=== PATIENT | female | born 1960 | race Caucasian/White ===

== ENCOUNTER 2019-04-16 06:44 | Inpatient (IN) | payer OTHER ==
[2019-04-16 07:33] VITALS: BMI 36.7
[2019-04-16] MEDS ORDERED: VANCOMYCIN 1 GM in D5W (PRE-DOCKED) 1,000 MG/250 ML IVPB ONE (07:51)
--- NOTE | 2019-04-16 07:56 | PDOC ---
History of Present Illness - General Chief Complaint: Wound Stated Complaint: WOUND PAIN Time Seen by Provider: 04/16/19 07:25 - History of Present Illness Initial Comments: 04/16/19 07:52 58 yo F PMH IDDM, chronic wound issues seeing Dr. Gabriel and [facility], last yesterday, most recently lateral LLE wound for approximately the last 3 months s/p multiple debridements, using gentamycin and Santyl ointment, presenting with LLE pain. Reports that she developed severe pain last night and did not respond to Aleve as it normally would, has worsened through the night and was unable to sleep, 10/10 pain, now with greater redness and tenderness around the margins of the wound. Reportedly has not had systemic symptoms (no fevers/chills, GONZALEZ, N/V, constipation/diarrhea, CP, SOB, urinary changes). Reports that diabetes has been well-controlled, fasting sugars in the 90s. Was supposed to get MRI yesterday to check for osteomyelitis Past History - Past Medical History Allergies/Adverse Reactions: Allergies Allergy/AdvReac Type Severity Reaction Status Date / Time No Known Allergies Allergy Verified 04/16/19 07:31 Home Medications: Ambulatory Orders Gabapentin [Neurontin -] 300 mg PO BID 03/22/18 Liraglutide [Victoza -] 1.8 mg IJ DAILY 03/22/18 Atorvastatin Ca [Lipitor] 1 tab PO DAILY 04/09/18 metFORMIN HCL [Metformin HCl ER] 1 tab PO BID 04/08/19 Cyanocobalamin [Vitamin B12 -] 1 tab PO DAILY 04/11/19 Insulin Glargine,Hum.rec.anlog [Basaglar Kwikpen U-100] 12 units SQ ACDIN Meloxicam 15 mg PO DAILY 04/11/19 Multivitamin [One-Daily Multi-Vitamin] 1 tab PO DAILY 04/11/19 Omeprazole 10 mg PO DAILY 04/11/19 Anemia: No Asthma: No Cancer: No Cardiac Disorders: Yes (CARDIAC ARREST X 1) CVA: No COPD: No CHF: No Dementia: No Diabetes: Yes Disorders: No HTN: Yes Hypercholesterolemia: Yes Liver Disease: No Seizures: No Thyroid Disease: No - Surgical History Abdominal Surgery: Yes (GASTRIC BYPASS) Appendectomy: No Cardiac Surgery: No Cholecystectomy: No Lung Surgery: No Neurologic Surgery: No Orthopedic Surgery: Yes (KNEE SURGERY) - Immunization History Immunization Up to Date: No - Psycho Social/Smoking Cessation Hx Smoking History: Former smoker Have you smoked in the past 12 months: No If you are a former smoker, when did you quit?: 2009 Information on smoking cessation initiated: No Hx Alcohol Use: No Drug/Substance Use Hx: No Review of Systems - Review of Systems Able to Perform ROS?: Yes Constitutional: No: Chills, Diaphoresis, Fever HEENTM: No: Recent change in vision, Double Vision, Hearing Loss, Throat Swelling, Difficulty Swallowing Respiratory: No: Cough, Orthopnea, Shortness of Breath Cardiac (ROS): No: Chest Pain, Edema, Irregular Heart Rate, Chest Tightness ABD/GI: No: Constipated, Diarrhea, Nausea, Vomiting : No: Burning, Dysuria, Discharge, Frequency, Flank Pain Musculoskeletal: No: Back Pain, Muscle Pain Integumentary: Yes: Lesions (LLE wound) Neurological: No: Headache, Numbness, Tingling, Weakness, Ataxia, Dizziness *Physical Exam - Vital Signs Last Vital Signs Temp Pulse Resp BP Pulse Ox 98 F 89 18 158/92 100 04/16/19 07:15 04/16/19 07:15 04/16/19 07:15 04/16/19 07:15 04/16/19 07:15 - Physical Exam Comments: 04/16/19 08:11 Gen: well-developed, well-nourished, appears distressed, tearful Neuro: AAOX4, CN II-XII intact, FTN intact, EOMI, PERRLA, 5/5 strength, SILT HEENT: atraumatic, normocephalic, dry mucous membranes Neck: trachea midline, supple CV: regular rate, regular rhythm, no murmurs, rubs, or gallops Pulm: CTA b/l, no wheezing Abd: soft, non-distended, non-tender MSK: full ROM without pain with passive flexion, intact distal pulses Extr: no edema, no deformities Skin: lateral leg wound, approximately 5X6 cm with erythematous and tender margins, no apparent crepitus, no streaking, non-purulent ED Treatment Course - RADIOLOGY Radiology Studies Ordered: Category Date Time Status CHEST X-RAY PORTABLE* [RAD] Stat Radiology 04/16/19 07:50 Ordered Medical Decision Making - Medical Decision Making 04/16/19 08:01 Worsening wound pain in patient with diabetes. No signs of crepitus or compartment syndrome (no pain with passive flexion). - CBC, CMP - EKG, CXR - blood cultures - Ofirmev - admit 04/16/19 08:55 CXR with no acute pathology, tib-fib with no fracture or free air. Discharge - Discharge Information Problems reviewed: Yes Clinical Impression/Diagnosis: Wound cellulitis - Admission Yes - Follow up/Referral Referrals: Birdie De La Fuente MD [Primary Care Provider] - - Patient Discharge Instructions - Post Discharge Activity
[2019-04-16] MEDS ORDERED: ACETAMINOPHEN 1000 MG/100 ML VIAL (NON FORMULARY) IVPB ONE (08:02)
--- NOTE | 2019-04-16 08:15 | PDOC ---
Attending Attestation - Resident Resident Name: Linda Eisenberg - ED Attending Attestation I have performed the following: I have examined & evaluated the patient, The case was reviewed & discussed with the resident, I agree w/resident's findings & plan, Exceptions are as noted - HPI HPI: 04/16/19 08:11 Ms. Hook is a 58 yo F who presents to the ER with a complaint of increasing foot pain She has a PMH of IDDM, HTN, HLD, chronic lateral LLE wound x 3+ months s/p multiple debridements. Pt is currently using gentamycin and Santyl ointment topically. Pt was supposed to have an MRI but could not due to insurance issues. Pt has been having leg pain for which she has been taking Aleve but it has not helped her pain. Currently, her pain is 10/10, surrounding erythema, no drainage, no fevers or chills 04/16/19 08:29 - Physicial Exam PE: 04/16/19 08:12 GENERAL: The patient is in no acute distress. ENT: Ears normal, nares patent, oropharynx clear without exudates. Moist mucous membranes. NECK: Normal range of motion, supple LUNGS: Breath sounds equal, clear to auscultation bilaterally. No wheezes, and no crackles. HEART:Regular rate and rhythm, normal S1 and S2 without murmur, rub or gallop. ABDOMEN: Soft, nontender, normoactive bowel sounds. EXTREMITIES: Normal range of motion, no edema. NEUROLOGICAL: Cranial nerves II through XII grossly intact. Normal speech. No focal neurological deficits. SKIN: lateral leg wound, approximately 5X6 cm with erythematous and tender margins, no apparent crepitus, no streaking, non-purulent 04/16/19 08:37 04/16/19 08:38 - Medical Decision Making 04/16/19 08:38 58 yo F with chronic LLE wound presenting with worsning pain of her left leg wound No systemic signs or symptoms Will do: Labs EKG ABX Xray Admit
[2019-04-16 09:10] LABS: BASO % 0.3 % (0-2.0); EOS % 2.1 % (0-4.5); HEMATOCRIT 36.3 % (32.4-45.2); HEMOGLOBIN 12.1 GM/dL (10.7-15.3); LYMPH % 14.4 % (8-40); MCH 30.4 pg (25.7-33.7); MCHC 33.3 g/dl (32.0-36.0); MEAN CELL VOLUME 91.3 fl (80-96); MEAN PLT VOLUME 8.3 fl (7.5-11.1); MONO % 6.5 % (3.8-10.2); NEUT % 76.7 % (42.8-82.8); PLATELET COUNT 239 K/MM3 (134-434); RBC 3.98 M/mm3 (3.60-5.2); RDW 13.8 % (11.6-15.6); WHITE BLOOD COUNT 8.6 K/mm3 (4.0-10.0)
[2019-04-16] MEDS ORDERED: ACETAMINOPHEN INJECTION 100 ML IVPB ONE (09:17)
[2019-04-16] MEDS ORDERED: PIPERACILLIN/TAZOB 3.375 GM 0 GM/0 ML BAG IVPB ONE (09:36)
[2019-04-16] MEDS ORDERED: VANCOMYCIN 1 GRAM (PRE-DOCKED) 1,000 MG/250 ML BAG IVPB ONE (09:36)
[2019-04-16 09:52] LABS: ALBUMIN 3.6 g/dl (3.4-5.0); BLOOD UREA NITROGEN 16.1 mg/dL (7-18); CALCIUM 9.1 mg/dL (8.5-10.1); CREATININE 0.6 mg/dL (0.55-1.3); POTASSIUM 4.5 mmol/L (3.5-5.1); TOT PROT 6.5 g/dl (6.4-8.2)
[2019-04-16] MEDS ORDERED: PIPERACILLIN/TAZOB 3.375 GM 3.375 GM/50 ML BAG IVPB ONE (10:24)
[2019-04-16] MEDS: PIPERACILLIN/TAZOB 3.375 GM 3.375 GM in DEXTROSE 5%-WATER - 50 ML IVPB SCH ×3 (10:30→18:02)
--- NOTE | 2019-04-16 10:32 | PN ---
Teaching Attending Note Name of Resident: Chandni Mcpherson ATTENDING PHYSICIAN STATEMENT I saw and evaluated the patient. I reviewed the resident's note and discussed the case with the resident. I agree with the resident's findings and plan as documented with exceptions below. SUBJECTIVE: 58 yof with PMHx of IDDM, HTN, HLD, right posterior calf wound since 03/2018, being [facility], s/p HBO, s/p debridement/ santyl/bactroban/HBO treatments with resolution, now with left lateral leg wound since 01/2019, s/p debridement, levaquin in 03/2019, also s/p NAV[facility] ultrasound, recurrent debridements left leg wound, s/p levaquin 750 mg daily for 7 days in 03/2019, comes with worsening left calf wound pain, redness. no fevers, chills, increased discharge or concerns otherwise. OBJECTIVE: Vital Signs Period Temp Pulse Resp BP Sys/Doran Pulse Ox Last 24 Hr 98 F 89 18 158/92 100 Intake & Output 04/13/19 04/14/19 04/15/19 04/16/19 23:59 23:59 23:59 23:59 Weight 188 lb GENERAL: Awake, alert, and fully oriented, in no acute distress, morbidly obese (BMI 36.7). HEAD: Normal with no signs of trauma. EYES: Pupils equal, round and reactive to light, extraocular movements intact, sclera anicteric, conjunctiva clear. No lid lag. EARS, NOSE, THROAT: Ears normal, nares patent, oropharynx clear without exudates. Moist mucous membranes. NECK: Normal range of motion, supple, no JVD noted LUNGS: Breath sounds equal, clear to auscultation bilaterally. No wheezes, and no crackles. No accessory muscle use. HEART: Regular rate and rhythm, normal S1 and S2 ABDOMEN: Soft, obese, nontender, not distended, normoactive bowel sounds, no guarding, no rebound, no masses. MUSCULOSKELETAL: Normal range of motion at all joints. No bony deformities or tenderness. No CVA tenderness. UPPER EXTREMITIES: 2+ pulses, warm, well-perfused. No cyanosis. No clubbing. No peripheral edema. LOWER EXTREMITIES: 2+ pulses, warm, well-perfused. no edema, healed right calf wound, left mid posterior calf with 4x3 cm wound with fat/granulation tissue at base, surrounding erythema/tenderness/hyperpigmentation, no active discharge or foul smell noted. NEUROLOGICAL: AAOx3, Cranial nerves II-XII intact. Normal speech. gait not observed PSYCHIATRIC: Cooperative. Good eye contact. Appropriate mood and affect. SKIN: Warm, dry, normal turgor, no rashes or lesions noted, normal capillary refill. Punctate macular lesions on extremities (chronic per patient) Home Medications Medication Instructions Recorded Gabapentin [Neurontin -] 300 mg PO BID 03/22/18 Liraglutide [Victoza -] 1.8 mg IJ DAILY 03/22/18 Atorvastatin Ca [Lipitor] 1 tab PO DAILY 04/09/18 metFORMIN HCL [Metformin HCl ER] 1 tab PO BID 04/08/19 Cyanocobalamin [Vitamin B12 -] 1 tab PO DAILY 04/11/19 Insulin Glargine,Hum.rec.anlog 12 units SQ ACDIN 04/11/19 [Basaglar Kwikpen U-100] Meloxicam 15 mg PO DAILY 04/11/19 Multivitamin [One-Daily 1 tab PO DAILY 04/11/19 Multi-Vitamin] Omeprazole 10 mg PO DAILY 04/11/19 Active Medications Piperacillin Sod/Tazobactam (Sod 3.375 gm/ Dextrose) 50 mls @ 100 mls/hr IVPB Q8H-IV PRABHAKAR; Protocol Laboratory Tests 04/16/19 04/16/19 04/16/19 08:55 08:55 08:55 WBC 8.6 RBC 3.98 Hgb 12.1 Hct 36.3 MCV 91.3 MCH 30.4 MCHC 33.3 RDW 13.8 Plt Count 239 MPV 8.3 Absolute Neuts (auto) 6.6 Neutrophils % 76.7 Lymphocytes % 14.4 D Monocytes % 6.5 Eosinophils % 2.1 Basophils % 0.3 Nucleated RBC % 0 ESR Sodium 139 Potassium 4.5 Chloride 106 Carbon Dioxide 31 Anion Gap 2 L BUN 16.1 Creatinine 0.6 Est GFR (CKD-EPI)AfAm 114.82 Est GFR (CKD-EPI)NonAf 99.07 Random Glucose 93 Calcium 9.1 Total Bilirubin 1.0 AST 22 ALT 27 Alkaline Phosphatase 136 H C-Reactive Protein 0.5 H Cancelled Total Protein 6.5 Albumin 3.6 04/16/19 08:55 WBC RBC Hgb Hct MCV MCH MCHC RDW Plt Count MPV Absolute Neuts (auto) Neutrophils % Lymphocytes % Monocytes % Eosinophils % Basophils % Nucleated RBC % ESR 44 H Sodium Potassium Chloride Carbon Dioxide Anion Gap BUN Creatinine Est GFR (CKD-EPI)AfAm Est GFR (CKD-EPI)NonAf Random Glucose Calcium Total Bilirubin AST ALT Alkaline Phosphatase C-Reactive Protein Total Protein Albumin Left tibia fibular and CXR results reviewed ASSESSMENT AND PLAN: 58 yof with PMHx of IDDM, HTN, HLD, chronic bilateral leg wounds, right posterior calf, now left lateral leg, comes with LLE wound infection/cellulitis -Acute on chronic LLE wound infection/cellulitis, r/o abscess/osteomyelitis -Failure of outpatient antibiotic treatment -Healed right posterior calf wound -IDDM -HTN -HLD Plan: Prior wound cx noted. Zosyn/vancomycin. ESR/CRP noted. MRI /Duplex LLE Wound care consult Dr. Gabriel, is reportedly planned for skin grafting with Dr. alcala, plastics consult. ID consult Dr. Puckett. abbi, ISS, check A1c. Hold metformin. Continue statin/gabapentin/MVI/PPI DVTPPX Lovenox Dispo pending clinical improvement. Admit to med surg Plan discussed with patient in detail, all questions answered Total admit time 65 min.
[2019-04-16] MEDS: GENTAMICIN SO4 0.1% TOPICAL OINTMENT 15 GM/TUBE TUBE TP SCH ×2 (11:00→11:15)
[2019-04-16] MEDS ORDERED: ACETAMINOPHEN 325 MG TABLET (FP) PO PRN (11:01)
--- NOTE | 2019-04-16 11:14 | HP ---
CHIEF COMPLAINT: LLE pain PCP: Dr. Miguel HISTORY OF PRESENT ILLNESS: 58F w/ pmhx of IDDM, HTN/HLD presents in the ED with a LLE wound ulcer with worsening pain and redness. States she had a wound ulcer on the lateral aspect of her LLE that started in Jan [address] in [address] sees Dr[address] Gabriel at the wound care clinic for treatment. Says she is currently going to hyperbaric therapy for the wound (has at least 20 more sessions left) and last saw Dr. Gabriel last Thursday for wound debridement. She additionally saw Dr. Williamson (plastic surgeon) last Thursday who reported that she would benefit from a skin graft. Since last night, she complained of worsening pain and redness of the wound. When this happens she usually takes Aleve with good relief, but this time the pain was unbearable. Usually she applies Gentamicin ointment and Santyl cream on the wound as prescribed and wraps her wound in a dressing. States she has taken PO abx in the past, last known February. Denies fever, chills, nausea/vomiting, chest pain, sob, abd pain, urinary/bowel symptoms. 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 Has 3 sons Allergies No Known Allergies Allergy (Verified 04/16/19 07:31) HOME MEDICATIONS: Home Medications Medication Instructions Recorded Gabapentin [Neurontin -] 300 mg PO BID 03/22/18 Liraglutide [Victoza -] 1.8 mg IJ DAILY 03/22/18 Atorvastatin Ca [Lipitor] 1 tab PO DAILY 04/09/18 metFORMIN HCL [Metformin HCl ER] 1 tab PO BID 04/08/19 Cyanocobalamin [Vitamin B12 -] 1 tab PO DAILY 04/11/19 Insulin Glargine,Hum.rec.anlog 12 units SQ ACDIN 04/11/19 [Basaglar Kwikpen U-100] Meloxicam 15 mg PO DAILY 04/11/19 Multivitamin [One-Daily 1 tab PO DAILY 04/11/19 Multi-Vitamin] Omeprazole 10 mg PO DAILY 04/11/19 REVIEW OF SYSTEMS CONSTITUTIONAL: Absent: fever, chills, diaphoresis, generalized weakness, malaise, loss of appetite, weight change HEENT: Absent: rhinorrhea, nasal congestion, throat pain, throat swelling, difficulty swallowing, mouth swelling, ear pain, eye pain, visual changes CARDIOVASCULAR: Absent: chest pain, syncope, palpitations, irregular heart rate, lightheadedness , peripheral edema RESPIRATORY: Absent: cough, shortness of breath, dyspnea with exertion, orthopnea, wheezing, stridor, hemoptysis GASTROINTESTINAL: Absent: abdominal pain, abdominal distension, nausea, vomiting, diarrhea, constipation, melena, hematochezia GENITOURINARY: Absent: dysuria, frequency, urgency, hesitancy, hematuria, flank pain, genital pain MUSCULOSKELETAL: +worsening LLE pain at wound, +tenderness/redness Absent: myalgia, arthralgia, joint swelling, back pain, neck pain SKIN: Absent: rash, itching, pallor HEMATOLOGIC/IMMUNOLOGIC: Absent: easy bleeding, easy bruising, lymphadenopathy, frequent infections ENDOCRINE: Absent: unexplained weight gain, unexplained weight loss, heat intolerance, cold intolerance NEUROLOGIC: Absent: headache, focal weakness or paresthesias, dizziness, unsteady gait, seizure, mental status changes, bladder or bowel incontinence PSYCHIATRIC: Absent: anxiety, depression, suicidal or homicidal ideation, hallucinations. PHYSICAL EXAMINATION Vital Signs - 24 hr 04/16/19 07:15 Temperature 98 F Pulse Rate 89 Respiratory 18 Rate Blood Pressure 158/92 O2 Sat by Pulse 100 Oximetry (%) GENERAL: Well-appearing female in NAD. AAOx3. HEENT: AT/NC. EOMI. MMM. Facial symmetry noted. NECK: Normal range of motion, supple without lymphadenopathy, JVD, or masses. LUNGS: CTA B/L. No wheezes, rhonchi, rales noted. HEART: RRR. Normal S1, S2. No murmurs noted. ABDOMEN: Obese. Soft, NT/ND. Normoactive bowel sounds. No masses noted. MUSCULOSKELETAL: Normal range of motion at all joints. No bony deformities or tenderness. No CVA tenderness. UPPER EXTREMITIES: 2+ pulses, warm, well-perfused. No cyanosis. No clubbing. No peripheral edema. LOWER EXTREMITIES: 2+ pulses, warm, well-perfused. Mild peripheral edema b/l. NEUROLOGICAL: Cranial nerves II-XII intact. Normal speech. PSYCHIATRIC: Cooperative. Good eye contact. Appropriate mood and affect. SKIN: Warm, dry, normal turgor. 7x5cm ulcer seen on last aspect of L distal lower leg. No obvious discharge, non-foul smelling; subcutaneous fat seen at the base, with some granulation tissue. Erythematous borders. Extremely tender to light touch. CBC, BMP 04/16/19 08:55 04/16/19 08:55 ASSESSMENT/PLAN: 58F w/ pmhx of IDDM, HTN/HLD presents in the ED with a LLE wound ulcer with worsening pain and redness. #Acute on Chronic LLE wound ulcer; r/o osteomyelitis -IV Vanc/Zosyn given in ED -Wound care/Vasc consulted -Plastic consulted; Per pt, she has outpatient follow up care with plastics for possible skin graft -ID consulted -Tylenol and Toradol for pain PRN -LLE duplex; r/o DVT -LLE MRI; r/o osteomyelitis #IDDM; Stable. Hold all home oral DM meds -Levemir 12U HS -BGMs/ISS ACHS #HTN/HLD; Cont home meds: Atorvastatin 40, Lisinopril 20 #Prophylaxis DVT: Lovenox GI: Cont home med: Omeprazole 40 FEN -PO hydration -Diabetic diet Dispo -Admit to med-surg Visit type - Emergency Visit Emergency Visit: Yes ED Registration Date: 04/16/19 Care time: The patient presented to the Emergency Department on the above date and was hospitalized for further evaluation of their emergent condition. - New Patient This patient is new to me today: Yes Date on this admission: 04/16/19 - Critical Care Critical Care patient: No ATTENDING PHYSICIAN STATEMENT I saw and evaluated the patient. I reviewed the resident's note and discussed the case with the resident. I agree with the resident's findings and plan as documented. SUBJECTIVE: OBJECTIVE: ASSESSMENT AND PLAN:
[2019-04-16] MEDS: COLLAGENASE CLOSTRIDIUM HIST. 30 GRAMS TUBE TP SCH (11:32)
[2019-04-16] MEDS ORDERED: KETOROLAC TROMETHAMINE 15 MG/ML VIAL ONE (11:36)
[2019-04-16] MEDS: VITAMIN B COMP W-C 1 EA TABLET PO SCH (11:45)
[2019-04-16] MEDS: CHOLECALCIFEROL (VIT D3) 1,000 UNIT (25 MCG) TABLET PO SCH (11:45)
[2019-04-16] MEDS: CYANOCOBALAMIN (VITAMIN B-12) 100 MCG TABLET PO SCH (11:45)
[2019-04-16] MEDS ORDERED: ASPIRIN 81 MG CHEWABLE TABLETS ONE (12:25)
[2019-04-16] MEDS ORDERED: PANTOPRAZOLE 40 MG TABLET (FP) ONE (12:25)
[2019-04-16] MEDS ORDERED: GABAPENTIN 100 MG CAPSULE (FP) ONE (12:25)
[2019-04-16] MEDS: PANTOPRAZOLE 40 MG TABLET (FP) PO SCH (12:28)
[2019-04-16] MEDS: GABAPENTIN 300 MG CAPSULE (FP) PO SCH (12:28)
[2019-04-16] MEDS: ASPIRIN 81 MG CHEWABLE TABLETS PO SCH (12:28)
[2019-04-16] MEDS ORDERED: ENOXAPARIN NA (PORCINE) 80 MG/0.8 ML DISP.SYRIN SQ SCH (15:30)
[2019-04-16] MEDS: ENOXAPARIN NA (PORCINE) 100 MG/1 ML DISP.SYRIN SQ SCH ×2 (15:36→22:11)
--- NOTE | 2019-04-16 16:14 | CON.ID ---
<Machelle Cobos - Last Filed: 04/16/19 16:08> Consult - History of Present Illness History of Present Illness: 58 y.o. female with PMH of HTN, HLD, IDDM, b/l LE ulcers, LLE ulcer s/p debridements, being followed by Wound care and receiving HBO presents with c/o sudden increase in pain in LLE since last night. Pt states she normally has pain in LLE but it became severe. She completed a one wk course of antibiotics a few weeks ago. Pt states she also noticed some erythema around the ulcer site. In the ER she had a normal wbc and has been afebrile. She has no other specific complaints. LLE doppler reveals +DVT in Lt superficial fem vein. - History Source History Provided By: Patient Limitations to Obtaining History: No Limitations - Past Medical History Cardio/Vascular: Yes: HTN Endocrine: Yes: Diabetes Mellitus Dermatology: Yes: Other (b/l LE ulcers) - Alcohol/Substance Use Hx Alcohol Use: No - Smoking History Smoking history: Former smoker Have you smoked in the past 12 months: No If you are a former smoker, when did you quit?: 2009 Home Medications - Allergies Allergies/Adverse Reactions: Allergies Allergy/AdvReac Type Severity Reaction Status Date / Time No Known Allergies Allergy Verified 04/16/19 07:31 - Home Medications Home Medications: Ambulatory Orders Gabapentin [Neurontin -] 300 mg PO DAILY 03/22/18 Liraglutide [Victoza -] 1.8 mg IJ DAILY 03/22/18 metFORMIN HCL [Metformin HCl ER] 750 mg PO DAILY 04/08/19 Cyanocobalamin [Vitamin B12 -] 1 tab PO DAILY 04/11/19 Insulin Glargine,Hum.rec.anlog [Basaglar Kwikpen U-100] 12 units SQ HS 04/11/19 Meloxicam 15 mg PO DAILY 04/11/19 Multivitamin [One-Daily Multi-Vitamin] 1 tab PO DAILY 04/11/19 Aspirin [ASA -] 81 mg PO DAILY 04/16/19 Atorvastatin Ca [Lipitor] 40 mg PO DAILY 04/16/19 Cholecalciferol (Vitamin D3) [Vitamin D3] 5,000 unit PO DAILY 04/16/19 Ertugliflozin Pidolate [Steglatro] 15 mg PO DAILY 04/16/19 Lisinopril 20 mg PO DAILY 04/16/19 Omeprazole 40 mg PO DAILY 04/16/19 Vitamin B Complex 1 each PO DAILY 04/16/19 Review of Systems - Review of Systems Constitutional: reports: No Symptoms. denies: Chills, Diaphoresis, Fever, Lethargy, Loss of Appetite, Malaise, Night Sweats, Unintentional Wgt. Loss, Weakness, Other Eyes: reports: No Symptoms. denies: Blind Spots, Blurred Vision, Double Vision , Eye Pain, Floaters, Photophobia, Recent Change in Vision, Other HENT: reports: No Symptoms. denies: Difficult Swallowing, Ear Discharge, Ear Pain, Epistaxis, Gingival Bleeding, Hearing Loss, Mouth Swelling, Nasal Congestion, Ocular Prosthesis, Throat Pain, Toothache, Ringing in Ears, Other Neck: reports: No Symptoms. denies: Decreased ROM, Lumps, Pain on Movement, Stiffness, Swollen Glands, Tenderness, Other Cardiovascular: reports: No Symptoms. denies: Chest Pain, Edema, Palpitations, Shortness of Breath, Other Respiratory: reports: No Symptoms. denies: Cough, Exercise Intolerance, Hemoptysis, Orthopnea, PND, Snoring, SOB, SOB on Exertion, Wheezing, Other Gastrointestinal: reports: No Symptoms. denies: Abdominal Pain, Bloating, Constipation, Diarrhea, Dysphagia, Indigestion, Melena, Nausea, Rectal Bleeding , Vomiting, Vomiting Blood, Other Genitourinary: reports: No Symptoms. denies: Burning, Discharge, Dysuria, Flank Pain, Frequency, Hematuria, Incontinence, Lesions, Menses, Pain, Testicular Mass, Testicular Pain, Testicular Swelling, Urgency, Vaginal Bleeding , Other Musculoskeletal: reports: No Symptoms. denies: Back Pain, Crepitus, Decreased ROM, Extremity Pain, Joint Pain, Joint Swelling, Muscle Pain, Muscle Cramps, Muscle Weakness, Other Integumentary: reports: Erythema, Wound Neurological: reports: No Symptoms. denies: Change in LOC, Change in Speech, Confusion, Dizziness, Headache, Incoordination, Numbness, Parasthesia, Pre- Existing Deficit, Seizure, Syncope, Tremors, Unsteady Gait, Weakness, Other Endocrine: reports: No Symptoms. denies: Excessive Sweating, Flushing, Increased Hunger, Increased Thirst, Intolerance to Cold, Intolerance to Heat, Unexplained Weight Gain, Unexplained Weight Loss, Other Hematology/Lymphatic: reports: No Symptoms. denies: Easily Bruised, Excessive Bleeding, Swollen Glands, Other Psychiatric: reports: No Symptoms. denies: Altered Sleep Pattern, Anxiety, Depression, Hallucinations, Panic, Paranoia, Suicidal, Other Physical Exam Vital Signs: Vital Signs Temperature 97.3 F L 04/16/19 13:28 Pulse Rate 109 H 04/16/19 13:28 Respiratory Rate 20 04/16/19 13:28 Blood Pressure 100/60 04/16/19 13:28 O2 Sat by Pulse Oximetry (%) 98 04/16/19 13:28 Constitutional: Yes: No Distress, Calm Eyes: Yes: Conjunctiva Clear HENT: Yes: Atraumatic Neck: Yes: Supple Cardiovascular: Yes: Regular Rate and Rhythm Respiratory: Yes: CTA Bilaterally Gastrointestinal: Yes: Normal Bowel Sounds, Soft Renal/: Yes: WNL Musculoskeletal: Yes: WNL Extremities: Yes: Erythema Integumentary: Yes: Other Wound/Incision: Yes: Dressing Removed, Other (LLE ulcer 7.5x5 cm approx, no purulence, +mild erythema, +tenderness) Neurological: Yes: Alert, Oriented Psychiatric: Yes: Alert Labs: CBC, BMP 04/16/19 08:55 04/16/19 08:55 Laboratory Tests 04/16/19 04/16/19 04/16/19 08:55 08:55 08:55 WBC 8.6 RBC 3.98 Hgb 12.1 Hct 36.3 MCV 91.3 MCH 30.4 MCHC 33.3 RDW 13.8 Plt Count 239 MPV 8.3 Absolute Neuts (auto) 6.6 Neutrophils % 76.7 Lymphocytes % 14.4 D Monocytes % 6.5 Eosinophils % 2.1 Basophils % 0.3 Nucleated RBC % 0 ESR Sodium 139 Potassium 4.5 Chloride 106 Carbon Dioxide 31 Anion Gap 2 L BUN 16.1 Creatinine 0.6 Est GFR (CKD-EPI)AfAm 114.82 Est GFR (CKD-EPI)NonAf 99.07 POC Glucometer Random Glucose 93 Calcium 9.1 Total Bilirubin 1.0 AST 22 ALT 27 Alkaline Phosphatase 136 H C-Reactive Protein 0.5 H Cancelled Total Protein 6.5 Albumin 3.6 04/16/19 04/16/19 08:55 11:13 WBC RBC Hgb Hct MCV MCH MCHC RDW Plt Count MPV Absolute Neuts (auto) Neutrophils % Lymphocytes % Monocytes % Eosinophils % Basophils % Nucleated RBC % ESR 44 H Sodium Potassium Chloride Carbon Dioxide Anion Gap BUN Creatinine Est GFR (CKD-EPI)AfAm Est GFR (CKD-EPI)NonAf POC Glucometer 80 Random Glucose Calcium Total Bilirubin AST ALT Alkaline Phosphatase C-Reactive Protein Total Protein Albumin Imaging - Results X-ray: Report Reviewed Ultrasound: Report Reviewed Problem List - Problems (1) Wound cellulitis Code(s): L03.90 - CELLULITIS, UNSPECIFIED (2) Type 2 diabetes mellitus with diabetic polyneuropathy Code(s): E11.42 - TYPE 2 DIABETES MELLITUS WITH DIABETIC POLYNEUROPATHY Assessment/Plan LLE DVT LLE ulcer - possible cellulitis IDDM HTN HLD -- will continue antibiotics for now -- Anticoagulation ordered -- daily wound care -- Plastics to follow - graft had been planned Will follow Thank you <Piter Williamson - Last Filed: 04/16/19 20:43> Physical Exam Vital Signs: Vital Signs Temperature 97.3 F L 04/16/19 13:28 Pulse Rate 109 H 04/16/19 13:28 Respiratory Rate 20 04/16/19 13:28 Blood Pressure 100/60 04/16/19 13:28 O2 Sat by Pulse Oximetry (%) 98 04/16/19 13:28 Labs: CBC, BMP 04/16/19 08:55 04/16/19 08:55
[2019-04-16] MEDS: INSULIN SLIDING SCALE (NOVOLOG) 1 VIAL SQ SCH ×2 (17:30→23:41)
[2019-04-16] MEDS ORDERED: DEXTROSE 5%-WATER - 50 ML IVPB ONE (17:59)
[2019-04-16] MEDS ORDERED: PIPERACILLIN/TAZOBACTAM 3.375 GM VIAL IVPB ONE (17:59)
[2019-04-16] MEDS: KETOROLAC TROMETHAMINE 15 MG/ML VIAL IVPUSH PRN (18:02)
--- NOTE | 2019-04-16 20:06 | PN ---
Progress Note (short form) - Note Progress Note: 58 year old female wit acute trauma Left let Leg h
[2019-04-16] MEDS: LIDOCAINE HCL 2% JELLY (30 ML/TUBE) TP PRN (22:10)
[2019-04-16] MEDS: ATORVASTATIN CA 40 MG TABLET (FP) PO SCH (22:11)
[2019-04-17] MEDS ORDERED: PIPERACILLIN/TAZOBACTAM 3.375 GM VIAL IVPB ONE ×3 (02:43→17:33)
[2019-04-17] MEDS ORDERED: DEXTROSE 5%-WATER - 50 ML IVPB ONE ×3 (02:43→17:33)
[2019-04-17] MEDS: PIPERACILLIN/TAZOB 3.375 GM 3.375 GM in DEXTROSE 5%-WATER - 50 ML IVPB SCH ×3 (02:44→17:42)
[2019-04-17] MEDS: KETOROLAC TROMETHAMINE 15 MG/ML VIAL IVPUSH PRN ×2 (02:45→18:00)
[2019-04-17] MEDS: LIDOCAINE HCL 2% JELLY (30 ML/TUBE) TP PRN (06:20)
[2019-04-17] MEDS: INSULIN SLIDING SCALE (NOVOLOG) 1 VIAL SQ SCH ×4 (06:20→21:16)
[2019-04-17 07:57] LABS: HEMATOCRIT 32.8 % (32.4-45.2); HEMOGLOBIN 11.1 GM/dL (10.7-15.3); MCH 30.8 pg (25.7-33.7); MCHC 33.8 g/dl (32.0-36.0); MEAN CELL VOLUME 91.2 fl (80-96); MEAN PLT VOLUME 8.7 fl (7.5-11.1); PLATELET COUNT 214 K/MM3 (134-434); RDW 13.9 % (11.6-15.6); WHITE BLOOD COUNT 6.1 K/mm3 (4.0-10.0)
[2019-04-17 08:45] LABS: BLOOD UREA NITROGEN 20.9 mg/dL (7-18); CALCIUM 8.6 mg/dL (8.5-10.1); CREATININE 0.7 mg/dL (0.55-1.3); POTASSIUM 4.6 mmol/L (3.5-5.1)
[2019-04-17] MEDS: CHOLECALCIFEROL (VIT D3) 1,000 UNIT (25 MCG) TABLET PO SCH (09:09)
[2019-04-17] MEDS: ENOXAPARIN NA (PORCINE) 100 MG/1 ML DISP.SYRIN SQ SCH ×2 (09:09→21:17)
[2019-04-17] MEDS: VITAMIN B COMP W-C 1 EA TABLET PO SCH (09:09)
[2019-04-17] MEDS: CYANOCOBALAMIN (VITAMIN B-12) 100 MCG TABLET PO SCH (09:09)
[2019-04-17] MEDS: ASPIRIN 81 MG CHEWABLE TABLETS PO SCH (09:09)
[2019-04-17] MEDS: GABAPENTIN 300 MG CAPSULE (FP) PO SCH (09:09)
[2019-04-17] MEDS: PANTOPRAZOLE 40 MG TABLET (FP) PO SCH (09:09)
[2019-04-17] MEDS ORDERED: ENOXAPARIN NA (PORCINE) 40 MG/0.4 ML DISP.SYRIN SQ SCH (10:00)
--- NOTE | 2019-04-17 10:51 | EKG ---
Test Reason : Blood Pressure : / mmHG Vent. Rate : 091 BPM Atrial Rate : 091 BPM P-R Int : 144 ms QRS Dur : 068 ms QT Int : 356 ms P-R-T Axes : 039 008 041 degrees QTc Int : 437 ms NORMAL SINUS RHYTHM NORMAL ECG NO PREVIOUS ECGS AVAILABLE Confirmed by SUZIE PARKER MD ([id number]) on 04/17/2019 10:51:33 AM Referred By: Confirmed By:SUZIE PARKER MD
--- NOTE | 2019-04-17 10:59 | PN ---
Physical Exam: SUBJECTIVE: Patient seen and examined, leg symptoms improved, aware of the clot , no new complaints. OBJECTIVE: Vital Signs Period Temp Pulse Resp BP Sys/Doran Pulse Ox Last 24 Hr 97.3 F-98.6 F 84-109 18-20 100-136/57-78 98-99 Intake & Output 04/14/19 04/15/19 04/16/19 04/17/19 23:59 23:59 23:59 23:59 Intake Total 490 254 Balance 490 254 Weight 188 lb GENERAL: sitting in bed, no acute distress, morbid obesity (BMI 36.7) neck: soft, supple Chest: CTAB, no rales or wheezing Abdomen:Soft, obese, NT Extremities: LLE 2+ pulses, warm, well-perfused. no edema, healed right calf wound, left mid posterior calf with 4x3 cm wound with fat/granulation tissue at base, surrounding erythema/tenderness with improvement, no active discharge or foul smell noted. Laboratory Results - last 24 hr 04/16/19 04/16/19 04/16/19 11:13 17:03 20:42 WBC RBC Hgb Hct MCV MCH MCHC RDW Plt Count MPV Sodium Potassium Chloride Carbon Dioxide Anion Gap BUN Creatinine Est GFR (CKD-EPI)AfAm Est GFR (CKD-EPI)NonAf POC Glucometer 80 69 92 Random Glucose Hemoglobin A1c % Calcium 04/17/19 04/17/19 04/17/19 05:17 07:05 07:05 WBC 6.1 RBC 3.60 Hgb 11.1 Hct 32.8 MCV 91.2 MCH 30.8 MCHC 33.8 RDW 13.9 Plt Count 214 MPV 8.7 Sodium 143 Potassium 4.6 Chloride 109 H Carbon Dioxide 29 Anion Gap 5 L BUN 20.9 H Creatinine 0.7 Est GFR (CKD-EPI)AfAm 109.15 Est GFR (CKD-EPI)NonAf 94.17 POC Glucometer 98 Random Glucose 97 Hemoglobin A1c % Calcium 8.6 04/17/19 07:05 WBC RBC Hgb Hct MCV MCH MCHC RDW Plt Count MPV Sodium Potassium Chloride Carbon Dioxide Anion Gap BUN Creatinine Est GFR (CKD-EPI)AfAm Est GFR (CKD-EPI)NonAf POC Glucometer Random Glucose Hemoglobin A1c % 7.1 H Calcium Active Medications Generic Name Dose Route Start Last Admin Trade Name Freq PRN Reason Stop Dose Admin Acetaminophen 650 mg 04/16/19 11:01 04/16/19 20:39 Tylenol - PO 650 mg Q4H PRN Administration PAIN LEVEL 1-5 Aspirin 81 mg 04/16/19 11:45 04/17/19 09:09 Asa - PO 81 mg DAILY [facility] Administration Atorvastatin Calcium 40 mg 04/16/19 22:00 04/16/19 22:11 Lipitor - PO 40 mg HS [facility] Administration Cholecalciferol 5,000 unit 04/16/19 11:45 04/17/19 09:09 Vitamin D3 - PO 5,000 unit DAILY [facility] Administration Collagenase 1 applic 04/16/19 11:15 04/16/19 11:32 Santyl - TP 1 units DAILY [facility] Administration Protocol Cyanocobalamin 100 mcg 04/16/19 11:45 04/17/19 09:09 Vitamin B12 - PO 100 mcg DAILY [facility] Administration Enoxaparin Sodium 85 mg 04/16/19 15:30 04/17/19 09:09 Lovenox - SQ 85 mg BID [facility] Administration Gabapentin 300 mg 04/16/19 11:45 04/17/19 09:09 Neurontin - PO 300 mg DAILY [facility] Administration Gentamicin Sulfate 1 applic 04/16/19 11:15 04/16/19 11:15 Garamycin 0.1% Ointment - TP Not Given DAILY [facility] Piperacillin Sod/Tazobactam 50 mls @ 100 mls/hr 04/16/19 08:00 04/17/19 09:10 Sod 3.375 gm/ Dextrose IVPB 100 mls/hr Q8H-IV [facility] Administration Protocol Insulin Aspart 1 vial 04/16/19 16:30 04/17/19 06:20 Novolog Vial Sliding Scale - SQ [facility] Protocol Ketorolac Tromethamine 15 mg 04/16/19 11:01 04/17/19 02:45 Toradol Injection - IVPUSH 04/21/19 11:00 15 mg Q6H PRN Administration PAIN LEVEL 6-10 Lidocaine HCl 1 applic 04/16/19 22:00 04/17/19 06:20 Xylocaine 2% Jelly TP 1 appful TID PRN Administration TOPICAL PAIN Multivit/Ca Carb/B Cmplx/FA/Prenat 1 tablet 04/16/19 11:45 04/17/19 09:09 Nephro-Mel - PO 1 tablet DAILY [facility] Administration Pantoprazole Sodium 40 mg 04/16/19 11:45 04/17/19 09:09 Protonix - PO 40 mg DAILY [facility] Administration Duplex LE results noted ASSESSMENT/PLAN: 58 yof with PMHx of IDDM, HTN, HLD, chronic bilateral leg wounds, right posterior calf, now left lateral leg, comes with LLE wound infection/cellulitis -Acute on chronic LLE wound infection/cellulitis, r/o abscess/osteomyelitis -Acute left superficial vein DVT -Failure of outpatient antibiotic treatment -Healed right posterior calf wound -IDDM -HTN -HLD Plan: Started on lovenox, will transition to NOAC if no surgical intervention planned. Discussed findings in detail, discussed need for AC and close follow up outpt. ID input noted. Zosyn/vancomycin. Dr. alcala input noted. [facility] US from this month reviewed, follow up Dr. Gabriel's input. Follow up MRI LLE. A1c 7.1 Low BS yesterday likely from poor oral intake till evening. Off levemir for now. resume based on BGM. Continue ISS, hold metformin. Continue statin/gabapentin/MVI/PPI DVTPPX full dose lovenox as above Dispo pending clinical improvement. Plan discussed with patient in detail, all questions answered Visit type - Emergency Visit Emergency Visit: Yes ED Registration Date: 04/16/19 Care time: The patient presented to the Emergency Department on the above date and was hospitalized for further evaluation of their emergent condition. - New Patient This patient is new to me today: No - Critical Care Critical Care patient: No - Discharge Referral Referred to [facility] Med P.C.: No
[2019-04-17] MEDS: COLLAGENASE CLOSTRIDIUM HIST. 30 GRAMS TUBE TP SCH ×2 (11:00→16:56)
[2019-04-17] MEDS: GENTAMICIN SO4 0.1% TOPICAL OINTMENT 15 GM/TUBE TUBE TP SCH (11:00)
--- NOTE | 2019-04-17 17:53 | PN ---
Progress Note, Physician History of Present Illness: Pt states she is feeling a bit better. States she ambulated a bit in the hallway earlier, still with some LLE pain. - Current Medication List Current Medications: Active Medications Acetaminophen (Tylenol -) 650 mg PO Q4H PRN PRN Reason: PAIN LEVEL 1-5 Last Admin: 04/16/19 20:39 Dose: 650 mg Aspirin (Asa -) 81 mg PO DAILY [facility] Last Admin: 04/17/19 09:09 Dose: 81 mg Atorvastatin Calcium (Lipitor -) 40 mg PO HS [facility] Last Admin: 04/16/19 22:11 Dose: 40 mg Cholecalciferol (Vitamin D3 -) 5,000 unit PO DAILY [facility] Last Admin: 04/17/19 09:09 Dose: 5,000 unit Collagenase (Santyl -) 1 applic TP DAILY [facility]; Protocol Last Admin: 04/17/19 16:56 Dose: Not Given Cyanocobalamin (Vitamin B12 -) 100 mcg PO DAILY [facility] Last Admin: 04/17/19 09:09 Dose: 100 mcg Enoxaparin Sodium (Lovenox -) 85 mg SQ BID [facility] Last Admin: 04/17/19 09:09 Dose: 85 mg Gabapentin (Neurontin -) 300 mg PO DAILY [facility] Last Admin: 04/17/19 09:09 Dose: 300 mg Gentamicin Sulfate (Garamycin 0.1% Ointment -) 1 applic TP DAILY [facility] Last Admin: 04/17/19 11:00 Dose: 1 applic Piperacillin Sod/Tazobactam (Sod 3.375 gm/ Dextrose) 50 mls @ 100 mls/hr IVPB Q8H-IV [facility]; Protocol Last Admin: 04/17/19 17:42 Dose: 100 mls/hr Insulin Aspart (Novolog Vial Sliding Scale -) 1 vial SQ ACHS [facility]; Protocol Last Admin: 04/17/19 16:53 Dose: Not Given Ketorolac Tromethamine (Toradol Injection -) 15 mg IVPUSH Q6H PRN PRN Reason: PAIN LEVEL 6-10 Stop: 04/21/19 11:00 Last Admin: 04/17/19 02:45 Dose: 15 mg Lidocaine HCl (Xylocaine 2% Jelly) 1 applic TP TID PRN PRN Reason: TOPICAL PAIN Last Admin: 04/17/19 06:20 Dose: 1 appful Multivit/Ca Carb/B Cmplx/FA/Prenat (Nephro-Mel -) 1 tablet PO DAILY [facility] Last Admin: 04/17/19 09:09 Dose: 1 tablet Pantoprazole Sodium (Protonix -) 40 mg PO DAILY [facility] Last Admin: 04/17/19 09:09 Dose: 40 mg - Objective Vital Signs: Vital Signs Temperature 98.8 F 04/17/19 13:32 Pulse Rate 95 H 04/17/19 13:32 Respiratory Rate 18 04/17/19 13:32 Blood Pressure 115/65 04/17/19 13:32 O2 Sat by Pulse Oximetry (%) 98 04/16/19 13:28 Constitutional: Yes: No Distress, Calm Cardiovascular: Yes: Regular Rate and Rhythm Respiratory: Yes: Regular Gastrointestinal: Yes: Normal Bowel Sounds, Soft Extremities: Yes: Other (LLE with mild tenderness to touch) Wound/Incision: Yes: Dressing Dry and Intact Labs: CBC, BMP 04/17/19 07:05 04/17/19 07:05 Problem List - Problems (1) Wound cellulitis Code(s): L03.90 - CELLULITIS, UNSPECIFIED (2) Type 2 diabetes mellitus with diabetic polyneuropathy Code(s): E11.42 - TYPE 2 DIABETES MELLITUS WITH DIABETIC POLYNEUROPATHY Assessment/Plan LLE DVT chronic LLE ulcer/possible cellulitis IDDM HTN HLD -- continue Zosyn for now -- on AC -- daily wound care -- Plastics to follow - graft had been planned Pt is feeling slightly better
[2019-04-17] MEDS ORDERED: INSULIN (NOVOLOG) ASPART 100 UNITS/ML 10ML VIAL ONE (21:00)
[2019-04-17] MEDS: ATORVASTATIN CA 40 MG TABLET (FP) PO SCH (21:16)
[2019-04-18] MEDS: KETOROLAC TROMETHAMINE 15 MG/ML VIAL IVPUSH PRN ×4 (00:11→23:48)
[2019-04-18] MEDS: LIDOCAINE HCL 2% JELLY (30 ML/TUBE) TP PRN (00:52)
[2019-04-18] MEDS ORDERED: PIPERACILLIN/TAZOBACTAM 3.375 GM VIAL IVPB ONE ×3 (01:36→17:13)
[2019-04-18] MEDS ORDERED: DEXTROSE 5%-WATER - 50 ML IVPB ONE ×3 (01:37→17:14)
[2019-04-18] MEDS: PIPERACILLIN/TAZOB 3.375 GM 3.375 GM in DEXTROSE 5%-WATER - 50 ML IVPB SCH ×3 (02:10→17:42)
[2019-04-18] MEDS: INSULIN SLIDING SCALE (NOVOLOG) 1 VIAL SQ SCH ×4 (06:19→21:37)
[2019-04-18] MEDS: VITAMIN B COMP W-C 1 EA TABLET PO SCH (09:29)
[2019-04-18] MEDS: GENTAMICIN SO4 0.1% TOPICAL OINTMENT 15 GM/TUBE TUBE TP SCH (09:29)
[2019-04-18] MEDS: PANTOPRAZOLE 40 MG TABLET (FP) PO SCH (09:29)
[2019-04-18] MEDS: CHOLECALCIFEROL (VIT D3) 1,000 UNIT (25 MCG) TABLET PO SCH (09:29)
[2019-04-18] MEDS: GABAPENTIN 300 MG CAPSULE (FP) PO SCH (09:29)
[2019-04-18] MEDS: CYANOCOBALAMIN (VITAMIN B-12) 100 MCG TABLET PO SCH (09:29)
[2019-04-18] MEDS: COLLAGENASE CLOSTRIDIUM HIST. 30 GRAMS TUBE TP SCH (09:30)
--- NOTE | 2019-04-18 10:43 | PN ---
Teaching Attending Note Name of Resident: Lavon Mir ATTENDING PHYSICIAN STATEMENT I saw and evaluated the patient. I reviewed the resident's note and discussed the case with the resident. I agree with the resident's findings and plan as documented with exceptions below. SUBJECTIVE: Patient seen and examined. Leg symptoms improved, no fevers, chills or concerns otherwise. OBJECTIVE: Vital Signs Period Temp Pulse Resp BP Sys/Doran Pulse Ox Last 24 Hr 98.1 F-98.8 F 85-100 18-20 115-158/60-94 Intake & Output 04/15/19 04/16/19 04/17/19 04/18/19 23:59 23:59 23:59 23:59 Intake Total 490 1304 300 Balance 490 1304 300 Weight 188 lb General: sitting in bed, no acute distress neck: soft, supple Chest: CTAb, no rales or wheezing Abdomen:Soft, obese, NT Extremities: left posterior calf wound with granulation tissue/fibrinous exudate at the base, surround erythema/swelling/tenderness improved, pos DP pulses Home Medications Medication Instructions Recorded Gabapentin [Neurontin -] 300 mg PO DAILY 03/22/18 Liraglutide [Victoza -] 1.8 mg IJ DAILY 03/22/18 metFORMIN HCL [Metformin HCl ER] 750 mg PO DAILY 04/08/19 Cyanocobalamin [Vitamin B12 -] 1 tab PO DAILY 04/11/19 Insulin Glargine,Hum.rec.anlog 12 units SQ HS 04/11/19 [Basaglar Kwikpen U-100] Meloxicam 15 mg PO DAILY 04/11/19 Multivitamin [One-Daily 1 tab PO DAILY 04/11/19 Multi-Vitamin] Aspirin [ASA -] 81 mg PO DAILY 04/16/19 Atorvastatin Ca [Lipitor] 40 mg PO DAILY 04/16/19 Cholecalciferol (Vitamin D3) 5,000 unit PO DAILY 04/16/19 [Vitamin D3] Ertugliflozin Pidolate [Steglatro] 15 mg PO DAILY 04/16/19 Lisinopril 20 mg PO DAILY 04/16/19 Omeprazole 40 mg PO DAILY 04/16/19 Vitamin B Complex 1 each PO DAILY 04/16/19 Active Medications Acetaminophen (Tylenol -) 650 mg PO Q4H PRN PRN Reason: PAIN LEVEL 1-5 Last Admin: 04/16/19 20:39 Dose: 650 mg Aspirin (Asa -) 81 mg PO DAILY [facility] Last Admin: 04/17/19 09:09 Dose: 81 mg Atorvastatin Calcium (Lipitor -) 40 mg PO HS [facility] Last Admin: 04/17/19 21:16 Dose: 40 mg Cholecalciferol (Vitamin D3 -) 5,000 unit PO DAILY [facility] Last Admin: 04/18/19 09:29 Dose: 5,000 unit Collagenase (Santyl -) 1 applic TP DAILY [facility]; Protocol Last Admin: 04/18/19 09:30 Dose: 1 applic Cyanocobalamin (Vitamin B12 -) 100 mcg PO DAILY [facility] Last Admin: 04/18/19 09:29 Dose: 100 mcg Enoxaparin Sodium (Lovenox -) 85 mg SQ BID [facility] Last Admin: 04/17/19 21:17 Dose: 85 mg Gabapentin (Neurontin -) 300 mg PO DAILY [facility] Last Admin: 04/18/19 09:29 Dose: 300 mg Gentamicin Sulfate (Garamycin 0.1% Ointment -) 1 applic TP DAILY [facility] Last Admin: 04/18/19 09:29 Dose: 1 applic Piperacillin Sod/Tazobactam (Sod 3.375 gm/ Dextrose) 50 mls @ 100 mls/hr IVPB Q8H-IV [facility]; Protocol Last Admin: 04/18/19 09:30 Dose: 100 mls/hr Insulin Aspart (Novolog Vial Sliding Scale -) 1 vial SQ ACHS [facility]; Protocol Last Admin: 04/18/19 06:19 Dose: Not Given Ketorolac Tromethamine (Toradol Injection -) 15 mg IVPUSH Q6H PRN PRN Reason: PAIN LEVEL 6-10 Stop: 04/21/19 11:00 Last Admin: 04/18/19 06:42 Dose: 15 mg Lidocaine HCl (Xylocaine 2% Jelly) 1 applic TP TID PRN PRN Reason: TOPICAL PAIN Last Admin: 04/18/19 00:52 Dose: 1 applic Multivit/Ca Carb/B Cmplx/FA/Prenat (Nephro-Mel -) 1 tablet PO DAILY [facility] Last Admin: 04/18/19 09:29 Dose: 1 tablet Pantoprazole Sodium (Protonix -) 40 mg PO DAILY [facility] Last Admin: 04/18/19 09:29 Dose: 40 mg Laboratory Results - last 24 hr 04/17/19 04/17/19 04/17/19 11:32 16:51 21:15 POC Glucometer 118 122 173 04/18/19 05:37 POC Glucometer 139 ASSESSMENT AND PLAN: 58 yof with PMHx of IDDM, HTN, HLD, chronic bilateral leg wounds, right posterior calf, now left lateral leg, comes with LLE wound infection/cellulitis -Acute on chronic LLE wound infection/cellulitis -Acute left superficial vein DVT -Failure of outpatient antibiotic treatment -Healed right posterior calf wound -Reported ?"cardiac arrest" during Knee surgery in 2014 -IDDM -HTN -HLD Plan: Leg findings improved. MRI neg for abscess/osteomyelitis. ID input noted. Zosyn. Follow up wound cx. Blood cx neg. Duplex with left superficial femoral DVT. ' Lovenox full dose, on hold pending surgical plans Plan to transition to NOAC when no further surgical intervention planned. Patient reports ?"cardiac arrest" during knee surgery in 2014. Retrieve outpatient records from language specialist Dr. Werner at [facility]. Cardiology consult for pre-op risk stratification. Samaria PÉREZ from this month reviewed, follow up Dr. Gabriel's input. A1c 7.1 Low BS yesterday likely from poor oral intake till evening. Off levemir for now. resume based on BGM. Continue ISS, hold metformin. Continue statin/gabapentin/MVI/PPI DVTPPX full dose lovenox as above Dispo pending clinical improvement. Plan discussed with patient in detail, all questions answered
--- NOTE | 2019-04-18 11:22 | PN ---
Progress Note, Physician History of Present Illness: stable no complaints plastic on the case - Current Medication List Current Medications: Active Medications Acetaminophen (Tylenol -) 650 mg PO Q4H PRN PRN Reason: PAIN LEVEL 1-5 Last Admin: 04/16/19 20:39 Dose: 650 mg Aspirin (Asa -) 81 mg PO DAILY [facility] Last Admin: 04/17/19 09:09 Dose: 81 mg Atorvastatin Calcium (Lipitor -) 40 mg PO HS [facility] Last Admin: 04/17/19 21:16 Dose: 40 mg Cholecalciferol (Vitamin D3 -) 5,000 unit PO DAILY [facility] Last Admin: 04/18/19 09:29 Dose: 5,000 unit Collagenase (Santyl -) 1 applic TP DAILY [facility]; Protocol Last Admin: 04/18/19 09:30 Dose: 1 applic Cyanocobalamin (Vitamin B12 -) 100 mcg PO DAILY [facility] Last Admin: 04/18/19 09:29 Dose: 100 mcg Enoxaparin Sodium (Lovenox -) 85 mg SQ BID [facility] Last Admin: 04/17/19 21:17 Dose: 85 mg Gabapentin (Neurontin -) 300 mg PO DAILY [facility] Last Admin: 04/18/19 09:29 Dose: 300 mg Gentamicin Sulfate (Garamycin 0.1% Ointment -) 1 applic TP DAILY [facility] Last Admin: 04/18/19 09:29 Dose: 1 applic Piperacillin Sod/Tazobactam (Sod 3.375 gm/ Dextrose) 50 mls @ 100 mls/hr IVPB Q8H-IV [facility]; Protocol Last Admin: 04/18/19 09:30 Dose: 100 mls/hr Insulin Aspart (Novolog Vial Sliding Scale -) 1 vial SQ ACHS [facility]; Protocol Last Admin: 04/18/19 06:19 Dose: Not Given Ketorolac Tromethamine (Toradol Injection -) 15 mg IVPUSH Q6H PRN PRN Reason: PAIN LEVEL 6-10 Stop: 04/21/19 11:00 Last Admin: 04/18/19 06:42 Dose: 15 mg Lidocaine HCl (Xylocaine 2% Jelly) 1 applic TP TID PRN PRN Reason: TOPICAL PAIN Last Admin: 04/18/19 00:52 Dose: 1 applic Multivit/Ca Carb/B Cmplx/FA/Prenat (Nephro-Mel -) 1 tablet PO DAILY [facility] Last Admin: 04/18/19 09:29 Dose: 1 tablet Pantoprazole Sodium (Protonix -) 40 mg PO DAILY [facility] Last Admin: 04/18/19 09:29 Dose: 40 mg - Objective Vital Signs: Vital Signs Temperature 98.3 F 04/18/19 10:00 Pulse Rate 85 04/18/19 10:00 Respiratory Rate 19 04/18/19 10:00 Blood Pressure 158/94 04/18/19 10:00 O2 Sat by Pulse Oximetry (%) 98 04/18/19 09:00 Constitutional: Yes: No Distress, Calm Cardiovascular: Yes: S1, S2 Respiratory: Yes: Regular, CTA Bilaterally Gastrointestinal: Yes: Normal Bowel Sounds, Soft Musculoskeletal: Yes: WNL Extremities: Yes: Other Wound/Incision: Yes: Dressing Dry and Intact Neurological: Yes: Alert, Oriented Psychiatric: Yes: Alert, Oriented Assessment/Plan Problem List - Problems (1) Wound cellulitis Code(s): L03.90 - CELLULITIS, UNSPECIFIED (2) Type 2 diabetes mellitus with diabetic polyneuropathy Code(s): E11.42 - TYPE 2 DIABETES MELLITUS WITH DIABETIC POLYNEUROPATHY Assessment/Plan LLE DVT chronic LLE ulcer/possible cellulitis IDDM HTN HLD -- continue Zosyn for now -- on AC -- daily wound care -- Plastics to follow - graft had been planned Pt is feeling slightly better
[2019-04-18 11:30] LABS: HEMATOCRIT 35.6 % (32.4-45.2); HEMOGLOBIN 11.6 GM/dL (10.7-15.3); MCH 30.3 pg (25.7-33.7); MCHC 32.6 g/dl (32.0-36.0); MEAN CELL VOLUME 93.1 fl (80-96); MEAN PLT VOLUME 9.2 fl (7.5-11.1); PLATELET COUNT 230 K/MM3 (134-434); RBC 3.82 M/mm3 (3.60-5.2); RDW 14.2 % (11.6-15.6); WHITE BLOOD COUNT 6.3 K/mm3 (4.0-10.0)
[2019-04-18 11:50] LABS: BLOOD UREA NITROGEN 23.9 mg/dL (7-18); CALCIUM 8.9 mg/dL (8.5-10.1); CREATININE 0.7 mg/dL (0.55-1.3); MAGNESIUM 2.1 mg/dL (1.8-2.4); PHOSPHOROUS 4.2 mg/dL (2.5-4.9); POTASSIUM 4.1 mmol/L (3.5-5.1)
--- NOTE | 2019-04-18 13:29 | PN ---
Physical Exam: SUBJECTIVE: Patient seen and examined NAEON Improved pain in LLE. Denies fevers. Denies numbness of LLE OBJECTIVE: Vital Signs Period Temp Pulse Resp BP Sys/Doran Pulse Ox Last 24 Hr 98.1 F-98.8 F 85-100 18-20 115-158/60-94 98 GENERAL: NAD. Mildly anxious. HEAD: NC/AT. Mild temporal wasting EYES: sclera anicteric, conjunctiva clear. No ptosis. ENT: Ears normal, nares patent, moist mucous membranes. NECK: Trachea midline, full range of motion, supple. LUNGS: Breath sounds equal, clear to auscultation bilaterally, no wheezes, no crackles, no accessory muscle use. HEART: Regular rate and rhythm, S1, S2 without murmur, rub or gallop. ABDOMEN: Soft, nontender, nondistended, no guarding, no rebound. EXTREMITIES: 1+ pulses of BLE DP, warm, well-perfused. Left lateral lower leg with ulcerated wound w/ fibrinous exudate, no drainage; ~ 5cm x3cm; wound bed with pink granulation tissue, dried wound edges without undermining; diffuse erythema w/o discrete demarcation, no TTP beyond erythema. Left knee with well- healed vertical incision. Scabbing medial wounds to RLE. Scabbing medial wounds to LLE. Left foot with ecchymosis to 2nd-3rd base of toes; warm. Able to move toes w/o restrictions NEUROLOGICAL: Normal speech, gait not observed. PSYCH: Normal mood, normal affect. Slightly anxious Laboratory Results - last 24 hr 04/17/19 04/17/19 04/18/19 16:51 21:15 05:37 WBC RBC Hgb Hct MCV MCH MCHC RDW Plt Count MPV Sodium Potassium Chloride Carbon Dioxide Anion Gap BUN Creatinine Est GFR (CKD-EPI)AfAm Est GFR (CKD-EPI)NonAf POC Glucometer 122 173 139 Random Glucose Calcium Phosphorus Magnesium Blood Type Antibody Screen 04/18/19 04/18/19 04/18/19 10:45 10:45 10:45 WBC 6.3 RBC 3.82 Hgb 11.6 Hct 35.6 MCV 93.1 MCH 30.3 MCHC 32.6 RDW 14.2 Plt Count 230 MPV 9.2 Sodium 140 Potassium 4.1 Chloride 108 H Carbon Dioxide 28 Anion Gap 4 L BUN 23.9 H Creatinine 0.7 Est GFR (CKD-EPI)AfAm 109.15 Est GFR (CKD-EPI)NonAf 94.17 POC Glucometer Random Glucose 130 H Calcium 8.9 Phosphorus 4.2 Magnesium 2.1 Blood Type O POSITIVE Antibody Screen Negative 04/18/19 12:03 WBC RBC Hgb Hct MCV MCH MCHC RDW Plt Count MPV Sodium Potassium Chloride Carbon Dioxide Anion Gap BUN Creatinine Est GFR (CKD-EPI)AfAm Est GFR (CKD-EPI)NonAf POC Glucometer 113 Random Glucose Calcium Phosphorus Magnesium Blood Type Antibody Screen Active Medications Generic Name Dose Route Start Last Admin Trade Name Freq PRN Reason Stop Dose Admin Acetaminophen 650 mg 04/16/19 11:01 04/16/19 20:39 Tylenol - PO 650 mg Q4H PRN Administration PAIN LEVEL 1-5 Aspirin 81 mg 04/16/19 11:45 04/17/19 09:09 Asa - PO 81 mg DAILY PRABHAKAR Administration Atorvastatin Calcium 40 mg 04/16/19 22:00 04/17/19 21:16 Lipitor - PO 40 mg HS PRABHAKAR Administration Cholecalciferol 5,000 unit 04/16/19 11:45 04/18/19 09:29 Vitamin D3 - PO 5,000 unit DAILY PRABHAKAR Administration Collagenase 1 applic 04/16/19 11:15 04/18/19 09:30 Santyl - TP 1 applic DAILY PRABHAKAR Administration Protocol Cyanocobalamin 100 mcg 04/16/19 11:45 04/18/19 09:29 Vitamin B12 - PO 100 mcg DAILY PRABHAKAR Administration Enoxaparin Sodium 85 mg 04/16/19 15:30 04/17/19 21:17 Lovenox - SQ 85 mg BID PRABHAKAR Administration Gabapentin 300 mg 04/16/19 11:45 04/18/19 09:29 Neurontin - PO 300 mg DAILY PRABHAKAR Administration Gentamicin Sulfate 1 applic 04/16/19 11:15 04/18/19 09:29 Garamycin 0.1% Ointment - TP 1 applic DAILY PRABHAKAR Administration Piperacillin Sod/Tazobactam 50 mls @ 100 mls/hr 04/16/19 08:00 04/18/19 09:30 Sod 3.375 gm/ Dextrose IVPB 100 mls/hr Q8H-IV PRABHAKAR Administration Protocol Insulin Aspart 1 vial 04/16/19 16:30 04/18/19 12:07 Novolog Vial Sliding Scale - SQ Not Given ACHS [facility] Protocol Ketorolac Tromethamine 15 mg 04/16/19 11:01 04/18/19 06:42 Toradol Injection - IVPUSH 04/21/19 11:00 15 mg Q6H PRN Administration PAIN LEVEL 6-10 Lidocaine HCl 1 applic 04/16/19 22:00 04/18/19 00:52 Xylocaine 2% Jelly TP 1 applic TID PRN Administration TOPICAL PAIN Multivit/Ca Carb/B Cmplx/FA/Prenat 1 tablet 04/16/19 11:45 04/18/19 09:29 Nephro-Mel - PO 1 tablet DAILY PRABHAKAR Administration Pantoprazole Sodium 40 mg 04/16/19 11:45 04/18/19 09:29 Protonix - PO 40 mg DAILY PRABHAKAR Administration ASSESSMENT/PLAN: 58F w/ pmhx of IDDM, HTN/HLD, h/o intra-op cardiac arrest during L knee sugery(? [facility]), BLE venous hypertension s/p in-office venous abalation([facility], Jan 2019), chronic BLE wounds(grew Diptheroid, pseuodomonas, Klebsiella, enterobacter, enterococcus), chronic LLE lateral wound ulcer presents in the ED with worsening pain and redness of LLE wound ulcer. Goes to [facility], wound care w/ Dr Gabriel, was recently seen for the first time by Plastics(Dr Williamson) for wound closure options. #Acute on Chronic LLE wound ulcer w/a cellulitis; no osteomyelitis > XR tib/Fib(04/16/19): > MRI LLE(04/16/19): cellulitis, no abscess/osteomyelitis > Wound CX(04/13/19): diptheroid/corynebacterium -IV Vanc/Zosyn given in ED -Wound care/Vasc consulted --local wound care: santyl, genamicin ointment, lidocaine -Plastic consulted; Per pt, she has outpatient follow up care with plastics for possible skin graft --plan for skin graft --pending cardio clearance -ID(It[facility]) consulted: --cw iv abx(zozyn) --gentamicin topical to wound -Tylenol and Toradol for pain PRN # LLE pain --likely 2/2 to DVT and LLE ulcer > BLE venous duplex(04/16/19): Lft superficial femoral vein DVT - therapeutic A/C: enoxaparin 85mg BID - possible outpt fu w/ Heme # h/o cardiac arrest(?205) - outpt cardiology([facility]: Dr Hubert Oneill) note(10/11/18) reviewed: -- EKG: NSR w/ PRWP -- stress(Myoveiw Lexsiscan): no evid of stress-induced ischemia, LVEF 47% - Cardio(Jena Williamson) Consult: -- acceptable risk for skin graft, no further testing prior to surgery #IDDM; Stable. Hold all home oral DM meds -Levemir 12U HS --held -BGMs/ISS ACHS #HTN/HLD; Cont home meds: Atorvastatin 40, Lisinopril 20 #Prophylaxis DVT: Lovenox(therapeutic) GI: Cont home med: Omeprazole 40 FEN -PO hydration -Diabetic diet -NPO at MI for possible surgery on 04/18/19 Dispo -Admit to med-surg Visit type - Emergency Visit Emergency Visit: No - New Patient This patient is new to me today: No - Critical Care Critical Care patient: No ATTENDING PHYSICIAN STATEMENT I saw and evaluated the patient. I reviewed the resident's note and discussed the case with the resident. I agree with the resident's findings and plan as documented. SUBJECTIVE: OBJECTIVE: ASSESSMENT AND PLAN:
--- NOTE | 2019-04-18 14:59 | ECHO ---
Name: CARMINA SANCHEZ Exam:Adult Echocardiogram Study Date: 04/18/2019 12:28 PM Age: 58 yrs Height: 60 in Weight: 188 lb BSA: 1.8 m2 MMode/2D Measurements & Calculations IVSd: 1.00 cm Ao root diam: 3.3 cm LVIDd: 3.7 cm LA dimension: 3.1 cm LVIDs: 2.1 cm ACS: 1.7 cm LVPWd: 0.87 cm IVSs: 1.2 cm LVPWs: 1.3 cm EDV(Teich): 59.1 ml ESV(Teich): 14.3 ml Doppler Measurements & Calculations MV E max gregorio: 104.3 cm/sec MV A max gregorio: 109.9 cm/sec MV dec slope: 276.0 cm/sec2 MV E/A: 0.95 Ao V2 max: 124.9 cm/sec TR max gregorio: 219.9 cm/sec Ao max P.2 mmHg TR max P.3 mmHg Ao V2 mean: 80.5 cm/sec Ao mean P.9 mmHg Ao V2 VTI: 25.4 cm Med Peak E' Gregorio: 5.5 cm/sec Med E/e': 18.8 Lat Peak E' Gregorio: 7.1 cm/sec Lat E/e': 14.7 Procedure A complete two-dimensional transthoracic echocardiogram was performed (2D, M-mode, Doppler and color flow Doppler). Technically limited study. Left Ventricle The left ventricle is normal in size. Left ventricular systolic function is normal. Ejection Fraction = 55- 60%. No regional wall motion abnormalities noted. Right Ventricle The right ventricle is normal size. The right ventricular systolic function is normal. Atria The left atrial size is normal. Right atrial size is normal. Mitral Valve There is mild mitral annular calcification. There is mild mitral regurgitation. Tricuspid Valve The tricuspid valve is normal in structure and function. There is mild tricuspid regurgitation. Right ventricular systolic pressure is normal. Aortic Valve There is mild aortic sclerosis.;. No aortic regurgitation is present. Pulmonic Valve The pulmonic valve is not well visualized. Great Vessels The aortic root is normal size. Pericardium/Pleura There is no pericardial effusion. Interpretation Summary Technically limited study The left ventricle is normal in size. Left ventricular systolic function is normal. No regional wall motion abnormalities noted. Ejection Fraction = 55-60%. The right ventricular systolic function is normal. The left atrial size is normal. Right atrial size is normal. There is mild mitral annular calcification. There is mild mitral regurgitation. There is mild tricuspid regurgitation. Right ventricular systolic pressure is normal. There is mild aortic sclerosis. There is no pericardial effusion. Previous study is not available for comparison Tarun Pickett MD 04/18/2019 02:58 PM
--- NOTE | 2019-04-18 16:20 | CON.CARD ---
Consult Consult Specialty:: Cardiology Referred by:: Medicine Reason for Consultation:: preop - History of Present Illness Chief Complaint: leg pain History of Present Illness: 58F h/o DM, HTN, HLD, RL wound p/w lower ext pain, redness. Planned surgery for skin graft. She has a history of cardiac arrest in 2014 in the setting of knee replacement. Since then she has been seeing a commercial installer, Dr. Werner. Per her history she had a nuclear stress test within the last few months which was normal and cardiac testing since then has been normal. Etiology of cardiac arrest was not known at the time. Recently no chest pain, palps, edema, orthopnea, PND. Recently had dizziness while on lisinopril as an outpatient which was stopped due to low BP, now dizziness has resolved. - Past Medical History Cardio/Vascular: Yes: HTN Endocrine: Yes: Diabetes Mellitus Dermatology: Yes: Other (b/l LE ulcers) - Alcohol/Substance Use Hx Alcohol Use: No - Smoking History Smoking history: Former smoker Have you smoked in the past 12 months: No If you are a former smoker, when did you quit?: 2009 Home Medications - Allergies Allergies/Adverse Reactions: Allergies Allergy/AdvReac Type Severity Reaction Status Date / Time No Known Allergies Allergy Verified 04/16/19 07:31 - Home Medications Home Medications: Ambulatory Orders Gabapentin [Neurontin -] 300 mg PO DAILY 03/22/18 Liraglutide [Victoza -] 1.8 mg IJ DAILY 03/22/18 metFORMIN HCL [Metformin HCl ER] 750 mg PO DAILY 04/08/19 Cyanocobalamin [Vitamin B12 -] 1 tab PO DAILY 04/11/19 Insulin Glargine,Hum.rec.anlog [Basaglar Kwikpen U-100] 12 units SQ HS 04/11/19 Meloxicam 15 mg PO DAILY 04/11/19 Multivitamin [One-Daily Multi-Vitamin] 1 tab PO DAILY 04/11/19 Aspirin [ASA -] 81 mg PO DAILY 04/16/19 Atorvastatin Ca [Lipitor] 40 mg PO DAILY 04/16/19 Cholecalciferol (Vitamin D3) [Vitamin D3] 5,000 unit PO DAILY 04/16/19 Ertugliflozin Pidolate [Steglatro] 15 mg PO DAILY 04/16/19 Lisinopril 20 mg PO DAILY 04/16/19 Omeprazole 40 mg PO DAILY 04/16/19 Vitamin B Complex 1 each PO DAILY 04/16/19 Family Medical History Family History: Unremarkable Review of Systems - Review of Systems Constitutional: reports: No Symptoms Eyes: reports: No Symptoms HENT: reports: No Symptoms Neck: reports: No Symptoms Cardiovascular: reports: No Symptoms Respiratory: reports: No Symptoms Gastrointestinal: reports: No Symptoms Genitourinary: reports: No Symptoms Musculoskeletal: reports: No Symptoms Integumentary: reports: No Symptoms Neurological: reports: No Symptoms Endocrine: reports: No Symptoms Hematology/Lymphatic: reports: No Symptoms Psychiatric: reports: No Symptoms Vital Signs: Vital Signs Temperature 98.6 F 04/18/19 14:32 Pulse Rate 102 H 04/18/19 14:32 Respiratory Rate 04/18/19 14:32 Blood Pressure 120/84 04/18/19 14:32 O2 Sat by Pulse Oximetry (%) 98 04/18/19 09:00 Constitutional: Yes: No Distress, Calm Eyes: Yes: Conjunctiva Clear, EOM Intact HENT: Yes: Atraumatic, Normocephalic Neck: Yes: Supple, Trachea Midline Respiratory: Yes: Regular, CTA Bilaterally Gastrointestinal: Yes: Normal Bowel Sounds, Soft Cardiovascular: Yes: Regular Rate and Rhythm JVD: No Heart Sounds: Yes: S1, S2 Extremities: Yes: Other (LLE with bandages) Edema: No Integumentary: No: Jaundice Neurological: Yes: Alert, Oriented Psychiatric: No: Agitated - Other Data Labs, Other Data: CBC, BMP 04/18/19 10:45 04/18/19 10:45 Assessment/Plan EKG: sinus, nl intervals, no ischemic changes CXR: no acute process echo 04/2019 tds, nl LV/RV function, mild MR, mild TR, mild aortic sclerosis Preoperative evaluation, history of cardiac arrest of unknown etiology - planned surgery for skin graft - history of cardiac arrest in setting of knee surgery 2014, etiology not known - per notes from commercial installer Dr. Werner recent unremarkable nuclear stress test, no ischemia 10/2018 - echo here unremarkable - patient is at acceptable risk for skin graft surgery, no further testing prior to surgery Cellulitis - manage per primary, on abx DM - manage per primary DVT - on lovenox with plan for NOAC after surgery HTN - cont current meds HLD - cont statin
[2019-04-18] MEDS: ENOXAPARIN NA (PORCINE) 100 MG/1 ML DISP.SYRIN SQ SCH (17:43)
[2019-04-18] MEDS ORDERED: INSULIN (NOVOLOG) ASPART 100 UNITS/ML 10ML VIAL ONE (21:23)
[2019-04-18] MEDS: ATORVASTATIN CA 40 MG TABLET (FP) PO SCH (21:36)
[2019-04-19] MEDS ORDERED: PIPERACILLIN/TAZOBACTAM 3.375 GM VIAL IVPB ONE ×3 (01:25→17:11)
[2019-04-19] MEDS ORDERED: DEXTROSE 5%-WATER - 50 ML IVPB ONE ×3 (01:25→17:11)
[2019-04-19] MEDS: PIPERACILLIN/TAZOB 3.375 GM 3.375 GM in DEXTROSE 5%-WATER - 50 ML IVPB SCH ×3 (01:30→18:16)
[2019-04-19] MEDS: INSULIN SLIDING SCALE (NOVOLOG) 1 VIAL SQ SCH ×4 (06:18→21:04)
[2019-04-19] MEDS: CHOLECALCIFEROL (VIT D3) 1,000 UNIT (25 MCG) TABLET PO SCH (09:45)
[2019-04-19] MEDS: VITAMIN B COMP W-C 1 EA TABLET PO SCH (09:45)
[2019-04-19] MEDS: GABAPENTIN 300 MG CAPSULE (FP) PO SCH (09:45)
[2019-04-19] MEDS: PANTOPRAZOLE 40 MG TABLET (FP) PO SCH (09:45)
[2019-04-19] MEDS: CYANOCOBALAMIN (VITAMIN B-12) 100 MCG TABLET PO SCH (09:45)
[2019-04-19] MEDS: GENTAMICIN SO4 0.1% TOPICAL OINTMENT 15 GM/TUBE TUBE TP SCH (09:54)
[2019-04-19] MEDS: COLLAGENASE CLOSTRIDIUM HIST. 30 GRAMS TUBE TP SCH (09:55)
[2019-04-19] MEDS ORDERED: PT OWN MED DRAWER 7, Y5N ONE (10:36)
[2019-04-19] MEDS ORDERED: LISINOPRIL 20 MG TABLET (FP) PO ONE (11:20)
[2019-04-19] MEDS: KETOROLAC TROMETHAMINE 15 MG/ML VIAL IVPUSH PRN ×2 (11:39→18:33)
--- NOTE | 2019-04-19 11:44 | PN ---
Progress Note, Physician History of Present Illness: stable no complaints for or tomorrow - Current Medication List Current Medications: Active Medications Acetaminophen (Tylenol -) 650 mg PO Q4H PRN PRN Reason: PAIN LEVEL 1-5 Last Admin: 04/16/19 20:39 Dose: 650 mg Aspirin (Asa -) 81 mg PO DAILY COUNT INCLUDES [facility] Last Admin: 04/17/19 09:09 Dose: 81 mg Atorvastatin Calcium (Lipitor -) 40 mg PO HS COUNT INCLUDES [facility] Last Admin: 04/18/19 21:36 Dose: 40 mg Cholecalciferol (Vitamin D3 -) 5,000 unit PO DAILY COUNT INCLUDES [facility] Last Admin: 04/19/19 09:45 Dose: 5,000 unit Collagenase (Santyl -) 1 applic TP DAILY COUNT [facility]CLUDES [facility]; Protocol Last Admin: 04/19/19 09:55 Dose: 1 applic Cyanocobalamin (Vitamin B12 -) 100 mcg PO DAILY COUNT INCLUDES [facility] Last Admin: 04/19/19 09:45 Dose: 100 mcg Enoxaparin Sodium (Lovenox -) 85 mg SQ BID COUNT INCLUDES [facility] Last Admin: 04/18/19 17:43 Dose: 85 mg Gabapentin (Neurontin -) 300 mg PO DAILY COUNT INCLUDES [facility] Last Admin: 04/19/19 09:45 Dose: 300 mg Gentamicin Sulfate (Garamycin 0.1% Ointment -) 1 applic TP DAILY COUNT [facility]CLUDES [facility] Last Admin: 04/19/19 09:54 Dose: 1 applic Piperacillin Sod/Tazobactam (Sod 3.375 gm/ Dextrose) 50 mls @ 100 mls/hr IVPB Q8H-IV COUNT INCLUDES [facility]; Protocol Last Admin: 04/19/19 09:44 Dose: 100 mls/hr Insulin Aspart (Novolog Vial Sliding Scale -) 1 vial SQ ACHS COUNT [facility]CLUDES [facility]; Protocol Last Admin: 04/19/19 06:18 Dose: Not Given Ketorolac Tromethamine (Toradol Injection -) 15 mg IVPUSH Q6H PRN PRN Reason: PAIN LEVEL 6-10 Stop: 04/21/19 11:00 Last Admin: 04/18/19 23:48 Dose: 15 mg Lidocaine HCl (Xylocaine 2% Jelly) 1 applic TP TID PRN PRN Reason: TOPICAL PAIN Multivit/Ca Carb/B Cmplx/FA/Prenat (Nephro-Mel -) 1 tablet PO DAILY COUNT INCLUDES [facility] Last Admin: 04/19/19 09:45 Dose: 1 tablet Pantoprazole Sodium (Protonix -) 40 mg PO DAILY PRABHAKAR Last Admin: 04/19/19 09:45 Dose: 40 mg - Objective Vital Signs: Vital Signs Temperature 98.4 F 04/19/19 09:12 Pulse Rate 86 04/19/19 09:12 Respiratory Rate 19 04/19/19 09:12 Blood Pressure 150/100 04/19/19 09:12 O2 Sat by Pulse Oximetry (%) 100 04/19/19 09:00 Constitutional: Yes: No Distress, Calm Cardiovascular: Yes: S1, S2 Respiratory: Yes: Regular, CTA Bilaterally Gastrointestinal: Yes: Normal Bowel Sounds, Soft Musculoskeletal: Yes: WNL Extremities: Yes: Other Integumentary: Yes: Other Wound/Incision: Yes: Dressing Dry and Intact Neurological: Yes: Alert, Oriented Psychiatric: Yes: Alert, Oriented Labs: CBC, BMP 04/18/19 10:45 04/18/19 10:45 Assessment/Plan Problem List - Problems (1) Wound cellulitis Code(s): L03.90 - CELLULITIS, UNSPECIFIED (2) Type 2 diabetes mellitus with diabetic polyneuropathy Code(s): E11.42 - TYPE 2 DIABETES MELLITUS WITH DIABETIC POLYNEUROPATHY Assessment/Plan LLE DVT chronic LLE ulcer/possible cellulitis IDDM HTN HLD continue abx rest as per the team wound care surgery tomorrow
[2019-04-19] MEDS: LIDOCAINE HCL 2% JELLY (5 ML/TUBE) TP PRN (12:14)
[2019-04-19] MEDS: LIDOCAINE HCL 2% JELLY (30 ML/TUBE) TP PRN (12:14)
--- NOTE | 2019-04-19 12:36 | PN ---
Progress Note (short form) - Note Progress Note: s: no chest pain, palps, dizziness, dyspnea Current Medications Acetaminophen (Tylenol -) 650 mg PO Q4H PRN PRN Reason: PAIN LEVEL 1-5 Last Admin: 04/16/19 20:39 Dose: 650 mg Aspirin (Asa -) 81 mg PO DAILY [facility] Last Admin: 04/17/19 09:09 Dose: 81 mg Atorvastatin Calcium (Lipitor -) 40 mg PO HS [facility] Last Admin: 04/18/19 21:36 Dose: 40 mg Cholecalciferol (Vitamin D3 -) 5,000 unit PO DAILY [facility] Last Admin: 04/19/19 09:45 Dose: 5,000 unit Collagenase (Santyl -) 1 applic TP DAILY [facility]; Protocol Last Admin: 04/19/19 09:55 Dose: 1 applic Cyanocobalamin (Vitamin B12 -) 100 mcg PO DAILY [facility] Last Admin: 04/19/19 09:45 Dose: 100 mcg Enoxaparin Sodium (Lovenox -) 85 mg SQ BID [facility] Last Admin: 04/18/19 17:43 Dose: 85 mg Gabapentin (Neurontin -) 300 mg PO DAILY [facility] Last Admin: 04/19/19 09:45 Dose: 300 mg Gentamicin Sulfate (Garamycin 0.1% Ointment -) 1 applic TP DAILY [facility] Last Admin: 04/19/19 09:54 Dose: 1 applic Piperacillin Sod/Tazobactam (Sod 3.375 gm/ Dextrose) 50 mls @ 100 mls/hr IVPB Q8H-IV [facility]; Protocol Last Admin: 04/19/19 09:44 Dose: 100 mls/hr Insulin Aspart (Novolog Vial Sliding Scale -) 1 vial SQ ACHS [facility]; Protocol Last Admin: 04/19/19 11:45 Dose: Not Given Ketorolac Tromethamine (Toradol Injection -) 15 mg IVPUSH Q6H PRN PRN Reason: PAIN LEVEL 6-10 Stop: 04/21/19 11:00 Last Admin: 04/19/19 11:39 Dose: 15 mg Lidocaine HCl (Xylocaine 2% Jelly) 1 applic TP TID PRN PRN Reason: TOPICAL PAIN Last Admin: 04/19/19 12:14 Dose: 1 applic Multivit/Ca Carb/B Cmplx/FA/Prenat (Nephro-Mel -) 1 tablet PO DAILY [facility] Last Admin: 04/19/19 09:45 Dose: 1 tablet Pantoprazole Sodium (Protonix -) 40 mg PO DAILY PRABHAKAR Last Admin: 04/19/19 09:45 Dose: 40 mg Vital Signs Period Temp Pulse Resp BP Sys/Doran Pulse Ox Last 24 Hr 98.1 F-98.7 F 81-102 19-20 120-160/75-112 98-100 Constitutional: Yes: No Distress, Calm Eyes: Yes: Conjunctiva Clear, EOM Intact HENT: Yes: Atraumatic, Normocephalic Neck: Yes: Supple, Trachea Midline Respiratory: Yes: Regular, CTA Bilaterally Gastrointestinal: Yes: Normal Bowel Sounds, Soft Cardiovascular: Yes: Regular Rate and Rhythm JVD: No Heart Sounds: Yes: S1, S2 Extremities: Yes: Other (LLE with bandages) Edema: No Integumentary: No: Jaundice Neurological: Yes: Alert, Oriented Psychiatric: No: Agitated Assessment/Plan EKG: sinus, nl intervals, no ischemic changes CXR: no acute process echo 04/2019 tds, nl LV/RV function, mild MR, mild TR, mild aortic sclerosis Preoperative evaluation, history of cardiac arrest of unknown etiology - planned surgery for skin graft - history of cardiac arrest in setting of knee surgery 2014, etiology not known - per notes from director telecommunications Dr. Werner recent unremarkable nuclear stress test, no ischemia 10/2018 - echo here unremarkable - patient is at acceptable risk for skin graft surgery, no further testing prior to surgery, planned for tomorrow Cellulitis - manage per primary, on abx DM - manage per primary DVT - on lovenox with plan for NOAC after surgery HTN - cont current meds HLD - cont statin
[2019-04-19] MEDS ORDERED: ENOXAPARIN NA (PORCINE) 80 MG/0.8 ML DISP.SYRIN SQ ONE (12:39)
--- NOTE | 2019-04-19 15:29 | PN ---
Physical Exam: SUBJECTIVE: Patient seen and examined NAEON. Endorses LLE pain, about the same from yesterday OBJECTIVE: Vital Signs Period Temp Pulse Resp BP Sys/Doran Pulse Ox Last 24 Hr 98.1 F-99.3 F 81-107 19-20 120-160/65-112 98-100 GENERAL: NAD. Mildly anxious. HEAD: NC/AT. Mild temporal wasting EYES: sclera anicteric, conjunctiva clear. No ptosis. ENT: Ears normal, nares patent, moist mucous membranes. NECK: Trachea midline, full range of motion, supple. LUNGS: Breath sounds equal, clear to auscultation bilaterally, no wheezes, no crackles, no accessory muscle use. HEART: Regular rate and rhythm, S1, S2 without murmur, rub or gallop. ABDOMEN: Soft, nontender, nondistended, no guarding, no rebound. EXTREMITIES: 1+ pulses of BLE DP, warm, well-perfused. Left lateral lower leg with ulcerated wound w/ fibrinous exudate, no drainage; ~ 5cm x3cm; wound bed with pink granulation tissue, dried wound edges without undermining; diffuse erythema w/o discrete demarcation, no TTP beyond erythema. Left knee with well- healed vertical incision. Left popliteal fossa with palpalbe tender LNs. Scabbing medial wounds to RLE. Scabbing medial wounds to LLE. Left foot with ecchymosis to 2nd-3rd base of toes; warm. Able to move toes w/o restrictions NEUROLOGICAL: Normal speech, gait not observed. PSYCH: Normal mood, normal affect. Slightly anxious Laboratory Results - last 24 hr 04/18/19 04/18/19 04/19/19 17:00 21:33 06:17 POC Glucometer 187 154 125 04/19/19 11:45 POC Glucometer 122 Active Medications Generic Name Dose Route Start Last Admin Trade Name Freq PRN Reason Stop Dose Admin Acetaminophen 650 mg 04/16/19 11:01 04/16/19 20:39 Tylenol - PO 650 mg Q4H PRN Administration PAIN LEVEL 1-5 Aspirin 81 mg 04/16/19 11:45 04/17/19 09:09 Asa - PO 81 mg DAILY PRABHAKAR Administration Atorvastatin Calcium 40 mg 04/16/19 22:00 04/18/19 21:36 Lipitor - PO 40 mg HS PRABHAKAR Administration Cholecalciferol 5,000 unit 04/16/19 11:45 04/19/19 09:45 Vitamin D3 - PO 5,000 unit DAILY PRABHAKAR Administration Collagenase 1 applic 04/16/19 11:15 04/19/19 09:55 Santyl - TP 1 applic DAILY PRABHAKAR Administration Protocol Cyanocobalamin 100 mcg 04/16/19 11:45 04/19/19 09:45 Vitamin B12 - PO 100 mcg DAILY PR[facility] Administration Enoxaparin Sodium 85 mg 04/16/19 15:30 04/18/19 17:43 Lovenox - SQ 85 mg BID PRABHAKAR Administration Enoxaparin Sodium 85 mg 04/19/19 12:39 Lovenox - SQ 04/19/19 12:40 ONCE ONE Gabapentin 300 mg 04/16/19 11:45 04/19/19 09:45 Neurontin - PO 300 mg DAILY PRABHAKAR Administration Gentamicin Sulfate 1 applic 04/16/19 11:15 04/19/19 09:54 Garamycin 0.1% Ointment - TP 1 applic DAILY PR[facility]HAKAR Administration Piperacillin Sod/Tazobactam 50 mls @ 100 mls/hr 04/16/19 08:00 04/19/19 09:44 Sod 3.375 gm/ Dextrose IVPB 100 mls/hr Q8H-IV [facility] Administration Protocol Insulin Aspart 1 vial 04/16/19 16:30 04/19/19 11:45 Novolog Vial Sliding Scale - SQ Not Given ACHS [facility] Protocol Ketorolac Tromethamine 15 mg 04/16/19 11:01 04/19/19 11:39 Toradol Injection - IVPUSH 04/21/19 11:00 15 mg Q6H PRN Administration PAIN LEVEL 6-10 Lidocaine HCl 1 applic 04/19/19 10:15 04/19/19 12:14 Xylocaine 2% Jelly TP 1 applic TID PRN Administration TOPICAL PAIN Multivit/Ca Carb/B Cmplx/FA/Prenat 1 tablet 04/16/19 11:45 04/19/19 09:45 Nephro-Mel - PO 1 tablet DAILY PR[facility]HAKAR Administration Pantoprazole Sodium 40 mg 04/16/19 11:45 04/19/19 09:45 Protonix - PO 40 mg DAILY PRABHAKAR Administration ASSESSMENT/PLAN: 58F w/ pmhx of IDDM, HTN/HLD, h/o intra-op cardiac arrest during L knee sugery(? [facility]), BLE venous hypertension s/p in-office venous abalation([facility], Jan 2019), chronic BLE wounds(grew Diptheroid, pseuodomonas, Klebsiella, enterobacter, enterococcus), chronic LLE lateral wound ulcer presents in the ED with worsening pain and redness of LLE wound ulcer. Goes to [facility], wound care w/ Dr Gabriel, was recently seen for the first time by Plastics(Dr Williamson) for wound closure options. Chart review of outside records(Dr Werner and [facility]) showed normal recent echo, stress test. During previous knee reconstruction surgery, under spinal anesthesia + MAC, had intraop PEA; thought to be 2/2 respir failure b/c patient recovered after intubation. Surgical and anesthesia risks noted. Plan for surgery w/ Plastics to be delayed. #Acute on Chronic LLE wound ulcer w/a cellulitis; no osteomyelitis > XR tib/Fib(04/16/19): cellulitis, no abscess, no OM > MRI LLE(04/16/19): cellulitis, no abscess/osteomyelitis > Wound CX(04/13/19): diptheroid/corynebacterium -IV Vanc/Zosyn given in ED -Wound care/Vasc consulted --local wound care: santyl, genamicin ointment, lidocaine -Plastic consulted; Per pt, she has outpatient follow up care with plastics for possible skin graft --RCRI 1pt(insulin): 6% risk of , significant cardiovascular event --plan for skin graft -ID(Italo) consulted: --cw iv abx(zozyn) --gentamicin topical to wound -Tylenol and Toradol for pain PRN # LLE pain --likely 2/2 to DVT and LLE ulcer > BLE venous duplex(04/16/19): Lft superficial femoral vein DVT - therapeutic A/C: enoxaparin 85mg BID - possible outpt fu w/ Heme # h/o cardiac arrest(?205) - outpt cardiology([facility]: Dr Hubert Oneill) note(10/11/18) reviewed: -- EKG: NSR w/ PRWP -- stress(Myoveiw Lexsiscan): no evid of stress-induced ischemia, LVEF 47% - Cardio(Jena Williamson) Consult: -- acceptable risk for skin graft, no further testing prior to surgery #IDDM; Stable. Hold all home oral DM meds -Levemir 12U HS --held -BGMs/ISS ACHS #HTN/HLD; Cont home meds: Atorvastatin 40, Lisinopril 20 #Prophylaxis DVT: Lovenox(therapeutic) GI: Cont home med: Omeprazole 40 FEN -PO hydration -Diabetic diet -NPO at [place] for possible surgery on 04/19/19 Dispo -Admit to med-surg Visit type - Emergency Visit Emergency Visit: No - New Patient This patient is new to me today: No - Critical Care Critical Care patient: No ATTENDING PHYSICIAN STATEMENT I saw and evaluated the patient. I reviewed the resident's note and discussed the case with the resident. I agree with the resident's findings and plan as documented. SUBJECTIVE: OBJECTIVE: ASSESSMENT AND PLAN:
[2019-04-19] MEDS ORDERED: ENOXAPARIN NA (PORCINE) 100 MG/1 ML DISP.SYRIN SQ SCH (15:45)
[2019-04-19 15:49] LABS: BASO % 0.3 % (0-2.0); EOS % 1.3 % (0-4.5); HEMATOCRIT 34.2 % (32.4-45.2); HEMOGLOBIN 11.2 GM/dL (10.7-15.3); LYMPH % 15.1 % (8-40); MCH 30.2 pg (25.7-33.7); MCHC 32.7 g/dl (32.0-36.0); MEAN CELL VOLUME 92.4 fl (80-96); MONO % 7.8 % (3.8-10.2); NEUT % 75.5 % (42.8-82.8); PLATELET COUNT 233 K/MM3 (134-434); RDW 14.1 % (11.6-15.6); WHITE BLOOD COUNT 6.9 K/mm3 (4.0-10.0)
[2019-04-19 16:15] LABS: BLOOD UREA NITROGEN 25.8 mg/dL (7-18); CREATININE 0.9 mg/dL (0.55-1.3); MAGNESIUM 2.1 mg/dL (1.8-2.4); PHOSPHOROUS 3.2 mg/dL (2.5-4.9); POTASSIUM 4.6 mmol/L (3.5-5.1)
--- NOTE | 2019-04-19 16:31 | PN ---
Teaching Attending Note Name of Resident: Lavon Mir ATTENDING PHYSICIAN STATEMENT I saw and evaluated the patient. I reviewed the resident's note and discussed the case with the resident. I agree with the resident's findings and plan as documented with exceptions below. SUBJECTIVE: Patient seen and examined. Leg symptoms improved, no complaints. OBJECTIVE: Vital Signs Period Temp Pulse Resp BP Sys/Doran Pulse Ox Last 24 Hr 98.1 F-99.3 F 81-107 19-20 120-160/65-112 98-100 Intake & Output 04/16/19 04/17/19 04/18/19 04/19/19 23:59 23:59 23:59 23:59 Intake Total 490 1304 1475 470 Balance 490 1304 1475 470 Weight 188 lb General: sitting in chair, no acute distress Chest: CTAB, no rales or wheezing Abdomen:Soft, obese, NT Extremities: left leg wound dressing clean, pos DP pulses Home Medications Medication Instructions Recorded Gabapentin [Neurontin -] 300 mg PO DAILY 03/22/18 Liraglutide [Victoza -] 1.8 mg IJ DAILY 03/22/18 metFORMIN HCL [Metformin HCl ER] 750 mg PO DAILY 04/08/19 Cyanocobalamin [Vitamin B12 -] 1 tab PO DAILY 04/11/19 Insulin Glargine,Hum.rec.anlog 12 units SQ HS 04/11/19 [Basaglar Aiden U-100] Meloxicam 15 mg PO DAILY 04/11/19 Multivitamin [One-Daily 1 tab PO DAILY 04/11/19 Multi-Vitamin] Aspirin [ASA -] 81 mg PO DAILY 04/16/19 Atorvastatin Ca [Lipitor] 40 mg PO DAILY 04/16/19 Cholecalciferol (Vitamin D3) 5,000 unit PO DAILY 04/16/19 [Vitamin D3] Ertugliflozin Pidolate [Steglatro] 15 mg PO DAILY 04/16/19 Lisinopril 20 mg PO DAILY 04/16/19 Omeprazole 40 mg PO DAILY 04/16/19 Vitamin B Complex 1 each PO DAILY 04/16/19 Active Medications Acetaminophen (Tylenol -) 650 mg PO Q4H PRN PRN Reason: PAIN LEVEL 1-5 Last Admin: 04/16/19 20:39 Dose: 650 mg Aspirin (Asa -) 81 mg PO DAILY PRABHAKAR Last Admin: 04/17/19 09:09 Dose: 81 mg Atorvastatin Calcium (Lipitor -) 40 mg PO HS PRABHAKAR Last Admin: 04/18/19 21:36 Dose: 40 mg Cholecalciferol (Vitamin D3 -) 5,000 unit PO DAILY PRABHAKAR Last Admin: 04/19/19 09:45 Dose: 5,000 unit Collagenase (Santyl -) 1 applic TP DAILY [facility]; Protocol Last Admin: 04/19/19 09:55 Dose: 1 applic Cyanocobalamin (Vitamin B12 -) 100 mcg PO DAILY PRABHAKAR Last Admin: 04/19/19 09:45 Dose: 100 mcg Enoxaparin Sodium (Lovenox -) 85 mg SQ BID PRABHAKAR Gabapentin (Neurontin -) 300 mg PO DAILY [facility] Last Admin: 04/19/19 09:45 Dose: 300 mg Gentamicin Sulfate (Garamycin 0.1% Ointment -) 1 applic TP DAILY [facility] Last Admin: 04/19/19 09:54 Dose: 1 applic Piperacillin Sod/Tazobactam (Sod 3.375 gm/ Dextrose) 50 mls @ 100 mls/hr IVPB Q8H-IV PR[facility]; Protocol Last Admin: 04/19/19 09:44 Dose: 100 mls/hr Insulin Aspart (Novolog Vial Sliding Scale -) 1 vial SQ ACHS [facility]; Protocol Last Admin: 04/19/19 11:45 Dose: Not Given Ketorolac Tromethamine (Toradol Injection -) 15 mg IVPUSH Q6H PRN PRN Reason: PAIN LEVEL 6-10 Stop: 04/21/19 11:00 Last Admin: 04/19/19 11:39 Dose: 15 mg Lidocaine HCl (Xylocaine 2% Jelly) 1 applic TP TID PRN PRN Reason: TOPICAL PAIN Last Admin: 04/19/19 12:14 Dose: 1 applic Multivit/Ca Carb/B Cmplx/FA/Prenat (Nephro-Mel -) 1 tablet PO DAILY [facility] Last Admin: 04/19/19 09:45 Dose: 1 tablet Pantoprazole Sodium (Protonix -) 40 mg PO DAILY [facility] Last Admin: 04/19/19 09:45 Dose: 40 mg Laboratory Results - last 24 hr 04/18/19 04/18/19 04/19/19 17:00 21:33 06:17 WBC RBC Hgb Hct MCV MCH MCHC RDW Plt Count MPV Absolute Neuts (auto) Neutrophils % Lymphocytes % Monocytes % Eosinophils % Basophils % Nucleated RBC % Sodium Potassium Chloride Carbon Dioxide Anion Gap BUN Creatinine Est GFR (CKD-EPI)AfAm Est GFR (CKD-EPI)NonAf POC Glucometer 187 154 125 Random Glucose Calcium Phosphorus Magnesium 04/19/19 04/19/19 04/19/19 11:45 15:00 15:00 WBC 6.9 RBC 3.70 Hgb 11.2 Hct 34.2 MCV 92.4 MCH 30.2 MCHC 32.7 RDW 14.1 Plt Count 233 MPV 9.0 Absolute Neuts (auto) 5.2 Neutrophils % 75.5 Lymphocytes % 15.1 Monocytes % 7.8 Eosinophils % 1.3 Basophils % 0.3 Nucleated RBC % 0 Sodium 140 Potassium 4.6 Chloride 108 H Carbon Dioxide 29 Anion Gap 3 L BUN 25.8 H Creatinine 0.9 Est GFR (CKD-EPI)AfAm 80.55 Est GFR (CKD-EPI)NonAf 69.50 POC Glucometer 122 Random Glucose 212 H Calcium 9.0 Phosphorus 3.2 Magnesium 2.1 ASSESSMENT AND PLAN: 58 yof with PMHx of IDDM, HTN, HLD, chronic bilateral leg wounds, right posterior calf, now left lateral leg, comes with LLE wound infection/cellulitis -Acute on chronic LLE wound infection/cellulitis -Acute left superficial vein DVT -Failure of outpatient antibiotic treatment -Healed right posterior calf wound -Reported ?"cardiac arrest" during Knee surgery in 2014 -IDDM -HTN -HLD Plan: Leg findings improved. MRI neg for abscess/osteomyelitis. ID input noted. Zosyn. Cultures noted. Duplex with left superficial femoral DVT. ' Lovenox full dose, on hold tonight pending surgical plans Plan to transition to NOAC when no further surgical intervention planned. [facility]. For knee surgery 2014, patient had spinal anesthesia with propofol induction. Has JONY then. Suspected to have respiratory arrest resulting in cardiac arrest, with ROSC after 1 dose of epi. Was successfully extubated over the next 2 days with no concerns. Patients reports prior diagnosis of JONY but not used CPAP, reports weight loss > 25 lbs since then. Discussed with anesthesiologist. Likely plan for GA with intubation. Close monitoring of respiratory status in per-operative period. Outpatient records report non concerning 2D echo and stress test in last 6 months. 2D echo here noted Cardiology input appreciated RCRI 1, intermediate risk for intermediate risk surgery. Samaria PÉREZ from this month reviewed, follow up Dr. Gabriel's input. A1c 7.1. Levemir on hold given NPO, ISS. Continue statin/gabapentin/MVI/PPI DVTPPX full dose lovenox as above Dispo pending clinical improvement. Plan discussed with patient in detail, all questions answered
[2019-04-19] MEDS ORDERED: INSULIN (NOVOLOG) ASPART 100 UNITS/ML 10ML VIAL ONE (20:59)
[2019-04-19] MEDS: ATORVASTATIN CA 40 MG TABLET (FP) PO SCH (21:04)
[2019-04-20] MEDS ORDERED: DEXTROSE 5%-WATER - 50 ML IVPB ONE ×3 (01:27→17:35)
[2019-04-20] MEDS ORDERED: PIPERACILLIN/TAZOBACTAM 3.375 GM VIAL IVPB ONE ×3 (01:27→17:35)
[2019-04-20] MEDS: PIPERACILLIN/TAZOB 3.375 GM 3.375 GM in DEXTROSE 5%-WATER - 50 ML IVPB SCH ×3 (01:33→17:53)
[2019-04-20] MEDS: INSULIN SLIDING SCALE (NOVOLOG) 1 VIAL SQ SCH ×4 (06:03→21:19)
[2019-04-20] MEDS ORDERED: INSULIN (NOVOLOG) ASPART 100 UNITS/ML 10ML VIAL ONE ×2 (06:22→21:17)
[2019-04-20 08:24] LABS: HEMATOCRIT 34.8 % (32.4-45.2); HEMOGLOBIN 11.7 GM/dL (10.7-15.3); MCHC 33.7 g/dl (32.0-36.0); MEAN CELL VOLUME 92.2 fl (80-96); MEAN PLT VOLUME 8.9 fl (7.5-11.1); PLATELET COUNT 235 K/MM3 (134-434); RBC 3.78 M/mm3 (3.60-5.2); WHITE BLOOD COUNT 6.4 K/mm3 (4.0-10.0)
[2019-04-20 08:55] LABS: BLOOD UREA NITROGEN 21.5 mg/dL (7-18); CREATININE 0.7 mg/dL (0.55-1.3); MAGNESIUM 2.1 mg/dL (1.8-2.4); PHOSPHOROUS 3.6 mg/dL (2.5-4.9); POTASSIUM 4.4 mmol/L (3.5-5.1)
[2019-04-20] MEDS: PANTOPRAZOLE 40 MG TABLET (FP) PO SCH (09:35)
[2019-04-20] MEDS: GABAPENTIN 300 MG CAPSULE (FP) PO SCH (09:37)
[2019-04-20] MEDS: VITAMIN B COMP W-C 1 EA TABLET PO SCH (09:37)
[2019-04-20] MEDS: CHOLECALCIFEROL (VIT D3) 1,000 UNIT (25 MCG) TABLET PO SCH (09:37)
[2019-04-20] MEDS: CYANOCOBALAMIN (VITAMIN B-12) 100 MCG TABLET PO SCH (09:37)
[2019-04-20] MEDS: GENTAMICIN SO4 0.1% TOPICAL OINTMENT 15 GM/TUBE TUBE TP SCH ×2 (09:38→12:02)
[2019-04-20] MEDS: COLLAGENASE CLOSTRIDIUM HIST. 30 GRAMS TUBE TP SCH ×2 (09:38→12:02)
--- NOTE | 2019-04-20 11:02 | PN ---
Progress Note, Physician History of Present Illness: stable no new issues - Current Medication List Current Medications: Active Medications Acetaminophen (Tylenol -) 650 mg PO Q4H PRN PRN Reason: PAIN LEVEL 1-5 Last Admin: 04/16/19 20:39 Dose: 650 mg Aspirin (Asa -) 81 mg PO DAILY [facility] Last Admin: 04/17/19 09:09 Dose: 81 mg Atorvastatin Calcium (Lipitor -) 40 mg PO HS [facility] Last Admin: 04/19/19 21:04 Dose: 40 mg Cholecalciferol (Vitamin D3 -) 5,000 unit PO DAILY [facility] Last Admin: 04/20/19 09:37 Dose: 5,000 unit Collagenase (Santyl -) 1 applic TP DAILY [facility]; Protocol Last Admin: 04/20/19 09:38 Dose: Not Given Cyanocobalamin (Vitamin B12 -) 100 mcg PO DAILY [facility] Last Admin: 04/20/19 09:37 Dose: 100 mcg Enoxaparin Sodium (Lovenox -) 85 mg SQ BID [facility] Last Admin: 04/19/19 17:12 Dose: 85 mg Gabapentin (Neurontin -) 300 mg PO DAILY [facility] Last Admin: 04/20/19 09:37 Dose: 300 mg Gentamicin Sulfate (Garamycin 0.1% Ointment -) 1 applic TP DAILY [facility] Last Admin: 04/20/19 09:38 Dose: Not Given Piperacillin Sod/Tazobactam (Sod 3.375 gm/ Dextrose) 50 mls @ 100 mls/hr IVPB Q8H-IV [facility]; Protocol Last Admin: 04/20/19 09:38 Dose: 100 mls/hr Insulin Aspart (Novolog Vial Sliding Scale -) 1 vial SQ ACHS [facility]; Protocol Last Admin: 04/20/19 06:03 Dose: Not Given Ketorolac Tromethamine (Toradol Injection -) 15 mg IVPUSH Q6H PRN PRN Reason: PAIN LEVEL 6-10 Stop: 04/21/19 11:00 Last Admin: 04/19/19 18:33 Dose: 15 mg Lidocaine HCl (Xylocaine 2% Jelly) 1 applic TP TID PRN PRN Reason: TOPICAL PAIN Last Admin: 04/19/19 12:14 Dose: 1 applic Multivit/Ca Carb/B Cmplx/FA/Prenat (Nephro-Mel -) 1 tablet PO DAILY [facility] Last Admin: 04/20/19 09:37 Dose: 1 tablet Pantoprazole Sodium (Protonix -) 40 mg PO DAILY [facility] Last Admin: 04/20/19 09:35 Dose: 40 mg - Objective Vital Signs: Vital Signs Temperature 98.1 F 04/20/19 09:09 Pulse Rate 78 04/20/19 09:09 Respiratory Rate 20 04/20/19 09:09 Blood Pressure 129/71 04/20/19 09:09 O2 Sat by Pulse Oximetry (%) 97 04/19/19 22:02 Constitutional: Yes: No Distress, Calm Cardiovascular: Yes: S1, S2 Respiratory: Yes: Regular, CTA Bilaterally Gastrointestinal: Yes: Normal Bowel Sounds, Soft Musculoskeletal: Yes: WNL Extremities: Yes: Other Wound/Incision: Yes: Dressing Dry and Intact Neurological: Yes: Alert, Oriented Psychiatric: Yes: Alert, Oriented Labs: CBC, BMP 04/20/19 07:45 04/20/19 07:45 Assessment/Plan Problem List - Problems (1) Wound cellulitis Code(s): L03.90 - CELLULITIS, UNSPECIFIED (2) Type 2 diabetes mellitus with diabetic polyneuropathy Code(s): E11.42 - TYPE 2 DIABETES MELLITUS WITH DIABETIC POLYNEUROPATHY Assessment/Plan LLE DVT chronic LLE ulcer/possible cellulitis IDDM HTN HLD plan continue abx rest as per the team for surgery
--- NOTE | 2019-04-20 11:23 | PN ---
Teaching Attending Note Name of Resident: Lavon Mir ATTENDING PHYSICIAN STATEMENT I saw and evaluated the patient. I reviewed the resident's note and discussed the case with the resident. I agree with the resident's findings and plan as documented with exceptions below. SUBJECTIVE: Patient seen and examined. Leg symptoms continue to improve, awaiting surgery, no new complaints. OBJECTIVE: Vital Signs Period Temp Pulse Resp BP Sys/Doran Pulse Ox Last 24 Hr 98.1 F-99.3 F 78-107 20-120 108-138/49-80 97 Intake & Output 04/17/19 04/18/19 04/19/19 04/20/19 23:59 23:59 23:59 23:59 Intake Total 1304 1475 1370 50 Balance 1304 1475 1370 50 General: sitting in bed, no acute distress neck: soft, supple Chest: CTAB, no rales or wheezing Abdomen:soft, obese, NT Extremities; left leg wound with tape (patient applied herself), no surrounding erythema or swelling Home Medications Medication Instructions Recorded Gabapentin [Neurontin -] 300 mg PO DAILY 03/22/18 Liraglutide [Victoza -] 1.8 mg IJ DAILY 03/22/18 metFORMIN HCL [Metformin HCl ER] 750 mg PO DAILY 04/08/19 Cyanocobalamin [Vitamin B12 -] 1 tab PO DAILY 04/11/19 Insulin Glargine,Hum.rec.anlog 12 units SQ HS 04/11/19 [Basaglar Kwikpen U-100] Meloxicam 15 mg PO DAILY 04/11/19 Multivitamin [One-Daily 1 tab PO DAILY 04/11/19 Multi-Vitamin] Aspirin [ASA -] 81 mg PO DAILY 04/16/19 Atorvastatin Ca [Lipitor] 40 mg PO DAILY 04/16/19 Cholecalciferol (Vitamin D3) 5,000 unit PO DAILY 04/16/19 [Vitamin D3] Ertugliflozin Pidolate [Steglatro] 15 mg PO DAILY 04/16/19 Lisinopril 20 mg PO DAILY 04/16/19 Omeprazole 40 mg PO DAILY 04/16/19 Vitamin B Complex 1 each PO DAILY 04/16/19 Active Medications Acetaminophen (Tylenol -) 650 mg PO Q4H PRN PRN Reason: PAIN LEVEL 1-5 Last Admin: 04/16/19 20:39 Dose: 650 mg Aspirin (Asa -) 81 mg PO DAILY [facility] Last Admin: 04/17/19 09:09 Dose: 81 mg Atorvastatin Calcium (Lipitor -) 40 mg PO HS [facility] Last Admin: 04/19/19 21:04 Dose: 40 mg Cholecalciferol (Vitamin D3 -) 5,000 unit PO DAILY [facility] Last Admin: 04/20/19 09:37 Dose: 5,000 unit Collagenase (Santyl -) 1 applic TP DAILY [facility]; Protocol Last Admin: 04/20/19 09:38 Dose: Not Given Cyanocobalamin (Vitamin B12 -) 100 mcg PO DAILY [facility] Last Admin: 04/20/19 09:37 Dose: 100 mcg Enoxaparin Sodium (Lovenox -) 85 mg SQ BID [facility] Last Admin: 04/19/19 17:12 Dose: 85 mg Gabapentin (Neurontin -) 300 mg PO DAILY [facility] Last Admin: 04/20/19 09:37 Dose: 300 mg Gentamicin Sulfate (Garamycin 0.1% Ointment -) 1 applic TP DAILY [facility] Last Admin: 04/20/19 09:38 Dose: Not Given Piperacillin Sod/Tazobactam (Sod 3.375 gm/ Dextrose) 50 mls @ 100 mls/hr IVPB Q8H-IV [facility]; Protocol Last Admin: 04/20/19 09:38 Dose: 100 mls/hr Insulin Aspart (Novolog Vial Sliding Scale -) 1 vial SQ ACHS [facility]; Protocol Last Admin: 04/20/19 06:03 Dose: Not Given Ketorolac Tromethamine (Toradol Injection -) 15 mg IVPUSH Q6H PRN PRN Reason: PAIN LEVEL 6-10 Stop: 04/21/19 11:00 Last Admin: 04/19/19 18:33 Dose: 15 mg Lidocaine HCl (Xylocaine 2% Jelly) 1 applic TP TID PRN PRN Reason: TOPICAL PAIN Last Admin: 04/19/19 12:14 Dose: 1 applic Multivit/Ca Carb/B Cmplx/FA/Prenat (Nephro-Mel -) 1 tablet PO DAILY [facility] Last Admin: 04/20/19 09:37 Dose: 1 tablet Pantoprazole Sodium (Protonix -) 40 mg PO DAILY [facility] Last Admin: 04/20/19 09:35 Dose: 40 mg Laboratory Results - last 24 hr 11/05/2604/19/19 04/19/19 11:45 15:00 15:00 WBC 6.9 RBC 3.70 Hgb 11.2 Hct 34.2 MCV 92.4 MCH 30.2 MCHC 32.7 RDW 14.1 Plt Count 233 MPV 9.0 Absolute Neuts (auto) 5.2 Neutrophils % 75.5 Lymphocytes % 15.1 Monocytes % 7.8 Eosinophils % 1.3 Basophils % 0.3 Nucleated RBC % 0 Sodium 140 Potassium 4.6 Chloride 108 H Carbon Dioxide 29 Anion Gap 3 L BUN 25.8 H Creatinine 0.9 Est GFR (CKD-EPI)AfAm 80.55 Est GFR (CKD-EPI)NonAf 69.50 POC Glucometer 122 Random Glucose 212 H Calcium 9.0 Phosphorus 3.2 Magnesium 2.1 04/19/19 04/19/19 04/20/19 17:08 20:24 05:49 WBC RBC Hgb Hct MCV MCH MCHC RDW Plt Count MPV Absolute Neuts (auto) Neutrophils % Lymphocytes % Monocytes % Eosinophils % Basophils % Nucleated RBC % Sodium Potassium Chloride Carbon Dioxide Anion Gap BUN Creatinine Est GFR (CKD-EPI)AfAm Est GFR (CKD-EPI)NonAf POC Glucometer 147 159 147 Random Glucose Calcium Phosphorus Magnesium 04/20/19 04/20/19 07:45 07:45 WBC 6.4 RBC 3.78 Hgb 11.7 Hct 34.8 MCV 92.2 MCH 31.0 MCHC 33.7 RDW 14.0 Plt Count 235 MPV 8.9 Absolute Neuts (auto) Neutrophils % Lymphocytes % Monocytes % Eosinophils % Basophils % Nucleated RBC % Sodium 140 Potassium 4.4 Chloride 108 H Carbon Dioxide 28 Anion Gap 4 L BUN 21.5 H Creatinine 0.7 Est GFR (CKD-EPI)AfAm 109.15 Est GFR (CKD-EPI)NonAf 94.17 POC Glucometer Random Glucose 150 H Calcium 9.0 Phosphorus 3.6 Magnesium 2.1 ASSESSMENT AND PLAN: 58 yof with PMHx of IDDM, HTN, HLD, chronic bilateral leg wounds, right posterior calf, now left lateral leg, comes with LLE wound infection/cellulitis -Acute on chronic LLE wound infection/cellulitis -Acute left superficial vein DVT -Failure of outpatient antibiotic treatment -Healed right posterior calf wound -Reported ?"cardiac arrest" during Knee surgery in 2014 -IDDM -HTN -HLD Plan: Leg findings improved. MRI neg for abscess/osteomyelitis. ID input noted. Zosyn. Cultures noted. Duplex with left superficial femoral DVT. ' Lovenox full dose, on hold pending surgical plans Plan to transition to NOAC when no further surgical intervention planned. Records from [facility] reviewed. For knee surgery 2014, patient had spinal anesthesia with propofol induction. Has JONY then. Suspected to have respiratory arrest resulting in cardiac arrest, with ROSC after 1 dose of epi. Was successfully extubated over the next 2 days with no concerns. Patients reports prior diagnosis of JONY but not used CPAP, reports weight loss > 25 lbs since then. Discussed with anesthesiologist. Likely plan for GA with intubation. Close monitoring of respiratory status in per-operative period. Outpatient records report non concerning 2D echo and stress test in last 6 months. 2D echo here noted Cardiology input appreciated RCRI 1, intermediate risk for intermediate risk surgery. Samaria PÉREZ from this month reviewed, follow up Dr. Gabriel's input. A1c 7.1. Levemir on hold given NPO, ISS. Continue statin/gabapentin/MVI/PPI DVTPPX full dose lovenox as above Dispo pending clinical improvement. Plan discussed with patient in detail, all questions answered
--- NOTE | 2019-04-20 11:52 | PN ---
Physical Exam: SUBJECTIVE: Patient seen and examined NAEON Endorses improvement in LLE pain. Expresses anxiety about surgery. Denies F/C, worsened swelling of LLE OBJECTIVE: Vital Signs Period Temp Pulse Resp BP Sys/Doran Pulse Ox Last 24 Hr 98.1 F-99.3 F 78-107 20-120 108-138/49-80 97 GENERAL: NAD. Mildly anxious. HEAD: NC/AT. Mild temporal wasting EYES: sclera anicteric, conjunctiva clear. No ptosis. ENT: Ears normal, nares patent, moist mucous membranes. NECK: Trachea midline, full range of motion, supple. LUNGS: Breath sounds equal, clear to auscultation bilaterally, no wheezes, no crackles, no accessory muscle use. HEART: Regular rate and rhythm, S1, S2 without murmur, rub or gallop. ABDOMEN: Soft, nontender, nondistended, no guarding, no rebound. EXTREMITIES: 1+ pulses of BLE DP, warm, well-perfused. Left lateral lower leg with ulcerated wound w/ fibrinous exudate, no drainage; ~ 5cm x3cm; wound bed with pink granulation tissue, dried wound edges without undermining; diffuse erythema w/o discrete demarcation, no TTP beyond erythema. Left knee with well- healed vertical incision. Left popliteal fossa with palpalbe tender LNs. Scabbing medial wounds to RLE. Scabbing medial wounds to LLE. Left foot with ecchymosis to 2nd-3rd base of toes; warm. Able to move toes w/o restrictions NEUROLOGICAL: Normal speech, gait not observed. PSYCH: Normal mood, normal affect. Slightly anxious Laboratory Results - last 24 hr 04/19/19 04/19/19 04/19/19 11:45 15:00 15:00 WBC 6.9 RBC 3.70 Hgb 11.2 Hct 34.2 MCV 92.4 MCH 30.2 MCHC 32.7 RDW 14.1 Plt Count 233 MPV 9.0 Absolute Neuts (auto) 5.2 Neutrophils % 75.5 Lymphocytes % 15.1 Monocytes % 7.8 Eosinophils % 1.3 Basophils % 0.3 Nucleated RBC % 0 Sodium 140 Potassium 4.6 Chloride 108 H Carbon Dioxide 29 Anion Gap 3 L BUN 25.8 H Creatinine 0.9 Est GFR (CKD-EPI)AfAm 80.55 Est GFR (CKD-EPI)NonAf 69.50 POC Glucometer 122 Random Glucose 212 H Calcium 9.0 Phosphorus 3.2 Magnesium 2.1 04/19/19 04/19/19 04/20/19 17:08 20:24 05:49 WBC RBC Hgb Hct MCV MCH MCHC RDW Plt Count MPV Absolute Neuts (auto) Neutrophils % Lymphocytes % Monocytes % Eosinophils % Basophils % Nucleated RBC % Sodium Potassium Chloride Carbon Dioxide Anion Gap BUN Creatinine Est GFR (CKD-EPI)AfAm Est GFR (CKD-EPI)NonAf POC Glucometer 147 159 147 Random Glucose Calcium Phosphorus Magnesium 04/20/19 04/20/19 07:45 07:45 WBC 6.4 RBC 3.78 Hgb 11.7 Hct 34.8 MCV 92.2 MCH 31.0 MCHC 33.7 RDW 14.0 Plt Count 235 MPV 8.9 Absolute Neuts (auto) Neutrophils % Lymphocytes % Monocytes % Eosinophils % Basophils % Nucleated RBC % Sodium 140 Potassium 4.4 Chloride 108 H Carbon Dioxide 28 Anion Gap 4 L BUN 21.5 H Creatinine 0.7 Est GFR (CKD-EPI)AfAm 109.15 Est GFR (CKD-EPI)NonAf 94.17 POC Glucometer Random Glucose 150 H Calcium 9.0 Phosphorus 3.6 Magnesium 2.1 Active Medications Generic Name Dose Route Start Last Admin Trade Name Keoq PRN Reason Stop Dose Admin Acetaminophen 650 mg 04/16/19 11:01 04/16/19 20:39 Tylenol - PO 650 mg Q4H PRN Administration PAIN LEVEL 1-5 Aspirin 81 mg 04/16/19 11:45 04/17/19 09:09 Asa - PO 81 mg DAILY [facility] Administration Atorvastatin Calcium 40 mg 04/16/19 22:00 04/19/19 21:04 Lipitor - PO 40 mg HS [facility] Administration Cholecalciferol 5,000 unit 04/16/19 11:45 04/20/19 09:37 Vitamin D3 - PO 5,000 unit DAILY [facility] Administration Collagenase 1 applic 04/16/19 11:15 04/20/19 09:38 Santyl - TP Not Given DAILY [facility] Protocol Cyanocobalamin 100 mcg 04/16/19 11:45 04/20/19 09:37 Vitamin B12 - PO 100 mcg DAILY [facility] Administration Enoxaparin Sodium 85 mg 04/19/19 15:45 04/19/19 17:12 Lovenox - SQ 85 mg BID [facility] Administration Gabapentin 300 mg 04/16/19 11:45 04/20/19 09:37 Neurontin - PO 300 mg DAILY [facility] Administration Gentamicin Sulfate 1 applic 04/16/19 11:15 04/20/19 09:38 Garamycin 0.1% Ointment - TP Not Given DAILY [facility] Piperacillin Sod/Tazobactam 50 mls @ 100 mls/hr 04/16/19 08:00 04/20/19 09:38 Sod 3.375 gm/ Dextrose IVPB 100 mls/hr Q8H-IV [facility] Administration Protocol Insulin Aspart 1 vial 04/16/19 16:30 04/20/19 06:03 Novolog Vial Sliding Scale - SQ Not Given ACHS [facility] Protocol Ketorolac Tromethamine 15 mg 04/16/19 11:01 04/19/19 18:33 Toradol Injection - IVPUSH 04/21/19 11:00 15 mg Q6H PRN Administration PAIN LEVEL 6-10 Lidocaine HCl 1 applic 04/19/19 10:15 04/19/19 12:14 Xylocaine 2% Jelly TP 1 applic TID PRN Administration TOPICAL PAIN Multivit/Ca Carb/B Cmplx/FA/Prenat 1 tablet 04/16/19 11:45 04/20/19 09:37 Nephro-Mel - PO 1 tablet DAILY [facility] Administration Pantoprazole Sodium 40 mg 04/16/19 11:45 04/20/19 09:35 Protonix - PO 40 mg DAILY [facility] Administration ASSESSMENT/PLAN: 58F w/ pmhx of IDDM, HTN/HLD, morbid obesity, JONY(pt refused CPAP), h/o intra- op cardiac arrest during L knee sugery(?[facility]), BLE venous hypertension s/ p in-office venous abalation([facility], Jan 2019), chronic BLE wounds(grew Diptheroid, pseuodomonas, Klebsiella, enterobacter, enterococcus), chronic LLE lateral wound ulcer presents in the ED with worsening pain and redness of LLE wound ulcer. Goes to [facility], wound care w/ Dr Gabriel, was recently seen for the first time by Plastics(Dr Williamson) for wound closure options. Chart review of outside records(Dr Werner and [facility]) showed normal recent echo, stress test. During previous knee reconstruction surgery(2014), under spinal anesthesia + ?MAC, had intraop PEA; thought to be 2/2 respir failure b/c patient ROSC after intubation. Surgical and anesthesia risks noted. Plan for surgery w/ Plastics for 04/21/19. #Acute on Chronic LLE wound ulcer w/a cellulitis; no osteomyelitis > XR tib/Fib(04/16/19): cellulitis, no abscess, no OM > MRI LLE(04/16/19): cellulitis, no abscess/osteomyelitis > Wound CX(04/13/19): diptheroid/corynebacterium -IV Vanc/Zosyn given in ED -Wound care/Vasc consulted --local wound care: santyl, gentamicin ointment, lidocaine -Plastic consulted; Per pt, she has outpatient follow up care with plastics for possible skin graft --RCRI 1pt(insulin): 6% risk of , significant cardiovascular event --plan for skin graft -ID(Italo) consulted: --cw iv abx(zozyn) --gentamicin topical to wound -Tylenol and Toradol for pain PRN # LLE pain --likely 2/2 to DVT and LLE ulcer > BLE venous duplex(04/16/19): Lft superficial femoral vein DVT - therapeutic A/C: enoxaparin 85mg BID - possible outpt fu w/ Heme # h/o cardiac arrest(?2014) - outpt cardiology([facility]: Dr Hubert Oneill) note(10/11/18) reviewed: -- EKG: NSR w/ PRWP -- stress(Myoveiw Lexsiscan): no evid of stress-induced ischemia, LVEF 47% - Cardio(Jena Williamson) Consult: -- acceptable risk for skin graft, no further testing prior to surgery #IDDM; Stable. Hold all home oral DM meds -Levemir 12U HS --held -BGMs/ISS ACHS #HTN/HLD; Cont home meds: Atorvastatin 40, Lisinopril 20 #Prophylaxis DVT: Lovenox(therapeutic) GI: Cont home med: Omeprazole 40 -- pantoprazole FEN -PO hydration -Diabetic diet -NPO at [facility] for possible surgery on 04/19/19 Dispo -Admit to med-surg Visit type - Emergency Visit Emergency Visit: No - New Patient This patient is new to me today: No - Critical Care Critical Care patient: No ATTENDING PHYSICIAN STATEMENT I saw and evaluated the patient. I reviewed the resident's note and discussed the case with the resident. I agree with the resident's findings and plan as documented. SUBJECTIVE: OBJECTIVE: ASSESSMENT AND PLAN:
[2019-04-20] MEDS: KETOROLAC TROMETHAMINE 15 MG/ML VIAL IVPUSH PRN ×2 (11:56→19:55)
[2019-04-20] MEDS: LIDOCAINE HCL 2% JELLY (5 ML/TUBE) TP PRN (12:01)
--- NOTE | 2019-04-20 12:04 | PN ---
Progress Note (short form) - Note Progress Note: s: no chest pain, palps, dizziness, dyspnea Current Medications Acetaminophen (Tylenol -) 650 mg PO Q4H PRN PRN Reason: PAIN LEVEL 1-5 Last Admin: 04/16/19 20:39 Dose: 650 mg Aspirin (Asa -) 81 mg PO DAILY [facility] Last Admin: 04/17/19 09:09 Dose: 81 mg Atorvastatin Calcium (Lipitor -) 40 mg PO HS [facility] Last Admin: 04/19/19 21:04 Dose: 40 mg Cholecalciferol (Vitamin D3 -) 5,000 unit PO DAILY [facility] Last Admin: 04/20/19 09:37 Dose: 5,000 unit Collagenase (Santyl -) 1 applic TP DAILY [facility]; Protocol Last Admin: 04/20/19 12:02 Dose: 1 applic Cyanocobalamin (Vitamin B12 -) 100 mcg PO DAILY [facility] Last Admin: 04/20/19 09:37 Dose: 100 mcg Enoxaparin Sodium (Lovenox -) 85 mg SQ BID [facility] Last Admin: 04/19/19 17:12 Dose: 85 mg Gabapentin (Neurontin -) 300 mg PO DAILY [facility] Last Admin: 04/20/19 09:37 Dose: 300 mg Gentamicin Sulfate (Garamycin 0.1% Ointment -) 1 applic TP DAILY [facility] Last Admin: 04/20/19 12:02 Dose: 1 applic Piperacillin Sod/Tazobactam (Sod 3.375 gm/ Dextrose) 50 mls @ 100 mls/hr IVPB Q8H-IV [facility]; Protocol Last Admin: 04/20/19 09:38 Dose: 100 mls/hr Insulin Aspart (Novolog Vial Sliding Scale -) 1 vial SQ ACHS [facility]; Protocol Last Admin: 04/20/19 11:50 Dose: Not Given Ketorolac Tromethamine (Toradol Injection -) 15 mg IVPUSH Q6H PRN PRN Reason: PAIN LEVEL 6-10 Stop: 04/21/19 11:00 Last Admin: 04/20/19 11:56 Dose: 15 mg Lidocaine HCl (Xylocaine 2% Jelly) 1 applic TP TID PRN PRN Reason: TOPICAL PAIN Last Admin: 04/20/19 12:01 Dose: 1 applic Multivit/Ca Carb/B Cmplx/FA/Prenat (Nephro-Mel -) 1 tablet PO DAILY [facility] Last Admin: 04/20/19 09:37 Dose: 1 tablet Pantoprazole Sodium (Protonix -) 40 mg PO DAILY [facility] Last Admin: 04/20/19 09:35 Dose: 40 mg Vital Signs Period Temp Pulse Resp BP Sys/Doran Pulse Ox Last 24 Hr 98.1 F-99.3 F 78-107 20-120 108-138/49-80 97 Constitutional: Yes: No Distress, Calm Eyes: Yes: Conjunctiva Clear, EOM Intact HENT: Yes: Atraumatic, Normocephalic Neck: Yes: Supple, Trachea Midline Respiratory: Yes: Regular, CTA Bilaterally Gastrointestinal: Yes: Normal Bowel Sounds, Soft Cardiovascular: Yes: Regular Rate and Rhythm JVD: No Heart Sounds: Yes: S1, S2 Extremities: Yes: Other (LLE with bandages) Edema: No Integumentary: No: Jaundice Neurological: Yes: Alert, Oriented Psychiatric: No: Agitated Assessment/Plan EKG: sinus, nl intervals, no ischemic changes CXR: no acute process echo 04/2019 tds, nl LV/RV function, mild MR, mild TR, mild aortic sclerosis Preoperative evaluation, history of cardiac arrest of unknown etiology - planned surgery for skin graft - history of cardiac arrest in setting of knee surgery 2014, etiology not known - per notes from business development coordinator Dr. Werner recent unremarkable nuclear stress test, no ischemia 10/2018 - echo here unremarkable - patient is at acceptable risk for skin graft surgery, no further testing prior to surgery, planned for this afternoon Cellulitis - manage per primary, on abx DM - manage per primary DVT - on lovenox with plan for NOAC after surgery HTN - cont current meds HLD - cont statin
[2019-04-20] MEDS ORDERED: LIDOCAINE 1%-EPI 1:100,000 30 ML MDV IJ ONE (13:02)
[2019-04-20] MEDS ORDERED: MINERAL OIL 25 ML OIL ONE ×2 (13:03→13:35)
[2019-04-20] MEDS ORDERED: BUPIVACAINE HCL/PF 0.25% (2.5MG/ML) 10 ML VIAL ONE (13:58)
[2019-04-20] MEDS ORDERED: MIDAZOLAM HCL 2 MG/2 ML SINGLE DOSE VIAL ONE (14:07)
[2019-04-20] MEDS ORDERED: PROPOFOL 20 ML ONE ×2 (14:07→15:01)
[2019-04-20] MEDS ORDERED: LIDOCAINE HCL/PF 2% SDV 5ML VIAL ONE (14:08)
[2019-04-20] MEDS ORDERED: BACITRACIN 50,000 UNITS VIAL TP ONE ×2 (14:22)
[2019-04-20] MEDS ORDERED: ceFAZolin 2 GRAM PREMIX BAG IVPB ONE (14:22)
[2019-04-20] MEDS ORDERED: ROCURONIUM BROMIDE 50 MG/5 ML SYRINGE ONE (14:27)
[2019-04-20] MEDS ORDERED: ceFAZolin SODIUM 1 GM VIAL ONE (14:34)
[2019-04-20] MEDS ORDERED: BACITRACIN 15 GM TUBE TOPICAL OINTMENT ONE (15:45)
[2019-04-20] MEDS ORDERED: BUPIVACAINE HCL/PF 0.75% 10 ML VIAL PNB ONE ×2 (15:47)
[2019-04-20] MEDS ORDERED: LIDOCAINE 1%/EPI 1:100000 (20 ML MULTI DOSE VIAL) IJ ONE ×2 (15:47)
[2019-04-20] MEDS ORDERED: GLYCOPYRROLATE 0.2 MG/1 ML VIAL ONE (16:05)
[2019-04-20] MEDS ORDERED: NEOSTIGMINE METHYLSULFATE 0.5 MG/1 ML - 10 ML MDV ONE (16:05)
[2019-04-20] MEDS ORDERED: PROMETHAZINE HCL 25 MG/1 ML VIAL IVPUSH PRN (17:13)
[2019-04-20] MEDS ORDERED: PIPERACILLIN/TAZOB 3.375 GM 3.375 GM in DEXTROSE 5%-WATER - 50 ML IVPB SCH (18:00)
[2019-04-20] MEDS: ATORVASTATIN CA 40 MG TABLET (FP) PO SCH (21:15)
[2019-04-21] MEDS ORDERED: DEXTROSE 5%-WATER - 50 ML IVPB ONE ×3 (02:15→16:26)
[2019-04-21] MEDS ORDERED: PIPERACILLIN/TAZOBACTAM 3.375 GM VIAL IVPB ONE ×3 (02:15→16:25)
[2019-04-21] MEDS: PIPERACILLIN/TAZOB 3.375 GM 3.375 GM in DEXTROSE 5%-WATER - 50 ML IVPB SCH ×3 (02:25→17:01)
[2019-04-21] MEDS: KETOROLAC TROMETHAMINE 15 MG/ML VIAL IVPUSH PRN ×2 (02:25→21:36)
[2019-04-21] MEDS: INSULIN SLIDING SCALE (NOVOLOG) 1 VIAL SQ SCH ×4 (06:29→21:39)
[2019-04-21 08:53] LABS: HEMATOCRIT 32.9 % (32.4-45.2); HEMOGLOBIN 10.9 GM/dL (10.7-15.3); MCH 30.7 pg (25.7-33.7); MCHC 33.1 g/dl (32.0-36.0); MEAN CELL VOLUME 92.5 fl (80-96); MEAN PLT VOLUME 9.1 fl (7.5-11.1); PLATELET COUNT 201 K/MM3 (134-434); RBC 3.56 M/mm3 (3.60-5.2); RDW 14.1 % (11.6-15.6); WHITE BLOOD COUNT 6.5 K/mm3 (4.0-10.0)
[2019-04-21 09:15] LABS: CALCIUM 8.4 mg/dL (8.5-10.1); CREATININE 0.6 mg/dL (0.55-1.3); MAGNESIUM 1.9 mg/dL (1.8-2.4); PHOSPHOROUS 3.9 mg/dL (2.5-4.9); POTASSIUM 4.3 mmol/L (3.5-5.1)
[2019-04-21] MEDS ORDERED: PT OWN MED DRAWER 7, Y5N ONE (09:19)
--- NOTE | 2019-04-21 09:21 | OP ---
DATE OF OPERATION: DATE OF DICTATION: 04/21/2019 PREOPERATIVE DIAGNOSIS: A non-healing large open wound of the left lower leg, a non-healing wound of the left medial thigh, and multiple other wounds covered with dry scabs. HISTORY: The patient is a 58-year-old seen in the Wound [facility] at [facility] with painful wounds located on her left leg. The patient has been previously treated by Dr. Gabriel and was referred with the diagnosis of pyoderma gangrenosum requiring excisional debridement and skin grafting. DESCRIPTION OF PROCEDURE: The patient was brought to the operating room. General anesthesia was administered. At this time, standard procedure of identification of the patient and site of the surgery was carried out. Once agreed upon, the left thigh and left leg were washed and cleaned with Hibiclens solution and then draped in a standard aseptic manner. A Estephania dermatome and a 2-inch width of skin graft was taken from the anterolateral aspect of her left thigh. It was then meshed to 1-1/2 times. They were kept in a saline sponge. Left leg excisional debridement was done with a 10 scalpel blade. A significant amount of induration was found around the entire periphery. A lot of scarring was present. The tissue was pretty inflamed. This was excised in toto. A call was made to the pathologist. The distalmost area at 6 o'clock was biopsied. This was sent fresh. The split-thickness skin graft was then applied, surgically fixated with josiane followed by a dressing. Prior to that the wound was massively irrigated with 3 L of normal saline with 50,000 units of bacitracin. Pulsavac was carried out prior to application of skin graft. Hemostasis was secured with electrocautery. Another wound was located on the medial aspect of the knee and the thigh. This was excised sharply using a 15 scalpel blade. It was a full-thickness excision. Hemostasis was secured with electrocautery. The area was then repaired using 4-0 Prolene running sutures. Incidentally, while taking the skin graft from the left thigh, there was a 2-cm area which extended deep to the fat. At this time the dermatome was removed. The wound was repaired. Hemostasis was secured. Further skin graft was then taken from the lateral thigh. Dressings consisted of 4 x 4's, Xeroform, bacitracin and an Unna boot was applied on the left leg. The thigh was dressed with Xeroform and Tegaderm. The patient tolerated the procedure well and was senet to the recovery room in a satisfactory condition. POSTOPERATIVE DIAGNOSIS: Non-healing inflammatory wounds of the left leg. SURGEON: Piter Williamson M.D. ANESTHESIA: General anesthesia. ESTIMATED BLOOD LOSS: Less than 50 mL. Rudy SHAY/[id number]
[2019-04-21] MEDS: VITAMIN B COMP W-C 1 EA TABLET PO SCH (09:23)
[2019-04-21] MEDS: PANTOPRAZOLE 40 MG TABLET (FP) PO SCH (09:23)
[2019-04-21] MEDS: oxyCODONE HCL 5 MG TABLET PO PRN ×2 (09:23→13:30)
[2019-04-21] MEDS: CYANOCOBALAMIN (VITAMIN B-12) 100 MCG TABLET PO SCH (09:24)
[2019-04-21] MEDS: CHOLECALCIFEROL (VIT D3) 1,000 UNIT (25 MCG) TABLET PO SCH (09:24)
[2019-04-21] MEDS: GABAPENTIN 300 MG CAPSULE (FP) PO SCH (09:24)
--- NOTE | 2019-04-21 09:41 | PN ---
Progress Note, Physician History of Present Illness: stable no new issues - Current Medication List Current Medications: Active Medications Acetaminophen (Tylenol -) 650 mg PO Q4H PRN PRN Reason: PAIN LEVEL 1-5 Atorvastatin Calcium (Lipitor -) 40 mg PO HS [facility] Last Admin: 04/20/19 21:15 Dose: 40 mg Cholecalciferol (Vitamin D3 -) 5,000 unit PO DAILY [facility] Last Admin: 04/21/19 09:24 Dose: 5,000 unit Cyanocobalamin (Vitamin B12 -) 100 mcg PO DAILY [facility] Last Admin: 04/21/19 09:24 Dose: 100 mcg Fentanyl (Sublimaze Injection -) 50 mcg IVPUSH [id number] PRN PRN Reason: PAIN-PACU ORDER X 4 DOSES ONLY Last Admin: 04/20/19 16:55 Dose: 50 mcg Gabapentin (Neurontin -) 300 mg PO DAILY [facility] Last Admin: 04/21/19 09:24 Dose: 300 mg Piperacillin Sod/Tazobactam (Sod 3.375 gm/ Dextrose) 50 mls @ 100 mls/hr IVPB Q8H-IV [facility]; Protocol Piperacillin Sod/Tazobactam (Sod 3.375 gm/ Dextrose) 50 mls @ 100 mls/hr IVPB Q8H-IV [facility]; Protocol Stop: 04/21/19 10:29 Last Admin: 04/21/19 09:25 Dose: 100 mls/hr Piperacillin Sod/Tazobactam (Sod 3.375 gm/ Dextrose) 50 mls @ 100 mls/hr IVPB Q8H-IV [facility]; Protocol Insulin Aspart (Novolog Vial Sliding Scale -) 1 vial SQ ACHS [facility]; Protocol Last Admin: 04/21/19 06:29 Dose: Not Given Ketorolac Tromethamine (Toradol Injection -) 15 mg IVPUSH Q6H PRN PRN Reason: PAIN LEVEL 6-10 Stop: 04/21/19 11:00 Last Admin: 04/21/19 02:25 Dose: 15 mg Multivit/Ca Carb/B Cmplx/FA/Prenat (Nephro-Mel -) 1 tablet PO DAILY [facility] Last Admin: 04/21/19 09:23 Dose: 1 tablet Ondansetron HCl (Zofran Injection) 4 mg IVPUSH Q6H PRN PRN Reason: NAUSEA AND/OR VOMITING Oxycodone HCl (Roxicodone -) 5 mg PO Q4H PRN PRN Reason: PAIN LEVEL 1-5 Stop: 04/21/19 17:12 Last Admin: 04/21/19 09:23 Dose: 5 mg Pantoprazole Sodium (Protonix -) 40 mg PO DAILY [facility] Last Admin: 04/21/19 09:23 Dose: 40 mg Promethazine HCl (Phenergan Injection -) 12.5 mg IVPUSH Q6H PRN PRN Reason: NAUSEA-FOR RESCUE AFTER 15 MIN - Objective Vital Signs: Vital Signs Temperature 98.8 F 04/21/19 08:50 Pulse Rate 105 H 04/21/19 08:50 Respiratory Rate 17 04/21/19 08:50 Blood Pressure 106/57 L 04/21/19 08:50 O2 Sat by Pulse Oximetry (%) 98 04/20/19 21:00 Constitutional: Yes: No Distress, Calm Respiratory: Yes: Regular, CTA Bilaterally Gastrointestinal: Yes: Normal Bowel Sounds, Soft Musculoskeletal: Yes: WNL Extremities: Yes: WNL Wound/Incision: Yes: Dressing Dry and Intact, Other Neurological: Yes: Alert, Oriented Labs: CBC, BMP 04/21/19 07:20 04/21/19 07:20 Assessment/Plan Problem List - Problems (1) Wound cellulitis Code(s): L03.90 - CELLULITIS, UNSPECIFIED (2) Type 2 diabetes mellitus with diabetic polyneuropathy Code(s): E11.42 - TYPE 2 DIABETES MELLITUS WITH DIABETIC POLYNEUROPATHY Assessment/Plan LLE DVT chronic LLE ulcer/possible cellulitis IDDM HTN HLD plan continue abx rest as per the team for surgery wound care
--- NOTE | 2019-04-21 12:05 | PN ---
Progress Note (short form) - Note Progress Note: s: no chest pain, palps, dizziness, dyspnea Current Medications Generic Name Dose Route Start Last Admin Trade Name Freq PRN Reason Stop Dose Admin Acetaminophen 650 mg 04/20/19 17:01 Tylenol - PO Q4H PRN PAIN LEVEL 1-5 Atorvastatin Calcium 40 mg 04/20/19 22:00 04/20/19 21:15 Lipitor - PO 40 mg HS [facility] Administration Cholecalciferol 5,000 unit 04/21/19 10:00 04/21/19 09:24 Vitamin D3 - PO 5,000 unit DAILY [facility] Administration Cyanocobalamin 100 mcg 04/21/19 10:00 04/21/19 09:24 Vitamin B12 - PO 100 mcg DAILY [facility] Administration Fentanyl 50 mcg 04/20/19 17:13 04/20/19 16:55 Sublimaze Injection - IVPUSH 50 mcg [id number] PRN Administration PAIN-PACU ORDER X 4 DOSES ONLY Gabapentin 300 mg 04/21/19 10:00 04/21/19 09:24 Neurontin - PO 300 mg DAILY [facility] Administration Piperacillin Sod/Tazobactam 50 mls @ 100 mls/hr 04/21/19 18:00 Sod 3.375 gm/ Dextrose IVPB Q8H-IV [facility] Protocol Insulin Aspart 1 vial 04/20/19 22:00 04/21/19 11:40 Novolog Vial Sliding Scale - SQ 2 units ACHS [facility] Administration Protocol Multivit/Ca Carb/B Cmplx/FA/Prenat 1 tablet 04/21/19 10:00 04/21/19 09:23 Nephro-Mel - PO 1 tablet DAILY [facility] Administration Ondansetron HCl 4 mg 04/20/19 17:13 Zofran Injection IVPUSH Q6H PRN NAUSEA AND/OR VOMITING Oxycodone HCl 5 mg 04/20/19 17:13 04/21/19 09:23 Roxicodone - PO 04/21/19 17:12 5 mg Q4H PRN Administration PAIN LEVEL 1-5 Pantoprazole Sodium 40 mg 04/21/19 10:00 04/21/19 09:23 Protonix - PO 40 mg DAILY [facility] Administration Promethazine HCl 12.5 mg 04/20/19 17:13 Phenergan Injection - IVPUSH Q6H PRN NAUSEA-FOR RESCUE AFTER 15 MIN Vital Signs Period Temp Pulse Resp BP Sys/Doran Pulse Ox Last 24 Hr 97.9 F-98.8 F 89-109 14-20 106-140/48-87 95-100 Constitutional: Yes: No Distress, Calm Eyes: Yes: Conjunctiva Clear Neck: Yes: Supple, Trachea Midline Respiratory: Yes: Regular, CTA Bilaterally Gastrointestinal: Yes: Normal Bowel Sounds, Soft Cardiovascular: Yes: Regular Rate and Rhythm JVD: No Heart Sounds: Yes: S1, S2 Extremities: Yes: Other (LLE with bandages) Edema: No Integumentary: No: Jaundice Neurological: Yes: Alert, Oriented Psychiatric: No: Agitated CBC, BMP 04/21/19 07:20 04/21/19 07:20 Assessment/Plan EKG: sinus, nl intervals, no ischemic changes CXR: no acute process echo 04/2019 tds, nl LV/RV function, mild MR, mild TR, mild aortic sclerosis Preoperative evaluation, history of cardiac arrest of unknown etiology - planned surgery for skin graft - history of cardiac arrest in setting of knee surgery 2014, etiology not known - per notes from washer cutter Dr. Werner recent unremarkable nuclear stress test, no ischemia 10/2018 - echo here unremarkable - s/p skin graft surgery, doing well Cellulitis - manage per primary, on abx DM - manage per primary DVT - on lovenox with plan for NOAC after surgery HTN - cont current meds HLD - cont statin
--- NOTE | 2019-04-21 12:22 | PN ---
Progress Note (short form) - Note Progress Note: Anesthesia post op note, POD#1 S/P Left lower extremity wound debridement and skin graft under GA. Pat seen and examined,VSS. No apparent post anesthesia complications.
--- NOTE | 2019-04-21 14:48 | PN ---
Teaching Attending Note Name of Resident: Lavon Mir ATTENDING PHYSICIAN STATEMENT I saw and evaluated the patient. I reviewed the resident's note and discussed the case with the resident. I agree with the resident's findings and plan as documented with exceptions below. SUBJECTIVE: Patient seen and examined. leg pain but controlled, no other complaints, doing well. OBJECTIVE: Vital Signs Period Temp Pulse Resp BP Sys/Doran Pulse Ox Last 24 Hr 97.9 F-98.8 F 89-109 14-20 106-140/48-87 95-100 Intake & Output 04/18/19 04/19/19 04/20/19 04/21/19 23:59 23:59 23:59 23:59 Intake Total 1475 1370 1400 320 Output Total 650 Balance 1475 1370 750 320 General: lying in bed, no acute distress neck: soft, supple Chest: CTAB, no rales or wheezing Abdomen:Soft, obese, NT Extremities: left medial and lateral thigh dressing clean, LLE dressing with unna boot, left DP pulses present, no noted foot swelling/erythema Home Medications Medication Instructions Recorded Gabapentin [Neurontin -] 300 mg PO DAILY 03/22/18 Liraglutide [Victoza -] 1.8 mg IJ DAILY 03/22/18 metFORMIN HCL [Metformin HCl ER] 750 mg PO DAILY 04/08/19 Cyanocobalamin [Vitamin B12 -] 1 tab PO DAILY 04/11/19 Insulin Glargine,Hum.rec.anlog 12 units SQ HS 04/11/19 [Basaglar Kwikpen U-100] Meloxicam 15 mg PO DAILY 04/11/19 Multivitamin [One-Daily 1 tab PO DAILY 04/11/19 Multi-Vitamin] Aspirin [ASA -] 81 mg PO DAILY 04/16/19 Atorvastatin Ca [Lipitor] 40 mg PO DAILY 04/16/19 Cholecalciferol (Vitamin D3) 5,000 unit PO DAILY 04/16/19 [Vitamin D3] Ertugliflozin Pidolate [Steglatro] 15 mg PO DAILY 04/16/19 Lisinopril 20 mg PO DAILY 04/16/19 Omeprazole 40 mg PO DAILY 04/16/19 Vitamin B Complex 1 each PO DAILY 04/16/19 Active Medications Acetaminophen (Tylenol -) 650 mg PO Q4H PRN PRN Reason: PAIN LEVEL 1-5 Atorvastatin Calcium (Lipitor -) 40 mg PO HS [facility] Last Admin: 04/20/19 21:15 Dose: 40 mg Cholecalciferol (Vitamin D3 -) 5,000 unit PO DAILY [facility] Last Admin: 04/21/19 09:24 Dose: 5,000 unit Cyanocobalamin (Vitamin B12 -) 100 mcg PO DAILY [facility] Last Admin: 04/21/19 09:24 Dose: 100 mcg Fentanyl (Sublimaze Injection -) 50 mcg IVPUSH [id number] PRN PRN Reason: PAIN-PACU ORDER X 4 DOSES ONLY Last Admin: 04/20/19 16:55 Dose: 50 mcg Gabapentin (Neurontin -) 300 mg PO DAILY [facility] Last Admin: 04/21/19 09:24 Dose: 300 mg Piperacillin Sod/Tazobactam (Sod 3.375 gm/ Dextrose) 50 mls @ 100 mls/hr IVPB Q8H-IV [facility]; Protocol Insulin Aspart (Novolog Vial Sliding Scale -) 1 vial SQ [facility]; Protocol Last Admin: 04/21/19 11:40 Dose: 2 units Insulin Detemir (Levemir Vial) 5 units SQ [facility] Multivit/Ca Carb/B Cmplx/FA/Prenat (Nephro-Mel -) 1 tablet PO DAILY [facility] Last Admin: 04/21/19 09:23 Dose: 1 tablet Ondansetron HCl (Zofran Injection) 4 mg IVPUSH Q6H PRN PRN Reason: NAUSEA AND/OR VOMITING Oxycodone HCl (Roxicodone -) 5 mg PO Q4H PRN PRN Reason: PAIN LEVEL 1-5 Stop: 04/21/19 17:12 Last Admin: 04/21/19 13:30 Dose: 5 mg Pantoprazole Sodium (Protonix -) 40 mg PO DAILY [facility] Last Admin: 04/21/19 09:23 Dose: 40 mg Promethazine HCl (Phenergan Injection -) 12.5 mg IVPUSH Q6H PRN PRN Reason: NAUSEA-FOR RESCUE AFTER 15 MIN Laboratory Results - last 24 hr 04/20/19 04/20/19 04/21/19 17:33 21:11 06:09 WBC RBC Hgb Hct MCV MCH MCHC RDW Plt Count MPV Sodium Potassium Chloride Carbon Dioxide Anion Gap BUN Creatinine Est GFR (CKD-EPI)AfAm Est GFR (CKD-EPI)NonAf POC Glucometer 126 219 147 Random Glucose Calcium Phosphorus Magnesium 04/21/19 04/21/19 04/21/19 07:20 07:20 11:30 WBC 6.5 RBC 3.56 L Hgb 10.9 Hct 32.9 MCV 92.5 MCH 30.7 MCHC 33.1 RDW 14.1 Plt Count 201 MPV 9.1 Sodium 143 Potassium 4.3 Chloride 109 H Carbon Dioxide 29 Anion Gap 6 L BUN 17.0 Creatinine 0.6 Est GFR (CKD-EPI)AfAm 114.82 Est GFR (CKD-EPI)NonAf 99.07 POC Glucometer 194 Random Glucose 130 H Calcium 8.4 L Phosphorus 3.9 Magnesium 1.9 Microbiology 04/20/19 15:30 Tissue-Other Gram Stain - Final 04/20/19 15:30 Tissue-Other Tissue Culture - Preliminary NO AEROBIC GROWTH, 24 HRS ASSESSMENT AND PLAN: 58 yof with PMHx of IDDM, HTN, HLD, chronic bilateral leg wounds, right posterior calf, now left lateral leg, comes with LLE wound infection/cellulitis -Acute on chronic LLE wound infection/cellulitis, s/p skin grafting from left thick donor site 04/20 -Acute left superficial vein DVT -Failure of outpatient antibiotic treatment -Healed right posterior calf wound -Suspected respiratory arrest resulting in cardiac arrest with knee surgery 2014 (with spinal anesthesia/propofol induction) -IDDM -HTN -HLD Plan: S/p skin grafting 04/20 from left thigh donor site Wound dressing/wound care per Dr. Williamson. Follow up biopsy/culture results. Full thickness inflammed tissue excision per Operative notes. ID input notedEdilson Discuss with Dr. Williamson to resume full dose lovenox resume levemir 5 units hs, ISS. titrate up to home regimen as tolerated Pain control Continue statin/gabapentin. Resume lisinopril as hemodynamics tolerate. DVTPPX as above Dispo PT eval once cleared for ambulation by Dr. williamson Dispo planning over next 3-4 days accordingly. Discussed with patient.
--- NOTE | 2019-04-21 16:42 | PN ---
Physical Exam: SUBJECTIVE: Patient seen and examined O/N: received from [facility], 50cc EBL Endorsing RLE burning sensation at medial thigh donor site. Endorses ambulation w/o issue to the bathroom indepedently. Able to tolerate dinner last night. OBJECTIVE: Vital Signs Period Temp Pulse Resp BP Sys/Doran Pulse Ox Last 24 Hr 97.9 F-98.8 F 89-109 14-20 106-140/53-87 96-100 GENERAL: NAD. Mildly anxious. HEAD: NC/AT. Mild temporal wasting EYES: sclera anicteric, conjunctiva clear. No ptosis. ENT: Ears normal, nares patent, moist mucous membranes. NECK: Trachea midline, full range of motion, supple. LUNGS: Breath sounds equal, clear to auscultation bilaterally, no wheezes, no crackles, no accessory muscle use. HEART: Regular rate and rhythm, S1, S2 without murmur, rub or gallop. ABDOMEN: Soft, nontender, nondistended, no guarding, no rebound. EXTREMITIES: 1+ pulses of BLE DP, warm, well-perfused. Left medial thigh(SG donor site) surgical site covered with xeroform, gauze with serosanginous strike through, overlying tegaderm. Left lower leg wrapped in unna boot + coban. Left knee with well-healed vertical incision. Scabbing medial wounds to RLE. Left foot with ecchymosis to 2nd-3rd base of toes; warm. Able to move toes w/o restrictions NEUROLOGICAL: Normal speech, gait not observed. PSYCH: Normal mood, normal affect. Slightly anxious Laboratory Results - last 24 hr 04/20/19 04/20/19 04/21/19 17:33 21:11 06:09 WBC RBC Hgb Hct MCV MCH MCHC RDW Plt Count MPV Sodium Potassium Chloride Carbon Dioxide Anion Gap BUN Creatinine Est GFR (CKD-EPI)AfAm Est GFR (CKD-EPI)NonAf POC Glucometer 126 219 147 Random Glucose Calcium Phosphorus Magnesium 04/21/19 04/21/19 04/21/19 07:20 07:20 11:30 WBC 6.5 RBC 3.56 L Hgb 10.9 Hct 32.9 MCV 92.5 MCH 30.7 MCHC 33.1 RDW 14.1 Plt Count 201 MPV 9.1 Sodium 143 Potassium 4.3 Chloride 109 H Carbon Dioxide 29 Anion Gap 6 L BUN 17.0 Creatinine 0.6 Est GFR (CKD-EPI)AfAm 114.82 Est GFR (CKD-EPI)NonAf 99.07 POC Glucometer 194 Random Glucose 130 H Calcium 8.4 L Phosphorus 3.9 Magnesium 1.9 Active Medications Generic Name Dose Route Start Last Admin Trade Name Freq PRN Reason Stop Dose Admin Acetaminophen 650 mg 04/20/19 17:01 Tylenol - PO Q4H PRN PAIN LEVEL 1-5 Atorvastatin Calcium 40 mg 04/20/19 22:00 04/20/19 21:15 Lipitor - PO 40 mg HS [facility] Administration Cholecalciferol 5,000 unit 04/21/19 10:00 04/21/19 09:24 Vitamin D3 - PO 5,000 unit DAILY [facility] Administration Cyanocobalamin 100 mcg 04/21/19 10:00 04/21/19 09:24 Vitamin B12 - PO 100 mcg DAILY [facility] Administration Enoxaparin Sodium 85 mg 04/22/19 10:00 Lovenox - SQ BID [facility] Gabapentin 300 mg 04/21/19 10:00 04/21/19 09:24 Neurontin - PO 300 mg DAILY [facility] Administration Piperacillin Sod/Tazobactam 50 mls @ 100 mls/hr 04/21/19 18:00 Sod 3.375 gm/ Dextrose IVPB Q8H-IV [facility] Protocol Insulin Aspart 1 vial 04/20/19 22:00 04/21/19 11:40 Novolog Vial Sliding Scale - SQ 2 units ACHS [facility] Administration Protocol Insulin Detemir 5 units 04/21/19 22:00 Levemir Vial SQ HS [facility] Multivit/Ca Carb/B Cmplx/FA/Prenat 1 tablet 04/21/19 10:00 04/21/19 09:23 Nephro-Mel - PO 1 tablet DAILY [facility] Administration Ondansetron HCl 4 mg 04/20/19 17:13 Zofran Injection IVPUSH Q6H PRN NAUSEA AND/OR VOMITING Oxycodone HCl 5 mg 04/20/19 17:13 04/21/19 13:30 Roxicodone - PO 04/21/19 17:12 5 mg Q4H PRN Administration PAIN LEVEL 1-5 Pantoprazole Sodium 40 mg 04/21/19 10:00 04/21/19 09:23 Protonix - PO 40 mg DAILY [facility] Administration Promethazine HCl 12.5 mg 04/20/19 17:13 Phenergan Injection - IVPUSH Q6H PRN NAUSEA-FOR RESCUE AFTER 15 MIN ASSESSMENT/PLAN: 58F w/ pmhx of IDDM, HTN/HLD, morbid obesity, JONY(pt refused CPAP), h/o intra- op cardiac arrest during L knee sugery(?[facility]), BLE venous hypertension s/ p in-office venous abalation([facility], Jan 2019), chronic BLE wounds(grew Diptheroid, pseuodomonas, Klebsiella, enterobacter, enterococcus), chronic LLE lateral wound ulcer presents in the ED with worsening pain and redness of LLE wound ulcer. Goes to [facility], wound care w/ Dr Gabriel, was recently seen for the first time by Plastics(Dr Williamson) for wound closure options. Chart review of outside records(Dr Werner and [facility]) showed normal recent echo, stress test. During previous knee reconstruction surgery(2014), under spinal anesthesia + ?MAC, had intraop PEA; thought to be 2/2 respir failure b/c patient ROSC after intubation. Surgical and anesthesia risks noted. S/p POD#1 for LLE wound debridement + STSG([facility], 04/20/19) #Acute on Chronic LLE wound ulcer w/a cellulitis; no osteomyelitis > XR tib/Fib(04/16/19): cellulitis, no abscess, no OM > MRI LLE(04/16/19): cellulitis, no abscess/osteomyelitis > Wound CX(04/13/19): diptheroid/corynebacterium -IV Vanc/Zosyn given in ED -Wound care/Vasc consulted --local wound care: santyl, gentamicin ointment, lidocaine --pending plastics recommendation -Plastic([facility]. LLE wound debridment + STSG, 04/20/19) --RCRI 1pt(insulin): 6% risk of , significant cardiovascular event --activity: minimal activity, bedrest w/ BRP -ID(Italo) consulted: --cw iv abx(zozyn) --gentamicin topical to wound -Tylenol and Toradol for pain PRN # LLE pain --likely 2/2 to DVT and LLE ulcer > BLE venous duplex(04/16/19): Lft superficial femoral vein DVT - therapeutic A/C: enoxaparin 85mg BID - possible outpt fu w/ Heme # h/o cardiac arrest(?2014) - outpt cardiology([facility]: Dr Hubert Oneill) note(10/11/18) reviewed: -- EKG: NSR w/ PRWP -- stress(Myoveiw Lexsiscan): no evid of stress-induced ischemia, LVEF 47% - Cardio(Jena Williamson) Consult: -- acceptable risk for skin graft, no further testing prior to surgery #IDDM; Stable. Hold all home oral DM meds -Levemir 12U HS --> Levemir 5U HS until good PO intake -BGMs/ISS ACHS #HTN/HLD; Cont home meds: Atorvastatin 40, Lisinopril 20 #Prophylaxis DVT: Lovenox(therapeutic) --restart 24h after surgery GI: Cont home med: Omeprazole 40 -- pantoprazole FEN -PO hydration -Diabetic diet Dispo -Admit to med-surg Visit type - Emergency Visit Emergency Visit: No - New Patient This patient is new to me today: No - Critical Care Critical Care patient: No ATTENDING PHYSICIAN STATEMENT I saw and evaluated the patient. I reviewed the resident's note and discussed the case with the resident. I agree with the resident's findings and plan as documented. SUBJECTIVE: OBJECTIVE: ASSESSMENT AND PLAN:
[2019-04-21] MEDS: ONDANSETRON 4 MG/2 ML VIAL IVPUSH PRN (17:19)
[2019-04-21] MEDS: ACETAMINOPHEN 325 MG TABLET (FP) PO PRN (21:35)
[2019-04-21] MEDS: ATORVASTATIN CA 40 MG TABLET (FP) PO SCH (21:37)
[2019-04-21] MEDS ORDERED: INSULIN (LEVEMIR) 100 UNITS/ML UNITS SQ SCH (22:00)
[2019-04-22] MEDS: PIPERACILLIN/TAZOB 3.375 GM 3.375 GM in DEXTROSE 5%-WATER - 50 ML IVPB SCH ×2 (03:00→09:21)
[2019-04-22] MEDS ORDERED: PIPERACILLIN/TAZOBACTAM 3.375 GM VIAL IVPB ONE ×2 (04:23→08:48)
[2019-04-22] MEDS ORDERED: DEXTROSE 5%-WATER - 50 ML IVPB ONE ×2 (04:24→08:49)
[2019-04-22] MEDS: KETOROLAC TROMETHAMINE 15 MG/ML VIAL IVPUSH PRN (04:29)
[2019-04-22] MEDS: ACETAMINOPHEN 325 MG TABLET (FP) PO PRN ×2 (04:30→16:52)
[2019-04-22] MEDS: INSULIN SLIDING SCALE (NOVOLOG) 1 VIAL SQ SCH ×4 (06:31→22:21)
[2019-04-22 06:54] LABS: BASO % 0.6 % (0-2.0); EOS % 2.6 % (0-4.5); HEMATOCRIT 31.7 % (32.4-45.2); HEMOGLOBIN 10.5 GM/dL (10.7-15.3); LYMPH % 20.6 % (8-40); MCH 30.6 pg (25.7-33.7); MEAN CELL VOLUME 92.6 fl (80-96); MONO % 8.4 % (3.8-10.2); NEUT % 67.8 % (42.8-82.8); PLATELET COUNT 196 K/MM3 (134-434); RBC 3.42 M/mm3 (3.60-5.2); RDW 14.7 % (11.6-15.6)
[2019-04-22 07:16] LABS: CALCIUM 8.6 mg/dL (8.5-10.1); CREATININE 0.7 mg/dL (0.55-1.3); MAGNESIUM 1.9 mg/dL (1.8-2.4); PHOSPHOROUS 3.6 mg/dL (2.5-4.9); POTASSIUM 4.3 mmol/L (3.5-5.1)
[2019-04-22] MEDS ORDERED: oxyCODONE HCL 5 MG TABLET PO PRN (07:53)
[2019-04-22] MEDS ORDERED: ACETAMINOPHEN 325 MG TABLET (FP) PO PRN (08:18)
[2019-04-22] MEDS: ENOXAPARIN NA (PORCINE) 100 MG/1 ML DISP.SYRIN SQ SCH ×2 (09:20→22:19)
[2019-04-22] MEDS: POLYETHYLENE GLYCOL 3350 119 GM BTL PO SCH (09:20)
[2019-04-22] MEDS: VITAMIN B COMP W-C 1 EA TABLET PO SCH (09:21)
[2019-04-22] MEDS: DOCUSATE SODIUM 100 MG CAPSULE (FP) PO SCH ×3 (09:21→22:19)
[2019-04-22] MEDS: PANTOPRAZOLE 40 MG TABLET (FP) PO SCH (09:21)
[2019-04-22] MEDS: GABAPENTIN 300 MG CAPSULE (FP) PO SCH (09:21)
[2019-04-22] MEDS: CYANOCOBALAMIN (VITAMIN B-12) 100 MCG TABLET PO SCH (09:21)
[2019-04-22] MEDS: CHOLECALCIFEROL (VIT D3) 1,000 UNIT (25 MCG) TABLET PO SCH (09:21)
--- NOTE | 2019-04-22 09:50 | PN ---
Progress Note, Physician Chief Complaint: no cp, sob, palps - Current Medication List Current Medications: Active Medications Acetaminophen (Tylenol -) 650 mg PO Q4H PRN PRN Reason: PAIN LEVEL 6-10 Atorvastatin Calcium (Lipitor -) 40 mg PO HS [facility] Last Admin: 04/21/19 21:37 Dose: 40 mg Cholecalciferol (Vitamin D3 -) 5,000 unit PO DAILY [facility] Last Admin: 04/22/19 09:21 Dose: 5,000 unit Cyanocobalamin (Vitamin B12 -) 100 mcg PO DAILY [facility] Last Admin: 04/22/19 09:21 Dose: 100 mcg Docusate Sodium (Colace -) 100 mg PO TID [facility] Last Admin: 04/22/19 09:21 Dose: 100 mg Enoxaparin Sodium (Lovenox -) 85 mg SQ BID [facility] Last Admin: 04/22/19 09:20 Dose: 85 mg Gabapentin (Neurontin -) 300 mg PO DAILY [facility] Last Admin: 04/22/19 09:21 Dose: 300 mg Piperacillin Sod/Tazobactam (Sod 3.375 gm/ Dextrose) 50 mls @ 100 mls/hr IVPB Q8H-IV [facility]; Protocol Last Admin: 04/22/19 09:21 Dose: 100 mls/hr Insulin Aspart (Novolog Vial Sliding Scale -) 1 vial SQ [facility]; Protocol Last Admin: 04/22/19 06:31 Dose: Not Given Insulin Detemir (Levemir Vial) 5 units SQ HS [facility] Last Admin: 04/21/19 21:37 Dose: 5 units Multivit/Ca Carb/B Cmplx/FA/Prenat (Nephro-Mel -) 1 tablet PO DAILY [facility] Last Admin: 04/22/19 09:21 Dose: 1 tablet Ondansetron HCl (Zofran Injection) 4 mg IVPUSH Q6H PRN PRN Reason: NAUSEA AND/OR VOMITING Last Admin: 04/21/19 17:19 Dose: 4 mg Oxycodone HCl (Roxicodone -) 5 mg PO Q4H PRN PRN Reason: PAIN LEVEL 7 - 10 Pantoprazole Sodium (Protonix -) 40 mg PO DAILY [facility] Last Admin: 04/22/19 09:21 Dose: 40 mg Polyethylene Glycol (Miralax (For Daily Use) -) 17 gm PO DAILY [facility] Last Admin: 04/22/19 09:20 Dose: 17 grams Promethazine HCl (Phenergan Injection -) 12.5 mg IVPUSH Q6H PRN PRN Reason: NAUSEA-FOR RESCUE AFTER 15 MIN - Objective Vital Signs: Vital Signs Temperature 97.8 F 04/22/19 05:00 Pulse Rate 80 04/22/19 05:00 Respiratory Rate 18 04/22/19 05:00 Blood Pressure 130/71 04/22/19 05:00 O2 Sat by Pulse Oximetry (%) 98 04/21/19 08:50 Constitutional: Yes: Calm Cardiovascular: Yes: Regular Rate and Rhythm Respiratory: Yes: CTA Bilaterally Gastrointestinal: Yes: Soft (nt) Edema: Yes Integumentary: Yes: Other (chronic petechial rash unchanged per patient) Neurological: Yes: Alert, Oriented ...Motor Strength: WNL Labs: CBC, BMP 04/22/19 06:35 04/22/19 06:35 Assessment/Plan Assessment/Plan EKG: sinus, nl intervals, no ischemic changes CXR: no acute process echo 04/2019 tds, nl LV/RV function, mild MR, mild TR, mild aortic sclerosis LE wound s/p skin graft: - per notes from [facility] [place] Dr. Werner recent unremarkable nuclear stress test, no ischemia 10/2018 - echo here unremarkable - s/p skin graft surgery, doing well Cellulitis - manage per primary, on abx DM - manage per primary DVT - on lovenox. Plans for AC as per primary medical team. HTN - cont current meds HLD - cont statin
--- NOTE | 2019-04-22 10:24 | PN ---
Teaching Attending Note Name of Resident: Lavon Mir ATTENDING PHYSICIAN STATEMENT I saw and evaluated the patient. I reviewed the resident's note and discussed the case with the resident. I agree with the resident's findings and plan as documented with exceptions below. SUBJECTIVE: Patient seen and examined, pain well controlled, no new complaints. OBJECTIVE: Vital Signs Period Temp Pulse Resp BP Sys/Doran Pulse Ox Last 24 Hr 97.8 F-98.8 F 80-89 18-20 130-146/60-84 Intake & Output 04/19/19 04/20/19 04/21/19 04/22/19 23:59 23:59 23:59 23:59 Intake Total 1370 1400 920 Output Total 650 Balance 1370 750 920 General: sitting in bed in no acute distress chest: CTAB, no rales or wheezing Abdomen:Soft, obese, NT Extremities: Left leg Unna boot, Left thigh dressing clean, no surrounding erythema/swelling/tenderness noted, pos DP pulses Home Medications Medication Instructions Recorded Gabapentin [Neurontin -] 300 mg PO DAILY 03/22/18 Liraglutide [Victoza -] 1.8 mg IJ DAILY 03/22/18 metFORMIN HCL [Metformin HCl ER] 750 mg PO DAILY 04/08/19 Cyanocobalamin [Vitamin B12 -] 1 tab PO DAILY 04/11/19 Insulin Glargine,Hum.rec.anlog 12 units SQ HS 04/11/19 [Basaglluiza Wolfe U-100] Meloxicam 15 mg PO DAILY 04/11/19 Multivitamin [One-Daily 1 tab PO DAILY 04/11/19 Multi-Vitamin] Aspirin [ASA -] 81 mg PO DAILY 04/16/19 Atorvastatin Ca [Lipitor] 40 mg PO DAILY 04/16/19 Cholecalciferol (Vitamin D3) 5,000 unit PO DAILY 04/16/19 [Vitamin D3] Ertugliflozin Pidolate [Steglatro] 15 mg PO DAILY 04/16/19 Lisinopril 20 mg PO DAILY 04/16/19 Omeprazole 40 mg PO DAILY 04/16/19 Vitamin B Complex 1 each PO DAILY 04/16/19 Active Medications Acetaminophen (Tylenol -) 650 mg PO Q4H PRN PRN Reason: PAIN LEVEL 4 - 6 Atorvastatin Calcium (Lipitor -) 40 mg PO HS [facility] Last Admin: 04/21/19 21:37 Dose: 40 mg Cholecalciferol (Vitamin D3 -) 5,000 unit PO DAILY [facility] Last Admin: 04/22/19 09:21 Dose: 5,000 unit Cyanocobalamin (Vitamin B12 -) 100 mcg PO DAILY [facility] Last Admin: 04/22/19 09:21 Dose: 100 mcg Docusate Sodium (Colace -) 100 mg PO TID [facility] Last Admin: 04/22/19 09:21 Dose: 100 mg Enoxaparin Sodium (Lovenox -) 85 mg SQ BID [facility] Last Admin: 04/22/19 09:20 Dose: 85 mg Gabapentin (Neurontin -) 300 mg PO DAILY [facility] Last Admin: 04/22/19 09:21 Dose: 300 mg Piperacillin Sod/Tazobactam (Sod 3.375 gm/ Dextrose) 50 mls @ 100 mls/hr IVPB Q8H-IV [facility]; Protocol Last Admin: 04/22/19 09:21 Dose: 100 mls/hr Insulin Aspart (Novolog Vial Sliding Scale -) 1 vial SQ ACHS [facility]; Protocol Last Admin: 04/22/19 06:31 Dose: Not Given Insulin Detemir (Levemir Vial) 5 units SQ HS [facility] Last Admin: 04/21/19 21:37 Dose: 5 units Multivit/Ca Carb/B Cmplx/FA/Prenat (Nephro-Mel -) 1 tablet PO DAILY [facility] Last Admin: 04/22/19 09:21 Dose: 1 tablet Ondansetron HCl (Zofran Injection) 4 mg IVPUSH Q6H PRN PRN Reason: NAUSEA AND/OR VOMITING Last Admin: 04/21/19 17:19 Dose: 4 mg Oxycodone HCl (Roxicodone -) 5 mg PO Q4H PRN PRN Reason: PAIN LEVEL 7 - 10 Pantoprazole Sodium (Protonix -) 40 mg PO DAILY [facility] Last Admin: 04/22/19 09:21 Dose: 40 mg Polyethylene Glycol (Miralax (For Daily Use) -) 17 gm PO DAILY [facility] Last Admin: 04/22/19 09:20 Dose: 17 grams Promethazine HCl (Phenergan Injection -) 12.5 mg IVPUSH Q6H PRN PRN Reason: NAUSEA-FOR RESCUE AFTER 15 MIN Laboratory Results - last 24 hr 04/21/19 04/21/1919 11:30 16:47 21:08 WBC RBC Hgb Hct MCV MCH MCHC RDW Plt Count MPV Absolute Neuts (auto) Neutrophils % Lymphocytes % Monocytes % Eosinophils % Basophils % Nucleated RBC % Sodium Potassium Chloride Carbon Dioxide Anion Gap BUN Creatinine Est GFR (CKD-EPI)AfAm Est GFR (CKD-EPI)NonAf POC Glucometer 194 266 192 Random Glucose Calcium Phosphorus Magnesium 04/22/19 04/22/19 04/22/19 06:26 06:35 06:35 WBC 6.0 RBC 3.42 L Hgb 10.5 L Hct 31.7 L MCV 92.6 MCH 30.6 MCHC 33.0 RDW 14.7 Plt Count 196 MPV 9.0 Absolute Neuts (auto) 4.1 Neutrophils % 67.8 Lymphocytes % 20.6 D Monocytes % 8.4 Eosinophils % 2.6 D Basophils % 0.6 Nucleated RBC % 0 Sodium 141 Potassium 4.3 Chloride 108 H Carbon Dioxide 29 Anion Gap 4 L BUN 17.0 Creatinine 0.7 Est GFR (CKD-EPI)AfAm 109.15 Est GFR (CKD-EPI)NonAf 94.17 POC Glucometer 131 Random Glucose 145 H Calcium 8.6 Phosphorus 3.6 Magnesium 1.9 Microbiology 04/20/19 15:30 Tissue-Other Gram Stain - Final 04/20/19 15:30 Tissue-Other Tissue Culture - Preliminary Pending Organism 04/20/19 15:30 Tissue-Other Anaerobic Culture - Final NO ANAEROBES WERE ISOLATED ASSESSMENT AND PLAN: 58 yof with PMHx of IDDM, HTN, HLD, chronic bilateral leg wounds, right posterior calf, now left lateral leg, comes with LLE wound infection/cellulitis -Acute on chronic LLE wound infection/cellulitis, s/p skin grafting from left thick donor site 04/20 -Acute left superficial vein DVT -Failure of outpatient antibiotic treatment -Healed right posterior calf wound -Suspected respiratory arrest resulting in cardiac arrest with knee surgery 2014 (with spinal anesthesia/propofol induction) -IDDM -HTN -HLD Plan: S/p skin grafting 04/20 from left thigh donor site Wound dressing/wound care per Dr. Alcala. Follow up biopsy/culture results. Full thickness inflammed tissue excision per Operative notes. ID input noted, Zosyn Resume full dose Lovenox today as discussed with Dr. Alcala. resume home levemir 12 units hs, ISS. titrate up to home regimen as tolerated Pain control tylenol/oxycodone prn. Continue statin/gabapentin. Resume lisinopril DVTPPX as above Dispo PT eval once cleared for ambulation by Dr. alcala Dispo dc planning home with services early next week, pending surgery clearance and clinical course. Discussed with patient and nursing.
--- NOTE | 2019-04-22 10:29 | PN ---
Physical Exam: SUBJECTIVE: Patient seen and examined O/N: had LLE pain, but oxycodone fell off; received ketorolac Endorses burning pain to medial distal thigh at site of STSG donor site; improved with toradol OBJECTIVE: Vital Signs Period Temp Pulse Resp BP Sys/Doran Pulse Ox Last 24 Hr 97.8 F-98.8 F 80-89 18-20 130-146/60-84 GENERAL: NAD. Mildly anxious. HEAD: NC/AT. Mild temporal wasting EYES: sclera anicteric, conjunctiva clear. No ptosis. ENT: Ears normal, nares patent, moist mucous membranes. NECK: Trachea midline, full range of motion, supple. LUNGS: Breath sounds equal, clear to auscultation bilaterally, no wheezes, no crackles, no accessory muscle use. HEART: Regular rate and rhythm, S1, S2 without murmur, rub or gallop. ABDOMEN: Soft, nontender, nondistended, no guarding, no rebound. EXTREMITIES: 1+ pulses of BLE DP, warm, well-perfused. Left [id number] thigh(SG donor site) surgical site covered with xeroform, gauze with serosanginous strike through, overlying tegaderm. Left lower leg wrapped in unna boot + coban. Left knee with well-healed vertical incision. Scabbing medial wounds to RLE. Left foot with ecchymosis to 2nd-3rd base of toes; warm. Able to move toes w/o restrictions NEUROLOGICAL: Normal speech, gait not observed. PSYCH: Normal mood, normal affect. Slightly anxious Laboratory Results - last 24 hr 04/21/19 04/21/19 04/21/19 11:30 16:47 21:08 WBC RBC Hgb Hct MCV MCH MCHC RDW Plt Count MPV Absolute Neuts (auto) Neutrophils % Lymphocytes % Monocytes % Eosinophils % Basophils % Nucleated RBC % Sodium Potassium Chloride Carbon Dioxide Anion Gap BUN Creatinine Est GFR (CKD-EPI)AfAm Est GFR (CKD-EPI)NonAf POC Glucometer 194 266 192 Random Glucose Calcium Phosphorus Magnesium 04/22/19 04/22/19 04/22/19 06:26 06:35 06:35 WBC 6.0 RBC 3.42 L Hgb 10.5 L Hct 31.7 L MCV 92.6 MCH 30.6 MCHC 33.0 RDW 14.7 Plt Count 196 MPV 9.0 Absolute Neuts (auto) 4.1 Neutrophils % 67.8 Lymphocytes % 20.6 D Monocytes % 8.4 Eosinophils % 2.6 D Basophils % 0.6 Nucleated RBC % 0 Sodium 141 Potassium 4.3 Chloride 108 H Carbon Dioxide 29 Anion Gap 4 L BUN 17.0 Creatinine 0.7 Est GFR (CKD-EPI)AfAm 109.15 Est GFR (CKD-EPI)NonAf 94.17 POC Glucometer 131 Random Glucose 145 H Calcium 8.6 Phosphorus 3.6 Magnesium 1.9 Active Medications Generic Name Dose Route Start Last Admin Trade Name Freq PRN Reason Stop Dose Admin Acetaminophen 650 mg 04/22/19 08:18 Tylenol - PO Q4H PRN PAIN LEVEL 6-10 Atorvastatin Calcium 40 mg 04/20/19 22:00 04/21/19 21:37 Lipitor - PO 40 mg HS PRABHAKAR Administration Cholecalciferol 5,000 unit 04/21/19 10:00 04/22/19 09:21 Vitamin D3 - PO 5,000 unit DAILY PRABHAKAR Administration Cyanocobalamin 100 mcg 04/21/19 10:00 04/22/19 09:21 Vitamin B12 - PO 100 mcg DAILY PRABHAKAR Administration Docusate Sodium 100 mg 04/22/19 08:00 04/22/19 09:21 Colace - PO 100 mg TID PRABHAKAR Administration Enoxaparin Sodium 85 mg 04/22/19 10:00 04/22/19 09:20 Lovenox - SQ 85 mg BID PRABHAKAR Administration Gabapentin 300 mg 04/21/19 10:00 04/22/19 09:21 Neurontin - PO 300 mg DAILY PRABHAKAR Administration Piperacillin Sod/Tazobactam 50 mls @ 100 mls/hr 04/21/19 18:00 04/22/19 09:21 Sod 3.375 gm/ Dextrose IVPB 100 mls/hr Q8H-IV PRABHAKAR Administration Protocol Insulin Aspart 1 vial 04/20/19 22:00 04/22/19 06:31 Novolog Vial Sliding Scale - SQ Not Given A[facility]S [facility] Protocol Insulin Detemir 5 units 04/21/19 22:00 04/21/19 21:37 Levemir Vial SQ 5 units HS PRABHAKAR Administration Multivit/Ca Carb/B Cmplx/FA/Prenat 1 tablet 04/21/19 10:00 04/22/19 09:21 Nephro-Mel - PO 1 tablet DAILY PR[facility] Administration Ondansetron HCl 4 mg 04/20/19 17:13 04/21/19 17:19 Zofran Injection IVPUSH 4 mg Q6H PRN Administration NAUSEA AND/OR VOMITING Oxycodone HCl 5 mg 04/22/19 09:28 Roxicodone - PO Q4H PRN PAIN LEVEL 7 - 10 Pantoprazole Sodium 40 mg 04/21/19 10:00 04/22/19 09:21 Protonix - PO 40 mg DAILY PRABHAKAR Administration Polyethylene Glycol 17 gm 04/22/19 10:00 04/22/19 09:20 Miralax (For Daily Use) - PO 17 grams DAILY PR[facility]HAKAR Administration Promethazine HCl 12.5 mg 04/20/19 17:13 Phenergan Injection - IVPUSH Q6H PRN NAUSEA-FOR RESCUE AFTER 15 MIN ASSESSMENT/PLAN: 58F w/ pmhx of IDDM, HTN/HLD, morbid obesity, JONY(pt refused CPAP), h/o intra- op cardiac arrest during L knee sugery(? [facility]'s), BLE venous hypertension s/ p in-office venous abalation([facility], Jan 2019), chronic BLE wounds(grew Diptheroid, pseuodomonas, Klebsiella, enterobacter, enterococcus), chronic LLE lateral wound ulcer presents in the ED with worsening pain and redness of LLE wound ulcer. Goes to [facility], wound care w/ Dr Gabriel, was recently seen for the first time by Plastics(Dr Williamson) for wound closure options. Chart review of outside records(Dr Werner and [facility]) showed normal recent echo, stress test. During previous knee reconstruction surgery(2014), under spinal anesthesia + ?MAC, had intraop PEA; thought to be 2/2 respir failure b/c patient ROSC after intubation. Surgical and anesthesia risks noted. S/p POD#2 for LLE wound debridement + STSG([facility], 04/20/19) #Acute on Chronic LLE wound ulcer w/a cellulitis; no osteomyelitis > XR tib/Fib(04/16/19): cellulitis, no abscess, no OM > MRI LLE(04/16/19): cellulitis, no abscess/osteomyelitis > Wound CX(04/13/19): diptheroid/corynebacterium -IV Vanc/Zosyn given in ED -Wound care/Vasc consulted --local wound care: santyl, gentamicin ointment, lidocaine --pending plastics recommendation -Plastic([facility]ay. LLE wound debridment + STSG, 04/20/19) --RCRI 1pt(insulin): 6% risk of , significant cardiovascular event --activity: minimal activity, bedrest w/ BRP --wound check at POD#2 -ID(Italo) consulted: --cw iv abx(zozyn) --gentamicin topical to wound # LLE pain --likely 2/2 to DVT and LLE surgical wound - pain regimen: --mild-mod: acetaminophen 5mg --mod-severe: oxycodone 5mg --bowel regimen: colace, miralax # unprovoked LLE DVT > BLE venous duplex(04/16/19): Lft superficial femoral vein DVT - therapeutic A/C: enoxaparin 85mg BID - possible outpt fu w/ Heme # h/o cardiac arrest(?2014) - [facility] records reviewed: --Left knee replacement under spinal anesthesia-MAC; intraop PEA, epi x1, ROSC after intubation. PEA thought 2/2 respir arrest - outpt cardiology([facility]: Dr Hubert Oneill) note(10/11/18) reviewed: -- EKG: NSR w/ PRWP -- stress(Myoveiw Lexsiscan): no evid of stress-induced ischemia, LVEF 47% - Cardio(Jena Williamson) Consult: -- acceptable risk for skin graft, no further testing prior to surgery #IDDM; Stable. Hold all home oral DM meds -Levemir 12U HS --> Levemir 5U HS --> 12U dt to adequate intake -BGMs/ISS ACHS #HTN/HLD; Cont home meds: Atorvastatin 40, Lisinopril 20 #Prophylaxis DVT: Lovenox(therapeutic) --restart 24h after surgery GI: Cont home med: Omeprazole 40 -- pantoprazole FEN -PO hydration -Diabetic diet Dispo -Admit to med-surg Visit type - Emergency Visit Emergency Visit: No - New Patient This patient is new to me today: No - Critical Care Critical Care patient: No ATTENDING PHYSICIAN STATEMENT I saw and evaluated the patient. I reviewed the resident's note and discussed the case with the resident. I agree with the resident's findings and plan as documented. SUBJECTIVE: OBJECTIVE: ASSESSMENT AND PLAN:
[2019-04-22] MEDS ORDERED: INSULIN (NOVOLOG) ASPART 100 UNITS/ML 10ML VIAL ONE ×2 (10:53→21:51)
[2019-04-22] MEDS: LISINOPRIL 20 MG TABLET (FP) PO SCH (11:08)
[2019-04-22] MEDS: oxyCODONE HCL 5 MG TABLET PO PRN ×2 (11:08→16:51)
--- NOTE | 2019-04-22 11:35 | PN ---
Progress Note, Physician History of Present Illness: stable no new issues wound cx noted - Current Medication List Current Medications: Active Medications Acetaminophen (Tylenol -) 650 mg PO Q4H PRN PRN Reason: PAIN LEVEL 4 - 6 Atorvastatin Calcium (Lipitor -) 40 mg PO HS [facility] Last Admin: 04/21/19 21:37 Dose: 40 mg Cholecalciferol (Vitamin D3 -) 5,000 unit PO DAILY [facility] Last Admin: 04/22/19 09:21 Dose: 5,000 unit Cyanocobalamin (Vitamin B12 -) 100 mcg PO DAILY [facility] Last Admin: 04/22/19 09:21 Dose: 100 mcg Docusate Sodium (Colace -) 100 mg PO TID [facility] Last Admin: 04/22/19 09:21 Dose: 100 mg Enoxaparin Sodium (Lovenox -) 85 mg SQ BID [facility] Last Admin: 04/22/19 09:20 Dose: 85 mg Gabapentin (Neurontin -) 300 mg PO DAILY [facility] Last Admin: 04/22/19 09:21 Dose: 300 mg Insulin Aspart (Novolog Vial Sliding Scale -) 1 vial SQ [facility]; Protocol Last Admin: 04/22/19 11:15 Dose: 4 units Insulin Detemir (Levemir Vial) 12 units SQ [facility] Lisinopril (Prinivil) 20 mg PO DAILY [facility] Last Admin: 04/22/19 11:08 Dose: 20 mg Multivit/Ca Carb/B Cmplx/FA/Prenat (Nephro-Mel -) 1 tablet PO DAILY [facility] Last Admin: 04/22/19 09:21 Dose: 1 tablet Ondansetron HCl (Zofran Injection) 4 mg IVPUSH Q6H PRN PRN Reason: NAUSEA AND/OR VOMITING Last Admin: 04/21/19 17:19 Dose: 4 mg Oxycodone HCl (Roxicodone -) 5 mg PO Q4H PRN PRN Reason: PAIN LEVEL 7 - 10 Last Admin: 04/22/19 11:08 Dose: 5 mg Pantoprazole Sodium (Protonix -) 40 mg PO DAILY [facility] Last Admin: 04/22/19 09:21 Dose: 40 mg Polyethylene Glycol (Miralax (For Daily Use) -) 17 gm PO DAILY [facility] Last Admin: 04/22/19 09:20 Dose: 17 grams Promethazine HCl (Phenergan Injection -) 12.5 mg IVPUSH Q6H PRN PRN Reason: NAUSEA-FOR RESCUE AFTER 15 MIN - Objective Vital Signs: Vital Signs Temperature 97.8 F 04/22/19 05:00 Pulse Rate 80 04/22/19 05:00 Respiratory Rate 18 04/22/19 05:00 Blood Pressure 130/71 04/22/19 05:00 O2 Sat by Pulse Oximetry (%) 98 04/21/19 08:50 Constitutional: Yes: No Distress, Calm Cardiovascular: Yes: S1, S2 Respiratory: Yes: Regular, CTA Bilaterally Gastrointestinal: Yes: Normal Bowel Sounds, Soft Musculoskeletal: Yes: WNL Extremities: Yes: WNL Wound/Incision: Yes: Dressing Dry and Intact Neurological: Yes: Alert, Oriented Psychiatric: Yes: Alert, Oriented Labs: CBC, BMP 04/22/19 06:35 04/22/19 06:35 Assessment/Plan Problem List - Problems (1) Wound cellulitis Code(s): L03.90 - CELLULITIS, UNSPECIFIED (2) Type 2 diabetes mellitus with diabetic polyneuropathy Code(s): E11.42 - TYPE 2 DIABETES MELLITUS WITH DIABETIC POLYNEUROPATHY Assessment/Plan LLE DVT chronic LLE ulcer/possible cellulitis IDDM HTN HLD plan cx report noted will stop the abx rest as per the team for surgery wound care
[2019-04-22] MEDS: ATORVASTATIN CA 40 MG TABLET (FP) PO SCH (22:19)
[2019-04-22] MEDS: INSULIN (LEVEMIR) 100 UNITS/ML UNITS SQ SCH (22:20)
[2019-04-23] MEDS: oxyCODONE HCL 5 MG TABLET PO PRN ×2 (02:30→06:29)
[2019-04-23] MEDS: ACETAMINOPHEN 325 MG TABLET (FP) PO PRN ×2 (02:31→19:48)
[2019-04-23] MEDS: DOCUSATE SODIUM 100 MG CAPSULE (FP) PO SCH ×3 (06:29→22:22)
[2019-04-23] MEDS: INSULIN SLIDING SCALE (NOVOLOG) 1 VIAL SQ SCH ×4 (06:40→22:25)
[2019-04-23] MEDS: GABAPENTIN 300 MG CAPSULE (FP) PO SCH (09:08)
[2019-04-23] MEDS: LISINOPRIL 20 MG TABLET (FP) PO SCH (09:08)
[2019-04-23] MEDS: CYANOCOBALAMIN (VITAMIN B-12) 100 MCG TABLET PO SCH (09:08)
[2019-04-23] MEDS: CHOLECALCIFEROL (VIT D3) 1,000 UNIT (25 MCG) TABLET PO SCH (09:08)
[2019-04-23] MEDS: PANTOPRAZOLE 40 MG TABLET (FP) PO SCH (09:08)
[2019-04-23] MEDS: VITAMIN B COMP W-C 1 EA TABLET PO SCH (09:08)
[2019-04-23] MEDS: POLYETHYLENE GLYCOL 3350 119 GM BTL PO SCH (09:09)
[2019-04-23] MEDS: ENOXAPARIN NA (PORCINE) 100 MG/1 ML DISP.SYRIN SQ SCH ×2 (09:09→22:24)
[2019-04-23] MEDS: ONDANSETRON 4 MG/2 ML VIAL IVPUSH PRN (09:10)
[2019-04-23 09:18] LABS: BASO % 0.5 % (0-2.0); EOS % 3.2 % (0-4.5); HEMATOCRIT 33.3 % (32.4-45.2); HEMOGLOBIN 11.2 GM/dL (10.7-15.3); LYMPH % 20.1 % (8-40); MCH 30.9 pg (25.7-33.7); MCHC 33.7 g/dl (32.0-36.0); MEAN CELL VOLUME 91.7 fl (80-96); MEAN PLT VOLUME 9.4 fl (7.5-11.1); MONO % 6.9 % (3.8-10.2); NEUT % 69.3 % (42.8-82.8); PLATELET COUNT 231 K/MM3 (134-434); RBC 3.63 M/mm3 (3.60-5.2); RDW 14.3 % (11.6-15.6); WHITE BLOOD COUNT 6.8 K/mm3 (4.0-10.0)
[2019-04-23 09:40] LABS: BLOOD UREA NITROGEN 17.7 mg/dL (7-18); CALCIUM 8.8 mg/dL (8.5-10.1); CREATININE 0.6 mg/dL (0.55-1.3); PHOSPHOROUS 3.8 mg/dL (2.5-4.9); POTASSIUM 4.4 mmol/L (3.5-5.1)
--- NOTE | 2019-04-23 12:10 | PN ---
Progress Note, Physician History of Present Illness: no new issues - Current Medication List Current Medications: Active Medications Acetaminophen (Tylenol -) 650 mg PO Q4H PRN PRN Reason: PAIN LEVEL 4 - 6 Last Admin: 04/23/19 02:31 Dose: 650 mg Atorvastatin Calcium (Lipitor -) 40 mg PO HS [facility] Last Admin: 04/22/19 22:19 Dose: 40 mg Cholecalciferol (Vitamin D3 -) 5,000 unit PO DAILY [facility] Last Admin: 04/23/19 09:08 Dose: 5,000 unit Cyanocobalamin (Vitamin B12 -) 100 mcg PO DAILY [facility] Last Admin: 04/23/19 09:08 Dose: 100 mcg Docusate Sodium (Colace -) 100 mg PO TID [facility] Last Admin: 04/23/19 06:29 Dose: 100 mg Enoxaparin Sodium (Lovenox -) 85 mg SQ BID [facility] Last Admin: 04/23/19 09:09 Dose: 85 mg Gabapentin (Neurontin -) 300 mg PO DAILY [facility] Last Admin: 04/23/19 09:08 Dose: 300 mg Insulin Aspart (Novolog Vial Sliding Scale -) 1 vial SQ [facility]; Protocol Last Admin: 04/23/19 06:40 Dose: Not Given Insulin Detemir (Levemir Vial) 12 units SQ [facility] Last Admin: 04/22/19 22:20 Dose: 12 units Lisinopril (Prinivil) 20 mg PO DAILY [facility] Last Admin: 04/23/19 09:08 Dose: 20 mg Multivit/Ca Carb/B Cmplx/FA/Prenat (Nephro-Mel -) 1 tablet PO DAILY [facility] Last Admin: 04/23/19 09:08 Dose: 1 tablet Oxycodone HCl (Roxicodone -) 5 mg PO Q4H PRN PRN Reason: PAIN LEVEL 7 - 10 Last Admin: 04/23/19 06:29 Dose: 5 mg Pantoprazole Sodium (Protonix -) 40 mg PO DAILY [facility] Last Admin: 04/23/19 09:08 Dose: 40 mg Polyethylene Glycol (Miralax (For Daily Use) -) 17 gm PO DAILY [facility] Last Admin: 04/23/19 09:09 Dose: 17 grams Promethazine HCl (Phenergan Injection -) 12.5 mg IVPUSH Q6H PRN PRN Reason: NAUSEA-FOR RESCUE AFTER 15 MIN - Objective Vital Signs: Vital Signs Temperature 97.7 F 04/23/19 10:00 Pulse Rate 92 H 04/23/19 10:00 Respiratory Rate 18 04/23/19 10:00 Blood Pressure 143/87 04/23/19 10:00 O2 Sat by Pulse Oximetry (%) 95 04/23/19 09:00 Constitutional: Yes: No Distress, Calm Cardiovascular: Yes: S1, S2 Respiratory: Yes: Regular, CTA Bilaterally Gastrointestinal: Yes: Normal Bowel Sounds, Soft Musculoskeletal: Yes: WNL Extremities: Yes: WNL Neurological: Yes: Alert, Oriented Psychiatric: Yes: Alert, Oriented Labs: CBC, BMP 04/23/19 08:13 04/23/19 06:00 Assessment/Plan Problem List - Problems (1) Wound cellulitis Code(s): L03.90 - CELLULITIS, UNSPECIFIED (2) Type 2 diabetes mellitus with diabetic polyneuropathy Code(s): E11.42 - TYPE 2 DIABETES MELLITUS WITH DIABETIC POLYNEUROPATHY Assessment/Plan LLE DVT chronic LLE ulcer/possible cellulitis IDDM HTN HLD plan cx report noted rest as per the team wound care and plastics
[2019-04-23] MEDS ORDERED: KETOROLAC TROMETHAMINE 15 MG/ML VIAL IVPUSH PRN (14:02)
--- NOTE | 2019-04-23 14:06 | PN ---
Physical Exam: SUBJECTIVE: Patient seen and examined, pain well controlled, no new complaints. OBJECTIVE: Vital Signs Period Temp Pulse Resp BP Sys/Doran Pulse Ox Last 24 Hr 97.7 F-98.7 F 77-92 - 135-158/86-94 95 Intake & Output 04/20/19 04/21/19 04/22/19 04/23/19 23:59 23:59 23:59 23:59 Intake Total 1400 920 970 240 Output Total 650 Balance 750 920 970 240 GENERAL: sitting in bed, no acute distress Neck: soft, supple HEENT: PERRL, EOMI CVS:S1S2 regular Chest: CTAb, no rales or wheezing Abdomen:soft, obese, NT extremities: left thigh dressing clean, Left leg CRISTINA boots Laboratory Results - last 24 hr 04/22/19 04/22/19 04/23/19 16:17 21:20 05:20 WBC RBC Hgb Hct MCV MCH MCHC RDW Plt Count MPV Absolute Neuts (auto) Neutrophils % Lymphocytes % Monocytes % Eosinophils % Basophils % Nucleated RBC % Sodium Potassium Chloride Carbon Dioxide Anion Gap BUN Creatinine Est GFR (CKD-EPI)AfAm Est GFR (CKD-EPI)NonAf POC Glucometer 192 178 114 Random Glucose Calcium Phosphorus Magnesium 04/23/19 04/23/19 04/23/19 06:00 08:13 11:49 WBC 6.8 RBC 3.63 Hgb 11.2 Hct 33.3 MCV 91.7 MCH 30.9 MCHC 33.7 RDW 14.3 Plt Count 231 MPV 9.4 Absolute Neuts (auto) 4.7 Neutrophils % 69.3 Lymphocytes % 20.1 Monocytes % 6.9 Eosinophils % 3.2 Basophils % 0.5 Nucleated RBC % 0 Sodium 141 Potassium 4.4 Chloride 108 H Carbon Dioxide 29 Anion Gap 5 L BUN 17.7 Creatinine 0.6 Est GFR (CKD-EPI)AfAm 114.82 Est GFR (CKD-EPI)NonAf 99.07 POC Glucometer 178 Random Glucose 111 H Calcium 8.8 Phosphorus 3.8 Magnesium 2.0 Active Medications Generic Name Dose Route Start Last Admin Trade Name Freq PRN Reason Stop Dose Admin Acetaminophen 650 mg 04/22/19 10:19 04/23/19 02:31 Tylenol - PO 650 mg Q4H PRN Administration PAIN LEVEL 4 - 6 Atorvastatin Calcium 40 mg 04/20/19 22:00 04/22/19 22:19 Lipitor - PO 40 mg HS PRABHAKAR Administration Cholecalciferol 5,000 unit 04/21/19 10:00 04/23/19 09:08 Vitamin D3 - PO 5,000 unit DAILY PRABHAKAR Administration Cyanocobalamin 100 mcg 04/21/19 10:00 04/23/19 09:08 Vitamin B12 - PO 100 mcg DAILY PRABHAKAR Administration Docusate Sodium 100 mg 04/22/19 08:00 04/23/19 06:29 Colace - PO 100 mg TID PRABHAKAR Administration Enoxaparin Sodium 85 mg 04/22/19 10:00 04/23/19 09:09 Lovenox - SQ 85 mg BID PRABHAKAR Administration Gabapentin 300 mg 04/21/19 10:00 04/23/19 09:08 Neurontin - PO 300 mg DAILY PR[facility]HAKAR Administration Insulin Aspart 1 vial 04/20/19 22:00 04/23/19 13:14 Novolog Vial Sliding Scale - SQ 2 units ACHS PRABHAKAR Administration Protocol Insulin Detemir 12 units 04/22/19 22:00 04/22/19 22:20 Levemir Vial SQ 12 units HS PRABHAKAR Administration Ketorolac Tromethamine 15 mg 04/23/19 14:02 Toradol Injection - IVPUSH 04/28/19 14:01 Q6H PRN PAIN LEVEL 6-10 Lisinopril 20 mg 04/22/19 10:30 04/23/19 09:08 Prinivil PO 20 mg DAILY PRABHAKAR Administration Multivit/Ca Carb/B Cmplx/FA/Prenat 1 tablet 04/21/19 10:00 04/23/19 09:08 Nephro-Mel - PO 1 tablet DAILY PR[facility] Administration Pantoprazole Sodium 40 mg 04/21/19 10:00 04/23/19 09:08 Protonix - PO 40 mg DAILY PRABHAKAR Administration Polyethylene Glycol 17 gm 04/22/19 10:00 04/23/19 09:09 Miralax (For Daily Use) - PO 17 grams DAILY PRABHAKAR Administration Promethazine HCl 12.5 mg 04/20/19 17:13 Phenergan Injection - IVPUSH Q6H PRN NAUSEA-FOR RESCUE AFTER 15 MIN Microbiology 04/20/19 15:30 Tissue-Other Gram Stain - Final 04/20/19 15:30 Tissue-Other Tissue Culture - Preliminary Diphtheroid/Corynebacterium 04/20/19 15:30 Tissue-Other Anaerobic Culture - Final NO ANAEROBES WERE ISOLATED ASSESSMENT/PLAN: 58 yof with PMHx of IDDM, HTN, HLD, chronic bilateral leg wounds, right posterior calf, now left lateral leg, comes with LLE wound infection/cellulitis -Acute on chronic LLE wound infection/cellulitis, s/p skin grafting from left thick donor site 04/20 -Acute left superficial vein DVT -Failure of outpatient antibiotic treatment -Healed right posterior calf wound -Suspected respiratory arrest resulting in cardiac arrest with knee surgery 2014 (with spinal anesthesia/propofol induction) -IDDM -HTN -HLD Plan: S/p skin grafting 04/20 from left thigh donor site Wound dressing/wound care per Dr. Alcala. Follow up biopsy/culture results. Full thickness inflammed tissue excision per Operative notes. ID input noted, Zosyn Lovenox resumed, transition to NOAC when ok with Dr. Alcala. Home levemir 12 units hs, ISS. titrate up to home regimen as tolerated Pain control tylenol/oxycodone prn. Continue statin/gabapentin/lisinopril DVTPPX as above Dispo PT eval once cleared for ambulation by Dr. alcala Dispo dc planning home with services early next week, pending surgery clearance and clinical course. Discussed with patient and nursing. Visit type - Emergency Visit Emergency Visit: Yes ED Registration Date: 04/16/19 Care time: The patient presented to the Emergency Department on the above date and was hospitalized for further evaluation of their emergent condition. - New Patient This patient is new to me today: No - Critical Care Critical Care patient: No - Discharge Referral Referred to [facility] Med [facility] No
[2019-04-23] MEDS ORDERED: INSULIN (NOVOLOG) ASPART 100 UNITS/ML 10ML VIAL ONE (20:56)
[2019-04-23] MEDS: ATORVASTATIN CA 40 MG TABLET (FP) PO SCH (22:22)
[2019-04-23] MEDS: INSULIN (LEVEMIR) 100 UNITS/ML UNITS SQ SCH (22:23)
[2019-04-24] MEDS: DOCUSATE SODIUM 100 MG CAPSULE (FP) PO SCH ×3 (06:10→21:50)
[2019-04-24] MEDS: INSULIN SLIDING SCALE (NOVOLOG) 1 VIAL SQ SCH ×4 (06:11→21:51)
[2019-04-24] MEDS ORDERED: INSULIN (NOVOLOG) ASPART 100 UNITS/ML 10ML VIAL ONE (08:00)
[2019-04-24] MEDS: CYANOCOBALAMIN (VITAMIN B-12) 100 MCG TABLET PO SCH (10:23)
[2019-04-24] MEDS: VITAMIN B COMP W-C 1 EA TABLET PO SCH (10:24)
[2019-04-24] MEDS: CHOLECALCIFEROL (VIT D3) 1,000 UNIT (25 MCG) TABLET PO SCH (10:24)
[2019-04-24] MEDS: PANTOPRAZOLE 40 MG TABLET (FP) PO SCH (10:24)
[2019-04-24] MEDS: GABAPENTIN 300 MG CAPSULE (FP) PO SCH (10:24)
[2019-04-24] MEDS: LISINOPRIL 20 MG TABLET (FP) PO SCH (10:24)
[2019-04-24] MEDS: POLYETHYLENE GLYCOL 3350 119 GM BTL PO SCH (10:25)
[2019-04-24] MEDS: APIXABAN 5 MG TABLET PO SCH ×2 (10:25→21:50)
[2019-04-24] MEDS: ACETAMINOPHEN 325 MG TABLET (FP) PO PRN ×3 (11:05→21:49)
--- NOTE | 2019-04-24 11:09 | PN ---
Teaching Attending Note Name of Resident: Adrianne Fernández ATTENDING PHYSICIAN STATEMENT I saw and evaluated the patient. I reviewed the resident's note and discussed the case with the resident. I agree with the resident's findings and plan as documented with exceptions below. SUBJECTIVE: Patient seen and examined. leg pain controlled, no new concerns. OBJECTIVE: Vital Signs Period Temp Pulse Resp BP Sys/Doran Pulse Ox Last 24 Hr 99.3 F 103 - 124/80 95 Intake & Output 04/21/19 04/22/19 04/23/19 04/24/19 23:59 23:59 23:59 23:59 Intake Total 920 970 840 Balance 920 970 840 General: lying in bed, no acute distress Chest: CTAB, no rales or wheezing Abdomen:soft, obese, NT Extremities: left thigh dressing with old blood, no active bleed or discharge, left leg CRISTINA boots in place, pos pulses Home Medications Medication Instructions Recorded Gabapentin [Neurontin -] 300 mg PO DAILY 03/22/18 Liraglutide [Victoza -] 1.8 mg IJ DAILY 03/22/18 metFORMIN HCL [Metformin HCl ER] 750 mg PO DAILY 04/08/19 Cyanocobalamin [Vitamin B12 -] 1 tab PO DAILY 04/11/19 Insulin Glargine,Hum.rec.anlog 12 units SQ HS 04/11/19 [Nehaaglar Aiden U-100] Meloxicam 15 mg PO DAILY 04/11/19 Multivitamin [One-Daily 1 tab PO DAILY 04/11/19 Multi-Vitamin] Aspirin [ASA -] 81 mg PO DAILY 04/16/19 Atorvastatin Ca [Lipitor] 40 mg PO DAILY 04/16/19 Cholecalciferol (Vitamin D3) 5,000 unit PO DAILY 04/16/19 [Vitamin D3] Ertugliflozin Pidolate [Steglatro] 15 mg PO DAILY 04/16/19 Lisinopril 20 mg PO DAILY 04/16/19 Omeprazole 40 mg PO DAILY 04/16/19 Vitamin B Complex 1 each PO DAILY 04/16/19 Active Medications Acetaminophen (Tylenol -) 650 mg PO Q4H PRN PRN Reason: PAIN Last Admin: 04/24/19 11:05 Dose: 650 mg Apixaban (Eliquis -) 5 mg PO BID [facility] Last Admin: 04/24/19 10:25 Dose: 5 mg Atorvastatin Calcium (Lipitor -) 40 mg PO HS [facility] Last Admin: 04/23/19 22:22 Dose: 40 mg Cholecalciferol (Vitamin D3 -) 5,000 unit PO DAILY [facility] Last Admin: 04/24/19 10:24 Dose: 5,000 unit Cyanocobalamin (Vitamin B12 -) 100 mcg PO DAILY [facility] Last Admin: 04/24/19 10:23 Dose: 100 mcg Docusate Sodium (Colace -) 100 mg PO TID [facility] Last Admin: 04/24/19 06:10 Dose: 100 mg Gabapentin (Neurontin -) 300 mg PO DAILY [facility] Last Admin: 04/24/19 10:24 Dose: 300 mg Insulin Aspart (Novolog Vial Sliding Scale -) 1 vial SQ [facility]; Protocol Last Admin: 04/24/19 06:11 Dose: Not Given Insulin Detemir (Levemir Vial) 12 units SQ [facility] Last Admin: 04/23/19 22:23 Dose: 12 units Lisinopril (Prinivil) 20 mg PO DAILY [facility] Last Admin: 04/24/19 10:24 Dose: 20 mg Multivit/Ca Carb/B Cmplx/FA/Prenat (Nephro-Mel -) 1 tablet PO DAILY [facility] Last Admin: 04/24/19 10:24 Dose: 1 tablet Pantoprazole Sodium (Protonix -) 40 mg PO DAILY [facility] Last Admin: 04/24/19 10:24 Dose: 40 mg Polyethylene Glycol (Miralax (For Daily Use) -) 17 gm PO DAILY [facility] Last Admin: 04/24/19 10:25 Dose: 17 grams Promethazine HCl (Phenergan Injection -) 12.5 mg IVPUSH Q6H PRN PRN Reason: NAUSEA-FOR RESCUE AFTER 15 MIN Laboratory Results - last 24 hr 04/23/19 04/23/19 04/23/19 11:49 16:49 22:20 POC Glucometer 178 151 165 04/24/19 06:09 POC Glucometer 105 Microbiology 04/20/19 15:30 Tissue-Other Gram Stain - Final 04/20/19 15:30 Tissue-Other Tissue Culture - Preliminary Diphtheroid/Corynebacterium 04/20/19 15:30 Tissue-Other Anaerobic Culture - Final NO ANAEROBES WERE ISOLATED ASSESSMENT AND PLAN: 58 yof with PMHx of IDDM, HTN, HLD, chronic bilateral leg wounds, right posterior calf, now left lateral leg, comes with LLE wound infection/cellulitis -Acute on chronic LLE wound infection/cellulitis, s/p skin grafting from left thick donor site 04/20 -Acute left superficial vein DVT -Failure of outpatient antibiotic treatment -Healed right posterior calf wound -Suspected respiratory arrest resulting in cardiac arrest with knee surgery 2014 (with spinal anesthesia/propofol induction) -IDDM -HTN -HLD Plan: S/p skin grafting 04/20 from left thigh donor site Discussed with Dr. Williamson, plan for wound change in AM, bedrest till then. Ok to transition to NOAC as discussed Dc lovenox, start eliquis. Discussed with patient in detail, about new medication, bleed risk, fall precautions and avoid any procedures till cleared by her doctor, including her spinal steroid injections. Also need for outpatient follow up for further imaging, hypergoaable work up and duration of AC. patient able to relay full understanding and agrees to comply. ID input noted, alma d/lis. Follow up biopsy results. Continue home levemir, ISS. titrate up to home regimen as tolerated Pain control tylenol/oxycodone prn. Continue statin/gabapentin/lisinopril DVTPPX as above Dispo PT eval once cleared for ambulation by Dr. fredrick Garner dc planning home with services early next week, pending surgery clearance and clinical course. Discussed with patient and nursing.
--- NOTE | 2019-04-24 12:19 | PN ---
Physical Exam: SUBJECTIVE: Patient seen and examined. No acute events overnight. Leg pain is controlled. OBJECTIVE: Vital Signs Period Temp Pulse Resp BP Sys/Doran Pulse Ox Last 24 Hr 99.3 F 103 19-19 124/80 95 GENERAL: No acute distress EYES: Sclera anicteric, conjunctiva clear. No ptosis. ENT: Ears normal, nares patent, moist mucous membranes. LUNGS: Breath sounds equal, clear to auscultation bilaterally, no wheezes, no crackles, no accessory muscle use. HEART: Regular rate and rhythm, S1, S2 without murmur, rub or gallop. ABDOMEN: Soft, nontender, nondistended, no guarding, no rebound. EXTREMITIES: 2+ pulses of BLE DP, warm, well-perfused. Left grqjgl-gef-xqorrnn thigh (SG donor site) surgical site covered with xeroform, gauze with serosanginous strike through, overlying tegaderm. Left lower leg wrapped in unna boot + coban. Left knee with well-healed vertical incision. Scabbing medial wounds to RLE. Left foot with ecchymosis to 2nd-3rd base of toes; warm. Able to move toes w/o restrictions PSYCH: Normal mood, normal affect. Slightly anxious Laboratory Results - last 24 hr 04/23/19 04/23/19 04/24/19 16:49 22:20 06:09 POC Glucometer 151 165 105 04/24/19 11:46 POC Glucometer 188 Active Medications Acetaminophen (Tylenol -) 650 mg PO Q4H PRN PRN Reason: PAIN Last Admin: 04/24/19 11:05 Dose: 650 mg Apixaban (Eliquis -) 5 mg PO BID [facility] Last Admin: 04/24/19 10:25 Dose: 5 mg Atorvastatin Calcium (Lipitor -) 40 mg PO HS [facility] Last Admin: 04/23/19 22:22 Dose: 40 mg Cholecalciferol (Vitamin D3 -) 5,000 unit PO DAILY [facility] Last Admin: 04/24/19 10:24 Dose: 5,000 unit Cyanocobalamin (Vitamin B12 -) 100 mcg PO DAILY [facility] Last Admin: 04/24/19 10:23 Dose: 100 mcg Docusate Sodium (Colace -) 100 mg PO TID [facility] Last Admin: 04/24/19 06:10 Dose: 100 mg Gabapentin (Neurontin -) 300 mg PO DAILY [facility] Last Admin: 04/24/19 10:24 Dose: 300 mg Insulin Aspart (Novolog Vial Sliding Scale -) 1 vial SQ ACHS [facility]; Protocol Last Admin: 04/24/19 11:48 Dose: 2 units Insulin Detemir (Levemir Vial) 12 units SQ HS [facility] Last Admin: 04/23/19 22:23 Dose: 12 units Lisinopril (Prinivil) 20 mg PO DAILY [facility] Last Admin: 04/24/19 10:24 Dose: 20 mg Multivit/Ca Carb/B Cmplx/FA/Prenat (Nephro-Mel -) 1 tablet PO DAILY [facility] Last Admin: 04/24/19 10:24 Dose: 1 tablet Pantoprazole Sodium (Protonix -) 40 mg PO DAILY [facility] Last Admin: 04/24/19 10:24 Dose: 40 mg Polyethylene Glycol (Miralax (For Daily Use) -) 17 gm PO DAILY [facility] Last Admin: 04/24/19 10:25 Dose: 17 grams Promethazine HCl (Phenergan Injection -) 12.5 mg IVPUSH Q6H PRN PRN Reason: NAUSEA-FOR RESCUE AFTER 15 MIN ASSESSMENT/PLAN: Patient is a 58 year old female w/PMH of IDDM, HTN, HLD, morbid obesity, JONY ( pt refused CPAP), h/o intra-op cardiac arrest during L knee sugery(?'s) , BLE venous hypertension s/p in-office venous abalation([facility], Jan 2019), chronic BLE wounds(grew Diptheroid, pseuodomonas, Klebsiella, enterobacter, enterococcus), chronic LLE lateral wound ulcer presents in the ED with worsening pain and redness of LLE wound ulcer. Goes to [facility], wound care w/ Dr Gabriel, was recently seen for the first time by Plastics(Dr Williamson) for wound closure options. Chart review of outside records(Dr Werner and [facility]) showed normal recent echo, stress test. During previous knee reconstruction surgery(2014), under spinal anesthesia + ?MAC, had intraop PEA; thought to be 2/ 2 respir failure b/c patient ROSC after intubation. Surgical and anesthesia risks noted. S/p POD#4 for LLE wound debridement + STSG([facility]ay, 04/20/19) #Acute on Chronic LLE wound ulcer w/a cellulitis; no osteomyelitis XR tib/Fib(04/16/19): cellulitis, no abscess, no OM MRI LLE (04/16/19): cellulitis, no abscess/osteomyelitis Wound CX (04/13/19): diptheroid/corynebacterium POD#4 LLE wound debridement + STSG (04/20) Dr. Williamson plan for dressing change in am Bedrest w/BRP ID following (Dr. Puckett), d/c zosyn Cont w/ IV zosyn Gentamicin and lidocaine topical to wound #LLE pain likely 2/2 to DVT and LLE surgical wound Pain regimen: mild-mod: acetaminophen 5mg mod-severe: oxycodone 5mg bowel regimen: colace, miralax #Unprovoked LLE DVT BLE venous duplex(04/16/19): Lft superficial femoral vein DVT D/c lovenox and start eliquis D/w pt about new med, bleeding risk, fall precautions, avoid procedures until cleared by PCP (including her spinal steroid injections) Recommend outpatient outpt fu w/ Heme #IDDM Stable, hold all oral DM meds Cont home levemir 12units HS BGMs and SSI ACHS #HTN/HLD Cont home meds: atorvastatin 40mg, lisinopril 20mg #H/o cardiac arrest(?2014) [facility]'s records reviewed: Left knee replacement under spinal anesthesia-MAC; intraop PEA, epi x1, ROSC after intubation. PEA thought 2/2 respir arrest Outpt cardiology([facility]: Dr Hubert Oneill) note(10/11/18) reviewed: EKG: NSR w/ PRWP Stress(Myoveiw Lexsiscan): no evid of stress-induced ischemia, LVEF 47% Cardio(Jena Williamson) Consult: Acceptable risk for skin graft, no further testing prior to surgery #FEN PO hydration Diabetic diet #GI ppx Omeprazole 40mg #DVT ppx Eliquis #Dispo Monitor on med-surg Dispo early next week pending surgery clearance and PT eval Visit type - Emergency Visit Emergency Visit: No - New Patient This patient is new to me today: No - Critical Care Critical Care patient: No ATTENDING PHYSICIAN STATEMENT I saw and evaluated the patient. I reviewed the resident's note and discussed the case with the resident. I agree with the resident's findings and plan as documented. SUBJECTIVE: OBJECTIVE: ASSESSMENT AND PLAN:
--- NOTE | 2019-04-24 12:55 | PN ---
Progress Note, Physician History of Present Illness: stable no new issues - Current Medication List Current Medications: Active Medications Acetaminophen (Tylenol -) 650 mg PO Q4H PRN PRN Reason: PAIN Last Admin: 04/24/19 11:05 Dose: 650 mg Apixaban (Eliquis -) 5 mg PO BID [facility] Last Admin: 04/24/19 10:25 Dose: 5 mg Atorvastatin Calcium (Lipitor -) 40 mg PO HS [facility] Last Admin: 04/23/19 22:22 Dose: 40 mg Cholecalciferol (Vitamin D3 -) 5,000 unit PO DAILY [facility] Last Admin: 04/24/19 10:24 Dose: 5,000 unit Cyanocobalamin (Vitamin B12 -) 100 mcg PO DAILY [facility] Last Admin: 04/24/19 10:23 Dose: 100 mcg Docusate Sodium (Colace -) 100 mg PO TID [facility] Last Admin: 04/24/19 06:10 Dose: 100 mg Gabapentin (Neurontin -) 300 mg PO DAILY [facility] Last Admin: 04/24/19 10:24 Dose: 300 mg Insulin Aspart (Novolog Vial Sliding Scale -) 1 vial SQ [facility]; Protocol Last Admin: 04/24/19 11:48 Dose: 2 units Insulin Detemir (Levemir Vial) 12 units SQ [facility] Last Admin: 04/23/19 22:23 Dose: 12 units Lisinopril (Prinivil) 20 mg PO DAILY [facility] Last Admin: 04/24/19 10:24 Dose: 20 mg Multivit/Ca Carb/B Cmplx/FA/Prenat (Nephro-Mel -) 1 tablet PO DAILY [facility] Last Admin: 04/24/19 10:24 Dose: 1 tablet Pantoprazole Sodium (Protonix -) 40 mg PO DAILY [facility] Last Admin: 04/24/19 10:24 Dose: 40 mg Polyethylene Glycol (Miralax (For Daily Use) -) 17 gm PO DAILY [facility] Last Admin: 04/24/19 10:25 Dose: 17 grams Promethazine HCl (Phenergan Injection -) 12.5 mg IVPUSH Q6H PRN PRN Reason: NAUSEA-FOR RESCUE AFTER 15 MIN - Objective Vital Signs: Vital Signs Temperature 99.3 F 04/23/19 22:00 Pulse Rate 103 H 04/23/19 22:00 Respiratory Rate 19 04/23/19 22:00 Blood Pressure 124/80 11/16/19 22:00 O2 Sat by Pulse Oximetry (%) 95 04/23/19 21:00 Constitutional: Yes: No Distress, Calm Cardiovascular: Yes: S1, S2 Respiratory: Yes: Regular, CTA Bilaterally Gastrointestinal: Yes: Normal Bowel Sounds, Soft Musculoskeletal: Yes: WNL Extremities: Yes: Other Wound/Incision: Yes: Dressing Dry and Intact Neurological: Yes: Alert, Oriented Psychiatric: Yes: Alert, Oriented Labs: CBC, BMP 04/23/19 08:13 04/23/19 06:00 Assessment/Plan Problem List - Problems (1) Wound cellulitis Code(s): L03.90 - CELLULITIS, UNSPECIFIED (2) Type 2 diabetes mellitus with diabetic polyneuropathy Code(s): E11.42 - TYPE 2 DIABETES MELLITUS WITH DIABETIC POLYNEUROPATHY Assessment/Plan LLE DVT chronic LLE ulcer/possible cellulitis IDDM HTN HLD plan cx report noted rest as per the team wound care and plastics
[2019-04-24] MEDS: ATORVASTATIN CA 40 MG TABLET (FP) PO SCH (21:49)
[2019-04-24] MEDS: INSULIN (LEVEMIR) 100 UNITS/ML UNITS SQ SCH (21:50)
[2019-04-25] MEDS ORDERED: PT OWN MED DRAWER 7, Y5N ONE (02:58)
[2019-04-25] MEDS: ACETAMINOPHEN 325 MG TABLET (FP) PO PRN ×5 (02:59→21:09)
[2019-04-25] MEDS: DOCUSATE SODIUM 100 MG CAPSULE (FP) PO SCH ×3 (05:58→21:08)
[2019-04-25] MEDS: INSULIN SLIDING SCALE (NOVOLOG) 1 VIAL SQ SCH ×4 (06:23→21:13)
[2019-04-25 08:14] LABS: HEMATOCRIT 35.2 % (32.4-45.2); HEMOGLOBIN 11.7 GM/dL (10.7-15.3); MCHC 33.2 g/dl (32.0-36.0); MEAN CELL VOLUME 93.4 fl (80-96); MEAN PLT VOLUME 9.7 fl (7.5-11.1); PLATELET COUNT 244 K/MM3 (134-434); RBC 3.77 M/mm3 (3.60-5.2); RDW 14.4 % (11.6-15.6); WHITE BLOOD COUNT 7.4 K/mm3 (4.0-10.0)
[2019-04-25 08:43] LABS: BLOOD UREA NITROGEN 20.5 mg/dL (7-18); CREATININE 0.7 mg/dL (0.55-1.3); POTASSIUM 4.3 mmol/L (3.5-5.1)
[2019-04-25] MEDS: VITAMIN B COMP W-C 1 EA TABLET PO SCH (09:46)
[2019-04-25] MEDS: CHOLECALCIFEROL (VIT D3) 1,000 UNIT (25 MCG) TABLET PO SCH (09:46)
[2019-04-25] MEDS: APIXABAN 5 MG TABLET PO SCH ×2 (09:46→21:08)
[2019-04-25] MEDS: GABAPENTIN 300 MG CAPSULE (FP) PO SCH (09:46)
[2019-04-25] MEDS: PANTOPRAZOLE 40 MG TABLET (FP) PO SCH (09:46)
[2019-04-25] MEDS: LISINOPRIL 20 MG TABLET (FP) PO SCH (09:47)
[2019-04-25] MEDS: CYANOCOBALAMIN (VITAMIN B-12) 100 MCG TABLET PO SCH (09:47)
[2019-04-25] MEDS: POLYETHYLENE GLYCOL 3350 119 GM BTL PO SCH (09:48)
--- NOTE | 2019-04-25 10:56 | PN ---
Progress Note, Physician History of Present Illness: stable no new issues - Current Medication List Current Medications: Active Medications Acetaminophen (Tylenol -) 650 mg PO Q4H PRN PRN Reason: PAIN Last Admin: 04/25/19 06:25 Dose: 650 mg Apixaban (Eliquis -) 5 mg PO BID [facility] Last Admin: 04/25/19 09:46 Dose: 5 mg Atorvastatin Calcium (Lipitor -) 40 mg PO HS [facility] Last Admin: 04/24/19 21:49 Dose: 40 mg Cholecalciferol (Vitamin D3 -) 5,000 unit PO DAILY [facility] Last Admin: 04/25/19 09:46 Dose: 5,000 unit Cyanocobalamin (Vitamin B12 -) 100 mcg PO DAILY [facility] Last Admin: 04/25/19 09:47 Dose: 100 mcg Docusate Sodium (Colace -) 100 mg PO TID [facility] Last Admin: 04/25/19 05:58 Dose: 100 mg Gabapentin (Neurontin -) 300 mg PO DAILY [facility] Last Admin: 04/25/19 09:46 Dose: 300 mg Insulin Aspart (Novolog Vial Sliding Scale -) 1 vial SQ [facility]; Protocol Last Admin: 04/25/19 06:23 Dose: Not Given Insulin Detemir (Levemir Vial) 12 units SQ HS [facility] Last Admin: 04/24/19 21:50 Dose: 12 units Lisinopril (Prinivil) 20 mg PO DAILY [facility] Last Admin: 04/25/19 09:47 Dose: Not Given Multivit/Ca Carb/B Cmplx/FA/Prenat (Nephro-Mel -) 1 tablet PO DAILY [facility] Last Admin: 04/25/19 09:46 Dose: 1 tablet Pantoprazole Sodium (Protonix -) 40 mg PO DAILY [facility] Last Admin: 04/25/19 09:46 Dose: 40 mg Polyethylene Glycol (Miralax (For Daily Use) -) 17 gm PO DAILY [facility] Last Admin: 04/25/19 09:48 Dose: Not Given Promethazine HCl (Phenergan Injection -) 12.5 mg IVPUSH Q6H PRN PRN Reason: NAUSEA-FOR RESCUE AFTER 15 MIN - Objective Vital Signs: Vital Signs Temperature 97.7 F 04/25/19 09:37 Pulse Rate 93 H 04/25/19 09:37 Respiratory Rate 19 04/25/19 09:37 Blood Pressure 93/55 L 04/25/19 09:37 O2 Sat by Pulse Oximetry (%) 98 04/25/19 09:00 Constitutional: Yes: No Distress, Calm Cardiovascular: Yes: S1, S2 Respiratory: Yes: Regular, CTA Bilaterally Gastrointestinal: Yes: Normal Bowel Sounds, Soft Musculoskeletal: Yes: WNL Extremities: Yes: Other Wound/Incision: Yes: Dressing Dry and Intact Neurological: Yes: Alert, Oriented Psychiatric: Yes: Alert, Oriented Labs: CBC, BMP 04/25/19 07:10 04/25/19 07:10 Assessment/Plan Problem List - Problems (1) Wound cellulitis Code(s): L03.90 - CELLULITIS, UNSPECIFIED (2) Type 2 diabetes mellitus with diabetic polyneuropathy Code(s): E11.42 - TYPE 2 DIABETES MELLITUS WITH DIABETIC POLYNEUROPATHY Assessment/Plan LLE DVT chronic LLE ulcer/possible cellulitis IDDM HTN HLD plan cx report noted rest as per the team wound care and plastics
--- NOTE | 2019-04-25 14:35 | PN ---
Progress Note (short form) - Note Progress Note: s: no chest pain, palps, dizziness, dyspnea Current Medications Generic Name Dose Route Start Last Admin Trade Name Freq PRN Reason Stop Dose Admin Acetaminophen 650 mg 04/24/19 08:03 04/25/19 14:08 Tylenol - PO 650 mg Q4H PRN Administration PAIN Apixaban 5 mg 04/24/19 10:00 04/25/19 09:46 Eliquis - PO 5 mg BID [facility] Administration Atorvastatin Calcium 40 mg 04/20/19 22:00 04/24/19 21:49 Lipitor - PO 40 mg HS PR[facility]HAKAR Administration Bacitracin 1 applic 04/25/19 15:00 Bacitracin - TP 04/25/19 15:01 ONCE ONE Cholecalciferol 5,000 unit 04/21/19 10:00 04/25/19 09:46 Vitamin D3 - PO 5,000 unit DAILY [facility] Administration Cyanocobalamin 100 mcg 04/21/19 10:00 04/25/19 09:47 Vitamin B12 - PO 100 mcg DAILY [facility] Administration Docusate Sodium 100 mg 04/22/19 08:00 04/25/19 14:08 Colace - PO 100 mg TID [facility] Administration Gabapentin 300 mg 04/21/19 10:00 04/25/19 09:46 Neurontin - PO 300 mg DAILY [facility] Administration Insulin Aspart 1 vial 04/20/19 22:00 04/25/19 11:51 Novolog Vial Sliding Scale - SQ 2 units ACHS [facility] Administration Protocol Insulin Detemir 12 units 04/22/19 22:00 04/24/19 21:50 Levemir Vial SQ 12 units HS [facility] Administration Lisinopril 20 mg 04/22/19 10:30 04/25/19 09:47 Prinivil PO Not Given DAILY [facility] Multivit/Ca Carb/B Cmplx/FA/Prenat 1 tablet 04/21/19 10:00 04/25/19 09:46 Nephro-Mel - PO 1 tablet DAILY [facility] Administration Pantoprazole Sodium 40 mg 04/21/19 10:00 04/25/19 09:46 Protonix - PO 40 mg DAILY [facility] Administration Polyethylene Glycol 17 gm 04/22/19 10:00 04/25/19 09:48 Miralax (For Daily Use) - PO Not Given DAILY [facility] Promethazine HCl 12.5 mg 04/20/19 17:13 Phenergan Injection - IVPUSH Q6H PRN NAUSEA-FOR RESCUE AFTER 15 MIN Vital Signs Period Temp Pulse Resp BP Sys/Doran Pulse Ox Last 24 Hr 97.7 F-98.6 F 80-105 18-20 93-130/55-86 98-98 Constitutional: Yes: No Distress, Calm Eyes: Yes: Conjunctiva Clear Neck: Yes: Supple, Trachea Midline Respiratory: Yes: Regular, CTA Bilaterally Gastrointestinal: Yes: Normal Bowel Sounds, Soft Cardiovascular: Yes: Regular Rate and Rhythm JVD: No Heart Sounds: Yes: S1, S2 Extremities: Yes: Other (LLE with bandages) Edema: No Integumentary: No: Jaundice Neurological: Yes: Alert, Oriented Psychiatric: No: Agitated CBC, BMP 04/25/19 07:10 04/25/19 07:10 Assessment/Plan EKG: sinus, nl intervals, no ischemic changes CXR: no acute process echo 04/2019 tds, nl LV/RV function, mild MR, mild TR, mild aortic sclerosis Preoperative evaluation, history of cardiac arrest of unknown etiology - planned surgery for skin graft - history of cardiac arrest in setting of knee surgery 2014, etiology not known - per notes from child care cook Dr. Werner recent unremarkable nuclear stress test, no ischemia 10/2018 - echo here unremarkable - s/p skin graft surgery, doing well Cellulitis - manage per primary, on abx DM - manage per primary DVT - on NOAC HTN - cont current meds HLD - cont statin
[2019-04-25] MEDS ORDERED: BACITRACIN 15 GM TUBE TOPICAL OINTMENT TP ONE (15:00)
--- NOTE | 2019-04-25 15:26 | PATH ---
Surgical Pathology Report Patient Name: CARMINA SANCHEZ [facility]. Rec. #: [id number] /Age/Gender: 1960 (Age: 58) / F Account: [id number] Location: [address] [place] [address] Taken: 04/20/2019 Received: 04/20/2019 Reported: 04/25/2019 Physicians: Piter Williamson M.D. Specimen(s) Received A: LEFT LOWER EXTEREMITY WOUND TISSUE B: LEFT LOWER EXTREMITY DEBRIDED WOUND TISSUE C: LEFT MEDIAL THIGH DEBRIDED TISSUE Clinical History Wound cellulitis left lower leg, pyoderma gangrenosum Final Diagnosis A. WOUND TISSUE, LOWER EXTREMITY, LEFT, BIOPSY: SKIN AND UNDERLYING SUBCUTANEOUS TISSUE WITH MARKED ACUTE INFLAMMATION AND ASSOCIATED ULCERATION. RARE DYSTROPHIC CALCIFICATIONS WITHIN SMALL VESSELS AND SOFT TISSUE PRESENT SEE COMMENT. B. WOUND TISSUE, LOWER EXTREMITY, LEFT, DEBRIDEMENT: SKIN AND UNDERLYING SUBCUTANEOUS TISSUE WITH MARKED ACUTE INFLAMMATION AND ASSOCIATED ULCERATION. DYSTROPHIC CALCIFICATIONS WITHIN SMALL VESSELS AND SOFT TISSUE PRESENT SEE COMMENT. C. WOUND TISSUE, LOWER EXTREMITY, LEFT, DEBRIDEMENT: SKIN AND UNDERLYING SUBCUTANEOUS TISSUE WITH MARKED ACUTE INFLAMMATION, NECROSIS, AND ASSOCIATED ULCERATION. MARKED ACUTE INFLAMMATORY EXUDATE CONSISTENT WITH ABSCESS. SEE COMMENT. Comment: Findings are non-specific. The presence of dystrophic calcifications within small to medium vessels and fibroadipose tissue, raises the possibility of calciphylaxis. However differential diagnosis is broad, which includes infection and pyoderma gangrenosum. Suggest clinical and microbiology studies correlation. History of Diabetes, Hypertension, and multiple biopsies noted. Office of Dr. Williamson informed that significant findings will be faxed (Cha). Electronically Signed Jill Castro M.D. Gross Description A. Received fresh labeled "left lower extremity wound tissue biopsy," is a 1.0 x 0.9 x 0.2 cm randolph-red, unoriented portion of possible skin with underlying soft tissue. A metals sales representative portion is given to microbiology for tissue culture. The remainder of the specimen is entirely submitted in one cassette. B. Received in formalin labeled "left lower extremity debrided wound tissue," is an 8.0 x 4.3 cm randolph, ovoid, unoriented portion of skin excised to a depth of 0.7 cm. The epidermal surface displays a large ulcerated lesion with a central defect. Cooperative Extension Agent sections are submitted in one cassette. C. Received in formalin labeled "left medial thigh debrided tissue," is a 2.4 x 1.5 cm randolph, ovoid, unoriented portion of skin excised to a depth of 0.5 cm. The epidermal surface displays a central ulcerated lesion. Cooperative Extension Agent sections are submitted in one cassette. 04/20/201904/20/2019
--- NOTE | 2019-04-25 17:19 | PN ---
Progress Note (short form) - Note Progress Note: Post Day 4 Skin graft Left leg on Bed rest awake alert, no c/o chest pains, cough, Leg cramps. Dressing changed : Kyra Boot removed Graft pink , early stages of healing, Skin edges bluish discoloration. No odor. no active bleeding Microbiology 04/20/19 15:30 Tissue-Other Gram Stain - Final 04/20/19 15:30 Tissue-Other Anaerobic Culture - Final Corynebacterium Striatum NO ANAEROBES WERE ISOLATED Selected Entries 04/16/19 04/25/19 04/25/19 13:28 09:37 13:28 Temperature 97.3 F L 97.8 F Pulse Rate 109 H 93 H 105 H Respiratory 20 18 Rate Blood Pressure 100/60 114/71 Blood Pressure 75 86 Mean Weight 188 lb Weight Built in Measurement Bedscale Method Laboratory Tests 04/16/19 04/16/19 04/23/19 08:55 08:55 08:13 WBC 8.6 RBC Hgb 12.1 Hct 36.3 MCV 91.3 MCH MCHC RDW Plt Count 239 MPV Absolute Neuts (auto) 6.6 Neutrophils % 76.7 69.3 Lymphocytes % 14.4 D 20.1 Monocytes % 6.5 6.9 Eosinophils % 2.1 3.2 Basophils % 0.3 0.5 ESR 44 H 04/25/19 07:10 WBC 7.4 RBC 3.77 Hgb 11.7 Hct 35.2 MCV 93.4 MCH 31.0 MCHC 33.2 RDW 14.4 Plt Count 244 MPV 9.7 Absolute Neuts (auto) Neutrophils % Lymphocytes % Monocytes % Eosinophils % Basophils % ESR Donor site pink, no odor, no active bleeding New dressing applied with Xeroform, Bacitracin, Two layers of Coban Waiting for Kyra Boot/Visco Paste application Plan : 1. Compression to avoid swelling Left leg ( Graft too delicate ,swelling will be detrimental and graft failure may occur) 2. Donor site dressed , minimal gauze for drying Physical therapy , no standing for longer 5 min FWB, may use walker for support
--- NOTE | 2019-04-25 18:09 | PN ---
Teaching Attending Note Name of Resident: Tash Garvey ATTENDING PHYSICIAN STATEMENT I saw and evaluated the patient. I reviewed the resident's note and discussed the case with the resident. I agree with the resident's findings and plan as documented with exceptions below. SUBJECTIVE: patient seen and examined. Left leg with occasional pain, no complaints otherwise. OBJECTIVE: Vital Signs Period Temp Pulse Resp BP Sys/Doran Pulse Ox Last 24 Hr 97.7 F-98.6 F 80-105 18-20 93-130/55-77 98-98 Intake & Output 04/22/19 04/23/19 04/24/19 04/25/19 23:59 23:59 23:59 23:59 Intake Total 915 393 5817 490 Balance 319 139 4838 490 General: lying in bed in no acute distress Chest: CTAB, no rales or wheezing Abdomen:soft, obese, NT Extremities: left thigh dressing dried blood, left leg daniel boots, pos pulses Home Medications Medication Instructions Recorded Gabapentin [Neurontin -] 300 mg PO DAILY 03/22/18 Liraglutide [Victoza -] 1.8 mg IJ DAILY 03/22/18 metFORMIN HCL [Metformin HCl ER] 750 mg PO DAILY 04/08/19 Cyanocobalamin [Vitamin B12 -] 1 tab PO DAILY 04/11/19 Insulin Glargine,Hum.rec.anlog 12 units SQ HS 04/11/19 [Basaglar Lucyikpen U-100] Meloxicam 15 mg PO DAILY 04/11/19 Multivitamin [One-Daily 1 tab PO DAILY 04/11/19 Multi-Vitamin] Aspirin [ASA -] 81 mg PO DAILY 04/16/19 Atorvastatin Ca [Lipitor] 40 mg PO DAILY 04/16/19 Cholecalciferol (Vitamin D3) 5,000 unit PO DAILY 04/16/19 [Vitamin D3] Ertugliflozin Pidolate [Steglatro] 15 mg PO DAILY 04/16/19 Lisinopril 20 mg PO DAILY 04/16/19 Omeprazole 40 mg PO DAILY 04/16/19 Vitamin B Complex 1 each PO DAILY 04/16/19 Active Medications Acetaminophen (Tylenol -) 650 mg PO Q4H PRN PRN Reason: PAIN Last Admin: 04/25/19 14:08 Dose: 650 mg Apixaban (Eliquis -) 5 mg PO BID PRABHAKAR Last Admin: 04/25/19 09:46 Dose: 5 mg Atorvastatin Calcium (Lipitor -) 40 mg PO HS [facility] Last Admin: 04/24/19 21:49 Dose: 40 mg Cholecalciferol (Vitamin D3 -) 5,000 unit PO DAILY [facility] Last Admin: 04/25/19 09:46 Dose: 5,000 unit Cyanocobalamin (Vitamin B12 -) 100 mcg PO DAILY [facility] Last Admin: 04/25/19 09:47 Dose: 100 mcg Docusate Sodium (Colace -) 100 mg PO TID [facility] Last Admin: 04/25/19 14:08 Dose: 100 mg Gabapentin (Neurontin -) 300 mg PO DAILY [facility] Last Admin: 04/25/19 09:46 Dose: 300 mg Insulin Aspart (Novolog Vial Sliding Scale -) 1 vial SQ [facility]; Protocol Last Admin: 04/25/19 17:52 Dose: Not Given Insulin Detemir (Levemir Vial) 12 units SQ HS [facility] Last Admin: 04/24/19 21:50 Dose: 12 units Lisinopril (Prinivil) 20 mg PO DAILY [facility] Last Admin: 04/25/19 09:47 Dose: Not Given Multivit/Ca Carb/B Cmplx/FA/Prenat (Nephro-Mel -) 1 tablet PO DAILY [facility] Last Admin: 04/25/19 09:46 Dose: 1 tablet Pantoprazole Sodium (Protonix -) 40 mg PO DAILY [facility] Last Admin: 04/25/19 09:46 Dose: 40 mg Polyethylene Glycol (Miralax (For Daily Use) -) 17 gm PO DAILY [facility] Last Admin: 04/25/19 09:48 Dose: Not Given Promethazine HCl (Phenergan Injection -) 12.5 mg IVPUSH Q6H PRN PRN Reason: NAUSEA-FOR RESCUE AFTER 15 MIN Laboratory Results - last 24 hr 04/24/19 04/25/19 04/25/19 21:46 05:57 07:10 WBC 7.4 RBC 3.77 Hgb 11.7 Hct 35.2 MCV 93.4 MCH 31.0 MCHC 33.2 RDW 14.4 Plt Count 244 MPV 9.7 Sodium Potassium Chloride Carbon Dioxide Anion Gap BUN Creatinine Est GFR (CKD-EPI)AfAm Est GFR (CKD-EPI)NonAf POC Glucometer 198 146 Random Glucose Calcium 04/25/19 04/25/19 04/25/19 07:10 11:48 17:15 WBC RBC Hgb Hct MCV MCH MCHC RDW Plt Count MPV Sodium 142 Potassium 4.3 Chloride 109 H Carbon Dioxide 28 Anion Gap 5 L BUN 20.5 H Creatinine 0.7 Est GFR (CKD-EPI)AfAm 109.15 Est GFR (CKD-EPI)NonAf 94.17 POC Glucometer 164 137 Random Glucose 150 H Calcium 9.0 Microbiology 04/20/19 15:30 Tissue-Other Gram Stain - Final 04/20/19 15:30 Tissue-Other Tissue Culture - Final Corynebacterium Striatum 04/20/19 15:30 Tissue-Other Anaerobic Culture - Final NO ANAEROBES WERE ISOLATED ASSESSMENT AND PLAN: 58 yof with PMHx of IDDM, HTN, HLD, chronic bilateral leg wounds, right posterior calf, now left lateral leg, comes with LLE wound infection/cellulitis , also found with superficial vein DVT, now s/p Left leg wound skin grafting on 04/20/2019 -Acute on chronic LLE wound infection/cellulitis, s/p skin grafting from left thick donor site 04/20 -Acute left superficial vein DVT -Failure of outpatient antibiotic treatment -Healed right posterior calf wound -Suspected respiratory arrest resulting in cardiac arrest with knee surgery 2014 (with spinal anesthesia/propofol induction) -IDDM -HTN -HLD Plan: S/p skin grafting 04/20 from left thigh donor site Doing well post op Dr. Williamson's input noted dry dressing to left thigh donor site. DANIEL boots to left leg for compression to avoid swelling, ok for dc once DANIEL boot available and ok for anti-coagulation. Ok to ambulate with PT, no standing more than 5 min, Full weight bearing, walker as needed. transitioned to eliquis. Will need atleast 3-6 months. discussed in detail with patient bleed risk, fall precautions and avoid any procedures till cleared by her doctor, including her spinal steroid injections. Also need for outpatient follow up for further imaging, hypercoagulable work up and duration of AC. patient able to relay full understanding and agrees to comply. ID input noted, off zosyn 48 hours, no concerns. Follow up biopsy results. Continue home levemir, ISS. titrate up to home regimen as tolerated. Resume metformin on dc Pain control tylenol/oxycodone prn. Continue statin/gabapentin/lisinopril DVTPPX as above Dispo PT eval now as cleared by Dr. williamson. Anticipate d/c with services in 24-48 hours pending PT eval, with home VNS once daniel boots arranged if no new concerns. Discussed with patient, social work.
--- NOTE | 2019-04-25 18:30 | PN ---
Physical Exam: SUBJECTIVE: Patient seen and examined in the morning. No acute events overnight. No complaints of chest pain, shortness of breath, abdominal pain, nausea, vomiting, fever, chills. OBJECTIVE: Vital Signs Period Temp Pulse Resp BP Sys/Doran Pulse Ox Last 24 Hr 97.7 F-98.6 F 80-105 18-20 93-130/55-77 98-98 GENERAL: The patient is awake, alert, and fully oriented, in no acute distress. HEAD: Normal with no signs of trauma. NECK: Trachea midline, full range of motion, supple. LUNGS: Breath sounds equal, clear to auscultation bilaterally, no wheezes, no crackles, no accessory muscle use. HEART: Regular rate and rhythm, S1, S2 without murmur, rub or gallop. ABDOMEN: Soft, nontender, nondistended, normoactive bowel sounds, no guarding, no rebound, no hepatosplenomegaly, no masses. EXTREMITIES: 2+ pulses, warm, well-perfused, no edema. Left [id number] thigh surgical site covered with xeroform, gauze. Left lower leg wrapped in unna boot + coban. Left knee with well-healed vertical incision. Scabbing medial wounds to RLE. PSYCH: Normal mood, normal affect. Laboratory Results - last 24 hr 04/24/19 04/25/19 04/25/19 21:46 05:57 07:10 WBC 7.4 RBC 3.77 Hgb 11.7 Hct 35.2 MCV 93.4 MCH 31.0 MCHC 33.2 RDW 14.4 Plt Count 244 MPV 9.7 Sodium Potassium Chloride Carbon Dioxide Anion Gap BUN Creatinine Est GFR (CKD-EPI)AfAm Est GFR (CKD-EPI)NonAf POC Glucometer 198 146 Random Glucose Calcium 04/25/19 04/25/19 04/25/19 07:10 11:48 17:15 WBC RBC Hgb Hct MCV MCH MCHC RDW Plt Count MPV Sodium 142 Potassium 4.3 Chloride 109 H Carbon Dioxide 28 Anion Gap 5 L BUN 20.5 H Creatinine 0.7 Est GFR (CKD-EPI)AfAm 109.15 Est GFR (CKD-EPI)NonAf 94.17 POC Glucometer 164 137 Random Glucose 150 H Calcium 9.0 Active Medications Generic Name Dose Route Start Last Admin Trade Name Freq PRN Reason Stop Dose Admin Acetaminophen 650 mg 04/24/19 08:03 04/25/19 18:10 Tylenol - PO 650 mg Q4H PRN Administration PAIN Apixaban 5 mg 04/24/19 10:00 04/25/19 09:46 Eliquis - PO 5 mg BID PRABHAKAR Administration Atorvastatin Calcium 40 mg 04/20/19 22:00 04/24/19 21:49 Lipitor - PO 40 mg HS PRABHAKAR Administration Cholecalciferol 5,000 unit 04/21/19 10:00 04/25/19 09:46 Vitamin D3 - PO 5,000 unit DAILY PRABHAKAR Administration Cyanocobalamin 100 mcg 04/21/19 10:00 04/25/19 09:47 Vitamin B12 - PO 100 mcg DAILY [facility] Administration Docusate Sodium 100 mg 04/22/19 08:00 04/25/19 14:08 Colace - PO 100 mg TID PRABHAKAR Administration Gabapentin 300 mg 04/21/19 10:00 04/25/19 09:46 Neurontin - PO 300 mg DAILY [facility] Administration Insulin Aspart 1 vial 04/20/19 22:00 04/25/19 17:52 Novolog Vial Sliding Scale - SQ Not Given ACHS [facility] Protocol Insulin Detemir 12 units 04/22/19 22:00 04/24/19 21:50 Levemir Vial SQ 12 units HS [facility] Administration Lisinopril 20 mg 04/22/19 10:30 04/25/19 09:47 Prinivil PO Not Given DAILY [facility] Multivit/Ca Carb/B Cmplx/FA/Prenat 1 tablet 04/21/19 10:00 04/25/19 09:46 Nephro-Mel - PO 1 tablet DAILY [facility] Administration Pantoprazole Sodium 40 mg 04/21/19 10:00 04/25/19 09:46 Protonix - PO 40 mg DAILY [facility] Administration Polyethylene Glycol 17 gm 04/22/19 10:00 04/25/19 09:48 Miralax (For Daily Use) - PO Not Given DAILY [facility] Promethazine HCl 12.5 mg 04/20/19 17:13 Phenergan Injection - IVPUSH Q6H PRN NAUSEA-FOR RESCUE AFTER 15 MIN ASSESSMENT/PLAN: 58 F PMH of DM, HTN, HOLD, JONY, with history of intra operative cardiac arrest, with chronic LLE lateral wound ulcer who presented to the ED with worsening pain and redness of wound ulcer. 1) LLE wound -X-Ray of tibula/fibular showed no osteomyelitis. -MRI of LLE showed no osteomyelitis -POD#[address] skin graft[address] Dr[address] Williamson removed daniel boot. New dressing applied with Xeroform, Bacitracin, Two layers of Coban -Physical therapy -No abx -Acetaminophen 650 mg Q6H PRN for pain -Gabapentin 300 mg PO Daily 2)LLE DVT -Eliquis 5 mg PO BID -Outpatient f/u with heme 3)DM -continue home levemir 12 units HS -Insulin sliding scale 4)HTN -Continue Lisinopril 20 mg PO Daily 5)HLD -Continue Atorvastatin 40 mg PO Daily F: No IV Fluids E:Trend BMP N: Diabetic diet DVT: Patient on Eliquis Dispo: Pending PT evaluation Visit type - Emergency Visit Emergency Visit: Yes ED Registration Date: 04/16/19 Care time: The patient presented to the Emergency Department on the above date and was hospitalized for further evaluation of their emergent condition. - New Patient This patient is new to me today: Yes Date on this admission: 04/25/19 - Critical Care Critical Care patient: No ATTENDING PHYSICIAN STATEMENT I saw and evaluated the patient. I reviewed the resident's note and discussed the case with the resident. I agree with the resident's findings and plan as documented. SUBJECTIVE: OBJECTIVE: ASSESSMENT AND PLAN:
[2019-04-25] MEDS: ATORVASTATIN CA 40 MG TABLET (FP) PO SCH (21:08)
[2019-04-25] MEDS: INSULIN (LEVEMIR) 100 UNITS/ML UNITS SQ SCH (21:11)
[2019-04-25] MEDS ORDERED: INSULIN (NOVOLOG) ASPART 100 UNITS/ML 10ML VIAL ONE (21:13)
[2019-04-26] MEDS: ACETAMINOPHEN 325 MG TABLET (FP) PO PRN ×6 (02:03→21:43)
[2019-04-26] MEDS: DOCUSATE SODIUM 100 MG CAPSULE (FP) PO SCH ×3 (06:03→21:42)
[2019-04-26] MEDS: INSULIN SLIDING SCALE (NOVOLOG) 1 VIAL SQ SCH ×4 (06:05→21:43)
[2019-04-26] MEDS ORDERED: INSULIN (NOVOLOG) ASPART 100 UNITS/ML 10ML VIAL ONE ×2 (06:43→10:57)
[2019-04-26 08:41] LABS: BASO % 0.5 % (0-2.0); EOS % 2.3 % (0-4.5); HEMATOCRIT 34.3 % (32.4-45.2); HEMOGLOBIN 11.5 GM/dL (10.7-15.3); LYMPH % 16.7 % (8-40); MCH 30.9 pg (25.7-33.7); MCHC 33.6 g/dl (32.0-36.0); MEAN CELL VOLUME 91.9 fl (80-96); MEAN PLT VOLUME 9.2 fl (7.5-11.1); MONO % 6.8 % (3.8-10.2); NEUT % 73.7 % (42.8-82.8); PLATELET COUNT 263 K/MM3 (134-434); RBC 3.73 M/mm3 (3.60-5.2); RDW 14.1 % (11.6-15.6); WHITE BLOOD COUNT 7.5 K/mm3 (4.0-10.0)
--- NOTE | 2019-04-26 09:04 | PN ---
Progress Note (short form) - Note Progress Note: 58yo F h/o LLE wound s/p debridement and skin grafts, vascular team was consulted to evaluate pt for vascular aspect of wound. Pt is known to the Vascular service and had a Navix study done of the LE on 03/25/19, which were negative for any arterial flow issues. Pt denies any history of arterial disease or surgery. Pt did have vein ablation by Dr. Gabriel previously in both legs. Pt had an Unna boot placed yesterday by Dr. Williamson. Last Vital Signs Temp Pulse Resp BP Pulse Ox 98.0 F 84 20 120/70 98 04/26/19 06:05 04/26/19 06:05 04/26/19 06:05 04/26/19 06:05 04/25/19 21:00 CBC, BMP 04/25/19 07:10 PE: Gen: A&O X3 Resp: breathing comfortably LLE: UNNA boot in place (physical exam limited as did not want to disturb plastic surgery dressing) foot, warm and pink, no weakness or numbness. Problem List - Problems (1) Traumatic open wound of right lower leg Assessment/Plan: Plan -pt has history of pyoderma gangrenosum of the LLE which is currently being treated by Dr. Williamson with debridement and skin graft. -pt does not show any sign of acute vascular issues, no need for surgical intervention at this time. -pt may follow up with Dr. Gabriel in the wound care clinic as an outpatient. Pt discussed with Dr. Gabriel who agrees with plan Code(s): S81.801A - UNSPECIFIED OPEN WOUND, RIGHT LOWER LEG, INITIAL ENCOUNTER Qualifiers: Encounter type: subsequent encounter Qualified Code(s): S81.801D - Unspecified open wound, right lower leg, subsequent encounter
[2019-04-26] MEDS: LISINOPRIL 20 MG TABLET (FP) PO SCH (10:14)
[2019-04-26] MEDS: APIXABAN 5 MG TABLET PO SCH ×2 (10:14→21:42)
[2019-04-26] MEDS: VITAMIN B COMP W-C 1 EA TABLET PO SCH (10:15)
[2019-04-26] MEDS: GABAPENTIN 300 MG CAPSULE (FP) PO SCH (10:15)
[2019-04-26] MEDS: CYANOCOBALAMIN (VITAMIN B-12) 100 MCG TABLET PO SCH (10:15)
[2019-04-26] MEDS: CHOLECALCIFEROL (VIT D3) 1,000 UNIT (25 MCG) TABLET PO SCH (10:15)
[2019-04-26] MEDS: POLYETHYLENE GLYCOL 3350 119 GM BTL PO SCH (10:15)
[2019-04-26] MEDS: PANTOPRAZOLE 40 MG TABLET (FP) PO SCH (10:15)
--- NOTE | 2019-04-26 12:36 | PN ---
Progress Note, Physician History of Present Illness: stable feels nauseous - Current Medication List Current Medications: Active Medications Acetaminophen (Tylenol -) 650 mg PO Q4H PRN PRN Reason: PAIN Last Admin: 04/26/19 10:16 Dose: 650 mg Apixaban (Eliquis -) 5 mg PO BID [facility] Last Admin: 04/26/19 10:14 Dose: 5 mg Atorvastatin Calcium (Lipitor -) 40 mg PO HS [facility] Last Admin: 04/25/19 21:08 Dose: 40 mg Cholecalciferol (Vitamin D3 -) 5,000 unit PO DAILY [facility] Last Admin: 04/26/19 10:15 Dose: 5,000 unit Cyanocobalamin (Vitamin B12 -) 100 mcg PO DAILY [facility] Last Admin: 04/26/19 10:15 Dose: 100 mcg Docusate Sodium (Colace -) 100 mg PO TID [facility] Last Admin: 04/26/19 06:03 Dose: 100 mg Gabapentin (Neurontin -) 300 mg PO DAILY [facility] Last Admin: 04/26/19 10:15 Dose: 300 mg Insulin Aspart (Novolog Vial Sliding Scale -) 1 vial SQ [facility]; Protocol Last Admin: 04/26/19 11:10 Dose: 4 units Insulin Detemir (Levemir Vial) 12 units SQ [facility] Last Admin: 04/25/19 21:11 Dose: 12 units Lisinopril (Prinivil) 20 mg PO DAILY [facility] Last Admin: 04/26/19 10:14 Dose: 20 mg Multivit/Ca Carb/B Cmplx/FA/Prenat (Nephro-Mel -) 1 tablet PO DAILY [facility] Last Admin: 04/26/19 10:15 Dose: 1 tablet Pantoprazole Sodium (Protonix -) 40 mg PO DAILY [facility] Last Admin: 04/26/19 10:15 Dose: 40 mg Polyethylene Glycol (Miralax (For Daily Use) -) 17 gm PO DAILY [facility] Last Admin: 04/26/19 10:15 Dose: Not Given Promethazine HCl (Phenergan Injection -) 12.5 mg IVPUSH Q6H PRN PRN Reason: NAUSEA-FOR RESCUE AFTER 15 MIN - Objective Vital Signs: Vital Signs Temperature 98.1 F 04/26/19 09:48 Pulse Rate 94 H 04/26/19 09:48 Respiratory Rate 20 04/26/19 09:48 Blood Pressure 146/70 04/26/19 09:48 O2 Sat by Pulse Oximetry (%) 98 04/26/19 09:00 Constitutional: Yes: Calm, Mild Distress Cardiovascular: Yes: S1, S2 Respiratory: Yes: Regular, CTA Bilaterally Gastrointestinal: Yes: Normal Bowel Sounds, Soft Musculoskeletal: Yes: WNL Extremities: Yes: WNL Wound/Incision: Yes: Dressing Dry and Intact Neurological: Yes: Alert, Oriented Psychiatric: Yes: Alert, Oriented Labs: CBC, BMP 04/26/19 07:15 04/25/19 07:10 Assessment/Plan Problem List - Problems (1) Wound cellulitis Code(s): L03.90 - CELLULITIS, UNSPECIFIED (2) Type 2 diabetes mellitus with diabetic polyneuropathy Code(s): E11.42 - TYPE 2 DIABETES MELLITUS WITH DIABETIC POLYNEUROPATHY Assessment/Plan LLE DVT chronic LLE ulcer/possible cellulitis IDDM HTN HLD plan cx report noted rest as per the team wound care and plastics physio
--- NOTE | 2019-04-26 12:44 | PN ---
Progress Note (short form) - Note Progress Note: s: no chest pain, palps, dizziness, dyspnea Current Medications Acetaminophen (Tylenol -) 650 mg PO Q4H PRN PRN Reason: PAIN Last Admin: 04/26/19 10:16 Dose: 650 mg Apixaban (Eliquis -) 5 mg PO BID [facility] Last Admin: 04/26/19 10:14 Dose: 5 mg Atorvastatin Calcium (Lipitor -) 40 mg PO HS [facility] Last Admin: 04/25/19 21:08 Dose: 40 mg Cholecalciferol (Vitamin D3 -) 5,000 unit PO DAILY [facility] Last Admin: 04/26/19 10:15 Dose: 5,000 unit Cyanocobalamin (Vitamin B12 -) 100 mcg PO DAILY [facility] Last Admin: 04/26/19 10:15 Dose: 100 mcg Docusate Sodium (Colace -) 100 mg PO TID [facility] Last Admin: 04/26/19 06:03 Dose: 100 mg Gabapentin (Neurontin -) 300 mg PO DAILY [facility] Last Admin: 04/26/19 10:15 Dose: 300 mg Insulin Aspart (Novolog Vial Sliding Scale -) 1 vial SQ [facility]; Protocol Last Admin: 04/26/19 11:10 Dose: 4 units Insulin Detemir (Levemir Vial) 12 units SQ [facility] Last Admin: 04/25/19 21:11 Dose: 12 units Lisinopril (Prinivil) 20 mg PO DAILY [facility] Last Admin: 04/26/19 10:14 Dose: 20 mg Multivit/Ca Carb/B Cmplx/FA/Prenat (Nephro-Mel -) 1 tablet PO DAILY [facility] Last Admin: 04/26/19 10:15 Dose: 1 tablet Pantoprazole Sodium (Protonix -) 40 mg PO DAILY [facility] Last Admin: 04/26/19 10:15 Dose: 40 mg Polyethylene Glycol (Miralax (For Daily Use) -) 17 gm PO DAILY [facility] Last Admin: 04/26/19 10:15 Dose: Not Given Promethazine HCl (Phenergan Injection -) 12.5 mg IVPUSH Q6H PRN PRN Reason: NAUSEA-FOR RESCUE AFTER 15 MIN Vital Signs Period Temp Pulse Resp BP Sys/Doran Pulse Ox Last 24 Hr 97.8 F-98.1 F 84-110 18-20 114-146/70-85 98-98 Constitutional: Yes: No Distress, Calm Eyes: Yes: Conjunctiva Clear Neck: Yes: Supple, Trachea Midline Respiratory: Yes: Regular, CTA Bilaterally Gastrointestinal: Yes: Normal Bowel Sounds, Soft Cardiovascular: Yes: Regular Rate and Rhythm JVD: No Heart Sounds: Yes: S1, S2 Extremities: Yes: Other (LLE with bandages) Edema: No Integumentary: No: Jaundice Neurological: Yes: Alert, Oriented Psychiatric: No: Agitated Assessment/Plan EKG: sinus, nl intervals, no ischemic changes CXR: no acute process echo 04/2019 tds, nl LV/RV function, mild MR, mild TR, mild aortic sclerosis Preoperative evaluation, history of cardiac arrest of unknown etiology - history of cardiac arrest in setting of knee surgery 2014, etiology not known - per notes from manager line Dr. Werner recent unremarkable nuclear stress test, no ischemia 10/2018 - echo here unremarkable - s/p skin graft surgery, doing well Cellulitis - manage per primary, on abx DM - manage per primary DVT - on NOAC HTN - cont current meds HLD - cont statin
--- NOTE | 2019-04-26 15:17 | DS ---
Physical Exam: SUBJECTIVE: Patient seen and examined in the morning. No acute events overnight. No complaints of chest pain, shortness of breath, abdominal pain, nausea, vomiting, diarrhea. OBJECTIVE: Vital Signs Period Temp Pulse Resp BP Sys/Doran Pulse Ox Last 24 Hr 97.8 F-98.1 F 84-110 18-20 120-146/64-85 98-98 PHYSICAL EXAM GENERAL: The patient is awake, alert, and fully oriented, in no acute distress. HEAD: Normal with no signs of trauma. NECK: Trachea midline, full range of motion, supple. LUNGS: Breath sounds equal, clear to auscultation bilaterally, no wheezes, no crackles, no accessory muscle use. HEART: Regular rate and rhythm, S1, S2 without murmur, rub or gallop. ABDOMEN: Soft, nontender, nondistended, normoactive bowel sounds, no guarding, no rebound, no hepatosplenomegaly, no masses. EXTREMITIES: 2+ pulses, warm, well-perfused, no edema. Left gdtars-efq-aasgoce thigh surgical site covered with xeroform. Lower leg wrapped with dressing. No pus or exudate from lower dressing. Upper site is draining onto dressing. PSYCH: Normal mood, normal affect. LABS Laboratory Results - last 24 hr Microbiology 04/20/19 15:30 Tissue-Other Gram Stain - Final 04/20/19 15:30 Tissue-Other Tissue Culture - Final Corynebacterium Striatum 04/20/19 15:30 Tissue-Other Anaerobic Culture - Final NO ANAEROBES WERE ISOLATED CBC, BMP 04/26/19 07:15 04/25/19 07:10 HOSPITAL COURSE: Date of Admission:04/16/19 Date of Discharge: 04/26/19 58 F PMH of DM, HTN, HOLD, JONY, with history of intra operative cardiac arrest, with chronic LLE lateral wound ulcer who presented to the ED with worsening pain and redness of wound ulcer. Patient had skin graft completed using tissue from her upper thigh to lower leg. Patient was treated with zosyn for antibiotics after graft was completed. Patient was found to have DVT and started on Eliquis 5 mg PO BID. Patient was discharged on POD#6 and will follow up with Dr. Williamson at wound care clinic to follow up recovery graft. Patient will follow up with heme/onc due to new DVT, and continue all other home medications. No antibiotics on discharge. Imaging done this stay: Chest X-Ray: Impression: No radiographic evidence of pneumonia Tibula/Fibula X-Ray: Impression: No suspicious changes in the bone. Lower Extremity MRI: Cellulitis. There is no soft tissue abscess and no osteomyelitis Minutes to complete discharge: 30 Discharge Summary Problems reviewed: Yes Reason For Visit: WOUND CELLULITIS Current Active Problems Wound cellulitis (Acute) Condition: Improved - Instructions Diet, Activity, Other Instructions: You were seen in the hospital for complaints of a non-healing wound on your left leg. You were given IV antibiotics and seen by the infectious disease doctor. Your wound was evaluated by the plastic surgeon. During your hospital stay, a skin graft was done and you tolerated the procedure well. Additionally, you were found to have a blood clot in your left leg. You were started on blood thinner to treat your blood clot. Throughout your hospital stay, your symptoms improved and you are now stable for discharge. WOUND CARE INSTRUCTIONS: Please keep your leg in the daniel boot for compression to avoid any swelling. Your skin graft is very delicate and will need to be compressed. You may use a dry dressing for the site at which your skin graft was obtained on your left thigh. Keeping the area dry will help heal this area. You may use a walker for support. We have provided you with a prescription to a walker MEDICATIONS: We have made the following changes to your medication regimen: Please START taking Eliquis 5 mg twice a day by mouth for a blood clot found in your leg. You may continue taking the rest of your home medications as directed. REFERRALS: -Please follow up with your plastic surgeon, Dr. Williamson tomorrow in the Wound Care Clinic on the 5th floor of the hospital. You will need to have your skin graft evaluated after you leave the hospital. -Please follow up with your primary care physician within 1 week, Dr. Miguel. -Please follow up with a assistant director of security have your blood clot evaluated since you will be taking a blood thinner. If you do not have one, you may make an appointment with Dr. Arizmendi. -Please follow up with the vascular surgeon, Dr. Gabriel within 1 week. If you have worsening or persistent pain in your leg, significant swelling, persistent fever, chills or other associated symptoms, please proceed to your nearest emergency room immediately. Referrals: Piter Williamson MD [Staff Physician] - 1 Week Allen Gabriel DO [Staff Physician] - 1 Week Conner Arizmendi MD [Staff Physician] - 1 Week Birdie De La Fuente MD [Primary Care Provider] - 1 Week Disposition: VNS/HOME HEALTH CARE - Home Medications Comprehensive Discharge Medication List: Ambulatory Orders Gabapentin [Neurontin -] 300 mg PO DAILY 03/22/18 Liraglutide [Victoza -] 1.8 mg IJ DAILY 03/22/18 metFORMIN HCL [Metformin HCl ER] 750 mg PO DAILY 04/08/19 Cyanocobalamin [Vitamin B12 -] 1 tab PO DAILY 04/11/19 Insulin Glargine,Hum.rec.anlog [Basaglar Kwikpen U-100] 12 units SQ HS 04/11/19 Meloxicam 15 mg PO DAILY 04/11/19 Multivitamin [One-Daily Multi-Vitamin] 1 tab PO DAILY 04/11/19 Aspirin [ASA -] 81 mg PO DAILY 04/16/19 Atorvastatin Ca [Lipitor] 40 mg PO DAILY 04/16/19 Cholecalciferol (Vitamin D3) [Vitamin D3] 5,000 unit PO DAILY 04/16/19 Ertugliflozin Pidolate [Steglatro] 15 mg PO DAILY 04/16/19 Lisinopril 20 mg PO DAILY 04/16/19 Omeprazole 40 mg PO DAILY 04/16/19 Vitamin B Complex 1 each PO DAILY 04/16/19 Apixaban [Eliquis -] 5 mg PO BID #60 tablet 04/26/19 Walker [Ultra-Light Rollator] 1 each ASDIR #1 each 04/26/19 This patient is new to me today: No Emergency Visit: Yes ED Registration Date: 04/16/19 Care time: The patient presented to the Emergency Department on the above date and was hospitalized for further evaluation of their emergent condition. Critical Care patient: No - Discharge Referral Referred to [facility] Med P.C.: No ATTENDING PHYSICIAN STATEMENT I saw and evaluated the patient. I reviewed the resident's note and discussed the case with the resident. I agree with the resident's findings and plan as documented. SUBJECTIVE: OBJECTIVE: ASSESSMENT AND PLAN:
--- NOTE | 2019-04-26 16:20 | PN ---
Teaching Attending Note Name of Resident: Tash Garvey ATTENDING PHYSICIAN STATEMENT I saw and evaluated the patient. I reviewed the resident's note and discussed the case with the resident. I agree with the resident's findings and plan as documented. SUBJECTIVE: Some discomfort LLE. No fever/chills. OBJECTIVE: afebrile, hemodynamically stable. appears comfortable. Last Vital Signs Temp Pulse Resp BP Pulse Ox 97.8 F 97 H 20 122/64 98 04/26/19 13:25 04/26/19 13:25 04/26/19 13:25 04/26/19 13:25 04/26/19 09:00 HEENT - Atraumatic, normocephalic. Heart - S1, S2, RRR Lungs - clear to auscltation Abdomen - Soft, non-tender. Bowel Sounds normal. Extremities - L thigh dressing (graft donor site) slightly bloody dressing. Left lower leg dressing dry. LEs neurovascularly intact. Laboratory Results - last 24 hr 04/25/19 04/25/19 04/26/19 17:15 21:07 06:01 WBC RBC Hgb Hct MCV MCH MCHC RDW Plt Count MPV Absolute Neuts (auto) Neutrophils % Lymphocytes % Monocytes % Eosinophils % Basophils % Nucleated RBC % POC Glucometer 137 252 151 04/26/19 04/26/19 07:15 10:19 WBC 7.5 RBC 3.73 Hgb 11.5 Hct 34.3 MCV 91.9 MCH 30.9 MCHC 33.6 RDW 14.1 Plt Count 263 MPV 9.2 Absolute Neuts (auto) 5.5 Neutrophils % 73.7 Lymphocytes % 16.7 Monocytes % 6.8 Eosinophils % 2.3 Basophils % 0.5 Nucleated RBC % 0 POC Glucometer 225 Current Medications Generic Name Dose Route Start Last Admin Trade Name Freq PRN Reason Stop Dose Admin Acetaminophen 650 mg 04/24/19 08:03 04/26/19 14:17 Tylenol - PO 650 mg Q4H PRN Administration PAIN Apixaban 5 mg 04/24/19 10:00 04/26/19 10:14 Eliquis - PO 5 mg BID PRABHAKAR Administration Atorvastatin Calcium 40 mg 04/20/19 22:00 04/25/19 21:08 Lipitor - PO 40 mg HS PRABHAKAR Administration Cholecalciferol 5,000 unit 04/21/19 10:00 04/26/19 10:15 Vitamin D3 - PO 5,000 unit DAILY PRABHAKAR Administration Cyanocobalamin 100 mcg 04/21/19 10:00 04/26/19 10:15 Vitamin B12 - PO 100 mcg DAILY PRABHAKAR Administration Docusate Sodium 100 mg 04/22/19 08:00 04/26/19 14:12 Colace - PO Not Given TID PRABHAKAR Gabapentin 300 mg 04/21/19 10:00 04/26/19 10:15 Neurontin - PO 300 mg DAILY PRABHAKAR Administration Insulin Aspart 1 vial 04/20/19 22:00 04/26/19 11:10 Novolog Vial Sliding Scale - SQ 4 units ACHS PRABHAKAR Administration Protocol Insulin Detemir 12 units 04/22/19 22:00 04/25/19 21:11 Levemir Vial SQ 12 units HS [facility] Administration Lisinopril 20 mg 04/22/19 10:30 04/26/19 10:14 Prinivil PO 20 mg DAILY [facility] Administration Multivit/Ca Carb/B Cmplx/FA/Prenat 1 tablet 04/21/19 10:00 04/26/19 10:15 Nephro-Mel - PO 1 tablet DAILY [facility] Administration Pantoprazole Sodium 40 mg 04/21/19 10:00 04/26/19 10:15 Protonix - PO 40 mg DAILY PRABHAKAR Administration Polyethylene Glycol 17 gm 04/22/19 10:00 04/26/19 10:15 Miralax (For Daily Use) - PO Not Given DAILY [facility] Promethazine HCl 12.5 mg 04/20/19 17:13 Phenergan Injection - IVPUSH Q6H PRN NAUSEA-FOR RESCUE AFTER 15 MIN Home Medications Medication Instructions Recorded Gabapentin [Neurontin -] 300 mg PO DAILY 03/22/18 Liraglutide [Victoza -] 1.8 mg IJ DAILY 03/22/18 metFORMIN HCL [Metformin HCl ER] 750 mg PO DAILY 04/08/19 Cyanocobalamin [Vitamin B12 -] 1 tab PO DAILY 04/11/19 Insulin Glargine,Hum.rec.anlog 12 units SQ HS 04/11/19 [Basaglar Kwikpen U-100] Meloxicam 15 mg PO DAILY 04/11/19 Multivitamin [One-Daily 1 tab PO DAILY 04/11/19 Multi-Vitamin] Aspirin [ASA -] 81 mg PO DAILY 04/16/19 Atorvastatin Ca [Lipitor] 40 mg PO DAILY 04/16/19 Cholecalciferol (Vitamin D3) 5,000 unit PO DAILY 04/16/19 [Vitamin D3] Ertugliflozin Pidolate [Steglatro] 15 mg PO DAILY 04/16/19 Lisinopril 20 mg PO DAILY 04/16/19 Omeprazole 40 mg PO DAILY 04/16/19 Vitamin B Complex 1 each PO DAILY 04/16/19 Apixaban [Eliquis -] 5 mg PO BID #60 tablet 04/26/19 Walker [Ultra-Light Rollator] 1 each ASDIR #1 each 04/26/19 ASSESSMENT AND PLAN: 58 year old female with history of HTN, DM 2, HLD, Chronic bilateral LE ulcers, history of cardiac arrest with knee surgery 2014 (with spinal anesthesia/ propofol induction), admitted with cellulitis, found to have DVT, currently POD 6 s/p LLE skin graft. 1. Acute on chronic/recurrent LLE wound infection/cellulitis, POD 6 s/p skin grafting from left thigh donor site 04/20 Failed outpatient Abx therapy. Afebrile, hemodynamically stable. Wounds dressed by plastic Surgery yesterday. Discussed with Dr. Williamson - for out-patient wound care clinic follow up tomorrow. Kyra boot LLE. 2. LLE DVT Started on Eliquis. Hematology referral as out-patient for further hypercoagulable work-up. 3. HTN - continue Lisinopril. 4. HLD - Continue Statin 5. DM 2 - resume Victoza, Metformin, Ertugliflozin, Levemir Dispo - Home with VNS, walker, out-patient wound care, Plastic Surgery, and Hematology appts.
[2019-04-26] MEDS: INSULIN (LEVEMIR) 100 UNITS/ML UNITS SQ SCH (21:42)
[2019-04-26] MEDS: ATORVASTATIN CA 40 MG TABLET (FP) PO SCH (21:42)
[2019-04-27] MEDS: ACETAMINOPHEN 325 MG TABLET (FP) PO PRN ×2 (01:52→06:31)
[2019-04-27 05:51] VITALS: PULSE 96
[2019-04-27] MEDS: INSULIN SLIDING SCALE (NOVOLOG) 1 VIAL SQ SCH ×2 (06:31→11:25)
[2019-04-27] MEDS: DOCUSATE SODIUM 100 MG CAPSULE (FP) PO SCH (06:31)
[2019-04-27] MEDS: PANTOPRAZOLE 40 MG TABLET (FP) PO SCH ×2 (08:33→09:54)
[2019-04-27] MEDS: GABAPENTIN 300 MG CAPSULE (FP) PO SCH ×2 (08:33→09:54)
[2019-04-27] MEDS: CYANOCOBALAMIN (VITAMIN B-12) 100 MCG TABLET PO SCH ×2 (08:33→11:23)
[2019-04-27] MEDS: CHOLECALCIFEROL (VIT D3) 1,000 UNIT (25 MCG) TABLET PO SCH ×2 (08:33→09:54)
[2019-04-27] MEDS: APIXABAN 5 MG TABLET PO SCH ×2 (08:33→09:54)
[2019-04-27] MEDS: VITAMIN B COMP W-C 1 EA TABLET PO SCH ×2 (08:33→09:54)
[2019-04-27] MEDS: LISINOPRIL 20 MG TABLET (FP) PO SCH ×2 (08:33→09:54)
[2019-04-27 08:38] VITALS: BP 111/75; TEMP 97.7
[2019-04-27] MEDS: POLYETHYLENE GLYCOL 3350 119 GM BTL PO SCH (09:54)
--- NOTE | 2019-04-27 11:43 | PN ---
Progress Note, Physician History of Present Illness: stable no new issues - Current Medication List Current Medications: Active Medications Acetaminophen (Tylenol -) 650 mg PO Q4H PRN PRN Reason: PAIN Last Admin: 04/27/19 06:31 Dose: 650 mg Apixaban (Eliquis -) 5 mg PO BID [facility] Last Admin: 04/27/19 09:54 Dose: Not Given Atorvastatin Calcium (Lipitor -) 40 mg PO HS [facility] Last Admin: 04/26/19 21:42 Dose: 40 mg Cholecalciferol (Vitamin D3 -) 5,000 unit PO DAILY [facility] Last Admin: 04/27/19 09:54 Dose: Not Given Cyanocobalamin (Vitamin B12 -) 100 mcg PO DAILY [facility] Last Admin: 04/27/19 11:23 Dose: Not Given Docusate Sodium (Colace -) 100 mg PO TID [facility] Last Admin: 04/27/19 06:31 Dose: Not Given Gabapentin (Neurontin -) 300 mg PO DAILY [facility] Last Admin: 04/27/19 09:54 Dose: Not Given Insulin Aspart (Novolog Vial Sliding Scale -) 1 vial SQ [facility]; Protocol Last Admin: 04/27/19 11:25 Dose: 2 units Insulin Detemir (Levemir Vial) 12 units SQ [facility] Last Admin: 04/26/19 21:42 Dose: 12 units Lisinopril (Prinivil) 20 mg PO DAILY [facility] Last Admin: 04/27/19 09:54 Dose: Not Given Multivit/Ca Carb/B Cmplx/FA/Prenat (Nephro-Mel -) 1 tablet PO DAILY [facility] Last Admin: 04/27/19 09:54 Dose: Not Given Pantoprazole Sodium (Protonix -) 40 mg PO DAILY [facility] Last Admin: 04/27/19 09:54 Dose: Not Given Polyethylene Glycol (Miralax (For Daily Use) -) 17 gm PO DAILY [facility] Last Admin: 04/27/19 09:54 Dose: Not Given Promethazine HCl (Phenergan Injection -) 12.5 mg IVPUSH Q6H PRN PRN Reason: NAUSEA-FOR RESCUE AFTER 15 MIN - Objective Vital Signs: Vital Signs Temperature 97.7 F 04/27/19 08:37 Pulse Rate 96 H 04/27/19 08:37 Respiratory Rate 20 04/27/19 09:00 Blood Pressure 111/75 04/27/19 08:37 O2 Sat by Pulse Oximetry (%) 98 04/27/19 09:00 Constitutional: Yes: No Distress, Calm Cardiovascular: Yes: S1, S2 Respiratory: Yes: Regular, CTA Bilaterally Gastrointestinal: Yes: Normal Bowel Sounds, Soft Genitourinary: Yes: WNL Musculoskeletal: Yes: WNL Extremities: Yes: Other Wound/Incision: Yes: Dressing Dry and Intact Neurological: Yes: Alert, Oriented Labs: CBC, BMP 04/26/19 07:15 04/25/19 07:10 Assessment/Plan Problem List - Problems (1) Wound cellulitis Code(s): L03.90 - CELLULITIS, UNSPECIFIED (2) Type 2 diabetes mellitus with diabetic polyneuropathy Code(s): E11.42 - TYPE 2 DIABETES MELLITUS WITH DIABETIC POLYNEUROPATHY Assessment/Plan LLE DVT chronic LLE ulcer/possible cellulitis IDDM HTN HLD plan cx report noted rest as per the team wound care and plastics physio
--- NOTE | 2019-04-27 11:59 | PN ---
Progress Note (short form) - Note Progress Note: s: no chest pain, palps, dizziness, dyspnea Current Medications Acetaminophen (Tylenol -) 650 mg PO Q4H PRN PRN Reason: PAIN Last Admin: 04/27/19 06:31 Dose: 650 mg Apixaban (Eliquis -) 5 mg PO BID [facility] Last Admin: 04/27/19 09:54 Dose: Not Given Atorvastatin Calcium (Lipitor -) 40 mg PO HS [facility] Last Admin: 04/26/19 21:42 Dose: 40 mg Cholecalciferol (Vitamin D3 -) 5,000 unit PO DAILY [facility] Last Admin: 04/27/19 09:54 Dose: Not Given Cyanocobalamin (Vitamin B12 -) 100 mcg PO DAILY [facility] Last Admin: 04/27/19 11:23 Dose: Not Given Docusate Sodium (Colace -) 100 mg PO TID [facility] Last Admin: 04/27/19 06:31 Dose: Not Given Gabapentin (Neurontin -) 300 mg PO DAILY [facility] Last Admin: 04/27/19 09:54 Dose: Not Given Insulin Aspart (Novolog Vial Sliding Scale -) 1 vial SQ [facility]; Protocol Last Admin: 04/27/19 11:25 Dose: 2 units Insulin Detemir (Levemir Vial) 12 units SQ [facility] Last Admin: 04/26/19 21:42 Dose: 12 units Lisinopril (Prinivil) 20 mg PO DAILY [facility] Last Admin: 04/27/19 09:54 Dose: Not Given Multivit/Ca Carb/B Cmplx/FA/Prenat (Nephro-Mel -) 1 tablet PO DAILY [facility] Last Admin: 04/27/19 09:54 Dose: Not Given Pantoprazole Sodium (Protonix -) 40 mg PO DAILY [facility] Last Admin: 04/27/19 09:54 Dose: Not Given Polyethylene Glycol (Miralax (For Daily Use) -) 17 gm PO DAILY [facility] Last Admin: 04/27/19 09:54 Dose: Not Given Promethazine HCl (Phenergan Injection -) 12.5 mg IVPUSH Q6H PRN PRN Reason: NAUSEA-FOR RESCUE AFTER 15 MIN Vital Signs Period Temp Pulse Resp BP Sys/Doran Pulse Ox Last 24 Hr 97.7 F-97.8 F 96-104 20-20 111-126/48-75 98-98 Constitutional: Yes: No Distress, Calm Eyes: Yes: Conjunctiva Clear Neck: Yes: Supple, Trachea Midline Respiratory: Yes: Regular, CTA Bilaterally Gastrointestinal: Yes: Normal Bowel Sounds, Soft Cardiovascular: Yes: Regular Rate and Rhythm JVD: No Heart Sounds: Yes: S1, S2 Extremities: Yes: Other (LLE with bandages) Edema: No Integumentary: No: Jaundice Neurological: Yes: Alert, Oriented Psychiatric: No: Agitated Assessment/Plan EKG: sinus, nl intervals, no ischemic changes CXR: no acute process echo 04/2019 tds, nl LV/RV function, mild MR, mild TR, mild aortic sclerosis Preoperative evaluation, history of cardiac arrest of unknown etiology - history of cardiac arrest in setting of knee surgery 2014, etiology not known - per notes from [facility] [employer] Dr. Werner recent unremarkable nuclear stress test, no ischemia 10/2018 - echo here unremarkable - s/p skin graft surgery, doing well Cellulitis - manage per primary, on abx DM - manage per primary DVT - on NOAC HTN - cont current meds HLD - cont statin
--- NOTE | 2019-04-27 13:36 | PN ---
Physical Exam: SUBJECTIVE: Patient seen and examined in the morning. No acute events overnight. No complaints of chest pain, shortness of breath, abdominal pain, nausea, vomiting, fever, chills. Was discharged last night, but was unable to leave. OBJECTIVE: Vital Signs Period Temp Pulse Resp BP Sys/Doran Pulse Ox Last 24 Hr 97.7 F-97.8 F 96-104 20-20 111-126/48-75 98-98 GENERAL: The patient is awake, alert, and fully oriented, in no acute distress. HEAD: Normal with no signs of trauma. NECK: Trachea midline, full range of motion, supple. LUNGS: Breath sounds equal, clear to auscultation bilaterally, no wheezes, no crackles, no accessory muscle use. HEART: Regular rate and rhythm, S1, S2 without murmur, rub or gallop. ABDOMEN: Soft, nontender, nondistended, normoactive bowel sounds, no guarding, no rebound, no hepatosplenomegaly, no masses. EXTREMITIES: 2+ pulses, warm, well-perfused, no edema. Left [id number]-xld-kmnmhtk thigh surgical site covered with xeroform, gauze. Left lower leg wrapped in unna boot + coban. Left knee with well-healed vertical incision. Scabbing medial wounds to RLE. PSYCH: Normal mood, normal affect. Laboratory Results - last 24 hr 04/26/19 04/26/19 04/27/19 17:09 20:57 06:30 POC Glucometer 134 187 143 04/27/19 11:23 POC Glucometer 174 ASSESSMENT/PLAN: Patient discharged today, will follow up with Dr. Williamson in her clinc before going home. Visit type - Emergency Visit Emergency Visit: Yes ED Registration Date: 04/16/19 Care time: The patient presented to the Emergency Department on the above date and was hospitalized for further evaluation of their emergent condition. - New Patient This patient is new to me today: No - Critical Care Critical Care patient: No ATTENDING PHYSICIAN STATEMENT I saw and evaluated the patient. I reviewed the resident's note and discussed the case with the resident. I agree with the resident's findings and plan as documented. SUBJECTIVE: OBJECTIVE: ASSESSMENT AND PLAN:
--- NOTE | 2019-04-27 14:13 | PN ---
Teaching Attending Note Name of Resident: Tash Garvey ATTENDING PHYSICIAN STATEMENT I saw and evaluated the patient. I reviewed the resident's note and discussed the case with the resident. I agree with the resident's findings and plan as documented. SUBJECTIVE: Some discomfort LLE. No fever/chills. OBJECTIVE: Afebrile, Hemodynamically stable. Appears comfortable. Last Vital Signs Temp Pulse Resp BP Pulse Ox 97.7 F 96 H 20 111/75 98 04/27/19 08:37 04/27/19 08:37 04/27/19 09:00 04/27/19 08:37 04/27/19 09:00 Heart - S1, S2, RRR Lungs - clear to auscultation Abdomen - Soft, non-tender. Bowel Sounds normal. Extremities - L thigh dressing (graft donor site) slightly bloody dressing. Left lower leg dressing dry. LEs neurovascularly intact. Laboratory Tests 04/16/19 04/16/19 04/16/19 08:55 08:55 08:55 WBC 8.6 RBC 3.98 Hgb 12.1 Hct 36.3 MCV 91.3 MCH 30.4 MCHC 33.3 RDW 13.8 Plt Count 239 MPV 8.3 Absolute Neuts (auto) 6.6 Neutrophils % 76.7 Lymphocytes % 14.4 D Monocytes % 6.5 Eosinophils % 2.1 Basophils % 0.3 Nucleated RBC % 0 ESR Sodium 139 Potassium 4.5 Chloride 106 Carbon Dioxide 31 Anion Gap 2 L BUN 16.1 Creatinine 0.6 Est GFR (CKD-EPI)AfAm 114.82 Est GFR (CKD-EPI)NonAf 99.07 POC Glucometer Random Glucose 93 Hemoglobin A1c % Calcium 9.1 Phosphorus Magnesium Total Bilirubin 1.0 AST 22 ALT 27 Alkaline Phosphatase 136 H C-Reactive Protein 0.5 H Cancelled Total Protein 6.5 Albumin 3.6 Blood Type Antibody Screen 04/16/19 04/16/19 04/16/19 08:55 11:13 17:03 WBC RBC Hgb Hct MCV MCH MCHC RDW Plt Count MPV Absolute Neuts (auto) Neutrophils % Lymphocytes % Monocytes % Eosinophils % Basophils % Nucleated RBC % ESR 44 H Sodium Potassium Chloride Carbon Dioxide Anion Gap BUN Creatinine Est GFR (CKD-EPI)AfAm Est GFR (CKD-EPI)NonAf POC Glucometer 80 69 Random Glucose Hemoglobin A1c % Calcium Phosphorus Magnesium Total Bilirubin AST ALT Alkaline Phosphatase C-Reactive Protein Total Protein Albumin Blood Type Antibody Screen 04/16/19 04/17/19 04/17/19 20:42 05:17 07:05 WBC 6.1 RBC 3.60 Hgb 11.1 Hct 32.8 MCV 91.2 MCH 30.8 MCHC 33.8 RDW 13.9 Plt Count 214 MPV 8.7 Absolute Neuts (auto) Neutrophils % Lymphocytes % Monocytes % Eosinophils % Basophils % Nucleated RBC % ESR Sodium Potassium Chloride Carbon Dioxide Anion Gap BUN Creatinine Est GFR (CKD-EPI)AfAm Est GFR (CKD-EPI)NonAf POC Glucometer 92 98 Random Glucose Hemoglobin A1c % Calcium Phosphorus Magnesium Total Bilirubin AST ALT Alkaline Phosphatase C-Reactive Protein Total Protein Albumin Blood Type Antibody Screen 04/17/19 04/17/19 04/17/19 07:05 07:05 11:32 WBC RBC Hgb Hct MCV MCH MCHC RDW Plt Count MPV Absolute Neuts (auto) Neutrophils % Lymphocytes % Monocytes % Eosinophils % Basophils % Nucleated RBC % ESR Sodium 143 Potassium 4.6 Chloride 109 H Carbon Dioxide 29 Anion Gap 5 L BUN 20.9 H Creatinine 0.7 Est GFR (CKD-EPI)AfAm 109.15 Est GFR (CKD-EPI)NonAf 94.17 POC Glucometer 118 Random Glucose 97 Hemoglobin A1c % 7.1 H Calcium 8.6 Phosphorus Magnesium Total Bilirubin AST ALT Alkaline Phosphatase C-Reactive Protein Total Protein Albumin Blood Type Antibody Screen 04/17/19 04/17/19 04/18/19 16:51 21:15 05:37 WBC RBC Hgb Hct MCV MCH MCHC RDW Plt Count MPV Absolute Neuts (auto) Neutrophils % Lymphocytes % Monocytes % Eosinophils % Basophils % Nucleated RBC % ESR Sodium Potassium Chloride Carbon Dioxide Anion Gap BUN Creatinine Est GFR (CKD-EPI)AfAm Est GFR (CKD-EPI)NonAf POC Glucometer 122 173 139 Random Glucose Hemoglobin A1c % Calcium Phosphorus Magnesium Total Bilirubin AST ALT Alkaline Phosphatase C-Reactive Protein Total Protein Albumin Blood Type Antibody Screen 04/18/19 04/18/19 04/18/19 10:45 10:45 10:45 WBC 6.3 RBC 3.82 Hgb 11.6 Hct 35.6 MCV 93.1 MCH 30.3 MCHC 32.6 RDW 14.2 Plt Count 230 MPV 9.2 Absolute Neuts (auto) Neutrophils % Lymphocytes % Monocytes % Eosinophils % Basophils % Nucleated RBC % ESR Sodium 140 Potassium 4.1 Chloride 108 H Carbon Dioxide 28 Anion Gap 4 L BUN 23.9 H Creatinine 0.7 Est GFR (CKD-EPI)AfAm 109.15 Est GFR (CKD-EPI)NonAf 94.17 POC Glucometer Random Glucose 130 H Hemoglobin A1c % Calcium 8.9 Phosphorus 4.2 Magnesium 2.1 Total Bilirubin AST ALT Alkaline Phosphatase C-Reactive Protein Total Protein Albumin Blood Type O POSITIVE Antibody Screen Negative 04/18/19 04/18/19 04/18/19 12:00 12:03 17:00 WBC RBC Hgb Hct MCV MCH MCHC RDW Plt Count MPV Absolute Neuts (auto) Neutrophils % Lymphocytes % Monocytes % Eosinophils % Basophils % Nucleated RBC % ESR Sodium Potassium Chloride Carbon Dioxide Anion Gap BUN Creatinine Est GFR (CKD-EPI)AfAm Est GFR (CKD-EPI)NonAf POC Glucometer 113 187 Random Glucose Hemoglobin A1c % Calcium Phosphorus Magnesium Total Bilirubin AST ALT Alkaline Phosphatase C-Reactive Protein Total Protein Albumin Blood Type O POSITIVE Antibody Screen 04/18/19 04/19/19 04/19/19 21:33 06:17 11:45 WBC RBC Hgb Hct MCV MCH MCHC RDW Plt Count MPV Absolute Neuts (auto) Neutrophils % Lymphocytes % Monocytes % Eosinophils % Basophils % Nucleated RBC % ESR Sodium Potassium Chloride Carbon Dioxide Anion Gap BUN Creatinine Est GFR (CKD-EPI)AfAm Est GFR (CKD-EPI)NonAf POC Glucometer 154 125 122 Random Glucose Hemoglobin A1c % Calcium Phosphorus Magnesium Total Bilirubin AST ALT Alkaline Phosphatase C-Reactive Protein Total Protein Albumin Blood Type Antibody Screen 04/19/19 04/19/19 04/19/19 15:00 15:00 17:08 WBC 6.9 RBC 3.70 Hgb 11.2 Hct 34.2 MCV 92.4 MCH 30.2 MCHC 32.7 RDW 14.1 Plt Count 233 MPV 9.0 Absolute Neuts (auto) 5.2 Neutrophils % 75.5 Lymphocytes % 15.1 Monocytes % 7.8 Eosinophils % 1.3 Basophils % 0.3 Nucleated RBC % 0 ESR Sodium 140 Potassium 4.6 Chloride 108 H Carbon Dioxide 29 Anion Gap 3 L BUN 25.8 H Creatinine 0.9 Est GFR (CKD-EPI)AfAm 80.55 Est GFR (CKD-EPI)NonAf 69.50 POC Glucometer 147 Random Glucose 212 H Hemoglobin A1c % Calcium 9.0 Phosphorus 3.2 Magnesium 2.1 Total Bilirubin AST ALT Alkaline Phosphatase C-Reactive Protein Total Protein Albumin Blood Type Antibody Screen 04/19/19 04/20/19 04/20/19 20:24 05:49 07:45 WBC 6.4 RBC 3.78 Hgb 11.7 Hct 34.8 MCV 92.2 MCH 31.0 MCHC 33.7 RDW 14.0 Plt Count 235 MPV 8.9 Absolute Neuts (auto) Neutrophils % Lymphocytes % Monocytes % Eosinophils % Basophils % Nucleated RBC % ESR Sodium Potassium Chloride Carbon Dioxide Anion Gap BUN Creatinine Est GFR (CKD-EPI)AfAm Est GFR (CKD-EPI)NonAf POC Glucometer 159 147 Random Glucose Hemoglobin A1c % Calcium Phosphorus Magnesium Total Bilirubin AST ALT Alkaline Phosphatase C-Reactive Protein Total Protein Albumin Blood Type Antibody Screen 04/20/19 04/20/19 04/20/19 07:45 11:49 17:33 WBC RBC Hgb Hct MCV MCH MCHC RDW Plt Count MPV Absolute Neuts (auto) Neutrophils % Lymphocytes % Monocytes % Eosinophils % Basophils % Nucleated RBC % ESR Sodium 140 Potassium 4.4 Chloride 108 H Carbon Dioxide 28 Anion Gap 4 L BUN 21.5 H Creatinine 0.7 Est GFR (CKD-EPI)AfAm 109.15 Est GFR (CKD-EPI)NonAf 94.17 POC Glucometer 138 126 Random Glucose 150 H Hemoglobin A1c % Calcium 9.0 Phosphorus 3.6 Magnesium 2.1 Total Bilirubin AST ALT Alkaline Phosphatase C-Reactive Protein Total Protein Albumin Blood Type Antibody Screen 04/20/19 04/21/19 04/21/19 21:11 06:09 07:20 WBC 6.5 RBC 3.56 L Hgb 10.9 Hct 32.9 MCV 92.5 MCH 30.7 MCHC 33.1 RDW 14.1 Plt Count 201 MPV 9.1 Absolute Neuts (auto) Neutrophils % Lymphocytes % Monocytes % Eosinophils % Basophils % Nucleated RBC % ESR Sodium Potassium Chloride Carbon Dioxide Anion Gap BUN Creatinine Est GFR (CKD-EPI)AfAm Est GFR (CKD-EPI)NonAf POC Glucometer 219 147 Random Glucose Hemoglobin A1c % Calcium Phosphorus Magnesium Total Bilirubin AST ALT Alkaline Phosphatase C-Reactive Protein Total Protein Albumin Blood Type Antibody Screen 04/21/19 04/21/19 04/21/19 07:20 11:30 16:47 WBC RBC Hgb Hct MCV MCH MCHC RDW Plt Count MPV Absolute Neuts (auto) Neutrophils % Lymphocytes % Monocytes % Eosinophils % Basophils % Nucleated RBC % ESR Sodium 143 Potassium 4.3 Chloride 109 H Carbon Dioxide 29 Anion Gap 6 L BUN 17.0 Creatinine 0.6 Est GFR (CKD-EPI)AfAm 114.82 Est GFR (CKD-EPI)NonAf 99.07 POC Glucometer 194 266 Random Glucose 130 H Hemoglobin A1c % Calcium 8.4 L Phosphorus 3.9 Magnesium 1.9 Total Bilirubin AST ALT Alkaline Phosphatase C-Reactive Protein Total Protein Albumin Blood Type Antibody Screen 04/21/19 04/22/19 04/22/19 21:08 06:26 06:35 WBC 6.0 RBC 3.42 L Hgb 10.5 L Hct 31.7 L MCV 92.6 MCH 30.6 MCHC 33.0 RDW 14.7 Plt Count 196 MPV 9.0 Absolute Neuts (auto) 4.1 Neutrophils % 67.8 Lymphocytes % 20.6 D Monocytes % 8.4 Eosinophils % 2.6 D Basophils % 0.6 Nucleated RBC % 0 ESR Sodium Potassium Chloride Carbon Dioxide Anion Gap BUN Creatinine Est GFR (CKD-EPI)AfAm Est GFR (CKD-EPI)NonAf POC Glucometer 192 131 Random Glucose Hemoglobin A1c % Calcium Phosphorus Magnesium Total Bilirubin AST ALT Alkaline Phosphatase C-Reactive Protein Total Protein Albumin Blood Type Antibody Screen 04/22/19 04/22/19 04/22/19 06:35 11:12 16:17 WBC RBC Hgb Hct MCV MCH MCHC RDW Plt Count MPV Absolute Neuts (auto) Neutrophils % Lymphocytes % Monocytes % Eosinophils % Basophils % Nucleated RBC % ESR Sodium 141 Potassium 4.3 Chloride 108 H Carbon Dioxide 29 Anion Gap 4 L BUN 17.0 Creatinine 0.7 Est GFR (CKD-EPI)AfAm 109.15 Est GFR (CKD-EPI)NonAf 94.17 POC Glucometer 213 192 Random Glucose 145 H Hemoglobin A1c % Calcium 8.6 Phosphorus 3.6 Magnesium 1.9 Total Bilirubin AST ALT Alkaline Phosphatase C-Reactive Protein Total Protein Albumin Blood Type Antibody Screen 04/22/19 04/23/19 04/23/19 21:20 05:20 06:00 WBC RBC Hgb Hct MCV MCH MCHC RDW Plt Count MPV Absolute Neuts (auto) Neutrophils % Lymphocytes % Monocytes % Eosinophils % Basophils % Nucleated RBC % ESR Sodium 141 Potassium 4.4 Chloride 108 H Carbon Dioxide 29 Anion Gap 5 L BUN 17.7 Creatinine 0.6 Est GFR (CKD-EPI)AfAm 114.82 Est GFR (CKD-EPI)NonAf 99.07 POC Glucometer 178 114 Random Glucose 111 H Hemoglobin A1c % Calcium 8.8 Phosphorus 3.8 Magnesium 2.0 Total Bilirubin AST ALT Alkaline Phosphatase C-Reactive Protein Total Protein Albumin Blood Type Antibody Screen 04/23/19 04/23/19 04/23/19 08:13 11:49 16:49 WBC 6.8 RBC 3.63 Hgb 11.2 Hct 33.3 MCV 91.7 MCH 30.9 MCHC 33.7 RDW 14.3 Plt Count 231 MPV 9.4 Absolute Neuts (auto) 4.7 Neutrophils % 69.3 Lymphocytes % 20.1 Monocytes % 6.9 Eosinophils % 3.2 Basophils % 0.5 Nucleated RBC % 0 ESR Sodium Potassium Chloride Carbon Dioxide Anion Gap BUN Creatinine Est GFR (CKD-EPI)AfAm Est GFR (CKD-EPI)NonAf POC Glucometer 178 151 Random Glucose Hemoglobin A1c % Calcium Phosphorus Magnesium Total Bilirubin AST ALT Alkaline Phosphatase C-Reactive Protein Total Protein Albumin Blood Type Antibody Screen 04/23/19 04/24/19 04/24/19 22:20 06:09 11:46 WBC RBC Hgb Hct MCV MCH MCHC RDW Plt Count MPV Absolute Neuts (auto) Neutrophils % Lymphocytes % Monocytes % Eosinophils % Basophils % Nucleated RBC % ESR Sodium Potassium Chloride Carbon Dioxide Anion Gap BUN Creatinine Est GFR (CKD-EPI)AfAm Est GFR (CKD-EPI)NonAf POC Glucometer 165 105 188 Random Glucose Hemoglobin A1c % Calcium Phosphorus Magnesium Total Bilirubin AST ALT Alkaline Phosphatase C-Reactive Protein Total Protein Albumin Blood Type Antibody Screen 04/24/19 04/24/19 04/25/19 16:48 21:46 05:57 WBC RBC Hgb Hct MCV MCH MCHC RDW Plt Count MPV Absolute Neuts (auto) Neutrophils % Lymphocytes % Monocytes % Eosinophils % Basophils % Nucleated RBC % ESR Sodium Potassium Chloride Carbon Dioxide Anion Gap BUN Creatinine Est GFR (CKD-EPI)AfAm Est GFR (CKD-EPI)NonAf POC Glucometer 165 198 146 Random Glucose Hemoglobin A1c % Calcium Phosphorus Magnesium Total Bilirubin AST ALT Alkaline Phosphatase C-Reactive Protein Total Protein Albumin Blood Type Antibody Screen 04/25/19 04/25/19 04/25/19 07:10 07:10 11:48 WBC 7.4 RBC 3.77 Hgb 11.7 Hct 35.2 MCV 93.4 MCH 31.0 MCHC 33.2 RDW 14.4 Plt Count 244 MPV 9.7 Absolute Neuts (auto) Neutrophils % Lymphocytes % Monocytes % Eosinophils % Basophils % Nucleated RBC % ESR Sodium 142 Potassium 4.3 Chloride 109 H Carbon Dioxide 28 Anion Gap 5 L BUN 20.5 H Creatinine 0.7 Est GFR (CKD-EPI)AfAm 109.15 Est GFR (CKD-EPI)NonAf 94.17 POC Glucometer 164 Random Glucose 150 H Hemoglobin A1c % Calcium 9.0 Phosphorus Magnesium Total Bilirubin AST ALT Alkaline Phosphatase C-Reactive Protein Total Protein Albumin Blood Type Antibody Screen 04/25/19 04/25/19 04/26/19 17:15 21:07 06:01 WBC RBC Hgb Hct MCV MCH MCHC RDW Plt Count MPV Absolute Neuts (auto) Neutrophils % Lymphocytes % Monocytes % Eosinophils % Basophils % Nucleated RBC % ESR Sodium Potassium Chloride Carbon Dioxide Anion Gap BUN Creatinine Est GFR (CKD-EPI)AfAm Est GFR (CKD-EPI)NonAf POC Glucometer 137 252 151 Random Glucose Hemoglobin A1c % Calcium Phosphorus Magnesium Total Bilirubin AST ALT Alkaline Phosphatase C-Reactive Protein Total Protein Albumin Blood Type Antibody Screen 04/26/19 04/26/19 04/26/19 07:15 10:19 17:09 WBC 7.5 RBC 3.73 Hgb 11.5 Hct 34.3 MCV 91.9 MCH 30.9 MCHC 33.6 RDW 14.1 Plt Count 263 MPV 9.2 Absolute Neuts (auto) 5.5 Neutrophils % 73.7 Lymphocytes % 16.7 Monocytes % 6.8 Eosinophils % 2.3 Basophils % 0.5 Nucleated RBC % 0 ESR Sodium Potassium Chloride Carbon Dioxide Anion Gap BUN Creatinine Est GFR (CKD-EPI)AfAm Est GFR (CKD-EPI)NonAf POC Glucometer 225 134 Random Glucose Hemoglobin A1c % Calcium Phosphorus Magnesium Total Bilirubin AST ALT Alkaline Phosphatase C-Reactive Protein Total Protein Albumin Blood Type Antibody Screen 04/26/19 04/27/19 04/27/19 20:57 06:30 11:23 WBC RBC Hgb Hct MCV MCH MCHC RDW Plt Count MPV Absolute Neuts (auto) Neutrophils % Lymphocytes % Monocytes % Eosinophils % Basophils % Nucleated RBC % ESR Sodium Potassium Chloride Carbon Dioxide Anion Gap BUN Creatinine Est GFR (CKD-EPI)AfAm Est GFR (CKD-EPI)NonAf POC Glucometer 187 143 174 Random Glucose Hemoglobin A1c % Calcium Phosphorus Magnesium Total Bilirubin AST ALT Alkaline Phosphatase C-Reactive Protein Total Protein Albumin Blood Type Antibody Screen Discharge Medications Medication Instructions Recorded Gabapentin [Neurontin -] 300 mg PO DAILY 03/22/18 Liraglutide [Victoza -] 1.8 mg IJ DAILY 03/22/18 metFORMIN HCL [Metformin HCl ER] 750 mg PO DAILY 04/08/19 Cyanocobalamin [Vitamin B12 -] 1 tab PO DAILY 04/11/19 Insulin Glargine,Hum.rec.anlog 12 units SQ HS 04/11/19 [Basaglar Kwikpen U-100] Meloxicam 15 mg PO DAILY 04/11/19 Multivitamin [One-Daily 1 tab PO DAILY 04/11/19 Multi-Vitamin] Aspirin [ASA -] 81 mg PO DAILY 04/16/19 Atorvastatin Ca [Lipitor] 40 mg PO DAILY 04/16/19 Cholecalciferol (Vitamin D3) 5,000 unit PO DAILY 04/16/19 [Vitamin D3] Ertugliflozin Pidolate [Steglatro] 15 mg PO DAILY 04/16/19 Lisinopril 20 mg PO DAILY 04/16/19 Omeprazole 40 mg PO DAILY 04/16/19 Vitamin B Complex 1 each PO DAILY 04/16/19 Apixaban [Eliquis -] 5 mg PO BID #60 tablet 04/26/19 Walker [Ultra-Light Rollator] 1 each MC ASDIR #1 each 04/26/19 ASSESSMENT AND PLAN: 58 year old female with history of HTN, DM 2, HLD, Chronic bilateral LE ulcers, history of cardiac arrest s/p knee surgery 2014 (with spinal anesthesia/ propofol induction), admitted with cellulitis, found to have DVT, currently POD 7 s/p LLE skin graft. 1. Acute on chronic/recurrent LLE wound infection/cellulitis, POD 7 s/p skin grafting from left thigh donor site 04/20 Afebrile, hemodynamically stable. Discussed with Dr. Williamson - for out-patient wound care clinic - first appt today set up on discharge. Kyra boot LLE. Medically stable for discharge. 2. LLE DVT Started on Eliquis. Hematology referral as out-patient for further hypercoagulable work-up. 3. HTN - continue Lisinopril. 4. HLD - Continue Statin 5. DM 2 - resume Victoza, Metformin, Ertugliflozin, Levemir Dispo - Home with VNS, walker, out-patient wound care, Plastic Surgery, and Hematology appts.
--- NOTE | 2019-04-28 11:12 | CONS ---
DATE OF CONSULTATION: DATE OF DICTATION: 04/28/2019 REQUESTING PHYSICIAN: Miranda Hirsch MD REASON FOR CONSULTATION: 1. Painful wound, left lower leg. 2. Multiple wounds, right and left lower leg. HISTORY: Patient is a 58-year-old female admitted from the emergency room regarding severe pain and deterioration of her left leg wound. Past history is relevant for diabetes mellitus, hypertension, HLD, and left lower leg wound with severe pain and redness. The patient states that she had this ulcer on the lateral aspect of her left lower leg, which started in January 2019. She was seen by Dr. Gabriel, a vascular surgeon, and she underwent multiple procedures for her venous insufficiency. Patient has been on hyperbaric therapy for the wound. She has received 20 more sessions on the left leg. Patient was then seen on Thursday by Dr. Gabriel and underwent wound debridement. She was referred to the plastic surgery wound clinic a week ago Thursday, and patient was informed about the etiology of the painful wound. Impression is that of pyoderma gangrenosum. Various treatments have been given which have not been beneficial. At this time, she will be requiring debridement and skin grafting in the operating room. She was discharged with that information. She then returned back to the emergency room with worsening of her pain, redness. Patient has been taking Aleve for relief. Now, pain is unbearable. Patient has been applying gentamicin ointment and Santyl cream on the wound. She wraps her leg in a dressing. She has taken oral antibiotics; last time was in February. No history of fever and chills, nausea, vomiting, chest pains, abdominal pain, or urinary/bowel . Patient was seen in the emergency room. Past history is relevant for the followin. Gastric bypass surgery. 2. section 33 years ago. 3. Right kidney stone removal. 4. Left attempted knee replacement, not finished due to cardiac arrest during surgery. SOCIAL HISTORY: Smoking: Former smoker; 8-10 years she quit; used to smoke 1 pack per day for the last 20 years. Use of alcohol: None. Use of drugs: None. 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 HISTORY: Three sons. ALLERGIES: Not known. MEDICATIONS: Gabapentin 300 mg b.i.d., Victoza/liraglutide 1.8 mg daily, atorvastatin, Lipitor once daily, metformin hydrochloride 1 tablet b.i.d., cyanocobalamin B12 one tablet daily, insulin glargine 12 units subcutaneously, meloxicam 15 mg daily, multivitamins 1 tablet daily, omeprazole 10 mg daily. REVIEW OF SYSTEMS: Head, Ears, Nose, and Throat: No nasal congestion. Pupils are equal and reacting. Mouth: Able to swallow. Cardiovascular: No chest pain. No syncope. No irregular heartbeats. No lightheadedness. Respiratory: No cough. Good air entry. Gastrointestinal: No abdominal pain. No nausea and vomiting. No diarrhea. Genitourinary: No urine burning. Musculoskeletal: Left lower leg open wound, necrotic, with erythema. Edges are raised. Drainage, odor, tenderness, induration, ulcer all present. Swelling of the lower extremities 3+. PLAN OF CARE: This wound will require surgical treatment in the operating room where she will undergo excision of all the necrotic tissue down to the fascial level. She will then require skin grafting. This has to be done in the hospital. FINAL DIAGNOSES: 1. Pyoderma gangrenosum. 2. Diabetes. SEAN PAGAN M.D. JOSÉ [id number]
== END 2019-04-27 13:05 | disposition home health service (06) | DRG 850 ==
LOC: JER 06:44 → JERBED 08:05 → J6S 13:18
PROVIDERS: ADMIT Hospitalist
PROC: 0HRLX73 Replacement of Left Lower Leg Skin with Autologous Tissue Substitute, Full Thickness, External Approach (ICD-10-PCS; principal; 2019-04-21)
PROC: 0HBJXZZ Excision of Left Upper Leg Skin, External Approach (ICD-10-PCS; 2019-04-21)
PROC: 0JBP0ZZ Excision of Left Lower Leg Subcutaneous Tissue and Fascia, Open Approach (ICD-10-PCS; 2019-04-21)
PROC: 0JRM07Z Replacement of Left Upper Leg Subcutaneous Tissue and Fascia with Autologous Tissue Substitute, Open Approach (ICD-10-PCS; 2019-04-21)
DX: S81.801D Unspecified open wound, right lower leg, subsequent encounter (principal); E11.69 Type 2 diabetes mellitus with other specified complication; L03.116 Cellulitis of left lower limb; Z87.891 Personal history of nicotine dependence; M79.605 Pain in left leg; I10 Essential (primary) hypertension; B96.89 Other specified bacterial agents as the cause of diseases classified elsewhere; I82.4Z1 Acute embolism and thrombosis of unspecified deep veins of right distal lower extremity; L88 Pyoderma gangrenosum; E11.622 Type 2 diabetes mellitus with other skin ulcer; E11.42 Type 2 diabetes mellitus with diabetic polyneuropathy; L97.929 Non-pressure chronic ulcer of unspecified part of left lower leg with unspecified severity; E78.5 Hyperlipidemia, unspecified; E66.01 Morbid (severe) obesity due to excess calories; Z68.36 Body mass index [BMI] 36.0-36.9, adult; T14.90XD Injury, unspecified, subsequent encounter; X58.XXXD Exposure to other specified factors, subsequent encounter
CPT/HCPCS: 36415; 71045-TC-FY; 73590-TC-LT-FY; 73718-TC-LT; 80048; 80053; 82962; 83036; 83735; 84100; 85025; 85027; 85651; 86140; 86850; 86900; 86901; 87070; 87075; 87077; 87205; 88304-TC; 88305-TC; 93005; 93010; 93306-TC; 93971-TC; 94010; 94760; 97116-GP; 97161-GP; 99284-25; J0131

== ENCOUNTER 2019-07-18 11:43 | Inpatient (IN) | payer OTHER ==
--- NOTE | 2019-07-18 14:24 | PDOC ---
History of Present Illness - General History Source: Patient Exam Limitations: No Limitations <Tammie Diaz - Last Filed: 07/18/19 15:14> <Collette Carolina - Last Filed: 07/22/19 10:26> - General Chief Complaint: Wound Stated Complaint: SENT FROM WOUND CARE FOR ADMITTANCE W DR CAMPBELL Time Seen by Provider: 07/18/19 13:31 Past History - Travel Traveled outside of the country in the last 30 days: No Close contact w/someone who was outside of country & ill: No - Past Medical History Anemia: No Asthma: No Cancer: No Cardiac Disorders: Yes (CARDIAC ARREST X 1) CVA: No COPD: No CHF: No Dementia: No Diabetes: Yes Disorders: No HTN: Yes Hypercholesterolemia: Yes Liver Disease: No Seizures: No Thyroid Disease: No - Surgical History Abdominal Surgery: Yes (GASTRIC BYPASS) Appendectomy: No Cardiac Surgery: No Cholecystectomy: No Lung Surgery: No Neurologic Surgery: No Orthopedic Surgery: Yes (KNEE SURGERY) - Immunization History Immunization Up to Date: No - Psycho Social/Smoking Cessation Hx Smoking History: Never smoked Have you smoked in the past 12 months: No If you are a former smoker, when did you quit?: 2009 Information on smoking cessation initiated: No Hx Alcohol Use: No Drug/Substance Use Hx: No <Tammie Diaz - Last Filed: 07/18/19 15:14> <Collette Carolina - Last Filed: 07/22/19 10:26> - Past Medical History Allergies/Adverse Reactions: Allergies Allergy/AdvReac Type Severity Reaction Status Date / Time No Known Allergies Allergy Verified 07/18/19 12:07 Home Medications: Ambulatory Orders Gabapentin [Neurontin -] 300 mg PO DAILY 03/22/18 Liraglutide [Victoza -] 1.8 mg IJ DAILY 03/22/18 metFORMIN HCL [Metformin HCl ER] 750 mg PO DAILY 04/08/19 Cyanocobalamin [Vitamin B12 -] 1 tab PO DAILY 04/11/19 Insulin Glargine,Hum.rec.anlog [Basaglar Kwikpen U-100] 12 units SQ HS 04/11/19 Meloxicam 15 mg PO DAILY 04/11/19 Multivitamin [One-Daily Multi-Vitamin] 1 tab PO DAILY 04/11/19 Atorvastatin Ca [Lipitor] 40 mg PO DAILY 04/16/19 Cholecalciferol (Vitamin D3) [Vitamin D3] 5,000 unit PO DAILY 04/16/19 Ertugliflozin Pidolate [Steglatro] 15 mg PO DAILY 04/16/19 Lisinopril 20 mg PO DAILY 04/16/19 Omeprazole 40 mg PO DAILY 04/16/19 Vitamin B Complex 1 each PO DAILY 04/16/19 Walker [Ultra-Light Rollator] 1 each ASDIR #1 each 04/26/19 Sodium Chloride 0.9% Irrig [Sodium Chloride 0.9% Irrig. Soln 500 ml] 500 ml IR BID #1 btl 05/11/19 Apixaban [Eliquis] 5 mg PO BID #60 tablet 05/13/19 Gabapentin 600 mg PO HS 07/15/19 Review of Systems - Review of Systems Able to Perform ROS?: Yes Comments:: 07/18/19 15:15 CONSTITUTIONAL: Absent: fever, chills, diaphoresis, generalized weakness, malaise, loss of appetite HEENT: Absent: rhinorrhea, nasal congestion, throat pain, throat swelling, difficulty swallowing, mouth swelling, ear pain, eye pain, visual Changes CARDIOVASCULAR: Absent: chest pain, loss of consciousness, palpitations, irregular heart rate, peripheral edema RESPIRATORY: Absent: cough, shortness of breath, dyspnea with exertion, orthopnea, wheezing, stridor, hemoptysis GASTROINTESTINAL: Absent: abdominal pain, abdominal distension, nausea, vomiting, diarrhea, constipation, melena, hematochezia GENITOURINARY: Absent: dysuria, frequency, urgency, hesitancy, hematuria, flank pain, genital pain MUSCULOSKELETAL: Present: R lower leg pain Absent: myalgia, arthralgia, joint swelling SKIN: Present: infected ulcer Absent: rash, itching, pallor HEMATOLOGIC/IMMUNOLOGIC: Absent: easy bleeding, easy bruising, lymphadenopathy, frequent infections ENDOCRINE: Absent: unexplained weight gain, unexplained weight loss, heat intolerance, cold intolerance NEUROLOGIC: Absent: headache, focal weakness or paresthesias, dizziness, unsteady gait, seizure, mental status changes, bladder or bowel incontinence PSYCHIATRIC: Absent: anxiety, depression, suicidal or homicidal ideation, hallucinations. Is the patient limited Turkish proficient: No <Tammie Diaz - Last Filed: 07/18/19 15:14> *Physical Exam - Vital Signs Last Vital Signs Temp Pulse Resp BP Pulse Ox 97.6 F 102 H 17 124/56 L 100 07/18/19 12:07 07/18/19 12:07 07/18/19 12:07 07/18/19 12:07 07/18/19 12:07 - Physical Exam 07/18/19 15:15 GENERAL: Well developed, well nourished. Awake and alert. No acute distress. HEENT: Normocephalic, atraumatic. PERRLA, EOMI. No conjunctival pallor. Sclera are non- icteric. Moist mucous membranes. NECK: Supple. Full ROM. No lymphadenopathy. CARDIOVASCULAR: Regular rate and rhythm. No murmurs, rubs, or gallops. Distal pulses are 2+ and symmetric. PULMONARY: No evidence of respiratory distress. Lungs clear to auscultation bilaterally. No wheezing, rales or rhonchi. ABDOMINAL: Soft. Non-tender. Non-distended. No rebound or guarding. No organomegaly. Normoactive bowel sounds. MUSCULOSKELETAL Normal range of motion at all joints. No bony deformities or tenderness. No CVA tenderness. EXTREMITIES: No cyanosis. No clubbing. No edema. No calf tenderness. SKIN: Refused at the R lower leg. Warm and dry. Normal capillary refill. No rashes. No jaundice. NEUROLOGICAL: Alert, awake, appropriate. Cranial nerves 2-12 intact. No deficits to light touch and temperature in face, upper extremities and lower extremities. No motor deficits in the in face, upper extremities and lower extremities. Normoreflexic in the upper and lower extremities. Normal speech. Toes are down- going bilaterally. Gait is normal without ataxia. PSYCHIATRIC: Cooperative. Good eye contact. Appropriate mood and affect. <Tammie Diaz - Last Filed: 07/18/19 15:14> - Vital Signs Last Vital Signs Temp Pulse Resp BP Pulse Ox 98.2 F 84 20 127/42 L 100 07/22/19 06:32 07/22/19 06:32 07/21/19 21:00 07/22/19 06:32 07/21/19 08:40 <Collette Carolina - Last Filed: 07/22/19 10:26> ED Treatment Course - LABORATORY CBC & Chemistry Diagram: 07/18/19 14:45 07/18/19 14:45 <EmilyTammie - Last Filed: 07/18/19 15:14> - LABORATORY CBC & Chemistry Diagram: 07/18/19 14:45 07/18/19 14:45 - ADDITIONAL ORDERS Additional order review: 07/18/19 14:45 Blood Culture - Preliminary Blood - Peripheral Venous NO GROWTH OBTAINED AFTER 72 HOURS, INCUBATION TO CONTINUE FOR 2 DAYS. 07/18/19 14:45 Blood Culture - Preliminary Blood - Peripheral Venous NO GROWTH OBTAINED AFTER 72 HOURS, INCUBATION TO CONTINUE FOR 2 DAYS. 07/18/19 14:45 RBC 4.03 MCV 91.2 MCHC 32.7 RDW 14.2 MPV 9.2 Neutrophils % 72.2 Lymphocytes % 17.5 Monocytes % 6.6 Eosinophils % 3.2 Basophils % 0.5 - Medications Given in the ED: ED Medications Discontinued Medications Generic Name Dose Route Start Last Admin Trade Name Freq PRN Reason Stop Dose Admin Piperacillin Sod/Tazobactam 50 mls @ 100 mls/hr 07/18/19 15:19 07/18/19 15:56 Sod 3.375 gm/ Dextrose IVPB 07/18/19 15:48 100 mls/hr ONCE ONE Administration Protocol Oxycodone HCl 10 mg 07/18/19 19:22 07/21/19 09:47 Roxicodone - PO 10 mg Q6H PRN Administration PAIN LEVEL 4 - 6 <Collette Carolina - Last Filed: 07/22/19 10:26> Medical Decision Making - Medical Decision Making 07/18/19 15:17 The patient is a 58 y/o F with PMH of IDDM, HLD, HTN, presents to the ER from wound care for admission. Pt states she has an infected wound on the R ankle. She was sent in by Dr. Puckett. She states the wound has been there since January and progressively gotten wors. She states that two weeks ago she had debridement done and had noticed an increase in purulent drainage from the area. She was seen at wound care on Thursday07/15/19 and was told she will need admission for IV abx. She states that the leg is very tender and it hurts to walk. A/P: Wound infection Pt defers skin exam to the area. She wants the dressing to remain intact and she states it hurts to much to touch VSS, Afebrile Distal pulses of the R foot intact Labs, blood cultures, x-ray, EKG ordered for admission Dr. Puckett requesting Zosyn at this time. Case discussed with Dr. Christensen who accepts the admission. Pt to be placed to Med/surg. <Tammie Diaz - Last Filed: 07/18/19 15:14> - Medical Decision Making I reviewed the case with the mid-level practitioner and agree with the mid- level practitioner's assessment, diagnosis and disposition. <Collette Carolina - Last Filed: 07/22/19 10:26> Discharge - Discharge Information Problems reviewed: Yes - Admission Yes <Tammie Diaz - Last Filed: 07/18/19 15:14> <Collette Carolina - Last Filed: 07/22/19 10:26> - Discharge Information Clinical Impression/Diagnosis: Traumatic open wound of right lower leg Qualifiers: Encounter type: initial encounter Qualified Code(s): S81.801A - Unspecified open wound, right lower leg, initial encounter Condition: Stable
[2019-07-18 15:13] LABS: BASO % 0.5 % (0-2.0); EOS % 3.2 % (0-4.5); HEMATOCRIT 36.7 % (32.4-45.2); LYMPH % 17.5 % (8-40); MCH 29.9 pg (25.7-33.7); MCHC 32.7 g/dl (32.0-36.0); MEAN CELL VOLUME 91.2 fl (80-96); MEAN PLT VOLUME 9.2 fl (7.5-11.1); MONO % 6.6 % (3.8-10.2); NEUT % 72.2 % (42.8-82.8); PLATELET COUNT 277 K/MM3 (134-434); RBC 4.03 M/mm3 (3.60-5.2); RDW 14.2 % (11.6-15.6); WHITE BLOOD COUNT 8.2 K/mm3 (4.0-10.0)
[2019-07-18 15:17] LABS: EPI CELLS 2.5 /HPF (0-5/HPF); HYALINE CASTS 23 /lpf (0-8); URINE APPEARANCE CLOUDY; URINE BILIRUBIN NEGATIVE (NEGATIVE); URINE COLOR YELLOW; URINE GLUCOSE (UA) 3+ (NEGATIVE); URINE KETONE NEGATIVE (NEGATIVE); URINE LEUK ESTERASE 2+ (NEGATIVE); URINE NITRITE POSITIVE (NEGATIVE); URINE PROTEIN NEGATIVE (NEGATIVE); URINE RBC 5 /hpf (0-4); URINE UROBILINOGEN 0.2 mg/dL (0.2-1.0); URINE WBC 85 /hpf (0-5)
[2019-07-18] MEDS ORDERED: PIPERACILLIN/TAZOB 3.375 GM 3.375 GM in DEXTROSE 5%-WATER - 50 ML IVPB ONE (15:19)
[2019-07-18 15:43] LABS: ALBUMIN 3.4 g/dl (3.4-5.0); BILIRUBIN,TOTAL 0.6 mg/dL (0.2-1); CALCIUM 9.2 mg/dL (8.5-10.1); CREATININE 0.8 mg/dL (0.55-1.3); POTASSIUM 4.9 mmol/L (3.5-5.1); TOT PROT 7.1 g/dl (6.4-8.2)
[2019-07-18] MEDS ORDERED: PIPERACILLIN/TAZOB 3.375 GM 3.375 GM/50 ML BAG IVPB ONE (15:47)
--- NOTE | 2019-07-18 16:53 | HP ---
Admitting History and Physical - Primary Care Physician PCP: Jeni Christensen - Admission History of Present Illness: 58 y/o F with PMH of IDDM, HLD, HTN, presents to the ER from wound care for admission. Pt states she has an infected wound on the R ankle. She was sent in by Dr. Puckett. She states the wound has been there since January and progressively gotten wors. She states that two weeks ago she had debridement done and had noticed an increase in purulent drainage from the area. She was seen at wound care on Thursday07/15/19 and was told she will need admission for IV abx. She states that the leg is very tender and it hurts to walk. - Past Medical History Cardiovascular: Yes: HTN Endocrine: Yes: Diabetes Mellitus Dermatology: Yes: Other (b/l LE ulcers) - Smoking History Smoking history: Never smoked Have you smoked in the past 12 months: No If you are a former smoker, when did you quit?: 2009 - Alcohol/Substance Use Hx Alcohol Use: No Home Medications - Allergies Allergies/Adverse Reactions: Allergies Allergy/AdvReac Type Severity Reaction Status Date / Time No Known Allergies Allergy Verified 07/18/19 12:07 - Home Medications Home Medications: Ambulatory Orders Gabapentin [Neurontin -] 300 mg PO DAILY 03/22/18 Liraglutide [Victoza -] 1.8 mg IJ DAILY 03/22/18 metFORMIN HCL [Metformin HCl ER] 750 mg PO DAILY 04/08/19 Cyanocobalamin [Vitamin B12 -] 1 tab PO DAILY 04/11/19 Insulin Glargine,Hum.rec.anlog [Basaglar Kwikpen U-100] 12 units SQ HS 04/11/19 Meloxicam 15 mg PO DAILY 04/11/19 Multivitamin [One-Daily Multi-Vitamin] 1 tab PO DAILY 04/11/19 Atorvastatin Ca [Lipitor] 40 mg PO DAILY 04/16/19 Cholecalciferol (Vitamin D3) [Vitamin D3] 5,000 unit PO DAILY 04/16/19 Ertugliflozin Pidolate [Steglatro] 15 mg PO DAILY 04/16/19 Lisinopril 20 mg PO DAILY 04/16/19 Omeprazole 40 mg PO DAILY 04/16/19 Vitamin B Complex 1 each PO DAILY 04/16/19 Walker [Ultra-Light Rollator] 1 each ASDIR #1 each 04/26/19 Sodium Chloride 0.9% Irrig [Sodium Chloride 0.9% Irrig. Soln 500 ml] 500 ml IR BID #1 btl 05/11/19 Apixaban [Eliquis] 5 mg PO BID #60 tablet 05/13/19 Gabapentin 600 mg PO HS 07/15/19 Physical Examination Vital Signs: Vital Signs Temperature 97.6 F 07/18/19 12:07 Pulse Rate 102 H 07/18/19 12:07 Respiratory Rate 17 07/18/19 12:07 Blood Pressure 124/56 L 07/18/19 12:07 O2 Sat by Pulse Oximetry (%) 100 07/18/19 12:07 Constitutional: Yes: No Distress HENT: Yes: Atraumatic Neck: Yes: Supple Cardiovascular: Yes: Regular Rate and Rhythm Respiratory: Yes: CTA Bilaterally Gastrointestinal: Yes: Normal Bowel Sounds Extremities: Yes: Other (R jean cellulitis) Neurological: Yes: Alert, Oriented Labs: CBC, BMP 07/18/19 14:45 07/18/19 14:45 Problem List - Problems (1) Traumatic open wound of right lower leg Assessment/Plan: iv abx woundcare Code(s): S81.801A - UNSPECIFIED OPEN WOUND, RIGHT LOWER LEG, INITIAL ENCOUNTER Qualifiers: Encounter type: initial encounter Qualified Code(s): S81.801A - Unspecified open wound, right lower leg, initial encounter (2) Wound cellulitis Code(s): L03.90 - CELLULITIS, UNSPECIFIED (3) Type 2 diabetes mellitus with diabetic polyneuropathy Assessment/Plan: bgms insulin sliding scale po meds Code(s): E11.42 - TYPE 2 DIABETES MELLITUS WITH DIABETIC POLYNEUROPATHY (4) HLD (hyperlipidemia) Assessment/Plan: on meds Code(s): E78.5 - HYPERLIPIDEMIA, UNSPECIFIED (5) HTN (hypertension) Assessment/Plan: on meds Code(s): I10 - ESSENTIAL (PRIMARY) HYPERTENSION Assessment/Plan Laboratory Tests 07/18/19 07/18/19 07/18/19 14:45 14:45 14:45 WBC 8.2 RBC 4.03 Hgb 12.0 Hct 36.7 MCV 91.2 MCH 29.9 MCHC 32.7 RDW 14.2 Plt Count 277 MPV 9.2 Absolute Neuts (auto) 5.9 Neutrophils % 72.2 Lymphocytes % 17.5 Monocytes % 6.6 Eosinophils % 3.2 Basophils % 0.5 Nucleated RBC % 0 Sodium 139 Potassium 4.9 Chloride 104 Carbon Dioxide 31 Anion Gap 4 L BUN 19.0 H Creatinine 0.8 Est GFR (CKD-EPI)AfAm 92.87 Est GFR (CKD-EPI)NonAf 80.13 Random Glucose 90 Calcium 9.2 Total Bilirubin 0.6 AST 26 ALT 35 Alkaline Phosphatase 155 H Total Protein 7.1 Albumin 3.4 Urine Color Yellow Urine Appearance Cloudy Urine pH 5.0 Ur Specific [place] 1.032 Urine Protein Negative Urine Glucose (UA) 3+ H Urine Ketones Negative Urine Blood Negative Urine Nitrite Positive H Urine Bilirubin Negative Urine Urobilinogen 0.2 Ur Leukocyte Esterase 2+ H Urine WBC (Auto) 85 Urine RBC (Auto) 5 Urine Casts (Auto) 23 U Epithel Cells (Auto) 2.5 Urine Bacteria (Auto) 3879.0 Active Medications Generic Name Dose Route Start Last Admin Trade Name Freq PRN Reason Stop Dose Admin Acetaminophen 650 mg 07/18/19 19:22 07/20/19 10:02 Tylenol - PO 650 mg Q6H PRN Administration FEVER Apixaban 5 mg 07/18/19 22:00 07/20/19 10:01 Eliquis - PO 5 mg BID PRABHAKAR Administration Atorvastatin Calcium 40 mg 07/18/19 22:00 07/19/19 21:31 Lipitor - PO 40 mg HS PRABHAKAR Administration Collagenase 1 applic 07/19/19 11:30 07/20/19 14:42 Santyl - TP 1 applic DAILY PRABHAKAR Administration Gabapentin 600 mg 07/18/19 22:00 07/19/19 21:30 Neurontin - PO 600 mg HS PRABHAKAR Administration Gabapentin 300 mg 07/19/19 10:00 07/20/19 10:02 Neurontin - PO 300 mg DAILY PRABHAKAR Administration Piperacillin Sod/Tazobactam 50 mls @ 100 mls/hr 07/19/19 11:30 07/20/19 17:47 Sod 3.375 gm/ Dextrose IVPB 100 mls/hr Q8H-IV PRABHAKAR Administration Insulin Aspart 1 vial 07/18/19 22:00 07/20/19 17:47 Novolog Vial Sliding Scale - SQ Not Given ACHS [facility] Protocol Lisinopril 20 mg 07/19/19 10:00 07/20/19 10:01 Prinivil PO Not Given DAILY [facility] Metformin HCl 750 mg 07/19/19 07:00 07/20/19 06:54 Glucophage Xr - PO 750 mg DAILY@0700 [facility] Administration Non-Formulary Medication 15 mg 07/19/19 07:00 Ertugliflozin Pidolate [Steglatro] PO DAILY@0700 [facility] Oxycodone HCl 10 mg 07/18/19 19:22 07/20/19 14:16 Roxicodone - PO 10 mg Q6H PRN Administration PAIN LEVEL 4 - 6
[2019-07-18] MEDS ORDERED: INSULIN (NOVOLOG) ASPART 100 UNITS/ML 10ML VIAL ONE (21:18)
[2019-07-18] MEDS: GABAPENTIN 300 MG CAPSULE PO SCH (21:34)
[2019-07-18] MEDS: APIXABAN 5 MG TABLET PO SCH (21:34)
[2019-07-18] MEDS: ATORVASTATIN CA 40 MG TABLET (FP) PO SCH (21:34)
[2019-07-18] MEDS: oxyCODONE HCL 5 MG TABLET PO PRN (21:35)
[2019-07-18] MEDS: INSULIN SLIDING SCALE (NOVOLOG) 1 VIAL SQ SCH (21:39)
[2019-07-18] MEDS ORDERED: HEPARIN NA (PORCINE) 5,000 UNITS/ML 1ML VIAL SQ SCH (22:00)
[2019-07-19] MEDS ORDERED: PT OWN MED DRAWER 7, Y5N ONE ×2 (05:14→12:07)
[2019-07-19] MEDS: INSULIN SLIDING SCALE (NOVOLOG) 1 VIAL SQ SCH ×4 (06:29→21:35)
[2019-07-19] MEDS: ACETAMINOPHEN 325 MG TABLET (FP) PO PRN ×3 (06:32→22:14)
[2019-07-19] MEDS ORDERED: ERTUGLIFLOZIN PIDOLATE 15 MG PO SCH (07:00)
[2019-07-19] MEDS: GABAPENTIN 300 MG CAPSULE PO SCH ×2 (10:43→21:30)
[2019-07-19] MEDS: LISINOPRIL 20 MG TABLET (FP) PO SCH ×2 (10:43→10:45)
[2019-07-19] MEDS: APIXABAN 5 MG TABLET PO SCH ×2 (10:43→21:30)
[2019-07-19] MEDS ORDERED: PIPERACILLIN/TAZOBACTAM 3.375 GM VIAL IVPB ONE ×2 (11:26→17:21)
[2019-07-19] MEDS ORDERED: DEXTROSE 5%-WATER - 50 ML IVPB ONE ×2 (11:26→17:21)
[2019-07-19] MEDS: PIPERACILLIN/TAZOB 3.375 GM 3.375 GM in DEXTROSE 5%-WATER - 50 ML IVPB SCH ×2 (11:37→17:24)
--- NOTE | 2019-07-19 13:04 | EKG ---
Test Reason : Blood Pressure : / mmHG Vent. Rate : 095 BPM Atrial Rate : 095 BPM P-R Int : 154 ms QRS Dur : 074 ms QT Int : 360 ms P-R-T Axes : 046 016 032 degrees QTc Int : 452 ms NORMAL SINUS RHYTHM NORMAL ECG WHEN COMPARED WITH ECG OF 16-APR-2019 09:29, NO SIGNIFICANT CHANGE WAS FOUND Confirmed by Jim Collins MD ([id number]) on 07/19/2019 1:03:48 PM Referred By: Confirmed By:Jim Collins MD
--- NOTE | 2019-07-19 15:47 | CON.ID ---
Consult Consult Specialty:: infectious diseases Referred by:: Dr Gabriel Reason for Consultation:: infected wounds,non healing,pain - History of Present Illness Chief Complaint: pain and wounds of the legs rt History of Present Illness: 58 y/o F with PMH of IDDM, HLD, HTN, has an infected wound on the R leg. She states the wound has been there since January and progressively getting worse She states that two weeks ago she had debridement done and had noticed an increase in purulent drainage from the area. She was seen at wound care on Thursday07/15/19 and was told she will need admission for IV abx. She states that the leg is very tender and it hurts to walk. also cx were taken when patient was in wound care pain is debilitaing to the patient - History Source History Provided By: Patient Limitations to Obtaining History: No Limitations - Past Medical History Cardio/Vascular: Yes: HTN ...: No Endocrine: Yes: Diabetes Mellitus Dermatology: Yes: Other (b/l LE ulcers) - Alcohol/Substance Use Hx Alcohol Use: No - Smoking History Smoking history: Former smoker Have you smoked in the past 12 months: No If you are a former smoker, when did you quit?: 2008 Home Medications - Allergies Allergies/Adverse Reactions: Allergies Allergy/AdvReac Type Severity Reaction Status Date / Time No Known Allergies Allergy Verified 07/18/19 12:07 - Home Medications Home Medications: Ambulatory Orders RX: Gabapentin [Neurontin -] 300 mg PO DAILY@0700 03/22/18 RX: Liraglutide [Victoza -] 1.8 mg SQ DAILY 03/22/18 RX: metFORMIN HCL [Metformin HCl ER] 750 mg PO BIDAC 04/08/19 RX: Cyanocobalamin [Vitamin B12 -] 1 tab PO DAILY 04/11/19 RX: Insulin Glargine,Hum.rec.anlog [Basaglar Kwikpen U-100] 12 units SQ HS 04/11 RX: Meloxicam 15 mg PO DAILY 04/11/19 RX: Multivitamin [One-Daily Multi-Vitamin] 1 tab PO DAILY 04/11/19 RX: Atorvastatin Ca [Lipitor] 40 mg PO DAILY 04/16/19 RX: Ertugliflozin Pidolate [Steglatro] 15 mg PO DAILY 04/16/19 RX: Omeprazole 40 mg PO DAILY 04/16/19 Apixaban [Eliquis] 5 mg PO BID #60 tablet 05/13/19 Gabapentin 600 mg PO HS 07/15/19 RX: Gabapentin 300 mg PO DAILY@1200 07/22/19 Review of Systems - Review of Systems Constitutional: reports: No Symptoms Eyes: reports: No Symptoms HENT: reports: No Symptoms Neck: reports: No Symptoms Cardiovascular: reports: No Symptoms Respiratory: reports: No Symptoms Gastrointestinal: reports: No Symptoms Genitourinary: reports: No Symptoms Musculoskeletal: reports: Other Integumentary: reports: Erythema, Wound, Other Neurological: reports: No Symptoms Endocrine: reports: No Symptoms Hematology/Lymphatic: reports: No Symptoms Psychiatric: reports: No Symptoms Physical Exam Vital Signs: Vital Signs Temperature 98.3 F 07/19/19 14:15 Pulse Rate 96 H 07/19/19 14:15 Respiratory Rate 07/19/19 14:15 Blood Pressure 135/70 07/19/19 14:15 O2 Sat by Pulse Oximetry (%) 98 07/18/19 20:03 Constitutional: Yes: Well Nourished, No Distress, Calm Eyes: Yes: Conjunctiva Clear HENT: Yes: Atraumatic, Normocephalic Neck: Yes: Supple, Trachea Midline Cardiovascular: Yes: Regular Rate and Rhythm Respiratory: Yes: Regular, CTA Bilaterally Gastrointestinal: Yes: Normal Bowel Sounds, Soft Musculoskeletal: Yes: WNL Extremities: Yes: Erythema, Other Integumentary: Yes: Erythema, Other Wound/Incision: Yes: Dressing Removed, Draining, Other (multiple wounds rt leg) Neurological: Yes: Alert, Oriented Psychiatric: Yes: Alert, Oriented Labs: CBC, BMP 07/18/19 14:45 07/18/19 14:45 Imaging - Results X-ray: Report Reviewed, Image Reviewed Assessment/Plan Problem List - Problems (1) Traumatic open wound of right lower leg Code(s): S81.801A - UNSPECIFIED OPEN WOUND, RIGHT LOWER LEG, INITIAL ENCOUNTER Qualifiers: Encounter type: initial encounter Qualified Code(s): S81.801A - Unspecified open wound, right lower leg, initial encounter (2) Wound cellulitis Code(s): L03.90 - CELLULITIS, UNSPECIFIED (3) Type 2 diabetes mellitus with diabetic polyneuropathy Code(s): E11.42 - TYPE 2 DIABETES MELLITUS WITH DIABETIC POLYNEUROPATHY cellulitis of the leg plan will start patient on abx await for cx reports wound care rest as per the team
[2019-07-19] MEDS: COLLAGENASE CLOSTRIDIUM HIST. 30 GRAMS TUBE TP SCH (16:02)
--- NOTE | 2019-07-19 16:33 | PN ---
Progress Note, Physician - Current Medication List Current Medications: Active Medications Acetaminophen (Tylenol -) 650 mg PO Q6H PRN PRN Reason: FEVER Last Admin: 07/19/19 06:32 Dose: 650 mg Apixaban (Eliquis -) 5 mg PO BID [facility] Last Admin: 07/19/19 10:43 Dose: 5 mg Atorvastatin Calcium (Lipitor -) 40 mg PO HS [facility] Last Admin: 07/18/19 21:34 Dose: 40 mg Collagenase (Santyl -) 1 applic TP DAILY [facility] Last Admin: 07/19/19 16:02 Dose: 1 applic Gabapentin (Neurontin -) 600 mg PO HS [facility] Last Admin: 07/18/19 21:34 Dose: 600 mg Gabapentin (Neurontin -) 300 mg PO DAILY [facility] Last Admin: 07/19/19 10:43 Dose: 300 mg Piperacillin Sod/Tazobactam (Sod 3.375 gm/ Dextrose) 50 mls @ 100 mls/hr IVPB Q8H-IV [facility] Last Admin: 07/19/19 11:37 Dose: 100 mls/hr Insulin Aspart (Novolog Vial Sliding Scale -) 1 vial SQ ACHS [facility]; Protocol Last Admin: 07/19/19 11:45 Dose: Not Given Lisinopril (Prinivil) 20 mg PO DAILY [facility] Last Admin: 07/19/19 10:45 Dose: Not Given Metformin HCl (Glucophage Xr -) 750 mg PO DAILY@0700 [facility] Last Admin: 07/19/19 06:30 Dose: 750 mg Non-Formulary Medication (Ertugliflozin Pidolate [Steglatro]) 15 mg PO DAILY@ 0700 [facility] Oxycodone HCl (Roxicodone -) 10 mg PO Q6H PRN PRN Reason: PAIN LEVEL 4 - 6 Last Admin: 07/18/19 21:35 Dose: 10 mg - Objective Vital Signs: Vital Signs Temperature 98.3 F 07/19/19 14:15 Pulse Rate 96 H 07/19/19 14:15 Respiratory Rate 20 07/19/19 14:15 Blood Pressure 135/70 07/19/19 14:15 O2 Sat by Pulse Oximetry (%) 98 07/19/19 09:00 Constitutional: Yes: No Distress HENT: Yes: Atraumatic Neck: Yes: Supple Cardiovascular: Yes: Regular Rate and Rhythm Respiratory: Yes: CTA Bilaterally Gastrointestinal: Yes: Normal Bowel Sounds Extremities: Yes: Other (R jean ulcers) Neurological: Yes: Alert, Oriented Labs: CBC, BMP 07/18/19 14:45 07/18/19 14:45 Problem List - Problems (1) Traumatic open wound of right lower leg Assessment/Plan: iv abx woundcare Code(s): S81.801A - UNSPECIFIED OPEN WOUND, RIGHT LOWER LEG, INITIAL ENCOUNTER Qualifiers: Encounter type: initial encounter Qualified Code(s): S81.801A - Unspecified open wound, right lower leg, initial encounter (2) Wound cellulitis Code(s): L03.90 - CELLULITIS, UNSPECIFIED (3) Type 2 diabetes mellitus with diabetic polyneuropathy Assessment/Plan: bgms Code(s): E11.42 - TYPE 2 DIABETES MELLITUS WITH DIABETIC POLYNEUROPATHY (4) HLD (hyperlipidemia) Assessment/Plan: on meds Code(s): E78.5 - HYPERLIPIDEMIA, UNSPECIFIED (5) HTN (hypertension) Assessment/Plan: on meds Code(s): I10 - ESSENTIAL (PRIMARY) HYPERTENSION
[2019-07-19] MEDS: ATORVASTATIN CA 40 MG TABLET (FP) PO SCH (21:31)
[2019-07-20] MEDS ORDERED: DEXTROSE 5%-WATER - 50 ML IVPB ONE ×3 (01:38→16:59)
[2019-07-20] MEDS ORDERED: PIPERACILLIN/TAZOBACTAM 3.375 GM VIAL IVPB ONE ×3 (01:38→16:59)
[2019-07-20] MEDS: oxyCODONE HCL 5 MG TABLET PO PRN ×3 (02:00→21:30)
[2019-07-20] MEDS: PIPERACILLIN/TAZOB 3.375 GM 3.375 GM in DEXTROSE 5%-WATER - 50 ML IVPB SCH ×3 (02:01→17:47)
[2019-07-20] MEDS ORDERED: PT OWN MED DRAWER 7, Y5N ONE ×2 (06:28→09:51)
[2019-07-20] MEDS: INSULIN SLIDING SCALE (NOVOLOG) 1 VIAL SQ SCH ×4 (06:53→21:32)
[2019-07-20] MEDS: APIXABAN 5 MG TABLET PO SCH ×2 (10:01→21:31)
[2019-07-20] MEDS: LISINOPRIL 20 MG TABLET (FP) PO SCH (10:01)
[2019-07-20] MEDS: ACETAMINOPHEN 325 MG TABLET (FP) PO PRN (10:02)
[2019-07-20] MEDS: GABAPENTIN 300 MG CAPSULE PO SCH ×2 (10:02→21:29)
--- NOTE | 2019-07-20 11:40 | PN ---
Progress Note, Physician History of Present Illness: still c/o of pain in the leg otherwise doing well - Current Medication List Current Medications: Active Medications Acetaminophen (Tylenol -) 650 mg PO Q6H PRN PRN Reason: FEVER Last Admin: 07/20/19 10:02 Dose: 650 mg Apixaban (Eliquis -) 5 mg PO BID [facility] Last Admin: 07/20/19 10:01 Dose: 5 mg Atorvastatin Calcium (Lipitor -) 40 mg PO HS [facility] Last Admin: 07/19/19 21:31 Dose: 40 mg Collagenase (Santyl -) 1 applic TP DAILY [facility] Last Admin: 07/19/19 16:02 Dose: 1 applic Gabapentin (Neurontin -) 600 mg PO HS [facility] Last Admin: 07/19/19 21:30 Dose: 600 mg Gabapentin (Neurontin -) 300 mg PO DAILY [facility] Last Admin: 07/20/19 10:02 Dose: 300 mg Piperacillin Sod/Tazobactam (Sod 3.375 gm/ Dextrose) 50 mls @ 100 mls/hr IVPB Q8H-IV [facility] Last Admin: 07/20/19 10:02 Dose: 100 mls/hr Insulin Aspart (Novolog Vial Sliding Scale -) 1 vial SQ ACHS [facility]; Protocol Last Admin: 07/20/19 06:53 Dose: Not Given Lisinopril (Prinivil) 20 mg PO DAILY [facility] Last Admin: 07/20/19 10:01 Dose: Not Given Metformin HCl (Glucophage Xr -) 750 mg PO DAILY@0700 [facility] Last Admin: 07/20/19 06:54 Dose: 750 mg Non-Formulary Medication (Ertugliflozin Pidolate [Steglatro]) 15 mg PO DAILY@ 0700 [facility] Oxycodone HCl (Roxicodone -) 10 mg PO Q6H PRN PRN Reason: PAIN LEVEL 4 - 6 Last Admin: 07/20/19 02:00 Dose: 10 mg - Objective Vital Signs: Vital Signs Temperature 98.1 F 07/20/19 08:50 Pulse Rate 90 07/20/19 08:50 Respiratory Rate 18 07/20/19 08:50 Blood Pressure 115/57 L 07/20/19 08:50 O2 Sat by Pulse Oximetry (%) 96 07/19/19 21:54 Constitutional: Yes: Calm, Mild Distress Cardiovascular: Yes: S1, S2 Respiratory: Yes: Regular, CTA Bilaterally Gastrointestinal: Yes: Normal Bowel Sounds, Soft Musculoskeletal: Yes: WNL Extremities: Yes: Erythema (both ext), Other Wound/Incision: Yes: Dressing Dry and Intact, Other Neurological: Yes: Alert, Oriented Psychiatric: Yes: Alert, Oriented Labs: CBC, BMP 07/18/19 14:45 07/18/19 14:45 Assessment/Plan Problem List - Problems (1) Traumatic open wound of right lower leg Code(s): S81.801A - UNSPECIFIED OPEN WOUND, RIGHT LOWER LEG, INITIAL ENCOUNTER Qualifiers: Encounter type: initial encounter Qualified Code(s): S81.801A - Unspecified open wound, right lower leg, initial encounter (2) Wound cellulitis Code(s): L03.90 - CELLULITIS, UNSPECIFIED (3) Type 2 diabetes mellitus with diabetic polyneuropathy Code(s): E11.42 - TYPE 2 DIABETES MELLITUS WITH DIABETIC POLYNEUROPATHY cellulitis of the leg plan continue iv abx debridement will d/w wound care rewt as per the team
[2019-07-20] MEDS: COLLAGENASE CLOSTRIDIUM HIST. 30 GRAMS TUBE TP SCH (14:42)
--- NOTE | 2019-07-20 19:18 | PN ---
Progress Note, Physician - Current Medication List Current Medications: Active Medications Acetaminophen (Tylenol -) 650 mg PO Q6H PRN PRN Reason: FEVER Last Admin: 07/20/19 10:02 Dose: 650 mg Apixaban (Eliquis -) 5 mg PO BID [facility] Last Admin: 07/20/19 10:01 Dose: 5 mg Atorvastatin Calcium (Lipitor -) 40 mg PO HS [facility] Last Admin: 07/19/19 21:31 Dose: 40 mg Collagenase (Santyl -) 1 applic TP DAILY [facility] Last Admin: 07/20/19 14:42 Dose: 1 applic Gabapentin (Neurontin -) 600 mg PO HS [facility] Last Admin: 07/19/19 21:30 Dose: 600 mg Gabapentin (Neurontin -) 300 mg PO DAILY [facility] Last Admin: 07/20/19 10:02 Dose: 300 mg Piperacillin Sod/Tazobactam (Sod 3.375 gm/ Dextrose) 50 mls @ 100 mls/hr IVPB Q8H-IV [facility] Last Admin: 07/20/19 17:47 Dose: 100 mls/hr Insulin Aspart (Novolog Vial Sliding Scale -) 1 vial SQ [facility]; Protocol Last Admin: 07/20/19 17:47 Dose: Not Given Lisinopril (Prinivil) 20 mg PO DAILY [facility] Last Admin: 07/20/19 10:01 Dose: Not Given Metformin HCl (Glucophage Xr -) 750 mg PO DAILY@0700 [facility] Last Admin: 07/20/19 06:54 Dose: 750 mg Non-Formulary Medication (Ertugliflozin Pidolate [Steglatro]) 15 mg PO DAILY@ 0700 [facility] Oxycodone HCl (Roxicodone -) 10 mg PO Q6H PRN PRN Reason: PAIN LEVEL 4 - 6 Last Admin: 07/20/19 14:16 Dose: 10 mg - Objective Vital Signs: Vital Signs Temperature 97.6 F 07/20/19 17:43 Pulse Rate 81 07/20/19 17:43 Respiratory Rate 20 07/20/19 17:43 Blood Pressure 130/73 07/20/19 17:43 O2 Sat by Pulse Oximetry (%) 97 07/20/19 08:20 Constitutional: Yes: No Distress HENT: Yes: Atraumatic Neck: Yes: Supple Cardiovascular: Yes: Regular Rate and Rhythm Respiratory: Yes: CTA Bilaterally Gastrointestinal: Yes: Normal Bowel Sounds Extremities: Yes: Other (R jean cellulitis) Neurological: Yes: Alert, Oriented Labs: CBC, BMP 07/18/19 14:45 07/18/19 14:45 Problem List - Problems (1) Traumatic open wound of right lower leg Assessment/Plan: iv abx woundcare Code(s): S81.801A - UNSPECIFIED OPEN WOUND, RIGHT LOWER LEG, INITIAL ENCOUNTER Qualifiers: Encounter type: initial encounter Qualified Code(s): S81.801A - Unspecified open wound, right lower leg, initial encounter (2) Wound cellulitis Code(s): L03.90 - CELLULITIS, UNSPECIFIED (3) Type 2 diabetes mellitus with diabetic polyneuropathy Assessment/Plan: bgms Code(s): E11.42 - TYPE 2 DIABETES MELLITUS WITH DIABETIC POLYNEUROPATHY (4) HLD (hyperlipidemia) Assessment/Plan: on meds Code(s): E78.5 - HYPERLIPIDEMIA, UNSPECIFIED Qualifiers: Hyperlipidemia type: pure hypercholesterolemia Qualified Code(s): E78.00 - Pure hypercholesterolemia, unspecified; E78.0 - Pure hypercholesterolemia (5) HTN (hypertension) Code(s): I10 - ESSENTIAL (PRIMARY) HYPERTENSION Qualifiers: Hypertension type: essential hypertension Qualified Code(s): I10 - Essential (primary) hypertension
[2019-07-20] MEDS: ATORVASTATIN CA 40 MG TABLET (FP) PO SCH (21:31)
[2019-07-21] MEDS ORDERED: PIPERACILLIN/TAZOBACTAM 3.375 GM VIAL IVPB ONE ×3 (01:31→16:18)
[2019-07-21] MEDS ORDERED: DEXTROSE 5%-WATER - 50 ML IVPB ONE ×3 (01:31→16:18)
[2019-07-21] MEDS: PIPERACILLIN/TAZOB 3.375 GM 3.375 GM in DEXTROSE 5%-WATER - 50 ML IVPB SCH ×3 (01:43→17:38)
[2019-07-21] MEDS: ACETAMINOPHEN 325 MG TABLET (FP) PO PRN ×3 (03:18→16:22)
[2019-07-21] MEDS: oxyCODONE HCL 5 MG TABLET PO PRN ×2 (03:19→09:47)
[2019-07-21] MEDS ORDERED: PT OWN MED DRAWER 7, Y5N ONE (06:08)
[2019-07-21] MEDS: INSULIN SLIDING SCALE (NOVOLOG) 1 VIAL SQ SCH ×4 (06:33→22:50)
[2019-07-21] MEDS: APIXABAN 5 MG TABLET PO SCH ×2 (09:46→22:50)
[2019-07-21] MEDS: GABAPENTIN 300 MG CAPSULE PO SCH ×2 (09:46→22:50)
[2019-07-21] MEDS: LISINOPRIL 20 MG TABLET (FP) PO SCH (09:48)
--- NOTE | 2019-07-21 10:25 | PN ---
Progress Note, Physician History of Present Illness: stable still pain in the leg - Current Medication List Current Medications: Active Medications Acetaminophen (Tylenol -) 650 mg PO Q6H PRN PRN Reason: FEVER Last Admin: 07/21/19 09:47 Dose: 650 mg Apixaban (Eliquis -) 5 mg PO BID [facility] Last Admin: 07/21/19 09:46 Dose: 5 mg Atorvastatin Calcium (Lipitor -) 40 mg PO HS [facility] Last Admin: 07/20/19 21:31 Dose: 40 mg Collagenase (Santyl -) 1 applic TP DAILY [facility] Last Admin: 07/20/19 14:42 Dose: 1 applic Gabapentin (Neurontin -) 600 mg PO HS [facility] Last Admin: 07/20/19 21:29 Dose: 600 mg Gabapentin (Neurontin -) 300 mg PO DAILY [facility] Last Admin: 07/21/19 09:46 Dose: 300 mg Piperacillin Sod/Tazobactam (Sod 3.375 gm/ Dextrose) 50 mls @ 100 mls/hr IVPB Q8H-IV [facility] Last Admin: 07/21/19 09:47 Dose: 100 mls/hr Insulin Aspart (Novolog Vial Sliding Scale -) 1 vial SQ ACHS [facility]; Protocol Last Admin: 07/21/19 06:33 Dose: Not Given Lisinopril (Prinivil) 20 mg PO DAILY [facility] Last Admin: 07/21/19 09:48 Dose: Not Given Metformin HCl (Glucophage Xr -) 750 mg PO DAILY@0700 [facility] Last Admin: 07/21/19 06:32 Dose: 750 mg Non-Formulary Medication (Ertugliflozin Pidolate [Steglatro]) 15 mg PO DAILY@ 0700 [facility] Oxycodone HCl (Roxicodone -) 10 mg PO Q6H PRN PRN Reason: PAIN LEVEL 4 - 6 Last Admin: 07/21/19 09:47 Dose: 10 mg - Objective Vital Signs: Vital Signs Temperature 98.2 F 07/21/19 08:40 Pulse Rate 99 H 07/21/19 08:40 Respiratory Rate 18 07/21/19 08:40 Blood Pressure 138/63 07/21/19 08:40 O2 Sat by Pulse Oximetry (%) 97 07/20/19 08:20 Constitutional: Yes: No Distress, Calm Cardiovascular: Yes: S1, S2 Respiratory: Yes: Regular, CTA Bilaterally Gastrointestinal: Yes: Normal Bowel Sounds, Soft Musculoskeletal: Yes: WNL Extremities: Yes: Other Neurological: Yes: Alert, Oriented Psychiatric: Yes: Alert, Oriented Labs: CBC, BMP 07/18/19 14:45 07/18/19 14:45 Assessment/Plan Problem List - Problems (1) Traumatic open wound of right lower leg Code(s): S81.801A - UNSPECIFIED OPEN WOUND, RIGHT LOWER LEG, INITIAL ENCOUNTER Qualifiers: Encounter type: initial encounter Qualified Code(s): S81.801A - Unspecified open wound, right lower leg, initial encounter (2) Wound cellulitis Code(s): L03.90 - CELLULITIS, UNSPECIFIED (3) Type 2 diabetes mellitus with diabetic polyneuropathy Code(s): E11.42 - TYPE 2 DIABETES MELLITUS WITH DIABETIC POLYNEUROPATHY cellulitis of the leg plan continue iv abx debridement will d/w wound care rest as per the team
[2019-07-21] MEDS ORDERED: INSULIN (NOVOLOG) ASPART 100 UNITS/ML 10ML VIAL ONE ×2 (11:36→20:19)
--- NOTE | 2019-07-21 13:52 | CONSULT ---
- Consultation REQUESTING PROVIDER: Vascular Surgery/Wound Care - Allen Gabriel CONSULT REQUEST: We have been asked to surgically evaluate this patient for LE wounds PCP: Jeni Christensen HPI: Called to eval 58 yo female with chronic RLE wound. Patient well known to both Drs. Gabriel and Clay as each have taken care of the patient. Presents to [facility] ED w/ c/o increased pain to her chronic bilat LE wounds. LLE recetly had STSG by Dr. Williamson 06/07/2019. Her RLE ulcer is being managed by Dr. Gabriel. Patient states she is currently getting HBO therapy. Sent to after being evaluated by Dr. Puckett at [facility] yesterday --> wants her admitted for IV ABX x 7 days. Denies n/v/f/c, CP, SOB, KRUSE. Denies peripheral edema. Social History: Smoking: Former smoker; quit 8-10 years ago, used to smoke 1 PPW x20 years PMHx: IDDM, HLD, HTN, DM, b/l LE ulcers PSHx: 06/07/2019 - LLE Excisional debridement, subcutaneous tissue. STSG/donor site left thigh. (Dr. Williamson) Gastric Bypass (33 years ago) R kidney stone extraction Attempted Left TKR (didn't finish 2/2 cardiac arrest during surgery) Home Meds Gabapentin [Neurontin -] 300 mg PO DAILY 03/22/18 Liraglutide [Victoza -] 1.8 mg IJ DAILY 03/22/18 metFORMIN HCL [Metformin HCl ER] 750 mg PO DAILY 04/08/19 Cyanocobalamin [Vitamin B12 -] 1 tab PO DAILY 04/11/19 Insulin Glargine,Hum.rec.anlog [Basaglar Kwikpen U-100] 12 units SQ HS 04/11/19 Meloxicam 15 mg PO DAILY 04/11/19 Multivitamin [One-Daily Multi-Vitamin] 1 tab PO DAILY 04/11/19 Atorvastatin Ca [Lipitor] 40 mg PO DAILY 04/16/19 Cholecalciferol (Vitamin D3) [Vitamin D3] 5,000 unit PO DAILY 04/16/19 Ertugliflozin Pidolate [Steglatro] 15 mg PO DAILY 04/16/19 Lisinopril 20 mg PO DAILY 04/16/19 Omeprazole 40 mg PO DAILY 04/16/19 Vitamin B Complex 1 each PO DAILY 04/16/19 Walker [Ultra-Light Rollator] 1 each ASDIR #1 each 04/26/19 Sodium Chloride 0.9% Irrig [Sodium Chloride 0.9% Irrig. Soln 500 ml] 500 ml IR BID #1 btl 05/11/19 Apixaban [Eliquis] 5 mg PO BID #60 tablet 05/13/19 Gabapentin 600 mg PO HS 07/15/19 Allergies: NKDA. REVIEW OF SYSTEMS: CONSTITUTIONAL: Absent: diaphoresis, generalized weakness, malaise, loss of appetite, weight change CARDIOVASCULAR: Absent: syncope, palpitations, irregular heart rate, lightheadedness RESPIRATORY: Absent: cough, wheezing, stridor, hemoptysis GASTROINTESTINAL:Absent: abdominal pain, abdominal distension, diarrhea, constipation, melena, hematochezia GENITOURINARY: Absent: dysuria, frequency, urgency, hesitancy, hematuria, flank pain, genital pain MUSCULOSKELETAL: Absent: myalgia, arthralgia, joint swelling, back pain, neck pain SKIN: Absent: rash, itching, pallor HEMATOLOGIC/IMMUNOLOGIC: Absent: easy bleeding, easy bruising, lymphadenopathy NEUROLOGIC: Absent: headache, focal weakness, paresthesias, dizziness, unsteady gait, seizure, mental status changes, PSYCHIATRIC: Absent: anxiety, depression, suicidal or homicidal ideation, hallucinations. PHYSICAL EXAM: GENERAL: A&O. NAD. HEAD: NC. AT. EYES: PERRL, sclera anicteric, conjunctiva clear. NECK: Normal ROM, supple without lymphadenopathy, JVD, or masses. LUNGS: CTA bilat HEART: RRR ABDOMEN: Soft, NT. ND. UE: 2+ pulses, warm, well-perfused. No cyanosis. Cap refill <2 seconds. No peripheral edema. LE: LLE dressing just changed prior too my arrival. Patient takes pictures daily , showed me todays and appears that the skin graft is viable. RLE with medial ulcer, shallow, base with mixed fibronous-exudate. Not malodorous. No purulent drainage. Mild mirtha-wound erythema. TTP. Palpable DP/PT bilat. Warm. Lower compartments soft. Negative swelling/edema NEURO: Normal speech, gait not observed. PSYCH: Cooperative. Good eye contact. Appropriate mood and affect. Last Vital Signs Temp Pulse Resp BP Pulse Ox 98.2 F 99 H 18 138/63 97 07/21/19 08:40 07/21/19 08:40 07/21/19 08:40 07/21/19 08:40 07/20/19 08:20 CBC, BMP 07/18/19 14:45 07/18/19 14:45 Microbiology 07/19/19 00:54 Urine - Urine Clean Catch Urine Culture - Final Escherichia Coli 07/18/19 14:45 Blood - Peripheral Venous Blood Culture - Preliminary NO GROWTH OBTAINED AFTER 48 HOURS, INCUBATION TO CONTINUE FOR 3 DAYS. 07/18/19 14:45 Blood - Peripheral Venous Blood Culture - Preliminary NO GROWTH OBTAINED AFTER 48 HOURS, INCUBATION TO CONTINUE FOR 3 DAYS. Problem List - Problems (1) Traumatic open wound of right lower leg Assessment/Plan: 1. Cont daily dressing changes with Santyl 2. Tight glycemic control 3. IV ABX as per ID 4. Medical optimization / clearance (h/o cardiac arrest during left TKR) 5. Recommend debridement to RLE wound under MAC sedation next week (OR closed Thursday), will speak with Dr. Gabriel Above plan discussed with Dr. Gabriel and agrees. Code(s): S81.801A - UNSPECIFIED OPEN WOUND, RIGHT LOWER LEG, INITIAL ENCOUNTER Qualifiers: Encounter type: initial encounter Qualified Code(s): S81.801A - Unspecified open wound, right lower leg, initial encounter (2) HTN (hypertension) Code(s): I10 - ESSENTIAL (PRIMARY) HYPERTENSION (3) Type 2 diabetes mellitus with diabetic polyneuropathy Code(s): E11.42 - TYPE 2 DIABETES MELLITUS WITH DIABETIC POLYNEUROPATHY Visit type - Case Type Case Type: ED Admission - Emergency Emergency Visit: Yes ED Registration Date: 07/18/19 Care time: The patient presented to the Emergency Department on the above date and was hospitalized for further evaluation of their emergent condition. - New patient This patient is new to me today: Yes Date on this admission: 07/21/19
[2019-07-21] MEDS: COLLAGENASE CLOSTRIDIUM HIST. 30 GRAMS TUBE TP SCH (16:22)
--- NOTE | 2019-07-21 17:26 | PN ---
Progress Note, Physician - Current Medication List Current Medications: Active Medications Acetaminophen (Tylenol -) 650 mg PO Q6H PRN PRN Reason: FEVER Last Admin: 07/21/19 16:22 Dose: 650 mg Apixaban (Eliquis -) 5 mg PO BID [facility] Last Admin: 07/21/19 09:46 Dose: 5 mg Atorvastatin Calcium (Lipitor -) 40 mg PO HS [facility] Last Admin: 07/20/19 21:31 Dose: 40 mg Collagenase (Santyl -) 1 applic TP DAILY [facility] Last Admin: 07/21/19 16:22 Dose: 1 applic Gabapentin (Neurontin -) 600 mg PO HS [facility] Last Admin: 07/20/19 21:29 Dose: 600 mg Gabapentin (Neurontin -) 300 mg PO DAILY [facility] Last Admin: 07/21/19 09:46 Dose: 300 mg Piperacillin Sod/Tazobactam (Sod 3.375 gm/ Dextrose) 50 mls @ 100 mls/hr IVPB Q8H-IV [facility] Last Admin: 07/21/19 09:47 Dose: 100 mls/hr Insulin Aspart (Novolog Vial Sliding Scale -) 1 vial SQ [facility]; Protocol Last Admin: 07/21/19 11:38 Dose: 4 units Lisinopril (Prinivil) 20 mg PO DAILY [facility] Last Admin: 07/21/19 09:48 Dose: Not Given Metformin HCl (Glucophage Xr -) 750 mg PO DAILY@0700 [facility] Last Admin: 07/21/19 06:32 Dose: 750 mg Non-Formulary Medication (Ertugliflozin Pidolate [Steglatro]) 15 mg PO DAILY@ 0700 [facility] Oxycodone HCl (Roxicodone -) 10 mg PO Q6H PRN PRN Reason: PAIN LEVEL 4 - 6 Last Admin: 07/21/19 09:47 Dose: 10 mg - Objective Vital Signs: Vital Signs Temperature 98.1 F 07/21/19 14:54 Pulse Rate 77 07/21/19 14:54 Respiratory Rate 20 07/21/19 14:54 Blood Pressure 143/75 07/21/19 14:54 O2 Sat by Pulse Oximetry (%) 100 07/21/19 08:40 Constitutional: Yes: No Distress HENT: Yes: Atraumatic Neck: Yes: Supple Cardiovascular: Yes: Regular Rate and Rhythm Respiratory: Yes: CTA Bilaterally Gastrointestinal: Yes: Normal Bowel Sounds Extremities: Yes: Other (R ankle wound) Neurological: Yes: Alert, Oriented Labs: CBC, BMP 07/18/19 14:45 07/18/19 14:45 Problem List - Problems (1) Traumatic open wound of right lower leg Assessment/Plan: iv abx woundcare Code(s): S81.801A - UNSPECIFIED OPEN WOUND, RIGHT LOWER LEG, INITIAL ENCOUNTER Qualifiers: Encounter type: initial encounter Qualified Code(s): S81.801A - Unspecified open wound, right lower leg, initial encounter (2) Wound cellulitis Code(s): L03.90 - CELLULITIS, UNSPECIFIED (3) Type 2 diabetes mellitus with diabetic polyneuropathy Assessment/Plan: bgms Code(s): E11.42 - TYPE 2 DIABETES MELLITUS WITH DIABETIC POLYNEUROPATHY (4) HLD (hyperlipidemia) Code(s): E78.5 - HYPERLIPIDEMIA, UNSPECIFIED (5) HTN (hypertension) Code(s): I10 - ESSENTIAL (PRIMARY) HYPERTENSION
[2019-07-21] MEDS: ATORVASTATIN CA 40 MG TABLET (FP) PO SCH (22:50)
[2019-07-22] MEDS: ACETAMINOPHEN 325 MG TABLET (FP) PO PRN ×2 (00:29→06:10)
[2019-07-22] MEDS: PIPERACILLIN/TAZOB 3.375 GM 3.375 GM in DEXTROSE 5%-WATER - 50 ML IVPB SCH ×3 (01:55→17:50)
[2019-07-22] MEDS ORDERED: PIPERACILLIN/TAZOBACTAM 3.375 GM VIAL IVPB ONE ×3 (02:06→17:43)
[2019-07-22] MEDS ORDERED: DEXTROSE 5%-WATER - 50 ML IVPB ONE ×3 (02:07→17:43)
[2019-07-22] MEDS ORDERED: PT OWN MED DRAWER 7, Y5N ONE ×2 (05:46→10:57)
[2019-07-22] MEDS: INSULIN SLIDING SCALE (NOVOLOG) 1 VIAL SQ SCH ×4 (06:11→21:34)
--- NOTE | 2019-07-22 10:40 | CON.CARD ---
Consult Consult Specialty:: Cardiology Referred by:: Jeni Christensen MD Reason for Consultation:: Pre-op CV evaluation - History of Present Illness Chief Complaint: Right LLE cellulitis and wound History of Present Illness: 58F h/o DM, HTN, HLD, DVT on Eliquis, history of cardiac arrest in 2015 in the setting of knee replacement who sees Dr. Werner of cardiology, chronic bilat LE wounds. LLE recently had STSG by Dr. Williamson 06/07/2019. Her RLE ulcer is being managed by Dr. Gabriel. Patient states she is currently getting HBO therapy. Sent to after being evaluated by Dr. Puckett at [facility] and admitted for IV ABX x 7 days.. She denies chest pain, palps, edema, orthopnea, PND, near or true syncope or LE edema Previously reported dizziness while on lisinopril as an outpatient which was stopped due to low BP, dizziness has since resolved. Per her history she had a nuclear stress test within the last few months which was normal and cardiac testing since then has been normal. - History Source History Provided By: Patient Limitations to Obtaining History: No Limitations - Past Medical History Cardio/Vascular: Yes: HTN ...: No Endocrine: Yes: Diabetes Mellitus Dermatology: Yes: Other (b/l LE ulcers) - Alcohol/Substance Use Hx Alcohol Use: No - Smoking History Smoking history: Never smoked Have you smoked in the past 12 months: No If you are a former smoker, when did you quit?: 2009 Home Medications - Allergies Allergies/Adverse Reactions: Allergies Allergy/AdvReac Type Severity Reaction Status Date / Time No Known Allergies Allergy Verified 07/18/19 12:07 - Home Medications Home Medications: Ambulatory Orders Gabapentin [Neurontin -] 300 mg PO DAILY@0700 03/22/18 Liraglutide [Victoza -] 1.8 mg SQ DAILY 03/22/18 metFORMIN HCL [Metformin HCl ER] 750 mg PO BIDAC 04/08/19 Cyanocobalamin [Vitamin B12 -] 1 tab PO DAILY 04/11/19 Insulin Glargine,Hum.rec.anlog [Basaglar Kwikpen U-100] 12 units SQ HS 04/11/19 Meloxicam 15 mg PO DAILY 04/11/19 Multivitamin [One-Daily Multi-Vitamin] 1 tab PO DAILY 04/11/19 Atorvastatin Ca [Lipitor] 40 mg PO DAILY 04/16/19 Ertugliflozin Pidolate [Steglatro] 15 mg PO DAILY 04/16/19 Omeprazole 40 mg PO DAILY 04/16/19 Apixaban [Eliquis] 5 mg PO BID #60 tablet 05/13/19 Gabapentin 600 mg PO HS 07/15/19 Gabapentin 300 mg PO DAILY@1200 07/22/19 Review of Systems - Review of Systems Integumentary: reports: Wound Vital Signs: Vital Signs Temperature 98.2 F 07/22/19 06:32 Pulse Rate 84 07/22/19 06:32 Respiratory Rate 07/21/19 21:00 Blood Pressure 127/42 L 07/22/19 06:32 O2 Sat by Pulse Oximetry (%) 100 07/21/19 08:40 Constitutional: Yes: No Distress, Calm Neck: Yes: Supple Respiratory: Yes: Regular, CTA Bilaterally Gastrointestinal: Yes: Normal Bowel Sounds, Soft Cardiovascular: Yes: Regular Rate and Rhythm JVD: No Carotid Bruit: No Heart Sounds: Yes: S1, S2 Murmur: Yes: Systolic Murmur, Grade 1 Edema: Yes Edema: LLE: Trace, RLE: Trace - Other Data Labs, Other Data: CBC, BMP 07/18/19 14:45 07/18/19 14:45 NSR @ 95 similar to previous Ejection Fraction %: LVEF > or = 40 % Imaging - Results X-ray: Report Reviewed (Foot/amkle: No sig deformity) Problem List - Problems (1) Chronic anticoagulation Code(s): 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 (2) HLD (hyperlipidemia) Code(s): E78.5 - HYPERLIPIDEMIA, UNSPECIFIED Qualifiers: Hyperlipidemia type: pure hypercholesterolemia Qualified Code(s): E78.00 - Pure hypercholesterolemia, unspecified; E78.0 - Pure hypercholesterolemia (3) HTN (hypertension) Code(s): I10 - ESSENTIAL (PRIMARY) HYPERTENSION Qualifiers: Hypertension type: essential hypertension Qualified Code(s): I10 - Essential (primary) hypertension (4) Wound cellulitis Code(s): L03.90 - CELLULITIS, UNSPECIFIED (5) Type 2 diabetes mellitus with diabetic polyneuropathy Code(s): E11.42 - TYPE 2 DIABETES MELLITUS WITH DIABETIC POLYNEUROPATHY (6) Pre-operative cardiovascular examination Code(s): Z01.810 - ENCOUNTER FOR PREPROCEDURAL CARDIOVASCULAR EXAMINATION Assessment/Plan Echo 07/22/2019 Normal LV/RV size and fxn LVEF 55-60%, mild LAE, mild TR, tr MR 04/2019 tds, nl LV/RV function, mild MR, mild TR, mild aortic sclerosis From wedding [employer] Dr. Werner unremarkable nuclear stress test, no ischemia 2018 1. Preoperative evaluation, history of cardiac arrest in setting of knee surgery 2014, etiology not known 2. RLE cellulitis planned for debridement 3. s/p skin graft surgery 4. Type 2 DM 5. DVT on DOAC 6. HTN 7. Hyperlipidemia P:1. Continue abx course and wound care, plan for debridement Thursday 2. Continue Lipitor 40 qd, lisinopril 20 qd as hemodynamics tolerate, hold Eliquis 5 bid 2 days prior to OR and resume once post-op hemostasis achieved 3. Given absence of symptoms of acute coronary syndrome, decompensated CHF or malignant arrhythmia, may proceed with debridement from CV-standpoint w/o further testing 4. Thank you for consultative opportunity
--- NOTE | 2019-07-22 10:57 | ECHO ---
Name: CARMINA SANCHEZ Exam:Adult Echocardiogram Study Date: 07/22/2019 10:16 AM Age: 58 yrs Reason For Study: pre op Height: 60 in Weight: 186 lb BSA: 1.8 m2 MMode/2D Measurements & Calculations IVSd: 0.99 cm Ao root diam: 2.4 cm LVIDd: 3.3 cm LA dimension: 3.5 cm LVIDs: 2.4 cm LVPWd: 1.1 cm LVPWs: 1.7 cm EDV(Teich): 45.2 ml ESV(Teich): 20.4 ml LVOT diam: 1.9 cm LAV (MOD-bp): 42.5 ml RV S Naseem: 12.6 cm/sec Doppler Measurements & Calculations MV E max naseem: 66.0 cm/sec Ao V2 max: 118.3 cm/sec MV A max naseem: 92.6 cm/sec Ao max P.6 mmHg MV E/A: 0.71 BELKIS(V,D): 2.1 cm2 MV dec time: 0.19 sec LV V1 max P.2 mmHg PA V2 max: 88.0 cm/sec LV V1 max: 89.2 cm/sec PA max P.1 mmHg Med Peak E' Naseem: 5.8 cm/sec Med E/e': 11.4 Lat Peak E' Naseem: 8.2 cm/sec Lat E/e': 8.1 Left Ventricle Left ventricular systolic function is normal. Ejection Fraction = 55-60%. The transmitral spectral Do ppler flow pattern is suggestive of impaired LV relaxation. Right Ventricle The right ventricle is normal in size and function. Atria The left atrium is mildly dilated. Right atrial size is normal. Mitral Valve The mitral valve is normal in structure and function. There is no mitral valve stenosis. There is tra ce mitral regurgitation. Tricuspid Valve The tricuspid valve is normal in structure and function. There is mild tricuspid regurgitation. Right ventricular systolic pressure is normal. Aortic Valve There is mild aortic sclerosis.;. No hemodynamically significant valvular aortic stenosis. No aortic regurgitation is present. Pulmonic Valve The pulmonic valve is normal in structure and function. There is no pulmonic valvular stenosis. There is no pulmonic valvular regurgitation. Great Vessels The aortic root is normal size. Pericardium/Pleura There is no pericardial effusion. Interpretation Summary Left ventricular systolic function is normal. Ejection Fraction = 55-60%. The transmitral spectral Doppler flow pattern is suggestive of impaired LV relaxation. The right ventricle is normal in size and function. The left atrium is mildly dilated. There is trace mitral regurgitation. There is mild tricuspid regurgitation. Right ventricular systolic pressure is normal. There is mild aortic sclerosis.; There is no pericardial effusion. MD Guo *Rylee 07/22/2019 10:56 AM
[2019-07-22] MEDS: GABAPENTIN 300 MG CAPSULE PO SCH ×2 (11:06→21:34)
[2019-07-22] MEDS: APIXABAN 5 MG TABLET PO SCH ×2 (11:06→21:34)
[2019-07-22] MEDS: LISINOPRIL 20 MG TABLET (FP) PO SCH (11:07)
[2019-07-22] MEDS: COLLAGENASE CLOSTRIDIUM HIST. 30 GRAMS TUBE TP SCH (11:07)
--- NOTE | 2019-07-22 12:21 | PN ---
Progress Note, Physician History of Present Illness: still with pain in the leg wound care on case - Current Medication List Current Medications: Active Medications Acetaminophen (Tylenol -) 650 mg PO Q6H PRN PRN Reason: FEVER Last Admin: 07/22/19 06:10 Dose: 650 mg Apixaban (Eliquis -) 5 mg PO BID [facility] Last Admin: 07/22/19 11:06 Dose: 5 mg Atorvastatin Calcium (Lipitor -) 40 mg PO HS [facility] Last Admin: 07/21/19 22:50 Dose: 40 mg Collagenase (Santyl -) 1 applic TP DAILY [facility] Last Admin: 07/22/19 11:07 Dose: 1 applic Gabapentin (Neurontin -) 600 mg PO [facility] Last Admin: 07/21/19 22:50 Dose: 600 mg Gabapentin (Neurontin -) 300 mg PO DAILY [facility] Last Admin: 07/22/19 11:06 Dose: 300 mg Piperacillin Sod/Tazobactam (Sod 3.375 gm/ Dextrose) 50 mls @ 100 mls/hr IVPB Q8H-IV [facility] Last Admin: 07/22/19 11:06 Dose: 100 mls/hr Insulin Aspart (Novolog Vial Sliding Scale -) 1 vial SQ [facility]; Protocol Last Admin: 07/22/19 06:11 Dose: Not Given Lisinopril (Prinivil) 20 mg PO DAILY [facility] Last Admin: 07/22/19 11:07 Dose: Not Given Metformin HCl (Glucophage Xr -) 750 mg PO DAILY@0700 [facility] Last Admin: 07/22/19 06:08 Dose: 750 mg Non-Formulary Medication (Ertugliflozin Pidolate [Steglatro]) 15 mg PO DAILY@ 0700 [facility] - Objective Vital Signs: Vital Signs Temperature 98.2 F 07/22/19 06:32 Pulse Rate 84 07/22/19 06:32 Respiratory Rate 20 07/21/19 21:00 Blood Pressure 127/42 L 07/22/19 06:32 O2 Sat by Pulse Oximetry (%) 100 07/21/19 08:40 Constitutional: Yes: No Distress, Calm Cardiovascular: Yes: S1, S2 Respiratory: Yes: Regular, CTA Bilaterally Gastrointestinal: Yes: Normal Bowel Sounds, Soft Musculoskeletal: Yes: WNL Extremities: Yes: Other Wound/Incision: Yes: Dressing Dry and Intact Neurological: Yes: Alert, Oriented Psychiatric: Yes: Alert, Oriented Labs: CBC, BMP 07/18/19 14:45 07/18/19 14:45 Assessment/Plan Problem List - Problems (1) Traumatic open wound of right lower leg Code(s): S81.801A - UNSPECIFIED OPEN WOUND, RIGHT LOWER LEG, INITIAL ENCOUNTER Qualifiers: Encounter type: initial encounter Qualified Code(s): S81.801A - Unspecified open wound, right lower leg, initial encounter (2) Wound cellulitis Code(s): L03.90 - CELLULITIS, UNSPECIFIED (3) Type 2 diabetes mellitus with diabetic polyneuropathy Code(s): E11.42 - TYPE 2 DIABETES MELLITUS WITH DIABETIC POLYNEUROPATHY cellulitis of the leg plan continue abx await for debridement plan wound care rest as per the team
--- NOTE | 2019-07-22 18:02 | PN ---
Progress Note (short form) - Note Progress Note: Vascular Surgery Pt seen and examined. On IV antibiotics. Will do debridment of right leg ulcer on . Allen Gabriel dO
--- NOTE | 2019-07-22 18:42 | PN ---
Progress Note, Physician - Current Medication List Current Medications: Active Medications Acetaminophen (Tylenol -) 650 mg PO Q6H PRN PRN Reason: FEVER Last Admin: 07/22/19 06:10 Dose: 650 mg Apixaban (Eliquis -) 5 mg PO BID [facility] Last Admin: 07/22/19 11:06 Dose: 5 mg Atorvastatin Calcium (Lipitor -) 40 mg PO HS [facility] Last Admin: 07/21/19 22:50 Dose: 40 mg Collagenase (Santyl -) 1 applic TP DAILY [facility] Last Admin: 07/22/19 11:07 Dose: 1 applic Gabapentin (Neurontin -) 600 mg PO HS [facility] Last Admin: 07/21/19 22:50 Dose: 600 mg Gabapentin (Neurontin -) 300 mg PO DAILY [facility] Last Admin: 07/22/19 11:06 Dose: 300 mg Piperacillin Sod/Tazobactam (Sod 3.375 gm/ Dextrose) 50 mls @ 100 mls/hr IVPB Q8H-IV [facility] Last Admin: 07/22/19 17:50 Dose: 100 mls/hr Insulin Aspart (Novolog Vial Sliding Scale -) 1 vial SQ [facility]; Protocol Last Admin: 07/22/19 17:57 Dose: 4 units Lisinopril (Prinivil) 20 mg PO DAILY [facility] Last Admin: 07/22/19 11:07 Dose: Not Given Metformin HCl (Glucophage Xr -) 750 mg PO DAILY@0700 [facility] Last Admin: 07/22/19 06:08 Dose: 750 mg Non-Formulary Medication (Ertugliflozin Pidolate [Steglatro]) 15 mg PO DAILY@ 0700 [facility] - Objective Vital Signs: Vital Signs Temperature 98.1 F 07/22/19 14:00 Pulse Rate 99 H 07/22/19 14:00 Respiratory Rate 20 07/22/19 14:00 Blood Pressure 121/51 L 07/22/19 14:00 O2 Sat by Pulse Oximetry (%) 100 07/22/19 09:00 Constitutional: Yes: No Distress HENT: Yes: Atraumatic Neck: Yes: Supple Cardiovascular: Yes: Regular Rate and Rhythm Respiratory: Yes: CTA Bilaterally Gastrointestinal: Yes: Normal Bowel Sounds Extremities: Yes: Other (R ankle wound) Neurological: Yes: Alert, Oriented Labs: CBC, BMP 07/18/19 14:45 07/18/19 14:45 Problem List - Problems (1) Traumatic open wound of right lower leg Assessment/Plan: iv abx woundcare Code(s): S81.801A - UNSPECIFIED OPEN WOUND, RIGHT LOWER LEG, INITIAL ENCOUNTER Qualifiers: Encounter type: initial encounter Qualified Code(s): S81.801A - Unspecified open wound, right lower leg, initial encounter (2) Wound cellulitis Code(s): L03.90 - CELLULITIS, UNSPECIFIED (3) Type 2 diabetes mellitus with diabetic polyneuropathy Assessment/Plan: bgms Code(s): E11.42 - TYPE 2 DIABETES MELLITUS WITH DIABETIC POLYNEUROPATHY (4) HLD (hyperlipidemia) Assessment/Plan: on meds Code(s): E78.5 - HYPERLIPIDEMIA, UNSPECIFIED Qualifiers: Hyperlipidemia type: pure hypercholesterolemia Qualified Code(s): E78.00 - Pure hypercholesterolemia, unspecified; E78.0 - Pure hypercholesterolemia (5) HTN (hypertension) Assessment/Plan: on meds Code(s): I10 - ESSENTIAL (PRIMARY) HYPERTENSION Qualifiers: Hypertension type: essential hypertension Qualified Code(s): I10 - Essential (primary) hypertension
[2019-07-22] MEDS: traMADol HCL 50 MG TABLET PO PRN (21:34)
[2019-07-22] MEDS: ATORVASTATIN CA 40 MG TABLET (FP) PO SCH (21:34)
[2019-07-23] MEDS ORDERED: PIPERACILLIN/TAZOBACTAM 3.375 GM VIAL IVPB ONE ×3 (01:11→17:47)
[2019-07-23] MEDS ORDERED: DEXTROSE 5%-WATER - 50 ML IVPB ONE ×3 (01:11→17:47)
[2019-07-23] MEDS: PIPERACILLIN/TAZOB 3.375 GM 3.375 GM in DEXTROSE 5%-WATER - 50 ML IVPB SCH ×3 (01:15→18:50)
[2019-07-23] MEDS: INSULIN SLIDING SCALE (NOVOLOG) 1 VIAL SQ SCH ×4 (06:21→22:52)
[2019-07-23] MEDS: ACETAMINOPHEN 325 MG TABLET (FP) PO PRN (06:27)
[2019-07-23] MEDS: traMADol HCL 50 MG TABLET PO PRN ×2 (06:27→23:36)
[2019-07-23 09:09] LABS: BASO % 0.3 % (0-2.0); EOS % 4.7 % (0-4.5); HEMATOCRIT 33.1 % (32.4-45.2); HEMOGLOBIN 11.3 GM/dL (10.7-15.3); LYMPH % 23.4 % (8-40); MCH 30.6 pg (25.7-33.7); MCHC 34.2 g/dl (32.0-36.0); MEAN CELL VOLUME 89.7 fl (80-96); MEAN PLT VOLUME 8.9 fl (7.5-11.1); NEUT % 61.6 % (42.8-82.8); PLATELET COUNT 214 K/MM3 (134-434); RBC 3.69 M/mm3 (3.60-5.2); RDW 14.4 % (11.6-15.6); WHITE BLOOD COUNT 5.6 K/mm3 (4.0-10.0)
[2019-07-23 09:47] LABS: BILIRUBIN,TOTAL 0.7 mg/dL (0.2-1); BLOOD UREA NITROGEN 14.2 mg/dL (7-18); CALCIUM 9.2 mg/dL (8.5-10.1); CREATININE 0.6 mg/dL (0.55-1.3); POTASSIUM 4.4 mmol/L (3.5-5.1); TOT PROT 6.4 g/dl (6.4-8.2)
[2019-07-23] MEDS: GABAPENTIN 300 MG CAPSULE PO SCH ×2 (10:44→22:48)
[2019-07-23] MEDS: APIXABAN 5 MG TABLET PO SCH ×2 (10:44→22:41)
[2019-07-23] MEDS: COLLAGENASE CLOSTRIDIUM HIST. 30 GRAMS TUBE TP SCH (10:57)
[2019-07-23] MEDS ORDERED: PT OWN MED DRAWER 7, Y5N ONE ×2 (14:52→17:48)
--- NOTE | 2019-07-23 16:35 | PN ---
Progress Note, Physician History of Present Illness: Pt is alert, without distress. c/o pain in LE but less since admission. c/o vaginal itching but no discharge. Events noted. RLE debridement planned. - Current Medication List Current Medications: Active Medications Acetaminophen (Tylenol -) 650 mg PO Q6H PRN PRN Reason: FEVER/PAIN 1-5 Last Admin: 07/23/19 06:27 Dose: 650 mg Apixaban (Eliquis -) 5 mg PO BID [facility] Last Admin: 07/23/19 10:44 Dose: 5 mg Atorvastatin Calcium (Lipitor -) 40 mg PO HS [facility] Last Admin: 07/22/19 21:34 Dose: 40 mg Collagenase (Santyl -) 1 applic TP DAILY [facility] Last Admin: 07/23/19 10:57 Dose: 1 applic Gabapentin (Neurontin -) 600 mg PO HS [facility] Last Admin: 07/22/19 21:34 Dose: 600 mg Gabapentin (Neurontin -) 300 mg PO DAILY [facility] Last Admin: 07/23/19 10:44 Dose: 300 mg Piperacillin Sod/Tazobactam (Sod 3.375 gm/ Dextrose) 50 mls @ 100 mls/hr IVPB Q8H-IV [facility] Last Admin: 07/23/19 10:45 Dose: 100 mls/hr Insulin Aspart (Novolog Vial Sliding Scale -) 1 vial SQ ACHS [facility]; Protocol Last Admin: 07/23/19 12:18 Dose: 4 units Metformin HCl (Glucophage Xr -) 750 mg PO BIDAC [facility] Last Admin: 07/23/19 06:21 Dose: 750 mg Tramadol HCl (Ultram -) 25 mg PO Q6H PRN PRN Reason: PAIN 6-10 Last Admin: 07/23/19 06:27 Dose: 25 mg - Objective Vital Signs: Vital Signs Temperature 98.4 F 07/23/19 10:00 Pulse Rate 85 07/23/19 10:00 Respiratory Rate 18 07/23/19 10:00 Blood Pressure 124/70 07/23/19 10:00 O2 Sat by Pulse Oximetry (%) 100 07/22/19 21:00 Constitutional: Yes: No Distress, Calm Cardiovascular: Yes: Regular Rate and Rhythm Respiratory: Yes: CTA Bilaterally Gastrointestinal: Yes: Normal Bowel Sounds, Soft Genitourinary: Yes: WNL, Other (no vaginal erythema/ulcers) Integumentary: Yes: WNL Wound/Incision: Yes: Dressing Dry and Intact Neurological: Yes: Alert Labs: CBC, BMP 07/23/19 08:27 07/23/19 08:27 Microbiology 07/18/19 14:45 Blood - Peripheral Venous Blood Culture - Final NO GROWTH AFTER 5 DAYS INCUBATION 07/18/19 14:45 Blood - Peripheral Venous Blood Culture - Final NO GROWTH AFTER 5 DAYS INCUBATION 07/19/19 00:54 Urine - Urine Clean Catch Urine Culture - Final Escherichia Coli Problem List - Problems (1) HLD (hyperlipidemia) Code(s): E78.5 - HYPERLIPIDEMIA, UNSPECIFIED Qualifiers: Hyperlipidemia type: pure hypercholesterolemia Qualified Code(s): E78.00 - Pure hypercholesterolemia, unspecified; E78.0 - Pure hypercholesterolemia (2) HTN (hypertension) Code(s): I10 - ESSENTIAL (PRIMARY) HYPERTENSION Qualifiers: Hypertension type: essential hypertension Qualified Code(s): I10 - Essential (primary) hypertension (3) Traumatic open wound of right lower leg Code(s): S81.801A - UNSPECIFIED OPEN WOUND, RIGHT LOWER LEG, INITIAL ENCOUNTER Qualifiers: Encounter type: initial encounter Qualified Code(s): S81.801A - Unspecified open wound, right lower leg, initial encounter (4) Idiopathic chronic venous hypertension of right lower extremity with ulcer and inflammation Code(s): I87.331 - CHRONIC VENOUS HTN W ULCER AND INFLAMMATION OF R LOW EXTREM; L97.919 - NON-PRS CHRONIC ULC UNSP PRT OF R LOW LEG W UNSP SEVERITY (5) Skin graft (allograft) (autograft) failure Code(s): T86.821 - SKIN GRAFT (ALLOGRAFT) (AUTOGRAFT) FAILURE (6) Wound cellulitis Code(s): L03.90 - CELLULITIS, UNSPECIFIED (7) Type 2 diabetes mellitus with diabetic polyneuropathy Code(s): E11.42 - TYPE 2 DIABETES MELLITUS WITH DIABETIC POLYNEUROPATHY Assessment/Plan RLE infected wound/ulcer/cellulitis Hx of failed skin graft DM with neuropathy Hx of [place] Hx of DVT continue antibiotics debridement planned, Vascular following c/o vaginal itching with hx of yeast infections in the past, will order dose of Diflucan continue wound care
[2019-07-23] MEDS ORDERED: FLUCONAZOLE 150 MG TABLET PO ONE (16:36)
--- NOTE | 2019-07-23 22:35 | PN ---
Progress Note, Physician - Current Medication List Current Medications: Active Medications Acetaminophen (Tylenol -) 650 mg PO Q6H PRN PRN Reason: FEVER/PAIN 1-5 Last Admin: 07/23/19 06:27 Dose: 650 mg Apixaban (Eliquis -) 5 mg PO BID [facility] Last Admin: 07/23/19 10:44 Dose: 5 mg Atorvastatin Calcium (Lipitor -) 40 mg PO HS [facility] Last Admin: 07/22/19 21:34 Dose: 40 mg Collagenase (Santyl -) 1 applic TP DAILY [facility] Last Admin: 07/23/19 10:57 Dose: 1 applic Gabapentin (Neurontin -) 600 mg PO HS [facility] Last Admin: 07/22/19 21:34 Dose: 600 mg Gabapentin (Neurontin -) 300 mg PO DAILY [facility] Last Admin: 07/23/19 10:44 Dose: 300 mg Piperacillin Sod/Tazobactam (Sod 3.375 gm/ Dextrose) 50 mls @ 100 mls/hr IVPB Q8H-IV [facility] Last Admin: 07/23/19 18:50 Dose: 100 mls/hr Insulin Aspart (Novolog Vial Sliding Scale -) 1 vial SQ ACHS [facility]; Protocol Last Admin: 07/23/19 18:51 Dose: 4 units Metformin HCl (Glucophage Xr -) 750 mg PO BIDAC [facility] Last Admin: 07/23/19 18:52 Dose: 750 mg Tramadol HCl (Ultram -) 25 mg PO Q6H PRN PRN Reason: PAIN 6-10 Last Admin: 07/23/19 06:27 Dose: 25 mg - Objective Vital Signs: Vital Signs Temperature 98.3 F 07/23/19 20:33 Pulse Rate 85 07/23/19 20:33 Respiratory Rate 18 07/23/19 20:33 Blood Pressure 101/73 07/23/19 20:33 O2 Sat by Pulse Oximetry (%) 97 07/23/19 20:41 Labs: CBC, BMP 07/23/19 08:27 07/23/19 08:27
[2019-07-23] MEDS: ATORVASTATIN CA 40 MG TABLET (FP) PO SCH (22:41)
[2019-07-24] MEDS ORDERED: PIPERACILLIN/TAZOBACTAM 3.375 GM VIAL IVPB ONE ×3 (01:26→17:01)
[2019-07-24] MEDS ORDERED: DEXTROSE 5%-WATER - 50 ML IVPB ONE ×3 (01:26→17:01)
[2019-07-24] MEDS: PIPERACILLIN/TAZOB 3.375 GM 3.375 GM in DEXTROSE 5%-WATER - 50 ML IVPB SCH ×3 (01:38→18:06)
[2019-07-24] MEDS ORDERED: PT OWN MED DRAWER 7, Y5N ONE ×2 (05:54→18:02)
[2019-07-24] MEDS: INSULIN SLIDING SCALE (NOVOLOG) 1 VIAL SQ SCH ×4 (06:37→23:04)
[2019-07-24] MEDS: traMADol HCL 50 MG TABLET PO PRN ×2 (06:41→18:23)
[2019-07-24] MEDS: GABAPENTIN 300 MG CAPSULE PO SCH ×2 (10:09→23:05)
[2019-07-24] MEDS: APIXABAN 5 MG TABLET PO SCH ×2 (10:09→23:05)
--- NOTE | 2019-07-24 12:16 | PN ---
Progress Note (short form) - Note Progress Note: Chief Complaint: Events noted, notes reviewed, denies any chest pain or dyspnea History of Present Illness: Seen and examined. Events noted, notes reviewed, denies any chest pain or dyspnea Current Medications: Current Medications Acetaminophen (Tylenol -) 650 mg PO Q6H PRN PRN Reason: FEVER/PAIN 1-5 Last Admin: 07/23/19 06:27 Dose: 650 mg Apixaban (Eliquis -) 5 mg PO BID [facility] Last Admin: 07/24/19 10:09 Dose: 5 mg Atorvastatin Calcium (Lipitor -) 40 mg PO HS [facility] Last Admin: 07/23/19 22:41 Dose: 40 mg Collagenase (Santyl -) 1 applic TP DAILY [facility] Last Admin: 07/23/19 10:57 Dose: 1 applic Gabapentin (Neurontin -) 600 mg PO HS [facility] Last Admin: 07/23/19 22:48 Dose: 600 mg Gabapentin (Neurontin -) 300 mg PO DAILY [facility] Last Admin: 07/24/19 10:09 Dose: 300 mg Piperacillin Sod/Tazobactam (Sod 3.375 gm/ Dextrose) 50 mls @ 100 mls/hr IVPB Q8H-IV [facility] Last Admin: 07/24/19 10:09 Dose: 100 mls/hr Insulin Aspart (Novolog Vial Sliding Scale -) 1 vial SQ ACHS [facility]; Protocol Last Admin: 07/24/19 12:13 Dose: Not Given Metformin HCl (Glucophage Xr -) 750 mg PO BIDAC [facility] Last Admin: 07/24/19 06:37 Dose: 750 mg Tramadol HCl (Ultram -) 25 mg PO Q6H PRN PRN Reason: PAIN 6-10 Last Admin: 07/24/19 06:41 Dose: 25 mg - Objective Vital Signs: Last Vital Signs Temp Pulse Resp BP Pulse Ox 97.9 F 79 20 154/60 97 07/24/19 07:53 07/24/19 07:53 07/24/19 07:53 07/24/19 07:53 07/23/19 20:41 Intake & Output 07/21/19 07/22/19 07/23/19 07/24/19 23:59 23:59 23:59 23:59 Intake Total 1484 533 1827 100 Balance 8011 246 4544 100 Weight 186 lb 6 oz 183 lb 182 lb 12.8 oz 184 lb 4 oz Neck: Supple negative JVD no bruit Cardiovascular: S1 S2 Regular Rate Rhythm Respiratory: Diminished Breath Sounds Bilaterally Gastrointestinal: Soft Benign Normal Bowel Sounds Ext: Trace Bilaterally Labs: CBC, BMP 07/23/19 08:27 07/23/19 08:27 Assessment/Plan: ASSESSMENT: 1. Preoperative evaluation, history of cardiac arrest in setting of knee surgery 2014 2. RLE cellulitis planned for debridement 3. HTN 4. DM 5. Hypercholesterolemia 6. Post skin graft surgery 7. DVT on DOAC's PLAN: 1. Antibiotics as per the primary team 2. Continue Lipitor 3. Resume Lisinopril, hemodynamics permitting unless contraindicated 4. If needed withhold Eliquis therapy for at least 24-48 hours and to resume post procedure once hemostasis is achieved Jesus Anthony MD
--- NOTE | 2019-07-24 15:51 | PN ---
Progress Note, Physician History of Present Illness: Pt is alert, without acute distress. C/O of LE pain otherwise no other specific complaints. - Current Medication List Current Medications: Active Medications Acetaminophen (Tylenol -) 650 mg PO Q6H PRN PRN Reason: FEVER/PAIN 1-5 Last Admin: 07/23/19 06:27 Dose: 650 mg Apixaban (Eliquis -) 5 mg PO BID [facility] Last Admin: 07/24/19 10:09 Dose: 5 mg Atorvastatin Calcium (Lipitor -) 40 mg PO HS [facility] Last Admin: 07/23/19 22:41 Dose: 40 mg Collagenase (Santyl -) 1 applic TP DAILY [facility] Last Admin: 07/23/19 10:57 Dose: 1 applic Gabapentin (Neurontin -) 600 mg PO HS [facility] Last Admin: 07/23/19 22:48 Dose: 600 mg Gabapentin (Neurontin -) 300 mg PO DAILY [facility] Last Admin: 07/24/19 10:09 Dose: 300 mg Piperacillin Sod/Tazobactam (Sod 3.375 gm/ Dextrose) 50 mls @ 100 mls/hr IVPB Q8H-IV [facility] Last Admin: 07/24/19 10:09 Dose: 100 mls/hr Insulin Aspart (Novolog Vial Sliding Scale -) 1 vial SQ ACHS [facility]; Protocol Last Admin: 07/24/19 12:13 Dose: Not Given Metformin HCl (Glucophage Xr -) 750 mg PO BIDAC [facility] Last Admin: 07/24/19 06:37 Dose: 750 mg Tramadol HCl (Ultram -) 25 mg PO Q6H PRN PRN Reason: PAIN 6-10 Last Admin: 07/24/19 06:41 Dose: 25 mg - Objective Vital Signs: Vital Signs Temperature 97.9 F 07/24/19 07:53 Pulse Rate 79 07/24/19 07:53 Respiratory Rate 20 07/24/19 07:53 Blood Pressure 154/60 07/24/19 07:53 O2 Sat by Pulse Oximetry (%) 97 07/23/19 20:41 Constitutional: Yes: No Distress, Calm Cardiovascular: Yes: Regular Rate and Rhythm Respiratory: Yes: Regular Gastrointestinal: Yes: Normal Bowel Sounds, Soft Genitourinary: Yes: WNL Extremities: Yes: Erythema Wound/Incision: Yes: Other (LE ulcers , necrotic, +erythema/edema/tenderness) Neurological: Yes: Alert Labs: CBC, BMP 07/23/19 08:27 07/23/19 08:27 Microbiology 07/18/19 14:45 Blood - Peripheral Venous Blood Culture - Final NO GROWTH AFTER 5 DAYS INCUBATION 07/18/19 14:45 Blood - Peripheral Venous Blood Culture - Final NO GROWTH AFTER 5 DAYS INCUBATION 07/19/19 00:54 Urine - Urine Clean Catch Urine Culture - Final Escherichia Coli Problem List - Problems (1) HLD (hyperlipidemia) Code(s): E78.5 - HYPERLIPIDEMIA, UNSPECIFIED Qualifiers: Hyperlipidemia type: pure hypercholesterolemia Qualified Code(s): E78.00 - Pure hypercholesterolemia, unspecified; E78.0 - Pure hypercholesterolemia (2) HTN (hypertension) Code(s): I10 - ESSENTIAL (PRIMARY) HYPERTENSION Qualifiers: Hypertension type: essential hypertension Qualified Code(s): I10 - Essential (primary) hypertension (3) Traumatic open wound of right lower leg Code(s): S81.801A - UNSPECIFIED OPEN WOUND, RIGHT LOWER LEG, INITIAL ENCOUNTER Qualifiers: Encounter type: initial encounter Qualified Code(s): S81.801A - Unspecified open wound, right lower leg, initial encounter (4) Idiopathic chronic venous hypertension of right lower extremity with ulcer and inflammation Code(s): I87.331 - CHRONIC VENOUS HTN W ULCER AND INFLAMMATION OF R LOW EXTREM; L97.919 - NON-PRS CHRONIC ULC UNSP PRT OF R LOW LEG W UNSP SEVERITY (5) Skin graft (allograft) (autograft) failure Code(s): T86.821 - SKIN GRAFT (ALLOGRAFT) (AUTOGRAFT) FAILURE (6) Wound cellulitis Code(s): L03.90 - CELLULITIS, UNSPECIFIED (7) Type 2 diabetes mellitus with diabetic polyneuropathy Code(s): E11.42 - TYPE 2 DIABETES MELLITUS WITH DIABETIC POLYNEUROPATHY Assessment/Plan LE infected wound/ulcer/cellulitis Hx skin graft DM with neuropathy Hx of [place] Hx of DVT continue antibiotics, still with significant erythema debridement planned for Thursday, Vascular following continue wound care, pain control
[2019-07-24] MEDS: COLLAGENASE CLOSTRIDIUM HIST. 30 GRAMS TUBE TP SCH (16:16)
[2019-07-24] MEDS ORDERED: ONDANSETRON 4 MG/2 ML VIAL IVPUSH ONE (21:52)
[2019-07-24] MEDS: ATORVASTATIN CA 40 MG TABLET (FP) PO SCH (23:05)
--- NOTE | 2019-07-24 23:45 | PN ---
Progress Note, Physician History of Present Illness: No new complaints Pt still having pain in her extremities from ankles to knees - Current Medication List Current Medications: Active Medications Acetaminophen (Tylenol -) 650 mg PO Q6H PRN PRN Reason: FEVER/PAIN 1-5 Last Admin: 07/23/19 06:27 Dose: 650 mg Apixaban (Eliquis -) 5 mg PO BID [facility] Last Admin: 07/24/19 23:05 Dose: 5 mg Atorvastatin Calcium (Lipitor -) 40 mg PO HS [facility] Last Admin: 07/24/19 23:05 Dose: 40 mg Collagenase (Santyl -) 1 applic TP DAILY [facility] Last Admin: 07/24/19 16:16 Dose: 1 applic Gabapentin (Neurontin -) 600 mg PO HS [facility] Last Admin: 07/24/19 23:05 Dose: 600 mg Gabapentin (Neurontin -) 300 mg PO DAILY [facility] Last Admin: 07/24/19 10:09 Dose: 300 mg Piperacillin Sod/Tazobactam (Sod 3.375 gm/ Dextrose) 50 mls @ 100 mls/hr IVPB Q8H-IV [facility] Last Admin: 07/24/19 18:06 Dose: 100 mls/hr Insulin Aspart (Novolog Vial Sliding Scale -) 1 vial SQ ACHS [facility]; Protocol Last Admin: 07/24/19 23:04 Dose: 2 units Metformin HCl (Glucophage Xr -) 750 mg PO BIDAC [facility] Last Admin: 07/24/19 18:06 Dose: 750 mg Tramadol HCl (Ultram -) 25 mg PO Q6H PRN PRN Reason: PAIN 6-10 Last Admin: 07/24/19 18:23 Dose: 25 mg - Objective Vital Signs: Vital Signs Temperature 98.0 F 07/24/19 21:00 Pulse Rate 86 07/24/19 17:30 Respiratory Rate 20 07/24/19 21:00 Blood Pressure 153/82 07/24/19 21:00 O2 Sat by Pulse Oximetry (%) 98 07/24/19 21:00 Cardiovascular: Yes: WNL, Regular Rate and Rhythm Respiratory: Yes: WNL, Regular, CTA Bilaterally Gastrointestinal: Yes: WNL, Normal Bowel Sounds, Soft Extremities: Yes: Other ((+) B/L lower extremities w./ dressing) Labs: CBC, BMP 07/23/19 08:27 07/23/19 08:27 Problem List - Problems (1) Wound cellulitis Assessment/Plan: Cont IV antibxs Possible debridement on 07/26/19 Code(s): L03.90 - CELLULITIS, UNSPECIFIED (2) Diabetes Assessment/Plan: Cont sliding scale w/ coverage Cont metormin Code(s): E11.9 - TYPE 2 DIABETES MELLITUS WITHOUT COMPLICATIONS (3) HLD (hyperlipidemia) Code(s): E78.5 - HYPERLIPIDEMIA, UNSPECIFIED Qualifiers: Hyperlipidemia type: pure hypercholesterolemia Qualified Code(s): E78.00 - Pure hypercholesterolemia, unspecified; E78.0 - Pure hypercholesterolemia (4) HTN (hypertension) Code(s): I10 - ESSENTIAL (PRIMARY) HYPERTENSION Qualifiers: Hypertension type: essential hypertension Qualified Code(s): I10 - Essential (primary) hypertension
[2019-07-25] MEDS ORDERED: PIPERACILLIN/TAZOBACTAM 3.375 GM VIAL IVPB ONE ×3 (01:39→18:21)
[2019-07-25] MEDS ORDERED: DEXTROSE 5%-WATER - 50 ML IVPB ONE ×3 (01:40→18:21)
[2019-07-25] MEDS: PIPERACILLIN/TAZOB 3.375 GM 3.375 GM in DEXTROSE 5%-WATER - 50 ML IVPB SCH ×3 (01:56→18:22)
[2019-07-25] MEDS: INSULIN SLIDING SCALE (NOVOLOG) 1 VIAL SQ SCH ×4 (06:20→21:32)
--- NOTE | 2019-07-25 07:31 | SPA.PREOP ---
- PRE-OP NOTE Dx: Right lower extremity ulcer Planned Procedure: Debridement RLE wound Surgeon: Allen Gabriel, DO Last Vital Signs Temp Pulse Resp BP Pulse Ox 98.3 F 85 20 121/70 98 07/25/19 05:00 07/25/19 05:00 07/25/19 05:00 07/25/19 05:00 07/24/19 21:00 Lab Results WBC 5.6 K/mm3 (4.0-10.0) 07/23/19 08:27 RBC 3.69 M/mm3 (3.60-5.2) 07/23/19 08:27 Hgb 11.3 GM/dL (10.7-15.3) 07/23/19 08:27 Hct 33.1 % (32.4-45.2) 07/23/19 08:27 MCV 89.7 fl (80-96) 07/23/19 08:27 MCHC 34.2 g/dl (32.0-36.0) 07/23/19 08:27 RDW 14.4 % (11.6-15.6) 07/23/19 08:27 Plt Count 214 K/MM3 (134-434) D 07/23/19 08:27 Sodium 140 mmol/L (136-145) 07/23/19 08:27 Potassium 4.4 mmol/L (3.5-5.1) 07/23/19 08:27 Chloride 106 mmol/L (98-107) 07/23/19 08:27 Carbon Dioxide 30 mmol/L (21-32) 07/23/19 08:27 Anion Gap 4 MMOL/L (8-16) L 07/23/19 08:27 BUN 14.2 mg/dL (7-18) 07/23/19 08:27 Creatinine 0.6 mg/dL (0.55-1.3) 07/23/19 08:27 Random Glucose 111 mg/dL (74-106) H 07/23/19 08:27 Calcium 9.2 mg/dL (8.5-10.1) 07/23/19 08:27 - ASSESSMENT/PLAN 1. Make NPO after midnight except po meds 2. GI/DVT PPX 3. Medical optimization / clearance 4. Consent to be obtained by surgeon after risks, benefits and alternatives discussed with patient and or Health Care Proxy.
[2019-07-25] MEDS: GABAPENTIN 300 MG CAPSULE PO SCH ×2 (10:53→21:31)
[2019-07-25] MEDS: APIXABAN 5 MG TABLET PO SCH ×2 (10:53→21:31)
--- NOTE | 2019-07-25 12:05 | PN ---
Progress Note, Physician - Current Medication List Current Medications: Active Medications Acetaminophen (Tylenol -) 650 mg PO Q6H PRN PRN Reason: FEVER/PAIN 1-5 Last Admin: 07/23/19 06:27 Dose: 650 mg Apixaban (Eliquis -) 5 mg PO BID [facility] Last Admin: 07/25/19 10:53 Dose: 5 mg Atorvastatin Calcium (Lipitor -) 40 mg PO HS [facility] Last Admin: 07/24/19 23:05 Dose: 40 mg Collagenase (Santyl -) 1 applic TP DAILY [facility] Last Admin: 07/24/19 16:16 Dose: 1 applic Gabapentin (Neurontin -) 600 mg PO HS [facility] Last Admin: 07/24/19 23:05 Dose: 600 mg Gabapentin (Neurontin -) 300 mg PO DAILY [facility] Last Admin: 07/25/19 10:53 Dose: 300 mg Piperacillin Sod/Tazobactam (Sod 3.375 gm/ Dextrose) 50 mls @ 100 mls/hr IVPB Q8H-IV [facility] Last Admin: 07/25/19 01:56 Dose: 100 mls/hr Insulin Aspart (Novolog Vial Sliding Scale -) 1 vial SQ ACHS [facility]; Protocol Last Admin: 07/25/19 06:20 Dose: 2 units Metformin HCl (Glucophage Xr -) 750 mg PO BIDAC [facility] Last Admin: 07/25/19 06:21 Dose: 750 mg Tramadol HCl (Ultram -) 25 mg PO Q6H PRN PRN Reason: PAIN 6-10 Last Admin: 07/24/19 18:23 Dose: 25 mg - Objective Vital Signs: Vital Signs Temperature 98.3 F 07/25/19 05:00 Pulse Rate 85 07/25/19 05:00 Respiratory Rate 20 07/25/19 05:00 Blood Pressure 121/70 07/25/19 05:00 O2 Sat by Pulse Oximetry (%) 98 07/24/19 21:00 Constitutional: Yes: No Distress HENT: Yes: Atraumatic Neck: Yes: Supple Cardiovascular: Yes: Regular Rate and Rhythm Respiratory: Yes: CTA Bilaterally Extremities: Yes: Other (R jean cellulitis) Edema: No Neurological: Yes: Alert Labs: CBC, BMP 07/23/19 08:27 07/23/19 08:27 Problem List - Problems (1) Traumatic open wound of right lower leg Assessment/Plan: iv abx woundcare for debridement in am Code(s): S81.801A - UNSPECIFIED OPEN WOUND, RIGHT LOWER LEG, INITIAL ENCOUNTER Qualifiers: Encounter type: initial encounter Qualified Code(s): S81.801A - Unspecified open wound, right lower leg, initial encounter (2) Wound cellulitis Code(s): L03.90 - CELLULITIS, UNSPECIFIED (3) Type 2 diabetes mellitus with diabetic polyneuropathy Assessment/Plan: bgms Code(s): E11.42 - TYPE 2 DIABETES MELLITUS WITH DIABETIC POLYNEUROPATHY (4) HLD (hyperlipidemia) Assessment/Plan: on meds Code(s): E78.5 - HYPERLIPIDEMIA, UNSPECIFIED Qualifiers: Hyperlipidemia type: pure hypercholesterolemia Qualified Code(s): E78.00 - Pure hypercholesterolemia, unspecified; E78.0 - Pure hypercholesterolemia (5) HTN (hypertension) Assessment/Plan: on meds Code(s): I10 - ESSENTIAL (PRIMARY) HYPERTENSION Qualifiers: Hypertension type: essential hypertension Qualified Code(s): I10 - Essential (primary) hypertension
--- NOTE | 2019-07-25 12:18 | PN ---
Progress Note, Physician History of Present Illness: still c/o pain wound looks abd plan for debridement tomorrow - Current Medication List Current Medications: Active Medications Acetaminophen (Tylenol -) 650 mg PO Q6H PRN PRN Reason: FEVER/PAIN 1-5 Last Admin: 07/23/19 06:27 Dose: 650 mg Apixaban (Eliquis -) 5 mg PO BID [facility] Last Admin: 07/25/19 10:53 Dose: 5 mg Atorvastatin Calcium (Lipitor -) 40 mg PO HS [facility] Last Admin: 07/24/19 23:05 Dose: 40 mg Collagenase (Santyl -) 1 applic TP DAILY [facility] Last Admin: 07/24/19 16:16 Dose: 1 applic Gabapentin (Neurontin -) 600 mg PO HS [facility] Last Admin: 07/24/19 23:05 Dose: 600 mg Gabapentin (Neurontin -) 300 mg PO DAILY [facility] Last Admin: 07/25/19 10:53 Dose: 300 mg Piperacillin Sod/Tazobactam (Sod 3.375 gm/ Dextrose) 50 mls @ 100 mls/hr IVPB Q8H-IV [facility] Last Admin: 07/25/19 01:56 Dose: 100 mls/hr Insulin Aspart (Novolog Vial Sliding Scale -) 1 vial SQ [facility]; Protocol Last Admin: 07/25/19 06:20 Dose: 2 units Metformin HCl (Glucophage Xr -) 750 mg PO BIDAC [facility] Last Admin: 07/25/19 06:21 Dose: 750 mg Tramadol HCl (Ultram -) 25 mg PO Q6H PRN PRN Reason: PAIN 6-10 Last Admin: 07/24/19 18:23 Dose: 25 mg - Objective Vital Signs: Vital Signs Temperature 98.3 F 07/25/19 05:00 Pulse Rate 85 07/25/19 05:00 Respiratory Rate 20 07/25/19 05:00 Blood Pressure 121/70 07/25/19 05:00 O2 Sat by Pulse Oximetry (%) 98 07/24/19 21:00 Constitutional: Yes: Calm, Mild Distress Cardiovascular: Yes: S1, S2 Respiratory: Yes: Regular, CTA Bilaterally Gastrointestinal: Yes: Normal Bowel Sounds, Soft Musculoskeletal: Yes: WNL Extremities: Yes: WNL Wound/Incision: Yes: Dressing Dry and Intact Neurological: Yes: Alert, Oriented Psychiatric: Yes: Alert, Oriented Labs: CBC, BMP 07/23/19 08:27 07/23/19 08:27 Assessment/Plan Problem List - Problems (1) Traumatic open wound of right lower leg Code(s): S81.801A - UNSPECIFIED OPEN WOUND, RIGHT LOWER LEG, INITIAL ENCOUNTER Qualifiers: Encounter type: initial encounter Qualified Code(s): S81.801A - Unspecified open wound, right lower leg, initial encounter (2) Wound cellulitis Code(s): L03.90 - CELLULITIS, UNSPECIFIED (3) Type 2 diabetes mellitus with diabetic polyneuropathy Code(s): E11.42 - TYPE 2 DIABETES MELLITUS WITH DIABETIC POLYNEUROPATHY cellulitis of the leg plan continue abx await for debridement wound care rest as per the team
[2019-07-25] MEDS: COLLAGENASE CLOSTRIDIUM HIST. 30 GRAMS TUBE TP SCH (15:45)
--- NOTE | 2019-07-25 16:16 | PN ---
Progress Note (short form) - Note Progress Note: Chief Complaint: Events noted, notes reviewed, denies any chest pain or dyspnea History of Present Illness: Seen and examined. Events noted, notes reviewed, denies any chest pain or dyspnea Current Medications: Current Medications Acetaminophen (Tylenol -) 650 mg PO Q6H PRN PRN Reason: FEVER/PAIN 1-5 Last Admin: 07/23/19 06:27 Dose: 650 mg Apixaban (Eliquis -) 5 mg PO BID [facility] Last Admin: 07/25/19 10:53 Dose: 5 mg Atorvastatin Calcium (Lipitor -) 40 mg PO HS [facility] Last Admin: 07/24/19 23:05 Dose: 40 mg Collagenase (Santyl -) 1 applic TP DAILY [facility] Last Admin: 07/25/19 15:45 Dose: 1 applic Gabapentin (Neurontin -) 600 mg PO HS [facility] Last Admin: 07/24/19 23:05 Dose: 600 mg Gabapentin (Neurontin -) 300 mg PO DAILY [facility] Last Admin: 07/25/19 10:53 Dose: 300 mg Piperacillin Sod/Tazobactam (Sod 3.375 gm/ Dextrose) 50 mls @ 100 mls/hr IVPB Q8H-IV [facility] Last Admin: 07/25/19 10:00 Dose: 100 mls/hr Insulin Aspart (Novolog Vial Sliding Scale -) 1 vial SQ ACHS [facility]; Protocol Last Admin: 07/25/19 13:23 Dose: Not Given Metformin HCl (Glucophage Xr -) 750 mg PO BIDAC [facility] Last Admin: 07/25/19 06:21 Dose: 750 mg Tramadol HCl (Ultram -) 25 mg PO Q6H PRN PRN Reason: PAIN 6-10 Last Admin: 07/24/19 18:23 Dose: 25 mg - Objective Vital Signs: Last Vital Signs Temp Pulse Resp BP Pulse Ox 98.1 F 100 H 20 114/55 L 98 07/25/19 14:00 07/25/19 14:00 07/25/19 14:00 07/25/19 14:00 07/24/19 21:00 Intake & Output 07/22/19 07/23/19 07/24/19 07/25/19 23:59 23:59 23:59 23:59 Intake Total 610 1350 850 100 Balance 610 1350 850 100 Weight 183 lb 182 lb 12.8 oz 184 lb 4 oz 183 lb 8 oz Neck: Supple negative JVD no bruit Cardiovascular: S1 S2 Regular Rate Rhythm Respiratory: Diminished Breath Sounds Bilaterally Gastrointestinal: Soft Benign Normal Bowel Sounds Ext: Trace Bilaterally Labs: CBC, BMP 07/23/19 08:27 07/23/19 08:27 Assessment/Plan: ASSESSMENT: 1. Preoperative evaluation, history of cardiac arrest in setting of knee surgery 2014 2. RLE cellulitis planned for debridement 3. HTN 4. DM 5. Hypercholesterolemia 6. Post skin graft surgery 7. DVT on DOAC's PLAN: 1. Antibiotics as per the primary team 2. Continue Lipitor 3. As noted in yesterday's note resume Lisinopril, hemodynamics permitting unless contraindicated 4. As noted in yesterday's note if needed withhold Eliquis therapy for at least 24-48 hours and to resume post procedure once hemostasis is achieved Jesus Anthony MD
[2019-07-25] MEDS: ATORVASTATIN CA 40 MG TABLET (FP) PO SCH (21:31)
[2019-07-25] MEDS: ACETAMINOPHEN 325 MG TABLET (FP) PO PRN (23:52)
[2019-07-26] MEDS ORDERED: traMADol HCL 50 MG TABLET PO ONE (00:14)
[2019-07-26] MEDS ORDERED: PIPERACILLIN/TAZOBACTAM 3.375 GM VIAL IVPB ONE ×3 (00:47→17:11)
[2019-07-26] MEDS ORDERED: DEXTROSE 5%-WATER - 50 ML IVPB ONE ×3 (00:48→17:11)
[2019-07-26] MEDS: PIPERACILLIN/TAZOB 3.375 GM 3.375 GM in DEXTROSE 5%-WATER - 50 ML IVPB SCH ×3 (01:20→17:20)
[2019-07-26] MEDS ORDERED: PT OWN MED DRAWER 7, Y5N ONE ×2 (05:33→12:12)
[2019-07-26] MEDS: INSULIN SLIDING SCALE (NOVOLOG) 1 VIAL SQ SCH ×4 (06:27→21:22)
[2019-07-26 08:38] LABS: EOS % 4.3 % (0-4.5); HEMATOCRIT 35.8 % (32.4-45.2); HEMOGLOBIN 11.8 GM/dL (10.7-15.3); LYMPH % 26.4 % (8-40); MCH 29.7 pg (25.7-33.7); MCHC 32.9 g/dl (32.0-36.0); MEAN CELL VOLUME 90.2 fl (80-96); MEAN PLT VOLUME 9.1 fl (7.5-11.1); MONO % 7.5 % (3.8-10.2); NEUT % 61.4 % (42.8-82.8); PLATELET COUNT 213 K/MM3 (134-434); RBC 3.97 M/mm3 (3.60-5.2); RDW 14.8 % (11.6-15.6); WHITE BLOOD COUNT 5.5 K/mm3 (4.0-10.0)
[2019-07-26 08:39] LABS: BASO % 0.4 % (0-2.0)
[2019-07-26 08:59] LABS: ALBUMIN 3.1 g/dl (3.4-5.0); BILIRUBIN,TOTAL 0.5 mg/dL (0.2-1); BLOOD UREA NITROGEN 17.2 mg/dL (7-18); CALCIUM 8.8 mg/dL (8.5-10.1); CREATININE 0.6 mg/dL (0.55-1.3); POTASSIUM 4.1 mmol/L (3.5-5.1); TOT PROT 6.4 g/dl (6.4-8.2)
[2019-07-26] MEDS: GABAPENTIN 300 MG CAPSULE PO SCH (10:35)
[2019-07-26] MEDS: COLLAGENASE CLOSTRIDIUM HIST. 30 GRAMS TUBE TP SCH (10:35)
[2019-07-26] MEDS: APIXABAN 5 MG TABLET PO SCH ×2 (10:35→21:18)
--- NOTE | 2019-07-26 11:56 | PN ---
Progress Note, Physician History of Present Illness: patient stable no new issues for surgery today - Current Medication List Current Medications: Active Medications Acetaminophen (Tylenol -) 650 mg PO Q6H PRN PRN Reason: FEVER/PAIN 1-5 Last Admin: 07/25/19 23:52 Dose: 650 mg Apixaban (Eliquis -) 5 mg PO BID [facility] Last Admin: 07/26/19 10:35 Dose: 5 mg Atorvastatin Calcium (Lipitor -) 40 mg PO HS [facility] Last Admin: 07/25/19 21:31 Dose: 40 mg Collagenase (Santyl -) 1 applic TP DAILY [facility] Last Admin: 07/26/19 10:35 Dose: Not Given Gabapentin (Neurontin -) 600 mg PO HS [facility] Last Admin: 07/25/19 21:31 Dose: 600 mg Gabapentin (Neurontin -) 300 mg PO DAILY [facility] Last Admin: 07/26/19 10:35 Dose: 300 mg Piperacillin Sod/Tazobactam (Sod 3.375 gm/ Dextrose) 50 mls @ 100 mls/hr IVPB Q8H-IV [facility] Last Admin: 07/26/19 10:35 Dose: 100 mls/hr Insulin Aspart (Novolog Vial Sliding Scale -) 1 vial SQ [facility]; Protocol Last Admin: 07/26/19 06:27 Dose: Not Given Metformin HCl (Glucophage Xr -) 750 mg PO BIDAC [facility] Last Admin: 07/26/19 06:26 Dose: 750 mg - Objective Vital Signs: Vital Signs Temperature 97.6 F 07/26/19 06:00 Pulse Rate 79 07/26/19 06:00 Respiratory Rate 20 07/26/19 06:00 Blood Pressure 111/77 07/26/19 06:00 O2 Sat by Pulse Oximetry (%) 100 07/25/19 21:00 Constitutional: Yes: No Distress, Calm Cardiovascular: Yes: S1, S2 Respiratory: Yes: Regular, CTA Bilaterally Gastrointestinal: Yes: Normal Bowel Sounds, Soft Musculoskeletal: Yes: WNL Extremities: Yes: WNL Wound/Incision: Yes: Dressing Dry and Intact Neurological: Yes: Alert, Oriented Psychiatric: Yes: Alert, Oriented Labs: CBC, BMP 07/26/19 07:50 07/26/19 07:50 Assessment/Plan Problem List - Problems (1) Traumatic open wound of right lower leg Code(s): S81.801A - UNSPECIFIED OPEN WOUND, RIGHT LOWER LEG, INITIAL ENCOUNTER Qualifiers: Encounter type: initial encounter Qualified Code(s): S81.801A - Unspecified open wound, right lower leg, initial encounter (2) Wound cellulitis Code(s): L03.90 - CELLULITIS, UNSPECIFIED (3) Type 2 diabetes mellitus with diabetic polyneuropathy Code(s): E11.42 - TYPE 2 DIABETES MELLITUS WITH DIABETIC POLYNEUROPATHY cellulitis of the leg plan continue abx await for debridement wound care rest as per the team
[2019-07-26] MEDS ORDERED: INSULIN (NOVOLOG) ASPART 100 UNITS/ML 10ML VIAL ONE (12:12)
[2019-07-26] MEDS ORDERED: LIDOCAINE HCL 1%, 10 MG/ML (20ML VIAL) ONE (12:25)
[2019-07-26] MEDS ORDERED: SUCCINYLCHOLINE CHLORIDE 200 MG/10 ML SYRINGE ONE (13:33)
[2019-07-26] MEDS ORDERED: PROPOFOL 20 ML ONE (13:33)
[2019-07-26] MEDS ORDERED: MIDAZOLAM HCL 2 MG/2 ML SINGLE DOSE VIAL ONE (13:33)
[2019-07-26] MEDS ORDERED: LIDOCAINE HCL 1%, 10 MG/ML (20ML VIAL) NR ONE (13:58)
[2019-07-26 14:04] VITALS: BMI 35.5
--- NOTE | 2019-07-26 14:21 | OP ---
Operative Note - Note: Operative Date: 07/26/19 Pre-Operative Diagnosis: right leg ulcer Operation: Excisional debridement skin, subcutaneous tissue right leg Post-Operative Diagnosis: Same as Pre-op Surgeon: Allen Gabriel Anesthesia: Fractional Estimated Blood Loss (mls): 20 Operative Report Dictated: Yes
[2019-07-26] MEDS ORDERED: ACETAMINOPHEN 325 MG TABLET (FP) PO PRN (14:39)
[2019-07-26] MEDS ORDERED: ONDANSETRON 4 MG/2 ML VIAL IVPUSH PRN (15:37)
[2019-07-26] MEDS ORDERED: LACTATED RINGERS SOLUTION 1,000 ML IV SCH (15:45)
--- NOTE | 2019-07-26 16:45 | PN ---
Progress Note, Physician - Current Medication List Current Medications: Active Medications Acetaminophen (Tylenol -) 650 mg PO Q6H PRN PRN Reason: FEVER/PAIN 1-5 Apixaban (Eliquis -) 5 mg PO BID [facility] Atorvastatin Calcium (Lipitor -) 40 mg PO HS [facility] Collagenase (Santyl -) 1 applic TP DAILY [facility] Fentanyl (Sublimaze Injection -) 50 mcg IVPUSH [id number] PRN PRN Reason: PAIN-PACU ORDER X 4 DOSES ONLY Stop: 07/27/19 15:36 Gabapentin (Neurontin -) 600 mg PO HS [facility] Gabapentin (Neurontin -) 300 mg PO DAILY [facility] Piperacillin Sod/Tazobactam (Sod 3.375 gm/ Dextrose) 50 mls @ 100 mls/hr IVPB Q8H-IV [facility] Lactated Ringer's (Lactated Ringers Solution) 1,000 mls @ 75 mls/hr IV ASDIR [facility] Insulin Aspart (Novolog Vial Sliding Scale -) 1 vial SQ ACHS [facility]; Protocol Metformin HCl (Glucophage Xr -) 750 mg PO BIDAC [facility] Ondansetron HCl (Zofran Injection) 4 mg IVPUSH Q6H PRN PRN Reason: NAUSEA AND/OR VOMITING - Objective Vital Signs: Vital Signs Temperature 97.8 F 07/26/19 16:19 Pulse Rate 83 07/26/19 16:19 Respiratory Rate 20 07/26/19 16:19 Blood Pressure 124/79 07/26/19 16:19 O2 Sat by Pulse Oximetry (%) 98 07/26/19 16:19 Constitutional: Yes: No Distress HENT: Yes: Atraumatic Cardiovascular: Yes: Regular Rate and Rhythm Respiratory: Yes: CTA Bilaterally Gastrointestinal: Yes: Normal Bowel Sounds Extremities: Yes: Other (R jean wound/cellulitis) Neurological: Yes: Alert, Oriented Labs: CBC, BMP 07/26/19 07:50 07/26/19 07:50 Problem List - Problems (1) Traumatic open wound of right lower leg Assessment/Plan: iv abx woundcare debridement ...s/p Code(s): S81.801A - UNSPECIFIED OPEN WOUND, RIGHT LOWER LEG, INITIAL ENCOUNTER Qualifiers: Encounter type: subsequent encounter Qualified Code(s): S81.801D - Unspecified open wound, right lower leg, subsequent encounter (2) Wound cellulitis Code(s): L03.90 - CELLULITIS, UNSPECIFIED (3) Type 2 diabetes mellitus with diabetic polyneuropathy Assessment/Plan: bgms Code(s): E11.42 - TYPE 2 DIABETES MELLITUS WITH DIABETIC POLYNEUROPATHY (4) HLD (hyperlipidemia) Assessment/Plan: on meds Code(s): E78.5 - HYPERLIPIDEMIA, UNSPECIFIED Qualifiers: Hyperlipidemia type: pure hypercholesterolemia Qualified Code(s): E78.00 - Pure hypercholesterolemia, unspecified; E78.0 - Pure hypercholesterolemia (5) HTN (hypertension) Assessment/Plan: on meds Code(s): I10 - ESSENTIAL (PRIMARY) HYPERTENSION Qualifiers: Hypertension type: essential hypertension Qualified Code(s): I10 - Essential (primary) hypertension
[2019-07-26] MEDS ORDERED: ONDANSETRON 4 MG/2 ML VIAL IVPUSH ONE (21:03)
[2019-07-26] MEDS ORDERED: GABAPENTIN 300 MG CAPSULE PO SCH (22:00)
[2019-07-26] MEDS ORDERED: ATORVASTATIN CA 40 MG TABLET (FP) PO SCH (22:00)
[2019-07-26] MEDS: traMADol HCL 50 MG TABLET PO PRN (22:17)
[2019-07-27] MEDS ORDERED: PIPERACILLIN/TAZOBACTAM 3.375 GM VIAL IVPB ONE ×2 (01:16→09:42)
[2019-07-27] MEDS ORDERED: DEXTROSE 5%-WATER - 50 ML IVPB ONE ×2 (01:16→09:43)
[2019-07-27] MEDS: PIPERACILLIN/TAZOB 3.375 GM 3.375 GM in DEXTROSE 5%-WATER - 50 ML IVPB SCH ×2 (01:21→09:46)
[2019-07-27] MEDS ORDERED: PT OWN MED DRAWER 7, Y5N ONE ×2 (05:24→09:42)
[2019-07-27] MEDS: traMADol HCL 50 MG TABLET PO PRN (05:28)
[2019-07-27] MEDS: INSULIN SLIDING SCALE (NOVOLOG) 1 VIAL SQ SCH ×2 (06:11→12:43)
--- NOTE | 2019-07-27 09:34 | PN ---
Progress Note (short form) - Note Progress Note: VASCULAR 59yo F s/p RLE wound debridement POD#1, pt seen and examined at bedside. Pt complains of some mild pain at the wound site. Denies fever, chills, n/v. Last Vital Signs Temp Pulse Resp BP Pulse Ox 98.2 F 80 18 119/74 98 07/27/19 06:00 07/27/19 06:00 07/27/19 06:00 07/27/19 06:00 07/26/19 21:00 CBC, BMP 07/26/19 07:50 07/26/19 07:50 PE: Gen: A&O X3 Resp: breathing comfortably RLE: wound 5 x 4cm on medial ross, with good granulation tissue, active oozing, no erythema or purulent discharge. Santyl dressing placed. Problem List - Problems (1) Traumatic open wound of right lower leg Assessment/Plan: Plan -wound looks clean, continue daily dressing change with santyl -pt cleared for discharge from surgical standpoint, pt should follow up with wound care clinic as outpatient. Code(s): S81.801A - UNSPECIFIED OPEN WOUND, RIGHT LOWER LEG, INITIAL ENCOUNTER Qualifiers: Encounter type: subsequent encounter Qualified Code(s): S81.801A - Unspecified open wound, right lower leg, initial encounter
[2019-07-27] MEDS: APIXABAN 5 MG TABLET PO SCH (09:46)
[2019-07-27] MEDS ORDERED: COLLAGENASE CLOSTRIDIUM HIST. 30 GRAMS TUBE TP SCH (10:00)
[2019-07-27] MEDS ORDERED: GABAPENTIN 300 MG CAPSULE PO SCH (10:00)
--- NOTE | 2019-07-27 11:03 | PN ---
Progress Note, Physician History of Present Illness: stable no new issues debrided - Current Medication List Current Medications: Active Medications Acetaminophen (Tylenol -) 650 mg PO Q6H PRN PRN Reason: FEVER/PAIN 1-5 Apixaban (Eliquis -) 5 mg PO BID [facility] Last Admin: 07/27/19 09:46 Dose: 5 mg Atorvastatin Calcium (Lipitor -) 40 mg PO HS [facility] Last Admin: 07/26/19 21:17 Dose: 40 mg Collagenase (Santyl -) 1 applic TP DAILY [facility] Last Admin: 07/27/19 09:50 Dose: 1 applic Gabapentin (Neurontin -) 600 mg PO HS [facility] Last Admin: 07/26/19 21:18 Dose: 600 mg Gabapentin (Neurontin -) 300 mg PO DAILY [facility] Last Admin: 07/27/19 09:46 Dose: 300 mg Piperacillin Sod/Tazobactam (Sod 3.375 gm/ Dextrose) 50 mls @ 100 mls/hr IVPB Q8H-IV [facility] Last Admin: 07/27/19 09:46 Dose: 100 mls/hr Lactated Ringer's (Lactated Ringers Solution) 1,000 mls @ 75 mls/hr IV ASDIR [facility] Last Admin: 07/26/19 17:27 Dose: 75 mls/hr Insulin Aspart (Novolog Vial Sliding Scale -) 1 vial SQ [facility]; Protocol Last Admin: 07/27/19 06:11 Dose: Not Given Metformin HCl (Glucophage Xr -) 750 mg PO BIDAC [facility] Last Admin: 07/27/19 06:11 Dose: 750 mg Tramadol HCl (Ultram -) 25 mg PO Q6H PRN PRN Reason: PAIN LEVEL 1-5 Last Admin: 07/27/19 05:28 Dose: 25 mg - Objective Vital Signs: Vital Signs Temperature 98.2 F 07/27/19 06:00 Pulse Rate 80 07/27/19 06:00 Respiratory Rate 18 07/27/19 06:00 Blood Pressure 119/74 07/27/19 06:00 O2 Sat by Pulse Oximetry (%) 98 07/26/19 21:00 Constitutional: Yes: No Distress, Calm Cardiovascular: Yes: S1, S2 Respiratory: Yes: Regular, CTA Bilaterally Gastrointestinal: Yes: Normal Bowel Sounds, Soft Musculoskeletal: Yes: WNL Extremities: Yes: Other Wound/Incision: Yes: Dressing Dry and Intact Neurological: Yes: Alert, Oriented Psychiatric: Yes: Alert, Oriented Labs: CBC, BMP 07/26/19 07:50 07/26/19 07:50 Assessment/Plan Problem List - Problems (1) Traumatic open wound of right lower leg Code(s): S81.801A - UNSPECIFIED OPEN WOUND, RIGHT LOWER LEG, INITIAL ENCOUNTER Qualifiers: Encounter type: initial encounter Qualified Code(s): S81.801A - Unspecified open wound, right lower leg, initial encounter (2) Wound cellulitis Code(s): L03.90 - CELLULITIS, UNSPECIFIED (3) Type 2 diabetes mellitus with diabetic polyneuropathy Code(s): E11.42 - TYPE 2 DIABETES MELLITUS WITH DIABETIC POLYNEUROPATHY cellulitis of the leg plan continue abx can change to oral augmentin for another 7 days
[2019-07-27] MEDS ORDERED: INSULIN (NOVOLOG) ASPART 100 UNITS/ML 10ML VIAL ONE (12:35)
[2019-07-27 13:17] VITALS: BP 115/58; PULSE 92; TEMP 98.3
--- NOTE | 2019-07-27 17:04 | DS ---
Physical Examination Vital Signs: Vital Signs Temperature 98.3 F 07/27/19 10:00 Pulse Rate 92 H 07/27/19 10:00 Respiratory Rate 20 07/27/19 10:00 Blood Pressure 115/58 L 07/27/19 10:00 O2 Sat by Pulse Oximetry (%) 98 07/27/19 09:00 Constitutional: Yes: No Distress HENT: Yes: Atraumatic Neck: Yes: Supple Cardiovascular: Yes: Regular Rate and Rhythm Respiratory: Yes: CTA Bilaterally Gastrointestinal: Yes: Normal Bowel Sounds Extremities: Yes: Other (R jean cellulitis) Labs: CBC, BMP 07/26/19 07:50 07/26/19 07:50 Discharge Summary Problems reviewed: Yes Reason For Visit: WOUND CELLULITIS Condition: Stable - Instructions Diet, Activity, Other Instructions: Follow up wound care as per Dr Gabriel instructions Follow up on Thursday in Wound care with Dr. Gabriel HEALTH DATA ANALYST Reference #: [id number] Referrals: Allen Gabriel DO [Staff Physician] - Disposition: VNS/HOME HEALTH CARE - Home Medications Comprehensive Discharge Medication List: Ambulatory Orders Gabapentin [Neurontin -] 300 mg PO DAILY@0700 03/22/18 Liraglutide [Victoza -] 1.8 mg SQ DAILY 03/22/18 metFORMIN HCL [Metformin HCl ER] 750 mg PO BIDAC 04/08/19 Cyanocobalamin [Vitamin B12 -] 1 tab PO DAILY 04/11/19 Insulin Glargine,Hum.rec.anlog [Basaglar Kwikpen U-100] 12 units SQ HS 04/11/19 Meloxicam 15 mg PO DAILY 04/11/19 Multivitamin [One-Daily Multi-Vitamin] 1 tab PO DAILY 04/11/19 Atorvastatin Ca [Lipitor] 40 mg PO DAILY 04/16/19 Ertugliflozin Pidolate [Steglatro] 15 mg PO DAILY 04/16/19 Omeprazole 40 mg PO DAILY 04/16/19 Apixaban [Eliquis] 5 mg PO BID #60 tablet 05/13/19 Gabapentin 300 mg PO DAILY@1200 07/22/19 Gabapentin 600 mg PO HS 07/22/19 Amoxicillin/Potassium Clav [Augmentin 875-125 Tablet] 1 each PO BID #20 tablet 07/26/19 Miscellaneous Medical Supply [Outpatient Order] 1 each [facility] #1 misc Tramadol HCl 50 mg PO QID PRN #15 tablet MDD 4 07/27/19
--- NOTE | 2019-08-04 08:49 | OP ---
DATE OF OPERATION: 07/26/2019 PREOPERATIVE DIAGNOSIS: Right leg ulcer. POSTOPERATIVE DIAGNOSIS: Right leg ulcer. PROCEDURE PERFORMED: Excisional debridement of skin and subcutaneous tissue, right leg ulcer. SURGEON: Allen Fields DO ANESTHESIA: Fractional. BLOOD LOSS: 10 mL. INDICATIONS: Patient is a 59-year-old female who has a non-healing right leg ulcer on the calf. The patient needs deep debridement of the ulcer. The patient was seen in the Wound Care Clinic. Due to the fact that the patient is having so much pain there, it would be best that the patient could be sedated in the operating room and the deep cleaning could be performed. DESCRIPTION OF PROCEDURE: The patient was consented for the procedure, understanding all risks, benefits and alternatives, and was then taken to the operating room. Once in the operating room, the patient was laid on the operating table in the supine manner and the area of the right leg was prepped and draped in a sterile surgical manner. We then injected 15 mL of lidocaine 1% in the area. We then went ahead and took a curette, and we were able to excise all of the bioburden on the wound and the growing skin and subcutaneous tissue. We then took a 15 blade and we were able to excise all the necrotic tissue from the edges. The wound was then well-irrigated. We then put a wet 4 x 4, a dry 4 x 4 and Kerlix on the wound. The patient tolerated the procedure with no complications. The patient will get Santyl on the floor. Total blood loss was 10 mL. The patient was transferred to the PACU in stable condition. ALLEN FIELDS DO SHOPPING CENTRE MANAGER/[id number]
== END 2019-07-27 13:16 | disposition home health service (06) | DRG 380 ==
LOC: JER 11:43 → JERBED 15:07 → J8W 20:21
PROVIDERS: ADMIT Internal Medicine; ATTEND Internal Medicine
PROC: 0JBN0ZZ Excision of Right Lower Leg Subcutaneous Tissue and Fascia, Open Approach (ICD-10-PCS; principal; 2019-07-26 13:30)
DX: E11.622 Type 2 diabetes mellitus with other skin ulcer (principal); L97.818 Non-pressure chronic ulcer of other part of right lower leg with other specified severity; E78.5 Hyperlipidemia, unspecified; I10 Essential (primary) hypertension; L03.115 Cellulitis of right lower limb; I87.331 Chronic venous hypertension (idiopathic) with ulcer and inflammation of right lower extremity; E11.42 Type 2 diabetes mellitus with diabetic polyneuropathy; S81.801A Unspecified open wound, right lower leg, initial encounter; Z86.718 Personal history of other venous thrombosis and embolism; Z79.4 Long term (current) use of insulin; Z79.01 Long term (current) use of anticoagulants
CPT/HCPCS: 36415; 73610-TC-RT-FY; 73630-TC-RT-FY; 80053; 81003; 82962; 85025; 87040; 87086; 87186; 93005; 93010; 93306-TC; 94760; 97116-GP; 97161-GP; 99285-25